=== PATIENT | male | born 1950 | race Caucasian/White ===

== ENCOUNTER 2018-07-25 09:29 | Observation (INO) | payer OTHER ==
--- OUTSIDE RECORDS SUMMARY | 2018-07-25 09:52 | XMS REPORT ---
:1950 Author Organization eClinicalWorks Care Team Providers Name Role Phone Shalonda Manrique Provider Role Unavailable Allergies, Adverse Reactions, Alerts Substance Reaction Event Type N.K.D.A. Info Not Available Non Drug Allergy Problems Problem Type Condition Code Onset Dates Condition Status Problem Medication monitoring encounter Z51.81 Active Problem History of kidney stones Z87.442 Active Problem Gastroesophageal reflux disease, K21.9 Active esophagitis presence not specified Problem Diverticulitis K57.92 Active Problem Depression F32.9 Active Problem Anxiety F41.9 Active Problem Cancer C80.1 Active Problem Sinus problem J34.9 Active Problem Kidney stones N20.0 Active Problem Erectile dysfunction N52.9 Active Assessment Gastritis, presence of bleeding K29.70 Active unspecified, unspecified chronicity, unspecified gastritis type Assessment Gastroesophageal reflux disease, K21.9 Active esophagitis presence not specified Assessment History of kidney stones Z87.442 Active Assessment 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 Problem 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 Assessment Medication monitoring encounter Z51.81 Active Problem Hypertension, unspecified type I10 Active Assessment Hypertension, unspecified type I10 Active Problem Gastritis, presence of bleeding K29.70 Active unspecified, unspecified chronicity, unspecified gastritis type Medications Medication Code Code Instructions Start End Status [id number] Orally Once Active 10 mg 1 dailly tablet (OTC) Flonase ND 01035783636 50 MCG/ACT Active 2 sprays Nasally Once a in each day nostril (otc) Amlodipine ND 70273787289 5 MG Orally Once Active 1 tablet Besylate a day Losartan ND 49914562846 100-12.5 MG Active 1 tablet Potassium-HCTZ Orally Once a day Omeprazole ND 07044021559 40 MG Orally Active 1 capsule Once a day Results No Known Results Summary Purpose eClinicalWorks Submission
--- NOTE | 2018-07-25 09:58 | RAD REPORT ---
EXAM DESCRIPTION: CT - Ct Stroke Brain Wo Cont - 07/25/2018 9:40 am CLINICAL HISTORY: Right facial numbness COMPARISON: None. TECHNIQUE: Computed axial tomography of the head was obtained. IV contrast was not requested. All CT scans are performed using dose optimization technique as appropriate and may include automated exposure control or mA/KV adjustment according to patient size. FINDINGS: An intracranial bleed is not seen . The ventricles are normal in caliber. No extra-axial fluid collection is noted. Fluid within the sinuses/ mastoids is not seen. IMPRESSION: No acute intracranial abnormality is seen. If patient's symptoms persist MRI of the bra in would be recommended. Examination was discussed with Dr. Victoria in the emergency room approximately 9:40 a.m. 07/25/2018
[2018-07-25 10:01] LABS: Absolute Lymphocytes (CBC) 1.2 K/uL (0.7-4.9); Absolute Monocytes 0.7 K/uL (0.1-1.3); Absolute Neutrophil 5.3 K/uL (1.8-8.0); Basophils % 0.7 % (0-1.3); Eosinophils % 0.2 % (0-4.4); Hematocrit 56.8 % (39.6-49.0); Lymphocytes % 16.3 % (15.3-44.8); MCH 29.5 pg (27.0-35.0); MPV 7.5 fL (7.6-11.3); Monocytes % 9.6 % (3.3-12.3); RBC Red Blood Cell Count 6.39 M/uL (4.33-5.43)
[2018-07-25 10:04] LABS: Potassium 3.9 mmol/L (3.5-5.1)
--- NOTE | 2018-07-25 10:10 | RAD REPORT ---
EXAM DESCRIPTION: RAD - Chest Single View - 07/25/2018 9:51 am CLINICAL HISTORY: MALAISE Chest pain. COMPARISON: Abdomen 1 View (KUB) dated 04/17/2018; Abdomen 1 View (KUB) dated 02/25/2016; ABDOMEN 1 VIE W KUB dated 09/02/2015; ABDOMEN 1 VIEW KUB dated 08/31/2015 FINDINGS: Portable technique limits examination quality. The lungs are grossly clear. The heart is normal in size. No displaced fractures. IMPRESSION: No acute intrathoracic process suspected.
--- NOTE | 2018-07-25 10:36 | ER ---
Nurse's Notes [facility] Name: Chema Hernandez Age: 68 yrs Sex: Male : 1950 Arrival Date: 07/25/2018 Time: 09:30 Bed 7 Private MD: Shalonda Manrique Diagnosis: Transient cerebral ischemic attacks and related syndromes Presentation: 07/25 09:34 Presenting complaint: Patient states: at about 0900 this morning had some Right sided sg facial numbness " like he had been to the dentist, spreading down into my right arm into my torso and into my right leg." symptoms have improved slightly per the the pt but still has numbness and tingling. Transition of care: patient was not received from another setting of care. Onset of symptoms was July 25, 2018. Risk Assessment: Do you want to hurt yourself or someone else? Patient reports no desire to harm self or others. Initial Sepsis Screen: Does the patient meet any 2 criteria? No. Patient's initial sepsis screen is negative. Does the patient have a suspected source of infection? No. Patient's initial sepsis screen is negative. Care prior to arrival: None. 09:34 Acuity: ERMA 2 sg 09:34 Method Of Arrival: Ambulatory sg 09:35 No acute neurological deficit is noted. Pre-hospital glucose is not applicable to this sg patient. Triage Assessment: 09:00 The onset of the patients symptoms was July 25, 2018 at 09:00. sg Stroke Activation: Symptom onset < 3 hours Physician: Stroke Attending; Name: ; Notified At: ; Arrived At: Physician: Chief Stroke Resident; Name: ; Notified At: ; Arrived At: Physician: Stroke Resident; Name: ; Notified At: ; Arrived At: Physician: ED Attending; Name: ; Notified At: ; Arrived At: Physician: ED Resident; Name: ; Notified At: ; Arrived At: Historical: - Allergies: 09:36 No Known Allergies; sg - Home Meds: 09:36 amlodipine oral [Active]; losartan oral oral [Active]; sg - PMHx: 09:36 Hypertension; Kidney stones; sg 09:47 Mitral Valve Prolapse; sg 09:50 polycythemia; sg - PSHx: 09:36 prostatectomy; bilateral inguinal hernia repair; sg - Immunization history:: Adult Immunizations unknown. - Social history:: Smoking status: Patient uses tobacco products, 4 cigarettes a day, Patient uses alcohol, on a daily basis. 1 to 2 beverages a night. - Ebola Screening: : Patient negative for fever greater than or equal to 101.5 degrees Fahrenheit, and additional compatible Ebola Virus Disease symptoms Patient denies exposure to infectious person Patient denies travel to an Ebola-affected area in the 21 days before illness onset No symptoms or risks identified at this time. Screenin:48 Abuse screen: Denies threats or abuse. Denies injuries from another. Nutritional sg screening: No deficits noted. Tuberculosis screening: No symptoms or risk factors identified. Never had TB. Fall Risk None identified. Assessment: 09:30 General: Appears in no apparent distress. comfortable, well groomed, well developed, sg well nourished, Behavior is calm, cooperative, appropriate for age. Pain: Denies pain. Quality of pain is described as numb. Neuro: Reports numbness in right cheek and right arm. Cardiovascular: Capillary refill is brisk in bilateral fingers Patient's skin is warm and dry. Chest pain is denied. Respiratory: Airway is patent Respiratory effort is even, unlabored, Respiratory pattern is regular, symmetrical. GI: No signs and/or symptoms were reported involving the gastrointestinal system. : No signs and/or symptoms were reported regarding the genitourinary system. EENT: No signs and/or symptoms were reported regarding the EENT system. Derm: Skin is pink, warm \\T\\ dry. Musculoskeletal: No signs and/or symptoms reported regarding the musculoskeletal system. 09:39 Patient has been NPO before screening. The patient is alert, and able to follow sg commands. The patient does not exhibit slurred or garbled speech. The patient is not exhibiting difficulty speaking. The patient does not exhibit difficulty understanding words. The patient is able to swallow own secretions with no drooling or need for suction. Patient tolerated one teaspoon of water. No drooling, immediate coughing, gurgling, or clearing of the throat was noted. The patient tolerated 90mL of water. No drooling, immediate coughing, gurgling, or clearing of the throat was noted. The patient passed the bedside swallow screening. Oral medications may be given as ordered. Contact Physician for further diet orders. T-PA (Activase) Screening: Contraindications: Rapidly improving condition or minor deficit: Yes. 09:39 Provider notified of bedside swallow screening results: Zen Victoria MD. sg 10:30 Reassessment: Patient appears in no apparent distress at this time. Patient and/or hb family updated on plan of care and expected duration. Pain level reassessed. Patient is alert, oriented x 3, equal unlabored respirations, skin warm/dry/pink. Vital Signs: 09:43 BP 135 / 103; Pulse 65; Resp 16 S; Temp 97.6(O); Pulse Ox 98% on R/A; Weight 64.41 kg sg (R); Height 5 ft. 8 in. (172.72 cm) (R); Pain 3/10; 10:53 BP 131 / 89; Pulse 60; Resp 17; Pulse Ox 100% on R/A; Pain 3/10; sg 11:30 BP 128 / 86; Pulse 54; Resp 15; Pulse Ox 100% on R/A; hb 12:40 BP 120 / 83; Pulse 57; Resp 16; Pulse Ox 100% on R/A; hb 09:43 Body Mass Index 21.59 (64.41 kg, 172.72 cm) sg NIH Stroke Scale Scores: 09:35 NIHSS Score: 0 gs 09:39 NIHSS Score: 0 ED Course: 09:30 Patient arrived in ED. as 09:30 Shalonda Manrique MD is Private Physician. as 09:33 Zen Victoria MD is Attending Physician. gs 09:35 Triage completed. sg 09:37 Arm band placed on. sg 09:39 CT Stroke Brain w/o Contrast In Process Unspecified. EDMS 09:40 Initial lab(s) drawn, by ED staff, sent to lab. Inserted saline lock: 20 gauge in right sg forearm, using aseptic technique. Blood collected. 09:43 Scout Cuevas, RN is Primary Nurse. sg 09:45 Patient has correct armband on for positive identification. Placed in gown. Bed in low hb position. Call light in reach. Side rails up X 1. 09:49 Stroke CXR 1 View In Process Unspecified. EDMS 10:13 EKG done, by central sterile technician. reviewed by Zen Victoria MD. at1 10:35 Abner Rodriguez DO is Hospitalizing Provider. gs 13:05 No provider procedures requiring assistance completed. Patient admitted, IV remains in sg place. intact, No redness/swelling at site. Administered Medications: No medications were administered Point of Care Testing: Blood Glucose: 09:42 Blood Glucose: 102 mg/dL; hb Ranges: Outcome: 10:35 Decision to Hospitalize by Provider. 13:05 Admitted to Tele accompanied by cody, via wheelchair, room 419, with chart, Report sg called to Darshana MCARTHUR 13:05 Condition: good 13:05 Instructed on the need for admit, safety practices, Demonstrated understanding of instructions. 13:20 Patient left the ED. cp NIH Stroke Scale - NIH Stroke Score Date: 07/25/2018 Time: 09:35 Total Score = 0 1a. Level of Consciousness (LOC) - 0(Alert) 1b. Level of Consciousness (LOC) (Year \\T\\ Age) - 0(Both) 1c. LOC Commands (Open \\T\\ Closes Eyes/Child Care Lead Teacher) - 0(Both) 2. Best Gaze (Lateral Gaze Paresis) - 0(Normal) 3. Visual Field Loss - 0(No visual loss) 4. Facial Palsy - 0(Normal) 5a. Left Arm: Motor (10-second hold) - 0(No drift) 5b. Right Arm: Motor (10-second hold) - 0(No drift) 6a. Left Leg: Motor (5-second hold - always test supine) - 0(No drift) 6b. Right Leg: Motor (5-second hold - always test supine) - 0(No drift) 7. Limb Ataxia (finger/nose \\T\\ heel/shelton - test with eyes open) - 0(Absent) 8. Sensory Loss (pinprick arms/legs/face) - 0(Normal) 9. Best Language: Aphasia (description/naming/reading) - 0(No aphasia) 10. Dysarthria (speech clarity - read or repeat words) - 0(Normal) 11. Extinction and Inattention (visual/tactile/auditory/spatial/personal) - 0(No abnormality) Initials: NIH Stroke Scale - NIH Stroke Score Date: 07/25/2018 Time: 09:39 Total Score = 0 1a. Level of Consciousness (LOC) - 0(Alert) 1b. Level of Consciousness (LOC) (Year \\T\\ Age) - 0(Both) 1c. LOC Commands (Open \\T\\ Closes Eyes/Child Care Lead Teacher) - 0(Both) 2. Best Gaze (Lateral Gaze Paresis) - 0(Normal) 3. Visual Field Loss - 0(No visual loss) 4. Facial Palsy - 0(Normal) 5a. Left Arm: Motor (10-second hold) - 0(No drift) 5b. Right Arm: Motor (10-second hold) - 0(No drift) 6a. Left Leg: Motor (5-second hold - always test supine) - 0(No drift) 6b. Right Leg: Motor (5-second hold - always test supine) - 0(No drift) 7. Limb Ataxia (finger/nose \\T\\ heel/shelton - test with eyes open) - 0(Absent) 8. Sensory Loss (pinprick arms/legs/face) - 0(Normal) 9. Best Language: Aphasia (description/naming/reading) - 0(No aphasia) 10. Dysarthria (speech clarity - read or repeat words) - 0(Normal) 11. Extinction and Inattention (visual/tactile/auditory/spatial/personal) - 0(No abnormality) Initials: sg Signatures: Dispatcher [employer] EDScout Gongora RN RN Robyn Nicholas Amanda, tooling specialist EKG Tat1 Doulgas Fernandez PA PA cp Baxter, Heather, RN RN Zen Victoria MD MD gs Corrections: (The following items were deleted from the chart) 09:53 09:43 BP 135 / 103; Pulse 65bpm; Resp 16bpm; Spontaneous; Pulse Ox 98% RA; Temp sg 97.6F Oral; 78.02 kg Reported; Height 5 ft. 8 in. Reported; BMI: 26.1; Pain 10; sg
--- NOTE | 2018-07-25 10:36 | EDPHYS ---
Physician Documentation [facility] Name: Chema Hernandez Age: 68 yrs Sex: Male : 1950 Arrival Date: 07/25/2018 Time: 09:30 Bed 7 Private MD: Shalonda Manirque ED Physician Zen Victoria HPI: 07/25 09:35 This 68 yrs old Male presents to ER via Ambulatory with complaints of gs Numbness - R Arm/Leg. 10:29 The patient's problem is reported as paresthesias, in right upper extremity, in right gs lower extremity, in right side of face. Onset: The symptoms/episode began/occurred acutely, today, at 09:00. Duration: This was a single incident, lasting 30 minute(s). The symptoms are alleviated by nothing. The symptoms are aggravated by nothing. Associated signs and symptoms: Pertinent negatives: chest pain, combativeness, confusion. Severity of symptoms: At their worst the symptoms were severe in the emergency department the symptoms have resolved and did so just prior to arrival. Patient's baseline: Neuro: alert and fully oriented, Motor: no deficits, Ambulation: walks without assistance, Speech: normal. The patient has not experienced similar symptoms in the past. The patient has not recently seen a physician. Historical: - Allergies: 09:36 No Known Allergies; sg - Home Meds: 09:36 amlodipine oral [Active]; losartan oral oral [Active]; sg - PMHx: 09:36 Hypertension; Kidney stones; sg 09:47 Mitral Valve Prolapse; sg 09:50 polycythemia; sg - PSHx: 09:36 prostatectomy; bilateral inguinal hernia repair; sg - Immunization history:: Adult Immunizations unknown. - Social history:: Smoking status: Patient uses tobacco products, 4 cigarettes a day, Patient uses alcohol, on a daily basis. 1 to 2 beverages a night. - Ebola Screening: : Patient negative for fever greater than or equal to 101.5 degrees Fahrenheit, and additional compatible Ebola Virus Disease symptoms Patient denies exposure to infectious person Patient denies travel to an Ebola-affected area in the 21 days before illness onset No symptoms or risks identified at this time. ROS: 10:29 All other systems are negative. gs Exam: 10:29 Constitutional: This is a well developed, well nourished patient who is awake, alert, gs and in no acute distress. Head/Face: Normocephalic, atraumatic. Eyes: Pupils equal round and reactive to light, extra-ocular motions intact. Lids and lashes normal. Conjunctiva and sclera are non-icteric and not injected. Cornea within normal limits. Periorbital areas with no swelling, redness, or edema. ENT: Nares patent. No nasal discharge, no septal abnormalities noted. Tympanic membranes are normal and external auditory canals are clear. Oropharynx with no redness, swelling, or masses, exudates, or evidence of obstruction, uvula midline. Mucous membranes moist. Neck: Trachea midline, no thyromegaly or masses palpated, and no cervical lymphadenopathy. Supple, full range of motion without nuchal rigidity, or vertebral point tenderness. No Meningismus. Chest/axilla: Normal chest wall appearance and motion. Nontender with no deformity. No lesions are appreciated. Cardiovascular: Regular rate and rhythm with a normal S1 and S2. No gallops, murmurs, or rubs. Normal PMI, no JVD. No pulse deficits. Respiratory: Lungs have equal breath sounds bilaterally, clear to auscultation and percussion. No rales, rhonchi or wheezes noted. No increased work of breathing, no retractions or nasal flaring. Abdomen/GI: Soft, non-tender, with normal bowel sounds. No distension or tympany. No guarding or rebound. No evidence of tenderness throughout. Back: No spinal tenderness. No costovertebral tenderness. Full range of motion. Skin: Warm, dry with normal turgor. Normal color with no rashes, no lesions, and no evidence of cellulitis. MS/ Extremity: Pulses equal, no cyanosis. Neurovascular intact. Full, normal range of motion. 10:29 ECG was reviewed by the Attending Physician. 10:29 Neuro: Orientation: is normal, Mentation: appropriate for stated age, Memory: is normal, Cranial nerves: CN II- XII are normal as tested, Cerebellar function: normal finger to nose testing, Motor: moves all fours, strength is normal, Sensation: no obvious gross deficits, pin prick testing is normal, Gait: is steady. Vital Signs: 09:43 BP 135 / 103; Pulse 65; Resp 16 S; Temp 97.6(O); Pulse Ox 98% on R/A; Weight 64.41 kg sg (R); Height 5 ft. 8 in. (172.72 cm) (R); Pain 3/10; 10:53 BP 131 / 89; Pulse 60; Resp 17; Pulse Ox 100% on R/A; Pain 3/10; sg 11:30 BP 128 / 86; Pulse 54; Resp 15; Pulse Ox 100% on R/A; hb 12:40 BP 120 / 83; Pulse 57; Resp 16; Pulse Ox 100% on R/A; hb 09:43 Body Mass Index 21.59 (64.41 kg, 172.72 cm) NIH Stroke Scale Scores: 09:35 NIHSS Score: 0 gs 09:39 NIHSS Score: 0 sg MDM: 09:47 Patient medically screened. gs 10:29 Differential diagnosis: CVA, TIA, paralysis, metabolic disorder. Data reviewed: vital gs signs, nurses notes. Response to treatment: the patient's symptoms have resolved after treatment, and as a result, I will admit patient. 07/25 09:34 Order name: Basic Metabolic Panel; Complete Time: 10:39 07/25 09:34 Order name: CBC with Diff; Complete Time: 10:39 07/25 09:34 Order name: Protime (+inr); Complete Time: 10:40 07/25 09:45 Order name: Glucose, Ancillary Testing; Complete Time: 10:39 EDMS 07/25 12:11 Order name: T4 Free; Complete Time: 12:13 EDMS 07/25 12:11 Order name: Thyroid Stimulating Hormone; Complete Time: 12:13 EDMS 07/25 09:34 Order name: CT Stroke Brain w/o Contrast; Complete Time: 10:39 07/25 09:34 Order name: Stroke CXR 1 View; Complete Time: 10:39 07/25 09:34 Order name: EKG; Complete Time: 09:35 07/25 09:34 Order name: Accucheck; Complete Time: 09:45 07/25 09:34 Order name: Cardiac monitoring; Complete Time: 09:45 07/25 09:34 Order name: EKG - Nurse/Tech; Complete Time: 10:03 07/25 09:34 Order name: IV Saline Lock; Complete Time: 09:45 07/25 10:44 Order name: CONS Physician Consult EDMS 07/25 09:34 Order name: Labs collected and sent; Complete Time: 09:45 gs 07/25 09:34 Order name: NPO; Complete Time: 09:45 gs 07/25 09:34 Order name: O2 Per Protocol; Complete Time: 09:45 gs 07/25 09:34 Order name: O2 Sat Monitoring; Complete Time: 09:45 gs 07/25 09:34 Order name: Stroke Swallow Screen; Complete Time: 10:03 gs EC:29 Rate is 66 beats/min. Rhythm is regular. TX interval is normal. QRS interval is gs prolonged. Q waves are Old in leads II, III, aVF. T waves are Inverted. Clinical impression: NSR w/ Non-specific ST/T Changes and Abnormal EKG without significant change. Interpreted by me. Administered Medications: No medications were administered Point of Care Testing: Blood Glucose: 09:42 Blood Glucose: 102 mg/dL; hb Ranges: Critical Glucose Levels:Adult <50 mg/dl or >400 mg/dl <40 mg/dl or >180 mg/dl Disposition: 07/25/18 10:35 Hospitalization ordered by Abner Rodriguez for Observation. Preliminary diagnosis is Transient cerebral ischemic attacks and related syndromes. - Bed requested for Telemetry/MedSurg (observation). - Status is Observation. cp - Condition is Stable. - Problem is new. - Symptoms are resolved. UTI on Admission? No NIH Stroke Scale - NIH Stroke Score Date: 07/25/2018 Time: 09:35 Total Score = 0 1a. Level of Consciousness (LOC) - 0(Alert) 1b. Level of Consciousness (LOC) (Year \T\ Age) - 0(Both) 1c. LOC Commands (Open \T\ Closes Eyes/Taker Off Drying Kiln) - 0(Both) 2. Best Gaze (Lateral Gaze Paresis) - 0(Normal) 3. Visual Field Loss - 0(No visual loss) 4. Facial Palsy - 0(Normal) 5a. Left Arm: Motor (10-second hold) - 0(No drift) 5b. Right Arm: Motor (10-second hold) - 0(No drift) 6a. Left Leg: Motor (5-second hold - always test supine) - 0(No drift) 6b. Right Leg: Motor (5-second hold - always test supine) - 0(No drift) 7. Limb Ataxia (finger/nose \T\ heel/shelton - test with eyes open) - 0(Absent) 8. Sensory Loss (pinprick arms/legs/face) - 0(Normal) 9. Best Language: Aphasia (description/naming/reading) - 0(No aphasia) 10. Dysarthria (speech clarity - read or repeat words) - 0(Normal) 11. Extinction and Inattention (visual/tactile/auditory/spatial/personal) - 0(No abnormality) Initials: NIH Stroke Scale - NIH Stroke Score Date: 07/25/2018 Time: 09:39 Total Score = 0 1a. Level of Consciousness (LOC) - 0(Alert) 1b. Level of Consciousness (LOC) (Year \T\ Age) - 0(Both) 1c. LOC Commands (Open \T\ Closes Eyes/Taker Off Drying Kiln) - 0(Both) 2. Best Gaze (Lateral Gaze Paresis) - 0(Normal) 3. Visual Field Loss - 0(No visual loss) 4. Facial Palsy - 0(Normal) 5a. Left Arm: Motor (10-second hold) - 0(No drift) 5b. Right Arm: Motor (10-second hold) - 0(No drift) 6a. Left Leg: Motor (5-second hold - always test supine) - 0(No drift) 6b. Right Leg: Motor (5-second hold - always test supine) - 0(No drift) 7. Limb Ataxia (finger/nose \T\ heel/shelton - test with eyes open) - 0(Absent) 8. Sensory Loss (pinprick arms/legs/face) - 0(Normal) 9. Best Language: Aphasia (description/naming/reading) - 0(No aphasia) 10. Dysarthria (speech clarity - read or repeat words) - 0(Normal) 11. Extinction and Inattention (visual/tactile/auditory/spatial/personal) - 0(No abnormality) Initials: Signatures: Dispatcher [employer] Sherin Parker RN RN dw Gay, Steven, RN RN sg Page, Corey, PA PA cp Starr, Gregory, MD MD gs Corrections: (The following items were deleted from the chart) 12:16 10:35 Hospitalization Ordered by Abner Rodriguez DO for Observation. Preliminary diagnosis is Transient cerebral ischemic attacks and related syndromes. Bed requested for Telemetry/MedSurg (observation). Status is Observation. Condition is Stable. Problem is new. Symptoms are resolved. UTI on Admission? No. gs 13:20 12:16 07/25/2018 10:35 Hospitalization Ordered by Abner Rodriguez DO for cp Observation. Preliminary diagnosis is Transient cerebral ischemic attacks and related syndromes. Bed requested for Telemetry/MedSurg (observation). Status is Observation. Condition is Stable. Problem is new. Symptoms are resolved. UTI on Admission? No. dw
[2018-07-25] MEDS ORDERED: ONDANSETRON 4 MG/2 ML VIAL IV PRN (11:27)
[2018-07-25] MEDS ORDERED: ACETAMINOPHEN 500 MG TAB PO PRN (11:27)
[2018-07-25 12:10] LABS: Thyroid Stimulating Hormone 0.819 uIU/mL (0.360-3.740)
--- NOTE | 2018-07-25 12:25 | EKG ---
Test Date: 2018-07-25 Test Time: 09:48:20 Tugger Operator: SHERICE MEASUREMENT RESULTS: Intervals: Rate: 66 IL: 162 QRSD: 112 QT: 380 QTc: 398 Vida: P: 39 IL: 162 QRS: 260 T: -25 INTERPRETIVE STATEMENTS: Normal sinus rhythm Right superior axis deviation Low voltage QRS Inferior infarct, age undetermined Anteroseptal infarct, age undetermined Abnormal ECG Compared to ECG 08/07/2015 12:05:25 Right superior axis now present Low QRS voltage now present Left-axis deviation no longer present Myocardial infarct finding still present Electronically Signed On 07-25-18 12:24:09 CDT by Jefe Walters
--- NOTE | 2018-07-25 13:39 | P.HP ---
Certification for Inpatient Patient admitted to: Observation With expected LOS: <2 Midnights Patient will require the following post-hospital care: None Practitioner: I am a practitioner with admitting privileges, knowledge of patient current condition, hospital course, and medical plan of care. Services: Services provided to patient in accordance with Admission requirements found in Title 42 Section 412.3 of the Code of Federal Regulations Patient History Date of Service: 07/25/18 Primary Care Provider: Dr. Ko; Urology-Dr. Krueger; Hemotology-Dr. Paige; GI-Dr. Knight Reason for admission: Right facial and upper/lower extremity numbness History of Present Illness: 68-year-old male presented to the emergency room with facial and upper /lower extremity numbness. Patient with history of hypertension, polycythemia, mitral valve prolapse, and tobacco abuse. 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 He started to have some right facial numbness. The numbness spread to the right upper and lower extremity. He denied any weakness, vision loss, speech loss, chest pain, shortness of breath or nausea. the numbness lasted about 10 min. This resolved. After discussing this with his . He came to the emergency room for further evaluation. In the ER patient was evaluated. Blood pressure stable 123/81. Hemoglobin 18.8 with a hematocrit of 56. White count 7.2. Sodium 143, potassium 3.9, BUN 18, creatinine 1.4 with a GFR 51. Glucose 138. CT of the head unremarkable. Chest x-ray unremarkable. The patient was admitted for further evaluation. When I saw the patient ER, he was without complaints. He reports a history of polycythemia. 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 He reports that he had been getting phlebotomies every month but this was becoming more inconvenient. He stop will bottom use in April. Patient also smokes. He reports a history of hypertension, mitral valve prolapse. Allergies No Known Allergies Allergy (Verified 08/07/15 11:44) Home medications list reviewed: Yes Home Medications: Amlodipine [Norvasc] 2.5 mg PO DAILY 08/07/15 Codeine/APAP [Tylenol #3*] 1 tab PO PRN PRN 08/07/15 Losartan/Hydrochlorothiazide [Hyzaar 100-12.5 Tablet] 1 tab PO DAILY 08/07/15 - Past Medical/Surgical History Diabetic: No -: Hypertension -: Polycythemia -: Nephrolithiasis -: History of prostate cancer -: Mitral valve prolapse -: Radical prostatectomy -: Hernia repair -: Rotator cuff repair Psychosocial/ Personal History: He is . He has 2 children. 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 - Family History Mother -: Cancer (Liver cancer) Father -: Heart disease - Social History Smoking Status: Light Tobacco smoker (1-9 cigarettes/day) Counseled patient to stop smoking for: less than 10 minutes Smoking therapy provided: Yes Patient receptive to therapy: Yes Alcohol use: Yes CD- Drugs: No Caffeine use: Yes Place of Residence: Home Review of Systems General: As per HPI Eyes: Unremarkable ENT: As per HPI Respiratory: Unremarkable Cardiovascular: Unremarkable Gastrointestinal: Unremarkable Genitourinary: Unremarkable Musculoskeletal: Unremarkable Integumentary: Unremarkable Neurological: Numbness, As per HPI Lymphatics: Unremarkable Physical Examination - Vital Signs Temperature: 97.6 F Blood Pressure: 120/83 Pulse: 57 Respirations: 16 - Physical Exam General: Alert, In no apparent distress, Oriented x3, Cooperative HEENT: Atraumatic, Normocephalic, PERRLA, Mucous membr. moist/pink Neck: Supple, No Thyromegaly Respiratory: Clear to auscultation bilaterally, Normal air movement Cardiovascular: Normal pulses, Regular rate/rhythm Gastrointestinal: Normal bowel sounds, Soft and benign, Non-distended, No tenderness, No masses, No rebound, No guarding Musculoskeletal: No erythema, No tenderness, No warmth Integumentary: No tenderness/swelling, No erythema, No warmth, No cyanosis Neurological: Normal speech, Normal strength at 5/5 x4 extr, Normal tone, Normal affect Lymphatics: No axilla or inguinal lymphadenopathy - Studies Laboratory Data (last 24 hrs) 07/25/18 10:20: PT 11.8, INR 1.00 07/25/18 09:40: WBC 7.2, Hgb 18.8 H, Hct 56.8 H, Plt Count 314 07/25/18 09:40: Sodium 143, Potassium 3.9, BUN 18, Creatinine 1.40 H, Glucose 138 H Assessment and Plan - Plan Impression: Right facial and upper/lower extremity numbness, resolved likely TIA Polycythemia vera Hypertension Nephrolithiasis Tobacco abuse Plan: Right facial and upper/lower extremity numbness, resolved likely TIA: Symptoms have resolved. Patient will be monitored closely. Will order stroke protocol MRI, echocardiogram and carotid Doppler to further evaluate. Patient now on aspirin 81 mg daily, folic acid 1 mg daily, and Lipitor daily. TIA likely related to polycythemia vera. Patient had been getting phlebotomies every month but this was becoming too inconvenient. His last phlebotomy was April 2018. Patient will get phlebotomized. Will continue with IV fluids. Will physical therapy assess ambulation. Await further recommendations from neurology. Case discussed at length with hematology. Polycythemia vera: As above. Patient will get a phlebotomy. Will continue with IV fluids. Recommend hematocrit less than 45. This will need to be maintained as an outpatient. Patient will likely require future follow phlebotomies. Hypertension: Will review and restart home medication. Nephrolithiasis: Overall stable. Tobacco abuse: Tobacco cessation addressed in detail. Will continue with cessation education. I will turn the service over to Dr. Capone tomorrow. I will go over the plan of care with her. Discharge Plan: Home Plan to discharge in: 24 Hours - Advance Directives Does patient have a Living Will: No Does patient have a Durable POA for Healthcare: No - Code Status/Comfort Care Code Status Assessed: Yes (Patient full code.) Time Spent Managing Pts Care (In Minutes): 55
[2018-07-25] MEDS: NA CHLORIDE 0.9% 1,000 ML IV SCH (14:08)
[2018-07-25 15:43] LABS: CKMB Creatine Kinase MB < 1.0 ng/mL (0.3-3.6); Creatine Phosphokinase 57 U/L (39-308); Troponin I < 0.02 ng/mL (0.0-0.045)
[2018-07-25 15:50] LABS: Urine Appearance CLEAR; Urine Bilirubin NEGATIVE (NEG); Urine Blood 3+ (NEG); Urine Color YELLOW; Urine Glucose NEGATIVE (NEG); Urine Protein 2+ (NEG); Urine Specific Gravity 1.015 (1.005-1.030); Urine pH 7.5 (5.0-7.0)
[2018-07-25] MEDS ORDERED: INFLUENZA VACCINE (for 3y+) 0.5 ML DOSE IMVAC ONE (16:00)
[2018-07-25 16:01] LABS: Urine Microscopic Reflex ORDER UMIC
[2018-07-25 16:46] LABS: Urine Bacteria <20 /HPF (NONE SEEN); Urine Culture Reflex Order REFLEXED; Urine RBC >50 /HPF (NONE SEEN)
[2018-07-25] MEDS: ENOXAPARIN 40 MG/0.4 ML SQ SCH (17:04)
[2018-07-25] MEDS ORDERED: ATORVASTATIN 40 MG TAB PO SCH (21:00)
[2018-07-25 23:06] LABS: CKMB Creatine Kinase MB < 1.0 ng/mL (0.3-3.6); Creatine Phosphokinase 36 U/L (39-308); Troponin I < 0.02 ng/mL (0.0-0.045)
[2018-07-26] MEDS: NA CHLORIDE 0.9% 1,000 ML IV SCH ×2 (00:55→14:40)
[2018-07-26 04:14] LABS: Absolute Lymphocytes (CBC) 1.2 K/uL (0.7-4.9); Absolute Monocytes 0.7 K/uL (0.1-1.3); Absolute Neutrophil 5.6 K/uL (1.8-8.0); Basophils % 0.4 % (0-1.3); Eosinophils % 1.2 % (0-4.4); Lymphocytes % 15.7 % (15.3-44.8); MCH 29.5 pg (27.0-35.0); MPV 7.6 fL (7.6-11.3); Monocytes % 9.6 % (3.3-12.3); RBC Red Blood Cell Count 5.95 M/uL (4.33-5.43)
[2018-07-26 04:25] LABS: Magnesium 1.9 mg/dL (1.8-2.4); Potassium 3.6 mmol/L (3.5-5.1)
[2018-07-26] MEDS ORDERED: PANTOPRAZOLE 40MG TABLET PO SCH (06:30)
[2018-07-26] MEDS ORDERED: ASPIRIN EC 81 MG TAB PO SCH (09:00)
[2018-07-26] MEDS: ENOXAPARIN 40 MG/0.4 ML SQ SCH (17:07)
--- NOTE | 2018-07-26 17:07 | ECHO ---
HEIGHT: 5 ft 8 in WEIGHT: 141 lb 15.996 oz DATE OF STUDY: 07/26/[address]: Neeta Capone MD 2-DIMENSIONAL: YES M.MODE: YES DOPPLER: YES COLOR FLOW: YES TDS: PORTABLE: DEFINITY: BUBBLE STUDY: DIAGNOSIS: TRANSIENT ISCHEMIC ATTACK CARDIAC HISTORY: CATHERIZATION: NO SURGERY: NO PROSTHETIC VALVE: NO PACEMAKER: NO MEASUREMENTS (cm) DIASTOLIC (NORMALS) SYSTOLIC (NORMALS) 2 DIMENSIONAL ASSESSMENT: RIGHT ATRIUM: NORMAL LEFT ATRIUM: NORMAL RIGHT VENTRICLE: NORMAL LEFT VENTRICLE: NORMAL TRICUSPID VALVE: NORMAL MITRAL VALVE:MITRAL VALVE PROLAPSE WITH THICKENED LEAFLET PULMONIC VALVE: NORMAL AORTIC VALVE: NORMAL PERICARDIAL EFFUSION: NONE AORTIC ROOT: NORMAL LEFT VENTRICULAR WALL MOTION: NORMAL DOPPLER/COLOR FLOW: NORMAL COMMENTS: NORMAL LEFT VENTRICULAR EJECTION FRACTION. MITRAL VALVE PROLAPSE WITH MITRAL LEAFLET THICKENING. NO MITRAL REGURGITATION. OTHERWISE NORMAL TWO DIMENSIONAL ECHOCARDIOGRAM WITH DOPPLER. TECHNOLOGIST: PETRA BELCHER
--- NOTE | 2018-07-26 17:09 | RAD REPORT ---
EXAM DESCRIPTION: MRI - Brain W/Wo Cont - 07/26/2018 4:51 pm CLINICAL HISTORY: Right facial numbness COMPARISON: 07/25/2018 cat scan TECHNIQUE: Axial, sagittal, and coronal magnetic images of the brain were obtained. 15 cc Magnevist administered intravenously FINDINGS: A few small areas increased signal are present within periventricular, deep and subcortica l white matter likely representing ischemic changes secondary to mild small vessel disease. Diffusion-weighted/ADC mapping does not reveal evidence of acute infarction. The ventricles are normal caliber. No abnormal enhancement within the brain is seen. An extra-axial fluid collection is not seen. The sinuses and mastoids are clear. IMPRESSION: No acute abnormality displayed
--- NOTE | 2018-07-26 17:11 | RAD REPORT ---
EXAM DESCRIPTION: MRI - MRA Neck W/Wo Cont - 07/26/2018 4:51 pm CLINICAL HISTORY: Facial numbness COMPARISON: None. TECHNIQUE: Magnetic resonance angiogram of the neck was performed. 16 cc Magnevist was administered intravenously. 3D MIPS reconstruction performed FINDINGS: The common carotid, internal carotid and external carotid arteries do not demonstrate a si gnificant stenosis. An aneurysm is not seen. The left vertebral artery is more dominant than the right. No abnormality is displayed. IMPRESSION: Unremarkable MRA neck
--- NOTE | 2018-07-26 17:13 | RAD REPORT ---
EXAM DESCRIPTION: MRI - MRA Head Wo Cont - 07/26/2018 4:50 pm CLINICAL HISTORY: Facial numbness COMPARISON: None. TECHNIQUE: Magnetic resonance angiogram of the head was performed. 3D MIPS reconstruction performed FINDINGS: The visualized anterior cerebral, middle cerebral, posterior cerebral, basilar and distal internal carotid arteries do not demonstrate a significant stenosis. An aneurysm is not seen IMPRESSION: Unremarkable MRA head
--- NOTE | 2018-07-26 17:29 | P.SSS ---
Patient History Date of Service: 07/26/18 Primary Care Provider: Dr. Ko; Urology-Dr. Krueger; Hemotology-Dr. Paige; GI-Dr. Knight Reason for admission: Right facial and upper/lower extremity numbness History of Present Illness: See HPI Allergies No Known Allergies Allergy (Verified 08/07/15 11:44) Home Medications: Amlodipine [Norvasc*] 2.5 mg PO DAILY 08/07/15 Losartan/Hydrochlorothiazide [Hyzaar 100-12.5 Tablet] 1 tab PO DAILY 08/07/15 Omeprazole [Prilosec] 40 mg PO DAILY 07/25/18 Aspirin 81 mg PO DAILY #30 tab.chew 07/26/18 Atorvastatin Calcium [Lipitor] 80 mg PO BEDTIME #30 tab 07/26/18 - Past Medical/Surgical History Has patient received pneumonia vaccine in the past: No Diabetic: No -: Hypertension -: Polycythemia -: Nephrolithiasis -: History of prostate cancer -: Mitral valve prolapse -: Radical prostatectomy -: Hernia repair -: Rotator cuff repair Psychosocial/ Personal History: He is . He has 2 children. 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 - Family History Mother -: Cancer Father -: Heart disease - Social History Smoking Status: Light Tobacco smoker (1-9 cigarettes/day) Alcohol use: Yes CD- Drugs: No Caffeine use: Yes Place of Residence: Home Review of Systems 10-point ROS is otherwise unremarkable Physical Examination - Vital Signs Temperature: 98 F Blood Pressure: 134/79 Pulse: 61 Respirations: 20 Pulse Ox (%): 98 - Physical Exam General: Alert, In no apparent distress HEENT: Atraumatic, PERRLA, Mucous membr. moist/pink, EOMI, Sclerae nonicteric Neck: Supple, 2+ carotid pulse no bruit, No LAD, Without JVD or thyroid abnormality Respiratory: Clear to auscultation bilaterally, Normal air movement Cardiovascular: Regular rate/rhythm, Normal S1 S2 Gastrointestinal: Normal bowel sounds, No tenderness Musculoskeletal: No tenderness Integumentary: No rashes Neurological: Normal gait, Normal speech, Normal strength at 5/5 x4 extr, Normal tone, Normal affect Lymphatics: No axilla or inguinal lymphadenopathy - Diagnosis (Problem(s)) (1) Numbness of right lower extremity Onset Date: 07/26/18 Current Visit: Yes Status: Resolved (2) Hypertension Onset Date: 07/26/18 Current Visit: Yes Status: Chronic Qualifiers: Hypertension type: essential hypertension Qualified Code(s): I10 - Essential (primary) hypertension (3) Tobacco abuse Onset Date: 07/26/18 Current Visit: Yes Status: Chronic Treatment Summary: Overall during the hospital stay patient remained stable Patient was in the hospital for numbness and tingling on the right side upper and lower extremity. Patient had a TIA workup done here in the hospital. Patient had marked resolution of his symptoms once he was started on aspirin and Lipitor here in the hospital. Numbness and tingling with had resolved here in the ER. Patient had a head CT done here in the hospital which was negative for any acute CVA. MRI was also negative for any acute abnormality. Echocardiogram done was also negative for any acute abnormality. At that time patient was discharged home under stable condition was asked to continue taking aspirin and Lipitor on discharge to prevent future CVAs. Patient demonstrated understanding and thus was discharged under stable condition - Disposition Disposition: ROUTINE DISCHARGE Condition: GOOD Diet: Regular Activity: Ad leon
--- NOTE | 2018-07-26 23:08 | CON ---
Reason For Consultation: Consultation called because of possible stroke involving the right side of the face, arm, and leg. History Of Present Illness: Mr. Hernandez is a 68-year-old patient with history of hypertension, polyc ythemia, mitral valve prolapse, prostate cancer, who comes in with complaints of a spreading numbness that began in his right face that spread to the right arm, trunk, and leg. The symptoms lasted abou t 10 minutes; however, and the patient did come in to [facility] for an evaluation. His hea d CT scan in the emergency room showed no acute ischemic or hemorrhagic change. Subsequent brain MRI stroke protocol was normal. No stroke identified. Magnetic resonance angiogram was unremarkable fo r head and for his neck. Echocardiogram showed ejection fraction being normal. His chest x-ray show ed no acute intrathoracic processes. His complete blood count with differential did show elevated he moglobin, hematocrit, and elevated RBCs although slight. The patient does have the polycythemia iden tified. Coagulation panel was normal. Chemistries did show dehydration with creatinine of 1.4, gluc ose slightly elevated 138. Otherwise, thyroid function is normal. HDL cholesterol low at 37, LDL ch olesterol normal at 85. His urinalysis did show greater than 50 red blood cells, 3+ blood, 10-20 whi te blood cells, 2+ protein. Past Medical History: Includes hypertension, polycythemia, nephrolithiasis, prostate cancer, mitral valve prolapse. Surgical History: Radical prostatectomy, hernia surgery, rotator cuff surgery. Family History: Positive for liver cancer in mother and heart disease in father. Allergies: NO KNOWN DRUG ALLERGIES. Home Medications: Norvasc 2.5 mg daily, Tylenol 3 one tablet as needed, losartan/hydrochlorothiazide 10/12.5 one tablet daily. Review of Systems: He denies any fevers, chills, nausea, vomiting, myalgias, arthralgias, headache, weight change, rash. No psychiatric complaints, gastrointestinal complaints, genitourinary complaints, or other positive s on a 10-point systems review. Physical Examination: Vital Signs: Blood pressure 134/79, pulse 61, respiratory rate 20, temperature 98, ox saturation 98% on room air. Weight 141 pounds. Height 5 feet 8 inches. General: Mr. Hernandez is resting comfortably in bed. He is in no acute distress. HEENT: He is normocephalic, atraumatic. Sclerae are anicteric. Oropharynx is moist and pink. Neck: Supple. Chest: Clear. Heart: Regular. Extremities: Show no edema, cyanosis, or clubbing. Neurologic: Alert and oriented to situation, place, and person. No expressive or receptive aphasias . Cranial nerves are intact 2 through 12. He has no motor, sensory, coordination, gait, or reflex a bnormalities. Reflexes 2+ upper and lower extremities. Assessment: Mr. Hernandez is a 68-year-old patient with a possible transient ischemic attack. 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 As indicated, likely transient ischemic attack. Plan: Aspirin 81 mg daily, Lipitor 40 mg at bedtime. He is advised to stop drinking and hydrate mor e with 8 to 10 glasses of water 8 ounces each daily as he did have some dehydration on admission. Af ter discharge may follow up with Dr. Bay in clinic in 1 month. EMILEE/KAYLAH Voice ID: [id number] Report ID: [id number]
== END 2018-07-26 18:43 | disposition home or self-care (01) ==
LOC: ER 09:29 → ERHOLD 10:42 → 4TH 13:12
PROVIDERS: ADMIT Family Medicine; ATTEND Family Medicine
DX: R20.0 Anesthesia of skin (principal); I10 Essential (primary) hypertension; I34.1 Nonrheumatic mitral (valve) prolapse; D45 Polycythemia vera; F17.210 Nicotine dependence, cigarettes, uncomplicated; Z85.46 Personal history of malignant neoplasm of prostate; Z23 Encounter for immunization
CPT/HCPCS: 36415; 70450; 70544; 70549; 70553; 71045; 80048 ×2; 80061; 82550 ×2; 82553 ×2; 82962; 83735; 84439; 84443; 84484 ×2; 85025 ×2; 85610; 87088; 93005; 93306; 97163; 99285; A9577; G0008; G0378 ×2; J1650 ×2; J7030 ×2; Q2035; 81003; 81015; 87086

== ENCOUNTER 2018-08-23 19:39 | Inpatient (IN) | payer OTHER ==
--- OUTSIDE RECORDS SUMMARY | 2018-08-23 19:41 | XMS REPORT ---
[...] Start End Status Dosage System Date Date [facility] 9118[facility]12671 Orally Once Active 10 mg 1 dailly tablet (OTC) Flonase ND 22368573214 50 MCG/ACT Active 2 sprays Nasally Once a in each day nostril (otc) Amlodipine ND 79778703821 5 MG Orally Once Active 1 tablet Besylate a day Losartan ND 58561274336 100-12.5 MG Active 1 tablet Potassium-HCTZ Orally Once a day Omeprazole ND 13375199618 40 MG Orally Active 1 capsule Once a day Results No Known Results Summary Purpose eClinicalWorks Submission
[2018-08-23 20:54] LABS: Urine Blood 2+ (NEG); Urine Glucose NEGATIVE (NEG); Urine Protein 2+ (NEG); Urine pH 5.5 (5.0-7.0)
[2018-08-23 20:54] LABS: Urine Bacteria <20 /HPF (NONE SEEN); Urine Culture Reflex Order NOT NEEDED; Urine Mucus 1+ /HPF (NONE SEEN); Urine RBC >50 /HPF (NONE SEEN)
[2018-08-23 21:00] LABS: Absolute Lymphocytes (CBC) 1.7 K/uL (0.7-4.9); Absolute Monocytes 0.6 K/uL (0.1-1.3); Absolute Neutrophil 6.1 K/uL (1.8-8.0); Basophils % 0.6 % (0-1.3); Eosinophils % 1.7 % (0-4.4); Hematocrit 51.5 % (39.6-49.0); Lymphocytes % 19.7 % (15.3-44.8); MCH 29.2 pg (27.0-35.0); MCV 89.9 fL (80-100); MPV 7.3 fL (7.6-11.3); Monocytes % 7.3 % (3.3-12.3); RBC Red Blood Cell Count 5.73 M/uL (4.33-5.43)
[2018-08-23 21:15] LABS: Albumin 3.7 g/dL (3.4-5.0); Bilirubin Direct 0.3 mg/dL (0-0.2); Bilirubin Total 0.7 mg/dL (0.2-1.0); Potassium 3.1 mmol/L (3.5-5.1); Protein, Total 6.8 g/dL (6.4-8.2)
[2018-08-23] MEDS ORDERED: POTASSIUM 25 MEQ EFFERV TAB ONE (21:35)
--- NOTE | 2018-08-23 21:39 | EDPHYS ---
Physician Documentation [facility] Name: Chema Hernandez Age: 68 yrs Sex: Male : 1950 Arrival Date: 08/23/2018 Time: 19:42 Bed 15 Private MD: ED Physician Juan Amaya HPI: 08/23 21:29 This 68 yrs old Male presents to ER via Ambulatory with complaints of BLADDER wa PROBLEMS, ADVISED TO GO TO ER BY DR KRUEGER. 21:29 The patient presents with urinary symptoms, blood in urine. Onset: The symptoms/episode wa began/occurred 3 week(s) ago. Modifying factors: The symptoms are alleviated by nothing, the symptoms are aggravated by nothing. Associated signs and symptoms: The patient has no apparent associated signs or symptoms. Severity of symptoms: At their worst the symptoms were moderate, in the emergency department the symptoms have resolved, states blood in urine wax and want. sometimes more, sometimes less. The patient has experienced similar episodes in the past, several times. The patient has been recently seen by a physician: Dr. Krueger. was told to present for eval and admit. denies pain, fever or painful urination. Historical: - Allergies: 20:23 No Known Allergies; aa1 - Home Meds: 20:21 amlodipine oral [Active]; losartan Oral [Active]; omeprazole 40 mg Oral cpDR 1 cap once aa1 daily [Active]; Lipitor Oral [Active]; - PMHx: 20:21 Hypertension; Kidney stones; mitral valve prolapse; Polycythemia; aa1 - PSHx: 20:21 Hernia repair; prostatectomy; rotator cuff left shoulder; ruptured blood vessel in aa1 colon repair; - Immunization history:: Adult Immunizations up to date, Flu vaccine is up to date. - Social history:: Smoking status: Patient uses tobacco products, smokes one-half pack cigarettes per day. - Ebola Screening: : Patient negative for fever greater than or equal to 101.5 degrees Fahrenheit, and additional compatible Ebola Virus Disease symptoms Patient denies exposure to infectious person Patient denies travel to an Ebola-affected area in the 21 days before illness onset. - Family history:: not pertinent. - Hospitalizations: : No recent hospitalization is reported. ROS: 21:36 Constitutional: Negative for fever, chills, and weight loss, Eyes: Negative for injury, wa pain, redness, and discharge, ENT: Negative for injury, pain, and discharge, Neck: Negative for injury, pain, and swelling, Cardiovascular: Negative for chest pain, palpitations, and edema, Respiratory: Negative for shortness of breath, cough, wheezing, and pleuritic chest pain, Abdomen/GI: Negative for abdominal pain, nausea, vomiting, diarrhea, and constipation, Back: Negative for injury and pain, MS/Extremity: Negative for injury and deformity, Skin: Negative for injury, rash, and discoloration, Neuro: Negative for headache, weakness, numbness, tingling, and seizure, Psych: Negative for depression, anxiety, suicide ideation, homicidal ideation, and hallucinations. 21:36 : Positive for hematuria, Negative for pelvic pain, flank pain, burning with urination, difficulty urinating, penile pain, testicular pain 21:36 All other systems are negative. Exam: 21:36 Constitutional: This is a well developed, well nourished patient who is awake, alert, wa and in no acute distress. Head/Face: Normocephalic, atraumatic. Eyes: Pupils equal round and reactive to light, extra-ocular motions intact. Lids and lashes normal. Conjunctiva and sclera are non-icteric and not injected. Cornea within normal limits. Periorbital areas with no swelling, redness, or edema. ENT: Nares patent. No nasal discharge, no septal abnormalities noted. Tympanic membranes are normal and external auditory canals are clear. Oropharynx with no redness, swelling, or masses, exudates, or evidence of obstruction, uvula midline. Mucous membranes moist. Neck: Trachea midline, no thyromegaly or masses palpated, and no cervical lymphadenopathy. Supple, full range of motion without nuchal rigidity, or vertebral point tenderness. No Meningismus. Chest/axilla: Normal chest wall appearance and motion. Nontender with no deformity. No lesions are appreciated. Cardiovascular: Regular rate and rhythm with a normal S1 and S2. No gallops, murmurs, or rubs. Normal PMI, no JVD. No pulse deficits. Respiratory: Lungs have equal breath sounds bilaterally, clear to auscultation and percussion. No rales, rhonchi or wheezes noted. No increased work of breathing, no retractions or nasal flaring. Abdomen/GI: Soft, non-tender, with normal bowel sounds. No distension or tympany. No guarding or rebound. No evidence of tenderness throughout. Back: No spinal tenderness. No costovertebral tenderness. Full range of motion. Skin: Warm, dry with normal turgor. Normal color with no rashes, no lesions, and no evidence of cellulitis. MS/ Extremity: Pulses equal, no cyanosis. Neurovascular intact. Full, normal range of motion. Neuro: Awake and alert, GCS 15, oriented to person, place, time, and situation. Cranial nerves II-XII grossly intact. Motor strength 5/5 in all extremities. Sensory grossly intact. Cerebellar exam normal. Normal gait. Psych: Awake, alert, with orientation to person, place and time. Behavior, mood, and affect are within normal limits. 21:36 : CVA tenderness, is absent, Male external genitalia: normal. Vital Signs: 20:21 BP 116 / 82; Pulse 82; Resp 16; Temp 97.9(O); Pulse Ox 96% on R/A; aa1 20:23 Weight 65.77 kg; Height 5 ft. 10 in. (177.80 cm); Pain 0/10; aa1 20:47 BP 107 / 71; Pulse 71; Resp 16; Pulse Ox 95% ; Pain 0/10; aa1 21:35 BP 123 / 75; Pulse 74; Resp 17; Pulse Ox 95% on R/A; rr5 23:35 BP 104 / 77; Pulse 60; Resp 17; Pulse Ox 96% on R/A; Pain 0/10; rr5 20:23 Body Mass Index 20.81 (65.77 kg, 177.80 cm) aa1 MDM: 19:50 Patient medically screened. wa 21:37 Differential diagnosis: will check labs and admit for further hematuria eval. Data nv reviewed: vital signs, nurses notes. Test interpretation: by ED physician or midlevel provider: labs noted with renal insufficiency and hypokalemia. Response to treatment: There is no appreciated change of the patient's symptoms at this time. Physician consultation: Donny Iyer MD. 21:38 Admission orders: after a detailed discussion of the patient's condition and case, the nv admit orders are written by me. 21:39 Test interpretation: by ED physician or midlevel provider: UA noted >50 RBCs. 2+ blood. nv 08/23 20:23 Order name: Basic Metabolic Panel; Complete Time: 21:17 nv 08/23 20:23 Order name: CBC with Diff; Complete Time: 21:17 nv 08/23 20:23 Order name: Hepatic Function; Complete Time: 21:17 nv 08/23 20:23 Order name: Urine Microscopic Only; Complete Time: 21:17 nv 08/23 20:35 Order name: Urine Dipstick--Ancillary (enter results); Complete Time: 21:17 [facility] 08/23 20:23 Order name: IV Saline Lock; Complete Time: 20:43 nv 08/23 20:23 Order name: Labs collected and sent; Complete Time: 20:44 nv 08/23 20:23 Order name: Urine Dipstick-Ancillary (obtain specimen); Complete Time: 20:34 nv Administered Medications: 21:33 Drug: Potassium Effervescent Tablet 50 mEq {Note: K 3.1 meq.} Route: PO; rr5 23:36 Follow up: Response: No adverse reaction rr5 Disposition: 08/23/18 21:39 Hospitalization ordered by Donny Iyer for Inpatient Admission. Preliminary diagnosis is Hematuria. - Bed requested for Telemetry/MedSurg (Inpatient). - Status is Inpatient Admission. rr5 - Condition is Stable. - Problem is new. - Symptoms are unchanged. UTI on Admission? No Signatures: Dispatcher [employer] EDMS Angella Haque RN RN Padmini Mueller RN RN aa1 Juan Amaya MD MD wa Roque, Raymond, RN RN rr5 Corrections: (The following items were deleted from the chart) 22:24 21:39 Hospitalization Ordered by Donny Iyer MD for Inpatient Admission. Preliminary diagnosis is Hematuria. Bed requested for Telemetry/MedSurg (Inpatient). Status is Inpatient Admission. Condition is Stable. Problem is new. Symptoms are unchanged. UTI on Admission? No. nv 23:53 22:24 08/23/2018 21:39 Hospitalization Ordered by Donny Iyer MD for Inpatient rr5 Admission. Preliminary diagnosis is Hematuria. Bed requested for Telemetry/MedSurg (Inpatient). Status is Inpatient Admission. Condition is Stable. Problem is new. Symptoms are unchanged. UTI on Admission? No.
--- NOTE | 2018-08-23 21:39 | ER ---
Nurse's Notes [facility] Name: Chema Hernandez Age: 68 yrs Sex: Male : 1950 Arrival Date: 08/23/2018 Time: 19:42 Bed 15 Private MD: Diagnosis: Hematuria Presentation: 08/23 20:00 Presenting complaint: Patient states: Blood in the urine for 5-[address] brit agosto in the clinic had CT scan of the bladder done today 08-23-18, called and told him that he had several growth in his bladder and he needed to go back to hospital for further test and possible admission. 20:00 Transition of care: patient was not received from another setting of care. Onset of aa1 symptoms was July 2018. Risk Assessment: Do you want to hurt yourself or someone else? Patient reports no desire to harm self or others. Initial Sepsis Screen: Does the patient meet any 2 criteria? No. Patient's initial sepsis screen is negative. Does the patient have a suspected source of infection? No. Patient's initial sepsis screen is negative. Care prior to arrival: None. 20:00 Method Of Arrival: Ambulatory aa1 20:00 Acuity: ERMA 3 aa1 Triage Assessment: 20:21 General: Appears in no apparent distress. Behavior is calm, cooperative. Pain: Denies aa1 pain. Historical: - Allergies: 20:23 No Known Allergies; aa1 - Home Meds: 20:21 amlodipine oral [Active]; losartan Oral [Active]; omeprazole 40 mg Oral cpDR 1 cap once aa1 daily [Active]; Lipitor Oral [Active]; - PMHx: 20:21 Hypertension; Kidney stones; mitral valve prolapse; Polycythemia; aa1 - PSHx: 20:21 Hernia repair; prostatectomy; rotator cuff left shoulder; ruptured blood vessel in aa1 colon repair; - Immunization history:: Adult Immunizations up to date, Flu vaccine is up to date. - Social history:: Smoking status: Patient uses tobacco products, smokes one-half pack cigarettes per day. - Ebola Screening: : Patient negative for fever greater than or equal to 101.5 degrees Fahrenheit, and additional compatible Ebola Virus Disease symptoms Patient denies exposure to infectious person Patient denies travel to an Ebola-affected area in the 21 days before illness onset. - Family history:: not pertinent. - Hospitalizations: : No recent hospitalization is reported. Screenin:20 Abuse screen: Denies threats or abuse. Denies injuries from another. Nutritional aa1 screening: No deficits noted. Tuberculosis screening: No symptoms or risk factors identified. Fall Risk None identified. Assessment: 20:20 General: Appears in no apparent distress. comfortable, slender, Behavior is calm, aa1 cooperative, appropriate for age. Pain: Denies pain. Neuro: Level of Consciousness is awake, alert, obeys commands, Oriented to person, place, time, situation, Moves all extremities. Full function Gait is steady. Respiratory: Airway is patent Respiratory effort is even, unlabored, Respiratory pattern is regular, symmetrical. GI: No signs and/or symptoms were reported involving the gastrointestinal system. : Urine is blood tinged, Reports blood in urine x 5-6 weeks Denies burning with urination, pain urinary frequency, urgency. EENT: No signs and/or symptoms were reported regarding the EENT system. Derm: Skin is intact, is healthy with good turgor, Skin is pink, warm \T\ dry. Musculoskeletal: Circulation, motion, and sensation intact. Capillary refill < 3 seconds, Range of motion: intact in all extremities. 20:20 Cardiovascular: Reports Capillary refill < 3 seconds Patient's skin is warm and dry. rr5 21:34 Reassessment: Patient appears in no apparent distress at this time. Patient and/or rr5 family updated on plan of care and expected duration. Pain level reassessed. Patient is alert, oriented x 3, equal unlabored respirations, skin warm/dry/pink. medication given as stat dose. Vital Signs: 20:21 BP 116 / 82; Pulse 82; Resp 16; Temp 97.9(O); Pulse Ox 96% on R/A; aa1 20:23 Weight 65.77 kg; Height 5 ft. 10 in. (177.80 cm); Pain 0/10; aa1 20:47 BP 107 / 71; Pulse 71; Resp 16; Pulse Ox 95% ; Pain 0/10; aa1 21:35 BP 123 / 75; Pulse 74; Resp 17; Pulse Ox 95% on R/A; rr5 23:35 BP 104 / 77; Pulse 60; Resp 17; Pulse Ox 96% on R/A; Pain 0/10; rr5 20:23 Body Mass Index 20.81 (65.77 kg, 177.80 cm) aa1 ED Course: 19:42 Patient arrived in ED. al2 19:50 Juan Amaya MD is Attending Physician. wa 20:14 Triage completed. aa1 20:20 Patient has correct armband on for positive identification. Bed in low position. Call aa1 light in reach. Pulse ox on. NIBP on. Warm blanket given. 20:20 Arm band placed on. rr5 20:30 Urine collected: clean catch specimen, blood tinged. aa1 20:35 Initial lab(s) drawn, by me, sent to lab. Inserted saline lock: 18 gauge in left aa1 antecubital area, using aseptic technique. Blood collected. 21:25 Jean Marie De La Vega, BLUE is Primary Nurse. rr5 21:38 Donny Iyer MD is Hospitalizing Provider. wa 23:32 No provider procedures requiring assistance completed. Patient admitted, IV remains in rr5 place. intact. Administered Medications: 21:33 Drug: Potassium Effervescent Tablet 50 mEq {Note: K 3.1 meq.} Route: PO; rr5 23:36 Follow up: Response: No adverse reaction rr5 Outcome: 21:39 Decision to Hospitalize by Provider. wa 23:32 Admitted to Med/surg via stretcher, Report called to luis f MCARTHUR rr5 23:32 Condition: stable 23:32 Instructed on the need for admit. 23:53 Patient left the ED. rr5 Signatures: Padmini Mueller RN RN aa1 Juan Amaya MD MD wa Love, Angelica alJean Marie Faustin RN RN rr5 Corrections: (The following items were deleted from the chart) 20:15 20:00 Acuity: ERMA 4 aa1 aa1
[2018-08-23] MEDS ORDERED: ACETAMINOPHEN 500 MG TAB PO PRN (22:42)
[2018-08-23] MEDS ORDERED: ONDANSETRON 4 MG/2 ML VIAL IV PRN (22:42)
[2018-08-24] MEDS: NA CHLORIDE 0.9% 1,000 ML IV SCH ×6 (00:19→21:49)
[2018-08-24 04:56] LABS: Absolute Lymphocytes (CBC) 1.7 K/uL (0.7-4.9); Absolute Monocytes 0.6 K/uL (0.1-1.3); Absolute Neutrophil 5.2 K/uL (1.8-8.0); Basophils % 0.6 % (0-1.3); Hematocrit 49.6 % (39.6-49.0); Lymphocytes % 21.8 % (15.3-44.8); MCH 29.4 pg (27.0-35.0); MCV 89.2 fL (80-100); MPV 7.6 fL (7.6-11.3); Monocytes % 8.1 % (3.3-12.3); RBC Red Blood Cell Count 5.56 M/uL (4.33-5.43)
[2018-08-24 04:58] LABS: Protime INR 0.95
[2018-08-24 05:08] LABS: Albumin 3.3 g/dL (3.4-5.0); Bilirubin Total 0.9 mg/dL (0.2-1.0); Potassium 4.1 mmol/L (3.5-5.1); Protein, Total 5.9 g/dL (6.4-8.2)
--- NOTE | 2018-08-24 07:26 | P.HP ---
Certification for Inpatient Patient admitted to: Inpatient With expected LOS: >2 Midnights Patient will require the following post-hospital care: None Practitioner: I am a practitioner with admitting privileges, knowledge of patient current condition, hospital course, and medical plan of care. Services: Services provided to patient in accordance with Admission requirements found in Title 42 Section 412.3 of the Code of Federal Regulations Patient History Date of Service: 08/23/18 Reason for admission: Bladder mass/hematuria History of Present Illness: Patient is a 68-year-old gentleman who came into the urology clinic and was diagnosed with a large bladder mass. Patient also had hematuria. Patient was seen in the emergency room and he was hemodynamically stable. Patient will need further treatment regarding this large bladder mass as there is concern for an obstructive uropathy. Patient's GFR a month ago was 67. It has decreased to 50. Patient may need cystoscopy with resection of the large bladder mass. Urology has been consulted and will see the patient in the morning. Patient is in the hospital of month ago for possible TIA. This workup was negative and MRI of the brain was negative. Echocardiogram was unremarkable except for a mitral valve prolapse. At this time patient is doing well with no new complaints. Patient denies any chest pain or shortness of breath and is low risk for any cardiopulmonary complications. Allergies No Known Allergies Allergy (Verified 08/07/15 11:44) Home Medications: Amlodipine [Norvasc*] 5 mg PO DAILY 08/07/15 Losartan/Hydrochlorothiazide [Hyzaar 100-12.5 Tablet] 1 tab PO DAILY 08/07/15 Omeprazole [Prilosec] 40 mg PO DAILY 07/25/18 Atorvastatin Calcium [Lipitor] 80 mg PO BEDTIME #30 tab 07/26/18 Hyalur AC/Chond Sul/Colg II/Aa [Hyaluronic Acid 40 mg Capsule] 1 cap PO DAILY - Past Medical/Surgical History Has patient received pneumonia vaccine in the past: No Diabetic: No -: Hypertension -: Polycythemia -: Nephrolithiasis -: History of prostate cancer -: Mitral valve prolapse -: MRSA 2002 Wound to Left Groin -: 2007 Ruptured Vessel in Colon -: Radical prostatectomy -: Hernia repair -: L Rotator cuff repair Psychosocial/ Personal History: He is . He has 2 children. 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 - Family History Mother Medical History: Cancer Father Medical History: Heart disease - Social History Smoking Status: Current every day smoker Alcohol use: Yes CD- Drugs: No Caffeine use: Yes Place of Residence: Home Review of Systems 10-point ROS is otherwise unremarkable Physical Examination - Vital Signs Temperature: 97.6 F Blood Pressure: 106/67 Pulse: 60 Respirations: 16 Pulse Ox (%): 95 - Physical Exam General: Alert, In no apparent distress, Oriented x3 HEENT: Atraumatic, PERRLA, Mucous membr. moist/pink, EOMI, Sclerae nonicteric Neck: Supple, 2+ carotid pulse no bruit, No LAD, Without JVD or thyroid abnormality Respiratory: Clear to auscultation bilaterally, Normal air movement Cardiovascular: Regular rate/rhythm, Normal S1 S2, No murmurs Gastrointestinal: Normal bowel sounds, Soft and benign, Non-distended, No tenderness, No rebound, No guarding Musculoskeletal: No clubbing, No swelling, No tenderness Integumentary: No rashes Neurological: Normal gait, Normal speech, Normal strength at 5/5 x4 extr, Normal tone, Sensation intact, Cranial nerves 3-12 intact, Normal affect Lymphatics: No axilla or inguinal lymphadenopathy - Studies Laboratory Data (last 24 hrs) 08/23/18 20:35: WBC 8.7, Hgb 16.7, Hct 51.5 H, Plt Count 261 08/23/18 20:35: Sodium 142, Potassium 3.1 L, BUN 29 H, Creatinine 1.40 H, Glucose 143 H, Total Bilirubin 0.7, AST 17, ALT 31, Alkaline Phosphatase 65 Assessment & Plan - Problems (Diagnosis) (1) Hematuria Current Visit: Yes Status: Acute (2) Bladder mass Current Visit: Yes Status: Acute (3) Obstructive uropathy Current Visit: Yes Status: Acute (4) Acute kidney injury Current Visit: Yes Status: Acute (5) Hypertension Onset Date: 07/26/18 Current Visit: No Status: Chronic Qualifiers: - Plan 1. Monitor H&H closely; history of polycythemia and hemoglobin normally is at 18. It has decreased somewhat to 16. 2. Urology consultation 3. Patient medically clear for surgery 4. NPO after midnight 5. Hold anti-platelet therapy 6. Monitor electrolytes including renal function closely 7. Strict blood pressure control 8. GI and DVT prophylaxis Discharge Plan: Home Plan to discharge in: Greater than 2 days - Advance Directives Does patient have a Living Will: No Does patient have a Durable POA for Healthcare: No - Code Status/Comfort Care Code Status Assessed: Yes Code Status: Full Code Critical Care: No Time Spent Managing PTS Care (In Minutes): 50
[2018-08-24] MEDS ORDERED: AMLODIPINE 2.5 MG TAB PO SCH (09:00)
[2018-08-24] MEDS: AMLODIPINE 2.5 MG TAB PO SCH (09:00)
[2018-08-24] MEDS ORDERED: GENTAMICIN 80 MG/100 ML BAG 80 MG/100 ML BAG IV SCH (09:00)
[2018-08-24] MEDS ORDERED: LIDOCAINE 1% MPF 5 ML VIAL ONE (12:39)
[2018-08-24] MEDS ORDERED: PROPOFOL 200 MG/20 ML VIAL IV ONE (12:39)
[2018-08-24] MEDS ORDERED: GLYCOPYRROLATE 0.2 MG/ML SYR ONE (12:41)
[2018-08-24] MEDS ORDERED: FENTANYL CITR 100 MCG/2 ML ONE (12:45)
[2018-08-24] MEDS ORDERED: NA CHLORIDE 0.9% 1,000 ML ONE (13:05)
[2018-08-24] MEDS: HYDROMORPHONE HCL 1 MG/ML INJ IV PRN (14:22)
--- NOTE | 2018-08-24 14:28 | P.PN ---
Subjective Date of Service: 08/24/18 Primary Care Provider: Dr Ko; Urology-Dr. Krueger Chief Complaint: Bladder mass/hematuria Subjective: Doing well Physical Examination - Vital Signs Temperature: 97.4 F Blood Pressure: 119/77 Pulse: 51 Respirations: 18 Pulse Ox (%): 97 - Physical Exam General: Alert, In no apparent distress, Oriented x3, Cooperative HEENT: Atraumatic Neck: Supple Respiratory: Clear to auscultation bilaterally, Normal air movement Cardiovascular: Normal pulses, Regular rate/rhythm Gastrointestinal: Normal bowel sounds, Soft and benign, Non-distended, No tenderness, No masses, No rebound, No guarding Musculoskeletal: No erythema, No tenderness, No warmth Integumentary: No tenderness/swelling, No erythema, No warmth, No cyanosis Neurological: Normal speech, Normal strength at 5/5 x4 extr, Normal tone, Normal affect - Studies Laboratory Data (last 24 hrs) 08/23/18 20:35: WBC 8.7, Hgb 16.7, Hct 51.5 H, Plt Count 261 08/23/18 20:35: Sodium 142, Potassium 3.1 L, BUN 29 H, Creatinine 1.40 H, Glucose 143 H, Total Bilirubin 0.7, AST 17, ALT 31, Alkaline Phosphatase 65 Medications List Reviewed: Yes Assessment & Plan Discharge Plan: Home Plan to discharge in: 24 Hours Physician Review Additional Text: Impression: Hematuria with large bladder mass along with acute renal injury complicated with history of radical prostatectomy Acute renal injury likely related to obstructive uropathy Hypertension Hyperlipidemia Tobacco abuse History of TIA Plan: Hematuria with large bladder mass along with acute renal injury complicated with history of radical prostatectomy: Patient currently NPO in preparation for urological evaluation and possible treatment. Spoke with urology yesterday. Bladder mass will likely be removed. Patient will need to be monitored closely. Hold aspirin at this time. Await findings and results. Acute renal injury likely related to obstructive uropathy: Will continue monitor patient closely. Improved with IV fluids. Will monitor electrolytes and replace. Hypertension: Will review and restart home medication. Hyperlipidemia: Will review and restart home medication. Tobacco abuse: Tobacco cessation addressed. Patient declines need for nicotine patch. History of TIA: Will hold anti coagulation therapy and aspirin at this time. Time Spent Managing Pts Care (In Minutes): 55
[2018-08-24] MEDS ORDERED: SODIUM CHL 0.9% IRR SOLN 2000 ML IRR SCH (15:00)
[2018-08-24] MEDS: NACL 0.9% IRR SOLN 2,000 ML IRR PRN ×3 (15:17→21:48)
--- NOTE | 2018-08-24 18:47 | EKG ---
Test Date: 2018-08-24 Test Time: 10:21:36 Mortgage Banker: PATRICIA MEASUREMENT RESULTS: Intervals: Rate: 48 DE: 194 QRSD: 110 QT: 450 QTc: 402 [place]: P: 49 DE: 194 QRS: -42 T: 9 INTERPRETIVE STATEMENTS: Marked sinus bradycardia Left axis deviation Septal infarct, age undetermined Inferior infarct, age undetermined Abnormal ECG Compared to ECG 07/25/2018 09:48:20 Left-axis deviation now present Sinus rhythm no longer present Right superior axis no longer present Myocardial infarct finding still present Electronically Signed On 08-24-18 18:44:55 THREADER by Troy Menendez
[2018-08-24] MEDS: ATORVASTATIN 80 MG TAB PO SCH (21:49)
[2018-08-25] MEDS ORDERED: NACL 0.9% IRR SOLN 2,000 ML IRR ONE (00:20)
[2018-08-25] MEDS: NACL 0.9% IRR SOLN 2,000 ML IRR PRN ×11 (00:51→22:05)
[2018-08-25] MEDS: NA CHLORIDE 0.9% 1,000 ML IV SCH ×2 (04:52→06:13)
[2018-08-25] MEDS: PANTOPRAZOLE 40MG TABLET PO SCH (05:04)
[2018-08-25 05:07] LABS: Absolute Lymphocytes (CBC) 1.2 K/uL (0.7-4.9); Absolute Monocytes 0.5 K/uL (0.1-1.3); Basophils % 0.4 % (0-1.3); Eosinophils % 0.7 % (0-4.4); Hematocrit 45.3 % (39.6-49.0); Lymphocytes % 15.8 % (15.3-44.8); MCV 89.4 fL (80-100); MPV 7.8 fL (7.6-11.3); RBC Red Blood Cell Count 5.07 M/uL (4.33-5.43)
[2018-08-25 05:16] LABS: Potassium 4.3 mmol/L (3.5-5.1)
[2018-08-25] MEDS: AMLODIPINE 2.5 MG TAB PO SCH (10:12)
--- NOTE | 2018-08-25 11:40 | P.PN ---
Subjective Date of Service: 08/25/18 Primary Care Provider: Dr Ko; Urology-Dr. Krueger Chief Complaint: Bladder mass/hematuria Subjective: Improving (Patient doing well this time. No complaints noted. Patient had cystoscopy and bladder tumor removal yesterday. Bladder irrigation system in place.) Physical Examination - Vital Signs Temperature: 97.5 F Blood Pressure: 126/72 Pulse: 52 Respirations: 17 Pulse Ox (%): 98 - Physical Exam General: Alert, In no apparent distress, Oriented x3, Cooperative HEENT: Atraumatic, Mucous membr. moist/pink Neck: Supple, No Thyromegaly Respiratory: Clear to auscultation bilaterally, Normal air movement Cardiovascular: Normal pulses, Regular rate/rhythm Gastrointestinal: Normal bowel sounds, Soft and benign, Non-distended, No tenderness, No masses, No rebound, No guarding Musculoskeletal: No erythema, No tenderness, No warmth Integumentary: No tenderness/swelling, No erythema, No warmth, No cyanosis Neurological: Normal speech, Normal strength at 5/5 x4 extr, Normal tone Urinary: Garduno catheter - Studies Medications List Reviewed: Yes Assessment & Plan Discharge Plan: Home Plan to discharge in: 48 Hours Physician Review Additional Text: Impression: Hematuria with large bladder mass along with acute renal injury complicated with history of radical prostatectomy status post cystoscopy and removal of bladder mass Acute renal injury likely related to obstructive uropathy Hypertension Hyperlipidemia Polycythemia vera Tobacco abuse History of TIA Plan: Hematuria with large bladder mass along with acute renal injury complicated with history of radical prostatectomy status post cystoscopy and removal of bladder mass: Garduno catheter in place. Patient continues with bladder irrigation system. Tumor removed. Will discuss with urology. Anticipate discharged once hematuria improves. Will continue to hold aspirin at this time. Acute renal injury likely related to obstructive uropathy: Will continue monitor patient closely. Renal function improved with IV fluids. Hypertension: Will continue with Norvasc. Hyperlipidemia: Will continue with Lipitor. GERD: Will continue with Protonix. Polycythemia vera: This remained stable. Patient gets outpatient follow bottom ease peer Tobacco abuse: Tobacco cessation addressed. Patient declines need for nicotine patch. History of TIA: Will hold anti coagulation therapy and aspirin at this time due to hematuria. Time Spent Managing Pts Care (In Minutes): 55
[2018-08-25] MEDS: NACHLORIDE 0.45% 1,000 ML IV SCH ×2 (12:32→20:45)
[2018-08-25] MEDS ORDERED: SUCRALFATE 1 GM TABLET PO PRN (14:00)
[2018-08-25] MEDS: LOSARTAN POTASSIUM 50 MG TABLET PO SCH (14:29)
[2018-08-25] MEDS: LOSARTAN/HCTZ 50-12.5 PO SCH (14:29)
[2018-08-25] MEDS: HYDROCODONE/APAP 7.5/325 MG TAB PO PRN (20:40)
[2018-08-25] MEDS: ATORVASTATIN 80 MG TAB PO SCH (20:40)
--- NOTE | 2018-08-26 02:18 | PN ---
Subjective: The patient is doing well today. Objective: : The patient has gross hematuria. His Garduno catheter is still on CBI. Vital Signs: Stable. Afebrile. Laboratory Data: H and H are stable. Assessment: Status post partial transurethral resection of bladder tumor, postop day 1. The patient has continuous gross hematuria. Plan: To continue CBI irrigation. Discuss with Dr. Beck, oncologist at [facility] about the ca se. The patient will need reresection later on in the week. We will try to get the patient home and get in there electively within the week for re-TURBT. If he continues to have gross hematuria, unab le to clear, he may have to be transferred. NAKITA/KAYLAH Voice ID: [id number] Report ID: [id number]
[2018-08-26] MEDS: NACHLORIDE 0.45% 1,000 ML IV SCH ×4 (04:17→20:51)
[2018-08-26] MEDS: HYDROCODONE/APAP 7.5/325 MG TAB PO PRN ×2 (04:53→20:48)
[2018-08-26] MEDS: PANTOPRAZOLE 40MG TABLET PO SCH (05:12)
[2018-08-26 05:17] LABS: Absolute Lymphocytes (CBC) 1.6 K/uL (0.7-4.9); Absolute Monocytes 0.6 K/uL (0.1-1.3); Basophils % 0.3 % (0-1.3); Eosinophils % 2.4 % (0-4.4); Hematocrit 42.9 % (39.6-49.0); Lymphocytes % 21.8 % (15.3-44.8); MCH 30.2 pg (27.0-35.0); MCV 88.9 fL (80-100); MPV 7.9 fL (7.6-11.3); Monocytes % 8.2 % (3.3-12.3); RBC Red Blood Cell Count 4.83 M/uL (4.33-5.43)
[2018-08-26 05:49] LABS: Potassium 3.6 mmol/L (3.5-5.1)
[2018-08-26] MEDS ORDERED: POTASSIUM CL SA 10 MEQ TAB PO ONE (06:01)
[2018-08-26] MEDS: NACL 0.9% IRR SOLN 2,000 ML IRR PRN ×8 (10:04→23:15)
[2018-08-26] MEDS: AMLODIPINE 2.5 MG TAB PO SCH (10:05)
[2018-08-26] MEDS: LOSARTAN/HCTZ 50-12.5 PO SCH (10:06)
[2018-08-26] MEDS: LOSARTAN POTASSIUM 50 MG TABLET PO SCH (10:06)
--- NOTE | 2018-08-26 11:36 | PN ---
Subjective: The patient is doing well. Objective: Vital Signs: Afebrile. Vital signs stable. Laboratory Data: H and H are 15 and 43. Urine is looking better today. Assessment: Gross hematuria. 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 Plan: Irrigate 1 more day and see how he does tomorrow. Hopefully can go home tomorrow. Dr. Beck will see him in the clinic this week in [place]. The patient will be discharged and follow up there . EDY Voice ID: [id number] Report ID: [id number]
[2018-08-26] MEDS: TRAMADOL HCL 50 MG TAB PO PRN ×2 (12:00→19:28)
[2018-08-26] MEDS: HYDROMORPHONE HCL 1 MG/ML INJ IV PRN (13:38)
--- NOTE | 2018-08-26 14:27 | P.PN ---
Subjective Date of Service: 08/26/18 (Hospitalist note) Primary Care Provider: Dr Ko; Urology-Dr. Krueger Chief Complaint: Bladder mass/hematuria Subjective: Improving (Was admitted with hematuria bladder papillary tumors were removed currently doing better no new complaints) Review of Systems Unremarkable Physical Examination - Vital Signs Temperature: 97.9 F Blood Pressure: 124/68 Pulse: 62 Respirations: 16 Pulse Ox (%): 97 - Physical Exam General: Alert, Oriented x3 Respiratory: Clear to auscultation bilaterally Gastrointestinal: Normal bowel sounds, Soft and benign - Studies Medications List Reviewed: Yes Assessment & Plan - Problems (Diagnosis) (1) Hematuria Onset Date: 08/24/18 Current Visit: Yes Status: Acute Plan: Patient is 68 years of age was admitted with hematuria is currently doing better no new complaints no pain Assessment: Gross hematuria. 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 Plan: Irrigate 1 more day and see how he does tomorrow. Hopefully can go home tomorrow. Dr. Beck will see him in the clinic this week in [place]. The patient will be discharged and follow up there. He will probably be discharged home tomorrow see note above by Dr. Krueger Qualifiers: Hematuria type: unspecified type Qualified Code(s): R31.9 - Hematuria, unspecified Physician Review Additional Text: Impression: Hematuria with large bladder mass along with acute renal injury complicated with history of radical prostatectomy status post cystoscopy and removal of bladder mass Acute renal injury likely related to obstructive uropathy Hypertension Hyperlipidemia Polycythemia vera Tobacco abuse History of TIA Plan: Hematuria with large bladder mass along with acute renal injury complicated with history of radical prostatectomy status post cystoscopy and removal of bladder mass: Garduno catheter in place. Patient continues with bladder irrigation system. Tumor removed. Will discuss with urology. Anticipate discharged once hematuria improves. Will continue to hold aspirin at this time. Acute renal injury likely related to obstructive uropathy: Will continue monitor patient closely. Renal function improved with IV fluids. Hypertension: Will continue with Norvasc. Hyperlipidemia: Will continue with Lipitor. GERD: Will continue with Protonix. Polycythemia vera: This remained stable. Patient gets outpatient follow bottom ease peer Tobacco abuse: Tobacco cessation addressed. Patient declines need for nicotine patch. History of TIA: Will hold anti coagulation therapy and aspirin at this time due to hematuria.
[2018-08-26] MEDS: ATORVASTATIN 80 MG TAB PO SCH (20:48)
[2018-08-27] MEDS: NACL 0.9% IRR SOLN 2,000 ML IRR PRN ×6 (02:48→18:30)
[2018-08-27] MEDS: HYDROCODONE/APAP 7.5/325 MG TAB PO PRN (02:52)
[2018-08-27 05:22] LABS: Absolute Lymphocytes (CBC) 1.2 K/uL (0.7-4.9); Absolute Monocytes 0.6 K/uL (0.1-1.3); Absolute Neutrophil 5.1 K/uL (1.8-8.0); Basophils % 0.4 % (0-1.3); Eosinophils % 4.7 % (0-4.4); Hematocrit 41.8 % (39.6-49.0); Lymphocytes % 17.2 % (15.3-44.8); MCV 89.1 fL (80-100); MPV 7.8 fL (7.6-11.3); Monocytes % 7.7 % (3.3-12.3); RBC Red Blood Cell Count 4.69 M/uL (4.33-5.43)
[2018-08-27 05:46] LABS: Magnesium 1.8 mg/dL (1.8-2.4); Potassium 3.5 mmol/L (3.5-5.1)
[2018-08-27] MEDS: PANTOPRAZOLE 40MG TABLET PO SCH (05:53)
[2018-08-27] MEDS ORDERED: POTASSIUM CL SA 10 MEQ TAB PO ONE (06:30)
[2018-08-27] MEDS: HYDROMORPHONE HCL 1 MG/ML INJ IV PRN ×3 (06:36→16:50)
[2018-08-27] MEDS ORDERED: MAGNESIUM SULFATE 1 gm IVPB 1 GM/100 ML BAG IV ONE (07:00)
[2018-08-27] MEDS: LOSARTAN/HCTZ 50-12.5 PO SCH (09:49)
[2018-08-27] MEDS: LOSARTAN POTASSIUM 50 MG TABLET PO SCH (09:49)
[2018-08-27] MEDS: AMLODIPINE 2.5 MG TAB PO SCH (09:51)
[2018-08-27] MEDS: NACHLORIDE 0.45% 1,000 ML IV SCH ×2 (10:52→21:51)
[2018-08-27] MEDS: Levofloxacin500mg IV 500 MG/100 ML BAG IV SCH (13:02)
--- NOTE | 2018-08-27 15:35 | P.PN ---
Subjective Date of Service: 08/27/18 Primary Care Provider: Dr Ko; Urology-Dr. Krueger Chief Complaint: Bladder mass/hematuria Patient seen and examined at bedside with RN. Chart reviewed. Case discussed with urology. Currently patient is complaining of having some chills and elevated temperature. Urology recommends patient be transferred to a higher level of care for bladder surgery Review of Systems 10-point ROS is otherwise unremarkable Physical Examination - Vital Signs Temperature: 97.2 F Blood Pressure: 137/78 Pulse: 64 Respirations: 18 Pulse Ox (%): 97 - Physical Exam General: Alert, Acute distress HEENT: Atraumatic, PERRLA, EOMI Neck: Supple, JVD not distended Respiratory: Clear to auscultation bilaterally, Normal air movement Cardiovascular: Regular rate/rhythm, Normal S1 S2 Gastrointestinal: Normal bowel sounds, No tenderness Musculoskeletal: No tenderness Integumentary: No rashes Neurological: Normal speech, Normal tone, Normal affect Lymphatics: No axilla or inguinal lymphadenopathy - Studies Medications List Reviewed: Yes Assessment And Plan - Plan Impression: Hematuria with large bladder mass along with acute renal injury complicated with history of radical prostatectomy status post cystoscopy and removal of bladder mass Acute renal injury likely related to obstructive uropathy Hypertension Hyperlipidemia Polycythemia vera Tobacco abuse History of TIA Plan: Hematuria with large bladder mass along with acute renal injury complicated with history of radical prostatectomy status post cystoscopy and removal of bladder mass: Garduno catheter in place. Patient continues with bladder irrigation system. s/p Tumor removed. Patient continues with hematuria at this time. Urology recommends patient be transferred to a higher level of care to be seen by Dr. Nuñez. Transfer process initiated at this time. Patient also started on IV antibiotic Will continue to hold aspirin at this time. Acute renal injury likely related to obstructive uropathy: Will continue monitor patient closely. Renal function improved with IV fluids. Hypertension: Will continue with Norvasc. Hyperlipidemia: Will continue with Lipitor. GERD: Will continue with Protonix. Polycythemia vera: This remained stable. Patient gets outpatient follow bottom ease peer Tobacco abuse: Tobacco cessation addressed. Patient declines need for nicotine patch. History of TIA: Will hold anti coagulation therapy and aspirin at this time due to hematuria. Discharge Plan: Transfer Plan to discharge in: 48 Hours - Code Status/Comfort Care Code Status Assessed: Yes Critical Care: No
--- NOTE | 2018-08-27 16:46 | PN ---
Subjective: The patient has some clots and still grossly hematuric. It clears a little bit when the CBI sped up, but when he turned down he gets grossly hematuric again. I sat up this morning, has some dizzy spells prior from sitting up too quickly. His BP is 127/70, pulse rate 63, temperature 97.9. He has been lying in bed all weekend. Objective: Vital Signs: As above. Laboratory Data: CBC 7.2, H and H is 14 and 41, stable. Platelet count 249, stable. Chemistry; sodium 140, potassium 3.5, chloride 106, carbon dioxide 26, BUN 11, creatinine 1.0, stable and GFR 75, stable. Assessment: Status post transurethral resection of bladder tumour, bladder about 80% papillary tumors, still continues to be grossly hematuric after 3 days of irrigation. Plan: I have discussed this case with Dr. Beck. He was going to see the patient as an outpatient, but the patient is still in the hospital, so I think it is time to go ahead and get a [id number] transfer. We will wait until Dr. Beck is out of surgery and then discuss this case with him. NAKITA/KAYLAH Voice ID: [id number] Report ID: [id number] FRANCA
[2018-08-27] MEDS: ATORVASTATIN 80 MG TAB PO SCH (21:51)
[2018-08-28] MEDS: NACHLORIDE 0.45% 1,000 ML IV SCH (04:28)
[2018-08-28 05:56] LABS: Magnesium 1.9 mg/dL (1.8-2.4); Potassium 3.8 mmol/L (3.5-5.1)
[2018-08-28] MEDS ORDERED: POTASSIUM CL SA 10 MEQ TAB PO ONE (06:30)
[2018-08-28] MEDS: PANTOPRAZOLE 40MG TABLET PO SCH (06:36)
[2018-08-28] MEDS: LOSARTAN/HCTZ 50-12.5 PO SCH ×2 (09:46→09:47)
[2018-08-28] MEDS: LOSARTAN POTASSIUM 50 MG TABLET PO SCH (09:47)
[2018-08-28] MEDS: AMLODIPINE 2.5 MG TAB PO SCH (09:49)
[2018-08-28] MEDS: Levofloxacin500mg IV 500 MG/100 ML BAG IV SCH (10:30)
[2018-08-28] MEDS: HYDROCODONE/APAP 7.5/325 MG TAB PO PRN (11:09)
[2018-08-28] MEDS ORDERED: NACL 0.9% IRR SOLN 2,000 ML IRR ONE (11:32)
--- NOTE | 2018-08-28 15:22 | P.DS ---
Admission Date: 08/23/18 Discharge Date: 08/28/18 Primary Care Provider: Dr Ko; Urology-Dr. Krueger Disposition: TRANSFER TO [facility] Reason for Admission: Bladder mass/hematuria Consultations: Urology - Dr Krueger Procedures: Cystoscopy - TURP of bladder Mass - Problems (1) Bladder mass Onset Date: 08/24/18 Status: Acute (2) Hematuria Onset Date: 08/24/18 Status: Acute Qualifiers: Hematuria type: unspecified type Qualified Code(s): R31.9 - Hematuria, unspecified (3) Obstructive uropathy Onset Date: 08/24/18 Status: Acute (4) Acute kidney injury Onset Date: 08/24/18 Status: Acute (5) Hypertension Onset Date: 07/26/18 Status: Chronic Qualifiers: (6) Tobacco abuse Onset Date: 07/26/18 Status: Chronic Brief History of Present Illness: Patient is a 68-year-old gentleman who came into the urology clinic and was diagnosed with a large bladder mass. Patient also had hematuria. Patient was seen in the emergency room and he was hemodynamically stable. Patient will need further treatment regarding this large bladder mass as there is concern for an obstructive uropathy. Patient's GFR a month ago was 67. It has decreased to 50. Patient may need cystoscopy with resection of the large bladder mass. Urology has been consulted and will see the patient in the morning. Patient is in the hospital of month ago for possible TIA. This workup was negative and MRI of the brain was negative. Echocardiogram was unremarkable except for a mitral valve prolapse. At this time patient is doing well with no new complaints. Patient denies any chest pain or shortness of breath and is low risk for any cardiopulmonary complications. Hospital Course: Overall during the hospital stay patient remained stable. Patient was initially admitted to the hospital for a large bladder mass and hematuria. Urology was consulted who did a cystoscopy and transurethral resection of the bladder mass. After which patient was kept on continuous irrigation. Patient however did not have resolution of his hematuria at which time Dr. allyn santos oncologist at [facility] was consulted for bladder surgery. Patient was accepted by the oncologist and thus was transferred over for further care. Patient initially was going to be seen outpatient by the oncologist however due to continuous hematuria the decision was made for patient to be transferred hospital to hospital. Patient was asked to follow up with Dr. Lewis once he is discharged from the main hospital. Vital Signs/Physical Exam: Temp Pulse Resp BP Pulse Ox 98 F 74 18 139/69 97 08/28/18 12:00 08/28/18 12:00 08/28/18 12:00 08/28/18 12:00 08/28/18 12:00 General: Alert, In no apparent distress HEENT: Atraumatic, PERRLA, EOMI Neck: Supple, JVD not distended Respiratory: Clear to auscultation bilaterally, Normal air movement Cardiovascular: Regular rate/rhythm, Normal S1 S2 Gastrointestinal: Normal bowel sounds, No tenderness Musculoskeletal: No tenderness Integumentary: No rashes Neurological: Normal speech, Normal tone, Normal affect Lymphatics: No axilla or inguinal lymphadenopathy Urinary: Garduno catheter, Other (Continuous irrigation and placed) Laboratory Data at Discharge: WBC 7.2 K/uL (4.3-10.9) 08/27/18 04:36 Hgb 14.1 g/dL (13.6-17.9) 08/27/18 04:36 Hct 41.8 % (39.6-49.0) 08/27/18 04:36 Plt Count 249 K/uL (152-406) 08/27/18 04:36 PT 11.2 SECONDS (9.5-12.5) 08/24/18 04:27 INR 0.95 08/24/18 04:27 APTT 38.2 SECONDS (24.3-36.9) H 08/24/18 04:27 Sodium 141 mmol/L (136-145) 08/28/18 05:20 Potassium 3.8 mmol/L (3.5-5.1) 08/28/18 05:20 BUN 11 mg/dL (7-18) 08/28/18 05:20 Creatinine 1.00 mg/dL (0.55-1.3) 08/28/18 05:20 Glucose 121 mg/dL (74-106) H 08/28/18 05:20 Phosphorus 3.0 mg/dL (2.5-4.9) 08/28/18 05:20 Magnesium 1.9 mg/dL (1.8-2.4) 08/28/18 05:20 Total Bilirubin 0.9 mg/dL (0.2-1.0) 08/24/18 04:27 AST 16 U/L (15-37) 08/24/18 04:27 ALT 26 U/L (12-78) 08/24/18 04:27 Alkaline Phosphatase 61 U/L (45-117) 08/24/18 04:27 Home Medications: Amlodipine [Norvasc*] 5 mg PO DAILY 08/07/15 Losartan/Hydrochlorothiazide [Hyzaar 100-12.5 Tablet] 1 tab PO DAILY 08/07/15 Omeprazole [Prilosec] 40 mg PO DAILY 07/25/18 Atorvastatin Calcium [Lipitor] 80 mg PO BEDTIME #30 tab 07/26/18 Hyalur AC/Chond Sul/Colg II/Aa [Hyaluronic Acid 40 mg Capsule] 1 cap PO DAILY Followup: Claudette Krueger MD [Primary Care Provider] - 08/27/18 8:00 am
== END 2018-08-28 11:58 | disposition short-term general hospital (02) | DRG 669 ==
LOC: ER 19:39 → ERHOLD 21:43 → 2ND 23:39
PROVIDERS: ADMIT Hospitalist; ATTEND Family Medicine
PROC: 0TBB8ZZ Excision of Bladder, Via Natural or Artificial Opening Endoscopic (ICD-10-PCS; principal; 2018-08-24 12:30)
DX: N13.9 Obstructive and reflux uropathy, unspecified (principal); N17.9 Acute kidney failure, unspecified; F17.210 Nicotine dependence, cigarettes, uncomplicated; I10 Essential (primary) hypertension; E78.00 Pure hypercholesterolemia, unspecified; I34.1 Nonrheumatic mitral (valve) prolapse; Z22.322 Carrier or suspected carrier of Methicillin resistant Staphylococcus aureus; Z86.73 Personal history of transient ischemic attack (TIA), and cerebral infarction without residual deficits; E78.5 Hyperlipidemia, unspecified; D45 Polycythemia vera; Z85.46 Personal history of malignant neoplasm of prostate; K21.9 Gastro-esophageal reflux disease without esophagitis; R31.0 Gross hematuria
CPT/HCPCS: 36415; 74176; 76377; 80048; 80053; 80076; 81003; 81015; 82962; 83735; 84100; 85025; 85610; 85730; 88305; 88307; 93005; 99285; J1170; J1580; J2405; J2704; J3010; J3475; J7030

== ENCOUNTER 2018-09-07 01:24 | Emergency (ER) | payer OTHER ==
--- OUTSIDE RECORDS SUMMARY | 2018-09-07 01:27 | XMS REPORT ---
[...] Start End Status Dosage System Date Date [facility] 4080740[facility]87 Orally Once Active 10 mg 1 dailly tablet (OTC) Flonase ND 26155377568 50 MCG/ACT Active 2 sprays Nasally Once a in each day nostril (otc) Amlodipine ND 68647080542 5 MG Orally Once Active 1 tablet Besylate a day Losartan ND 24632270482 100-12.5 MG Active 1 tablet Potassium-HCTZ Orally Once a day Omeprazole ND 13509588338 40 MG Orally Active 1 capsule Once a day Results No Known Results Summary Purpose eClinicalWorks Submission
--- OUTSIDE RECORDS SUMMARY | 2018-09-07 01:27 | XMS REPORT | Clinical Summary ---
:1950 Author Organization [facility] Address [address] [place] [address] Care Team Providers Name Role Phone Unavailable Primary Care Provider Unavailable Allergies No Known Allergies Medications Medication Sig Dispensed Refills Start Date End Date Status losartan-hydrochlorot Take 1 tablet by 0 Active hiazide (HYZAAR) mouth daily. 100-12.5 mg per tablet amLODIPine (NORVASC) Take 5 mg by 0 Active 5 MG tablet mouth daily. omeprazole (PRILOSEC) Take 40 mg by 0 Active 40 MG capsule mouth daily. atorvastatin Take 20 mg by 0 Active (LIPITOR) 20 MG mouth daily. tablet docusate sodium Take 1 capsule 10 capsule 0 09/06/2018 09/16/2018 Active (COLACE) 100 MG (100 mg total) capsule by mouth 2 (two) times daily for 10 days. traMADol (ULTRAM) 50 Take 2 tablets 30 tablet 0 09/06/2018 09/16/2018 Active mg tablet (100 mg total) by mouth 3 (three) times daily as needed for up to 10 days. Max Daily Amount: 300 mg vancomycin 125 mg/2.5 Take 2.5 mLs 100 mL 0 09/06/2018 09/16/2018 Active mL Syrg (125 mg total) by mouth 4 (four) times daily for 10 days. 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 Encounters Date Type Specialty Care Team Description 09/01/2018 Anesthesia Event Josafat Parada MD 09/01/2018 Surgery Grey Beck CYSTOSCOPY,TURBT MD Madi 08/30/2018 Orders Only General Internal Medicine 08/28/2018 - Hospital Encounter General Internal Grey Beck Malignant neoplasm of urinary tract (HCC) (Primary Dx); 09/06/2018 Medicine MD Madi Bladder carcinoma (HCC); Gross hematuria; Preoperative clearance; Polycythemia; Acute blood loss anemia; Acute renal failure, unspecified acute renal failure type (HCC); TIA (transient ischemic attack); Fever in other diseases 08/28/2018 Travel after 09/06/2017 Social History Tobacco Use Types Packs/Day Years Used Date Current Every Day Smoker 0.5 50 Smokeless Tobacco: Never Used Tobacco Cessation: Ready to Quit: Yes; Counseling Given: Yes Alcohol Use Drinks/Week oz/Week Comments Yes 1 Shots of liquor 0.6 Alcohol Habits Answer Date Recorded How often do you have a drink containing 4 or more times a week 08/28/2018 alcohol? How many drinks containing alcohol do you have 1 or 2 08/28/2018 on a typical day when you are drinking? How often do you have six or more drinks on one Never 08/28/2018 occasion? Education Answer Date Recorded What is the highest level of school Bachelor's degree (e.g., BA, AB, 2017 you have completed or the highest BS) degree you have received? Financial Resource Strain Answer Date Recorded How hard is it for you to pay for the very basics like Not hard at all 2017 food, housing, medical care, and heating? Food Insecurity Answer Date Recorded Within the past 12 months, you worried that your food would Never true 2017 run out before you got money to buy more. Within the past 12 months, the food you bought just didn't Never true 2017 last and you didn't have money to get more. Transportation Needs Answer Date Recorded In the past 12 months, has lack of transportation kept you from No 08/28/2018 medical appointments or from getting medications? In the past 12 months, has lack of transportation kept you from No 08/28/2018 meetings, work, or getting things needed for daily living? Sex Assigned at Date Recorded Not on file Job Start Date Occupation Industry Not on file Not on file Not on file Travel History Travel Start Travel End No recent travel history available. Last Filed Vital Signs Vital Sign Reading Time Taken Blood Pressure 127/71 09/06/2018 10:49 AM ASSISTANT [employer]ANCH OPERATIONS MANAGER Pulse 65 09/06/2018 10:49 AM ASSISTANT BRANCH OPERATIONS MANAGER Temperature 37 C (98.6 F) 09/06/2018 10:49 AM ASSISTANT BRANCH OPERATIONS MANAGER Respiratory Rate 18 09/06/2018 10:49 AM ASSISTANT BRANCH OPERATIONS MANAGER Oxygen Saturation 99% 09/06/2018 10:49 AM ASSISTANT BRANCH OPERATIONS MANAGER Inhaled Oxygen Concentration 21% 09/02/2018 4:58 PM ASSISTANT BRANCH OPERATIONS MANAGER Weight 63.2 kg (139 lb 4.8 oz) 08/28/2018 1:23 PM ASSISTANT BRANCH OPERATIONS MANAGER Height 177.8 cm (5' 10") 08/28/2018 1:23 PM ASSISTANT BRANCH OPERATIONS MANAGER Body Mass Index 19.99 08/28/2018 1:23 PM ASSISTANT BRANCH OPERATIONS MANAGER Plan of Treatment Not on file Implants Implanted Type Area Rating Clerk Device Shelf Model / Identifier Expiration Serial / Lot Date Contour Injection Stent Set Left: [employer]OSTON 04/29/2020 [id number] / Implanted: Qty: 1 on 09/01/2018 by Grey Beck MD [facility] / [id number] Procedures Procedure Name Priority Date/Time Associated Comments Diagnosis CBC W/PLT COUNT & Routine 09/06/2018 4:46 Results for this AUTO DIFFERENTIAL AM ASSISTANT [employer]PERATIONS MANAGER procedure are in the results section. BASIC METABOLIC PANEL Routine 09/06/2018 4:46 Results for this (7) AM ASSISTANT BR[employer] OPERATIONS MANAGER procedure are in the results section. CBC W/PLT COUNT & Routine 09/06/2018 4:46 Results for this AUTO DIFFERENTIAL AM ASSISTANT BRANCH OPERATIONS MANAGER procedure are in the results section. TRANSFUSION SERVICE 09/05/2018 5:51 REPORT - SCAN PM ASSISTANT [employer]ANCH OPERATIONS MANAGER CBC W/PLT COUNT & Routine 09/05/2018 12:03 Results for this AUTO DIFFERENTIAL PM ASSISTANT BRANCH OPERATIONS MANAGER procedure are in the results section. VANCOMYCIN LEVEL, Timed 09/05/2018 12:03 Results for this TROUGH PM ASSISTANT [employer] OPERATIONS MANAGER procedure are in the results section. CBC W/PLT COUNT & Routine 09/05/2018 12:03 Results for this AUTO DIFFERENTIAL PM ASSISTANT BRANCH OPERATIONS MANAGER procedure are in the results section. CBC W/PLT COUNT & Routine 09/05/2018 5:57 Results for this AUTO DIFFERENTIAL AM ASSISTANT BRANCH OPERATIONS MANAGER procedure are in the results section. BASIC METABOLIC PANEL Routine 09/05/2018 5:57 Results for this (7) AM ASSISTANT [employer]CH OPERATIONS MANAGER procedure are in the results section. CBC W/PLT COUNT & Routine 09/05/2018 5:57 Results for this AUTO DIFFERENTIAL AM ASSISTANT BRANCH OPERATIONS MANAGER procedure are in the results section. PREPARE RBC Routine 09/04/2018 11:54 Results for this PM ASSISTANT [employer]PERATIONS MANAGER procedure are in the results section. PREPARE RBC Routine 09/04/2018 11:54 Results for this PM ASSISTANT [employer]CH OPERATIONS MANAGER procedure are in the results section. TRANSFUSION SERVICE 09/04/2018 5:52 REPORT - SCAN PM ASSISTANT [employer]ANCH OPERATIONS MANAGER C. DIFFICILE GDH Routine 09/04/2018 4:18 Results for this TOXIN PM ASSISTANT BRANCH OPERATIONS MANAGER procedure are in the results section. CT ABDOMEN/PELVIS Routine 09/04/2018 9:11 Results for this WITH IV CONTRAST AM ASSISTANT [employer]PERATIONS MANAGER procedure are in the results section. (CELLAVISION MANUAL Routine 09/04/2018 5:32 Results for this DIFF) AM ASSISTANT BRANCH OPERATIONS MANAGER procedure are in the results section. CBC W/PLT COUNT & Routine 09/04/2018 5:32 Results for this AUTO DIFFERENTIAL AM ASSISTANT BRANCH OPERATIONS MANAGER procedure are in the results section. BASIC METABOLIC PANEL Routine 09/04/2018 5:32 Results for this (7) AM ASSISTANT BRANCH OPERATIONS MANAGER procedure are in the results section. CBC W/PLT COUNT & Routine 09/04/2018 5:32 Results for this AUTO DIFFERENTIAL AM ASSISTANT BRANCH OPERATIONS MANAGER procedure are in the results section. PREPARE LEUKO-REDUCED Routine 09/03/2018 11:54 Results for this RBC PM ASSISTANT BRANCH OPERATIONS MANAGER procedure are in the results section. HEMOGLOBIN AND Routine 09/03/2018 9:50 Results for this HEMATOCRIT PM ASSISTANT [employer]CH OPERATIONS MANAGER procedure are in the results section. TRANSFUSE Routine 09/03/2018 8:53 LEUKO-REDUCED RED PM ASSISTANT BRANCH OPERATIONS MANAGER BLOOD CELLS TRANSFUSION SERVICE 09/03/2018 5:50 REPORT - SCAN PM ASSISTANT [employer] OPERATIONS MANAGER POCT-HEMOGLOBIN Routine 09/03/2018 2:45 Results for this AM ASSISTANT [employer]CH OPERATIONS MANAGER procedure are in the results section. POCT-HEMATOCRIT Routine 09/03/2018 2:45 Results for this AM ASSISTANT BRANCH OPERATIONS MANAGER procedure are in the results section. POCT-CALCIUM IONIZED Routine 09/03/2018 2:45 Results for this AM ASSISTANT BRANCH OPERATIONS MANAGER procedure are in the results section. POCT-GLUCOSE Routine 09/03/2018 2:45 Results for this AM ASSISTANT BRANCH OPERATIONS MANAGER procedure are in the results section. POCT-POTASSIUM Routine 09/03/2018 2:45 Results for this AM ASSISTANT BRANCH OPERATIONS MANAGER procedure are in the results section. POCT-SODIUM Routine 09/03/2018 2:45 Results for this AM ASSISTANT BRANCH OPERATIONS MANAGER procedure are in the results section. POCT-BLOOD GASES, Routine 09/03/2018 2:45 Results for this VENOUS AM ASSISTANT [employer]CH OPERATIONS MANAGER procedure are in the results section. POCT-LACTIC ACID, Routine 09/03/2018 2:36 Results for this VENOUS AM ASSISTANT BRANCH OPERATIONS MANAGER procedure are in the results section. CBC W/PLT COUNT & Routine 09/03/2018 2:30 Results for this AUTO DIFFERENTIAL AM ASSISTANT BRANCH OPERATIONS MANAGER procedure are in the results section. HEMOGLOBIN AND Routine 09/03/2018 2:30 Results for this HEMATOCRIT AM ASSISTANT BRANCH OPERATIONS MANAGER procedure are in the results section. BASIC METABOLIC PANEL Routine 09/03/2018 2:30 Results for this (7) AM ASSISTANT BRANCH OPERATIONS MANAGER procedure are in the results section. CBC W/PLT COUNT & Routine 09/03/2018 2:30 Results for this AUTO DIFFERENTIAL AM ASSISTANT BRANCH OPERATIONS MANAGER procedure are in the results section. TRANSFUSION REACTION STAT 09/03/2018 2:14 Results for this INVESTIGATION AM ASSISTANT BRANCH OPERATIONS MANAGER procedure are in the results section. TRANSFUSE Routine 09/03/2018 1:53 LEUKO-REDUCED RED AM ASSISTANT BRANCH OPERATIONS MANAGER BLOOD CELLS LACTIC ACID, VENOUS, Routine 09/02/2018 9:09 Results for this WHOLE BLOOD PM ASSISTANT BRANCH OPERATIONS MANAGER procedure are in the results section. BLOOD CULTURE Routine 09/02/2018 9:09 PM ASSISTANT BRANCH OPERATIONS MANAGER URINE CULTURE Routine 09/02/2018 8:55 Results for this PM ASSISTANT BRANCH OPERATIONS MANAGER procedure are in the results section. BLOOD CULTURE Routine 09/02/2018 6:18 PM ASSISTANT BRANCH OPERATIONS MANAGER BASIC METABOLIC PANEL Routine 09/02/2018 6:07 Results for this (7) PM ASSISTANT BRANCH OPERATIONS MANAGER procedure are in the results section. CBC W/PLT COUNT & Add-On 09/02/2018 5:45 Results for this AUTO DIFFERENTIAL PM ASSISTANT BRANCH OPERATIONS MANAGER procedure are in the results section. TYPE AND SCREEN, PAOLO 09/02/2018 5:45 Results for this AUTOMATED PM ASSISTANT BRANCH OPERATIONS MANAGER procedure are in the results section. CBC W/PLT COUNT & Add-On 09/02/2018 5:45 Results for this AUTO DIFFERENTIAL PM ASSISTANT BRANCH OPERATIONS MANAGER procedure are in the results section. LACTIC ACID, VENOUS, STAT 09/02/2018 5:45 Results for this WHOLE BLOOD PM ASSISTANT BRANCH OPERATIONS MANAGER procedure are in the results section. HEMOGLOBIN AND STAT 09/02/2018 5:45 Results for this HEMATOCRIT PM ASSISTANT BRANCH OPERATIONS MANAGER procedure are in the results section. ECG 12-LEAD PAOLO 09/02/2018 5:05 Results for this PM ASSISTANT BRANCH OPERATIONS MANAGER procedure are in the results section. CBC W/PLT COUNT & Routine 09/02/2018 4:59 Results for this AUTO DIFFERENTIAL AM ASSISTANT BRANCH OPERATIONS MANAGER procedure are in the results section. BASIC METABOLIC PANEL STAT 09/02/2018 4:59 Results for this (7) AM ASSISTANT BRANCH OPERATIONS MANAGER procedure are in the results section. CBC W/PLT COUNT & Routine 09/02/2018 4:59 Results for this AUTO DIFFERENTIAL AM ASSISTANT BRANCH OPERATIONS MANAGER procedure are in the results section. BLOOD CULTURE STAT 09/01/2018 9:16 PM ASSISTANT BRANCH OPERATIONS MANAGER POCT-HEMOGLOBIN Routine 09/01/2018 8:55 Results for this PM ASSISTANT BRANCH OPERATIONS MANAGER procedure are in the results section. POCT-HEMATOCRIT Routine 09/01/2018 8:55 Results for this PM ASSISTANT BRANCH OPERATIONS MANAGER procedure are in the results section. POCT-CALCIUM IONIZED Routine 09/01/2018 8:55 Results for this PM ASSISTANT BRANCH OPERATIONS MANAGER procedure are in the results section. POCT-GLUCOSE Routine 09/01/2018 8:55 Results for this PM ASSISTANT BRANCH OPERATIONS MANAGER procedure are in the results section. POCT-POTASSIUM Routine 09/01/2018 8:55 Results for this PM ASSISTANT [employer]ANCH OPERATIONS MANAGER procedure are in the results section. POCT-SODIUM Routine 09/01/2018 8:55 Results for this PM ASSISTANT BRANCH OPERATIONS MANAGER procedure are in the results section. POCT-BLOOD GASES, Routine 09/01/2018 8:55 Results for this VENOUS PM ASSISTANT [employer]ANCH OPERATIONS MANAGER procedure are in the results section. CBC W/PLT COUNT & STAT 09/01/2018 8:52 Results for this AUTO DIFFERENTIAL PM ASSISTANT BRANCH OPERATIONS MANAGER procedure are in the results section. COMPREHENSIVE STAT 09/01/2018 8:52 Results for this METABOLIC PANEL PM ASSISTANT BRANCH OPERATIONS MANAGER procedure are in the results section. LACTIC ACID, VENOUS, STAT 09/01/2018 8:52 Results for this WHOLE BLOOD PM ASSISTANT BRANCH OPERATIONS MANAGER procedure are in the results section. CBC W/PLT COUNT & STAT 09/01/2018 8:52 Results for this AUTO DIFFERENTIAL PM ASSISTANT BRANCH OPERATIONS MANAGER procedure are in the results section. APTT Routine 09/01/2018 8:52 Results for this PM ASSISTANT BRANCH OPERATIONS MANAGER procedure are in the results section. PROTHROMBIN TIME/INR Routine 09/01/2018 8:52 Results for this PM ASSISTANT BRANCH OPERATIONS MANAGER procedure are in the results section. POCT-LACTIC ACID, Routine 09/01/2018 8:51 Results for this VENOUS PM ASSISTANT BRANCH OPERATIONS MANAGER procedure are in the results section. CBC W/PLT COUNT & STAT 09/01/2018 6:27 Results for this AUTO DIFFERENTIAL PM ASSISTANT BRANCH OPERATIONS MANAGER procedure are in the results section. CBC W/PLT COUNT & STAT 09/01/2018 6:27 Results for this AUTO DIFFERENTIAL PM ASSISTANT BRANCH OPERATIONS MANAGER procedure are in the results section. HEMOGLOBIN AND Routine 09/01/2018 1:45 Results for this HEMATOCRIT PM ASSISTANT BRANCH OPERATIONS MANAGER procedure are in the results section. BASIC METABOLIC PANEL STAT 09/01/2018 1:45 Results for this (7) PM ASSISTANT BRANCH OPERATIONS MANAGER procedure are in the results section. FL BUSINESS LEADER IN OR 30 Routine 09/01/2018 12:57 Results for this MINUTE INCREMENTS PM ASSISTANT BRANCH OPERATIONS MANAGER procedure are in the results section. TISSUE EXAM AP Routine 09/01/2018 11:24 Results for this AM ASSISTANT [employer]CH OPERATIONS MANAGER procedure are in the results section. CYSTOSCOPY,TURBT 09/01/2018 8:00 Malignant neoplasm AM ASSISTANT [employer]CH OPERATIONS MANAGER of urinary bladder, unspecified site (HCC) Special Needs REQ 1230 CBC W/PLT COUNT & AUTO Routine 09/01/2018 5:58 AM ASSISTANT BRANCH OPERATIONS MANAGER Results for this DIFFERENTIAL procedure are in the results section. BASIC METABOLIC PANEL (7) STAT 09/01/2018 5:58 AM ASSISTANT BRANCH OPERATIONS MANAGER CBC W/PLT COUNT & AUTO Routine 09/01/2018 5:58 AM ASSISTANT BRANCH OPERATIONS MANAGER Results for this DIFFERENTIAL procedure are in the results section. TRANSFUSION SERVICE REPORT 08/31/2018 5:51 PM ASSISTANT BRANCH OPERATIONS MANAGER - SCAN CBC W/PLT COUNT & AUTO Routine 08/31/2018 6:06 AM ASSISTANT BRANCH OPERATIONS MANAGER Results for this DIFFERENTIAL procedure are in the results section. BASIC METABOLIC PANEL (7) STAT 08/31/2018 6:06 AM ASSISTANT BRANCH OPERATIONS MANAGER CBC W/PLT COUNT & AUTO Routine 08/31/2018 6:06 AM ASSISTANT BRANCH OPERATIONS MANAGER Results for this DIFFERENTIAL procedure are in the results section. TYPE AND SCREEN, AUTOMATED Routine 08/30/2018 6:47 PM ASSISTANT BRANCH OPERATIONS MANAGER NM CARDIAC PET PERFUSION Routine 08/30/2018 11:16 AM ASSISTANT BRANCH OPERATIONS MANAGER Results for this REST AND/OR STRESS procedure are in the results section. ECG 12-LEAD Routine 08/30/2018 10:51 AM ASSISTANT BRANCH OPERATIONS MANAGER ECG 12-LEAD Routine 08/30/2018 10:51 AM ASSISTANT BRANCH OPERATIONS MANAGER Procedure Note - Interface, External Ris In - 08/30/2018 11:21 AM ASSISTANT BRANCH OPERATIONS MANAGER Ventricular Rate 70 BPM Atrial Rate 70 BPM P-R Interval 152 ms QRS Duration 116 ms Q-T Interval 402 ms QTC Calculation(Bazett) 434 ms P [place] 65 degrees R [place] -30 degrees T [place] -81 degrees Poor data quality, interpretation may be adversely affected Demand pacemaker; interpretation is based on intrinsic rhythm Sinus rhythm with Premature ventricular complexes or Fusion complexes Left axis deviation Septal infarct , age undetermined T wave abnormality, consider inferior ischemia Abnormal ECG CBC W/PLT COUNT & AUTO Routine 08/30/2018 6:39 AM ASSISTANT BRANCH OPERATIONS MANAGER Results for this DIFFERENTIAL procedure are in the results section. BASIC METABOLIC PANEL (7) STAT 08/30/2018 6:39 AM ASSISTANT BRANCH OPERATIONS MANAGER CBC W/PLT COUNT & AUTO Routine 08/30/2018 6:39 AM ASSISTANT BRANCH OPERATIONS MANAGER Results for this DIFFERENTIAL procedure are in the results section. CAROTID DOPPLER BILATERAL Routine 08/29/2018 11:04 PM ASSISTANT BRANCH OPERATIONS MANAGER ECG 12-LEAD Routine 08/29/2018 7:10 PM ASSISTANT BRANCH OPERATIONS MANAGER CBC W/PLT COUNT & AUTO Routine 08/29/2018 5:13 AM ASSISTANT BRANCH OPERATIONS MANAGER Results for this DIFFERENTIAL procedure are in the results section. BASIC METABOLIC PANEL (7) STAT 08/29/2018 5:13 AM ASSISTANT BRANCH OPERATIONS MANAGER CBC W/PLT COUNT & AUTO Routine 08/29/2018 5:13 AM ASSISTANT BRANCH OPERATIONS MANAGER Results for this DIFFERENTIAL procedure are in the results section. URINE CULTURE Routine 08/28/2018 4:55 PM ASSISTANT BRANCH OPERATIONS MANAGER CBC W/PLT COUNT & AUTO Routine 08/28/2018 4:54 PM ASSISTANT BRANCH OPERATIONS MANAGER Results for this DIFFERENTIAL procedure are in the results section. BASIC METABOLIC PANEL (7) Routine 08/28/2018 4:54 PM ASSISTANT BRANCH OPERATIONS MANAGER CBC W/PLT COUNT & AUTO Routine 08/28/2018 4:54 PM ASSISTANT BRANCH OPERATIONS MANAGER Results for this DIFFERENTIAL procedure are in the results section. PROTHROMBIN TIME/INR Routine 08/28/2018 4:54 PM ASSISTANT BRANCH OPERATIONS MANAGER after 09/06/2017 Results CBC with platelet count + automated diff (09/06/2018 4:46 AM ASSISTANT BRANCH OPERATIONS MANAGER)Only the most recent of14 resultswithin the time period is included. WBC 6.2 3.5 - 10.5 K/L [facility] RBC 2.79 (L) 4.63 - 6.08 M/L [facility] Hemoglobin 8.4 (L) 13.7 - 17.5 GM/DL [facility] Hematocrit 25.2 (L) 40.1 - 51.0 % [facility] MCV 90.3 79.0 - 92.[address] [facility] MCH 30.1 25.7 - 32.[address] [facility] MCHC 33.3 32.3 - 36.5 GM/DL [facility] RDW 14.3 11.6 - 14.4 % [facility] Platelets 266 150 - 450 K/CU MM [facility] MPV 9.5 9.4 - 12.[address] [facility] nRBC 0 0 - 0 /[address] [facility] % Neutros 61 % [facility] % Lymphs 21 % [facility] % Monos 7 % [facility] % Eos 10 % [facility] % Baso 0 % [facility] # Neutros 3.75 1.78 - 5.38 K/L [facility] # Lymphs 1.30 (L) 1.32 - 3.57 K/L [facility] # Monos 0.45 0.30 - 0.82 K/L [facility] # Eos 0.63 (H) 0.04 - 0.54 K/L [facility] # Baso 0.02 0.01 - 0.08 K/L [facility] Immature Granulocytes-Relative 1 0 - 1 % [facility] Specimen Blood - Arm, Left Performing Organization Address City/State/Zipcode Phone Number [facility] [address] [place] [address] [phone] CENTER Basic Metabolic Panel (09/06/2018 4:46 AM ASSISTANT BRANCH OPERATIONS MANAGER)Only the most recent of12 resultswithin the time period is included. Sodium 141 136 - 145 meq/L [facility] Potassium 3.8 3.5 - 5.1 meq/L [facility] Chloride 113 (H) 98 - 107 meq/L [facility] CO2 24 22 - 29 meq/L [facility] BUN 7 7 - 21 mg/dL [facility] Creatinine 0.95 0.57 - 1.25 mg/dL [facility] Glucose 90 70 - 105 mg/dL [facility] Calcium 8.0 (L) 8.4 - 10.2 mg/dL [facility] EGFR 79Comment: ESTIMATED GFR IS mL/min/1.73 sq m [facility] NOT ACCURATE CREATININE [facility] CENTER CLEARANCE IN PREDICTING GLOMERULAR FILTRATION RATE. ESTIMATED GFR IS NOT APPLICABLE FOR DIALYSIS PATIENTS. Specimen Blood - Arm, Left Performing Organization Address City/[facility] Phone Number [address] [address] [phone] CENTER TRANSFUSION SERVICE REPORT - SCAN (09/05/2018 5:51 PM ASSISTANT BRANCH OPERATIONS MANAGER)Only the most recent of4 resultswithin the time period is included. Narrative Performed At Vancomycin level, trough (09/05/2018 12:03 PM ASSISTANT BRANCH OPERATIONS MANAGER) Vancomycin Tr 14.6 10.0 - 20.0 ug/mL [facility] Specimen Blood - Arm, Left Performing Organization Address [facility] Phone Number [address] [address] CENTER Prepare RBC (09/04/2018 11:54 PM ASSISTANT BRANCH OPERATIONS MANAGER)Only the most recent of2 resultswithin the time period is included. CROSSMATCH COMPATIBLE SAFETRACE TX Unit ABO O Pos SAFETRACE TX UNIT NUMBER [id number] SAFETRACE TX Status TRANSFUSED SAFETRACE TX Blood Bank Product RED BLOOD CELLS SAFETRACE TX PRODUCT CODE [id number] SAFETRACE TX Performing Organization Address [facility] Number SAFETRACE TX Clostridium difficile [facility] Toxin (09/04/2018 4:18 PM ASSISTANT BRANCH OPERATIONS MANAGER) C. Difficle Toxin Negative Negative [facility] C. Difficile [facility] Antigen Positive (A)Comment: C. Negative [facility] difficile present but toxin [facility] not detected. Indicates colonization with non-toxigenic strain or level of toxin below detectable levels. No need for enteric isolation. Treatment is rarely needed (only when strong clinical suspicion for Clostridium difficile infection) Specimen Stool - Stool Narrative Performed At Testing performed by [employer] [facility] Assay.For [facility], published sensitivity of the assay is 98.7% compared to cytotoxicity testing.For Toxin AB, published sensitivity is 87.8% and specificity 99.4% compared to cytotoxicity testing. Verification of kit performance was done by the [facility] Microbiology Lab prior to clinical use. Performing Organization Address City/State/Zipcode Phone Number [facility] [address] [place] [address] abdomen/pelvis with IV contrast (09/04/2018 9:11 AM ASSISTANT BRANCH OPERATIONS MANAGER) Narrative Performed At FINAL REPORT [employer] TECHNIQUE: CT of the abdomen and pelvis WITH intravenous contrast and WITH oral contrast. Dose modulation, iterative reconstruction, and/or weight-based adjustment of the mA/kV was utilized to reduce the radiation dose to as low as reasonably achievable. INDICATION: 68-year-old man with pelvic fluid collection. COMPARISON: None. FINDINGS: LOWER THORAX: Unremarkable. HEPATOBILIARY: Multiple cysts scattered throughout the liver measure up to 5.3 x 4.2 cm, a few of which contain thin septations. Additional subcentimeter hypodensities scattered throughout the liver are too small to characterize, but are also likely cysts. Gallbladder is unremarkable. The common bile duct is at the upper limit of normal in caliber, measuring 0.7 cm. No intrahepatic biliary ductal dilatation. SPLEEN: No splenomegaly. 3.1 x 2.3 cm lobulated cystic structure in the anterior spleen, likely a benign lesion such as a lymphangioma or cyst. PANCREAS: No focal masses or ductal dilatation. ADRENALS: No adrenal nodules. KIDNEYS/URETERS: Mild hydroureteronephrosis on the left despite the presence of a ureteral stent which appears in expected position. Nonobstructing 0.3 cm left renal calculus. No solid renal lesions.. PELVIC ORGANS/BLADDER: Prior prostatectomy. Garduno catheter terminates within the urinary bladder. Hyperdensity within the bladder lumen measures approximately 8.1 x 7.7 x 7.7 cm. Small amount of air within the bladder lumen. 0.3 cm calcification along the dependent portion of the bladder may represent bladder stone. PERITONEUM/RETROPERITONEUM: Trace free fluid. Fat stranding in the perivesical region. No free air. LYMPH NODES: No lymphadenopathy. VESSELS: Unremarkable. GI TRACT: No distention or wall thickening. Colonic diverticula. Normal appendix. BONES AND SOFT TISSUES: Unremarkable. IMPRESSION: No fluid collections. Suspected acute hematoma within the bladder. Mild left hydroureteronephrosis despite the presence of a ureteral stent, which appears in expected position. Nonobstructing left renal calculus. Trace free fluid, nonspecific. Signed: Gala Alejandre MD Report Verified Date/Time:09/04/2018 09:51:34 Reading Location: [facility] C013Y CT Body Reading Room Procedure Note Interface, External Ris In - 09/04/2018 9:53 AM ASSISTANT BRANCH OPERATIONS MANAGER FINAL REPORT TECHNIQUE: CT of the abdomen and pelvis WITH intravenous contrast and WITH oral contrast. Dose modulation, iterative reconstruction, and/or weight-based adjustment of the mA/kV was utilized to reduce the radiation dose to as low as reasonably achievable. INDICATION: 68-year-old man with pelvic fluid collection. COMPARISON: None. FINDINGS: LOWER THORAX: Unremarkable. HEPATOBILIARY: Multiple cysts scattered throughout the liver measure up to 5.3 x 4.2 cm, a few of which contain thin septations. Additional subcentimeter hypodensities scattered throughout the liver are too small to characterize, but are also likely cysts. Gallbladder is unremarkable. The common bile duct is at the upper limit of normal in caliber, measuring 0.7 cm. No intrahepatic biliary ductal dilatation. SPLEEN: No splenomegaly. 3.1 x 2.3 cm lobulated cystic structure in the anterior spleen, likely a benign lesion such as a lymphangioma or cyst. PANCREAS: No focal masses or ductal dilatation. ADRENALS: No adrenal nodules. KIDNEYS/URETERS: Mild hydroureteronephrosis on the left despite the presence of a ureteral stent which appears in expected position. Nonobstructing 0.3 cm left renal calculus. No solid renal lesions.. PELVIC ORGANS/BLADDER: Prior prostatectomy. Garduno catheter terminates within the urinary bladder. Hyperdensity within the bladder lumen measures approximately 8.1 x 7.7 x 7.7 cm. Small amount of air within the bladder lumen. 0.3 cm calcification along the dependent portion of the bladder may represent bladder stone. PERITONEUM/RETROPERITONEUM: Trace free fluid. Fat stranding in the perivesical region. No free air. LYMPH NODES: No lymphadenopathy. VESSELS: Unremarkable. GI TRACT: No distention or wall thickening. Colonic diverticula. Normal appendix. BONES AND SOFT TISSUES: Unremarkable. IMPRESSION: No fluid collections. Suspected acute hematoma within the bladder. Mild left hydroureteronephrosis despite the presence of a ureteral stent, which appears in expected position. Nonobstructing left renal calculus. Trace free fluid, nonspecific. Signed: Gala Alejandre MD Report Verified Date/Time: 09/04/2018 09:51:34 Reading Location: [facility] C013Y CT Body Reading Room Performing Organization Address City/State/Zipcode Phone Number GE RIS Manual Differential (09/04/2018 5:32 AM ASSISTANT BRANCH OPERATIONS MANAGER) % Neutros 69 % [facility] % Lymphs 12 % [facility] % Monos 2 % [facility] % Eos 5 % [facility] % Bands 12 (H) 0 - 10 % [facility] # Neutros 8.69 (H) 1.78 - 5.38 K/ul [facility] # Lymphs 1.51 1.32 - 3.57 K/ul [facility] # Monos 0.25 (L) 0.30 - 0.82 K/uL [facility] # Eos 0.63 (H) 0.04 - 0.54 K/uL [facility] # Bands 1.51 (H) 0.00 - 0.80 K/uL [facility] Total Counted 100 [facility] WBC Morphology Normal [facility] Platelet Morphology Normal [facility] Polychromasia 1+ few [facility] Anisocytosis 1+ few [facility] Artifact Present [facility] Platelet Conc Adequate [facility] Specimen Blood - Arm, Left Narrative Performed At Received comment: [facility] User comments: Slide comments: Performing Organization Address City/[facility] Phone Number [facility] [address] [place] [address] CENTER Prepare Leuko-Red RBC (09/03/2018 11:54 PM ASSISTANT BRANCH OPERATIONS MANAGER) CROSSMATCH COMPATIBLE SAFETRACE TX Unit ABO O Pos SAFETRACE TX UNIT NUMBER [id number] SAFETRACE TX Status TRANSFUSED SAFETRACE TX Blood Bank Product RED BLOOD CELLS SAFETRACE TX PRODUCT CODE [id number] SAFETRACE TX Specimen Other Performing Organization Address [facility] Phone Number SAFETRACE TX Hemoglobin and hematocrit (09/03/2018 9:50 PM ASSISTANT BRANCH OPERATIONS MANAGER)Only the most recent of4 resultswithin the time period is included. Hemoglobin 9.1 (L) 13.7 - 17.5 GM/DL [facility] Hematocrit 27.2 (L) 40.1 - 51.0 % [facility] Specimen Blood - Arm, Left Narrative Performed At H/H after 2U PRBC [facility] Performing Organization Address [facility] Phone Number [facility] [address] [place] [address] CENTER Transfuse Leuko-Red RBC (09/03/2018 8:53 PM ASSISTANT BRANCH OPERATIONS MANAGER)Only the most recent of5 resultswithin the time period is included.POCT-HEMATOCRIT (09/03/2018 2:45 AM ASSISTANT BRANCH OPERATIONS MANAGER)Only the most recent of2 resultswithin the time period is included. POC-Hematocrit 19 (L)Comment: TESTED AT 40 - 50 % [facility] [address] [facility] [address] Specimen Blood Performing Organization Address [facility]/Zipcode Phone Number [address] [address] CENTER POCT-HEMOGLOBIN (09/03/2018 2:45 AM ASSISTANT BRANCH OPERATIONS MANAGER)Only the most recent of2 resultswithin the time period is included. POC-Hemoglobin 6.5 (L)Comment: TESTED AT 13.0 - 16.8 g/dL [address] [place] [address]DLCLU[place] AT [address] [address] Specimen Blood Performing Organization Address [facility] Phone Number [address] [address] [phone] [place] POCT-GLUCOSE (09/03/2018 2:45 AM ASSISTANT BRANCH OPERATIONS MANAGER)Only the most recent of2 resultswithin the time period is included. POC-Glucose 106Comment: TESTED AT [facility] 70 - 110 mg/dL [address] [address] Specimen Blood Performing Organization Address [facility] Phone Number [address] [address] [phone] [place] POC-Sodium (09/03/2018 2:45 AM ASSISTANT BRANCH OPERATIONS MANAGER)Only the most recent of2 resultswithin the time period is included. POC-Sodium 138Comment: TESTED AT [facility] 135 - 148 meq/L [address] [address] Specimen Blood Performing Organization Address [facility] Phone Number [address] [address] CENTER POC-Potassium (09/03/2018 2:45 AM ASSISTANT BRANCH OPERATIONS MANAGER)Only the most recent of2 resultswithin the time period is included. POC-Potassium 3.7Comment: TESTED AT [facility] 3.6 - 5.5 meq/L [address] [address] Specimen Blood Performing Organization Address [facility] Phone Number [facility] [address] [address] [phone] [place] POC-Calcium ionized (09/03/2018 2:45 AM ASSISTANT BRANCH OPERATIONS MANAGER)Only the most recent of2 resultswithin the time period is included. POC-Calcium Ionized 1.17Comment: TESTED AT 1.12 - 1.27 mmol/L [place] [id number] Specimen Blood Performing Organization Address City/[facility]/Zipcode Phone Number [address] [address] [place] POC-Blood gases, venous (09/03/2018 2:45 AM ASSISTANT BRANCH OPERATIONS MANAGER)Only the most recent of2 resultswithin the time period is included. Temp. Celsius-POC 37.0 [facility] FIO2-POC Comment: TESTED AT [address] [address] pH, Venous-POC 7.453 (H) 7.320 - 7.420 [facility] PCO2, Venous-POC 29.7 (L) 41.0 - 51.[address] [facility] PO2, Venous-POC 62.0 (H) 25.0 - 40.[address] [facility] SO2, Venous-POC 93.0 (H) 40.0 - 70.0 % [facility] HCO3, Venous-POC 20.8 (L) 21.0 - 29.0 meq/L [facility] BE, Venous-POC -3.0 (L) -2.0 - 3.0 meq/L [facility] Specimen Blood Performing Organization Address City/[facility]/Zipcode Phone Number [address] [address] [phone] [place] POC-Lactic Acid, Venous (09/03/2018 2:36 AM ASSISTANT BRANCH OPERATIONS MANAGER)Only the most recent of2 resultswithin the time period is included. POC-Lactic Acid, Venous 1.1Comment: TESTED AT 0.9 - 1.7 mmol/L [address] [address] Specimen Blood Performing Organization Address [facility] Phone Number [address] [address] CENTER Transfusion Reaction Investigation (09/03/2018 2:14 AM ASSISTANT BRANCH OPERATIONS MANAGER) TRANSFUSION RX SEE COMMENTComment: [facility] INVESTIGATION(FREDAAKER) Symptoms most likely due [facility] to underlying disease: The patient developed an increase in temperature from 99.8F to 101.2F during transfusion of RBC. No other symptoms or signficant changes in vital signs were noted. Of note, the patient had temperatures as high as 101 in the 24 hours preceeding transfusion. Blood bank work-up was negative for evidence of clerical error or immune mediated hemolysis. Symptoms are most likely due to underlying disease and less likely related to transfusion.Electronic Signature: Kristin Perkins M.D. Specimen Blood Performing Organization Address [facility] Phone Number [address] [address] [phone] Lactic acid, venous, whole blood (09/02/2018 9:09 PM ASSISTANT BRANCH OPERATIONS MANAGER)Only the most recent of3 resultswithin the time period is included. Lactate, Venous 5.5 (H) 0.5 - 2.2 mmol/L [facility] Specimen Blood - Arm, Right Performing Organization Address [facility] Phone Number [address] [address] CENTER Urine culture (09/02/2018 8:55 PM ASSISTANT BRANCH OPERATIONS MANAGER)Only the most recent of2 resultswithin the time period is included. Result No growth [facility] Specimen Urine - Urine, Garduno Performing Organization Address [facility]/Zipcode Phone Number [address] [address] [phone] CENTER Type and screen, automated (09/02/2018 5:45 PM ASSISTANT BRANCH OPERATIONS MANAGER)Only the most recent of2 resultswithin the time period is included. ABO/RH AUTOMATED (BEAKER) O POSITIVE [facility] Ab Scrn NEGATIVE [facility] Specimen Blood - Arm, Left Performing Organization Address [facility] Phone Number [facility] [address] [place] [address] ECG 12 lead (09/02/2018 5:05 PM ASSISTANT BRANCH OPERATIONS MANAGER)Only the most recent of3 resultswithin the time period is included. Narrative Performed At Ventricular Rate 111 BPM GE MUSE Atrial Rate 111 BPM P-R Interval 178 ms QRS Duration 96 ms Q-T Interval 312 ms QTC Calculation(Bazett) 424 ms P [place] 41 degrees R [place] 67 degrees T [place] -45 degrees Sinus tachycardia Septal infarct (cited on or before 29-AUG-2018) Abnormal ECG When compared with ECG of 30-AUG-2018 10:51, Electronic demand pacing is no longer Present Fusion complexes are no longer Present Premature ventricular complexes are no longer Present Vent. rate has increased BY41 BPM Questionable change in QRS duration Confirmed by MD Chairez Mahboob ([id number]) on 09/03/2018 12:53:54 PM Procedure Note Interface, External Ris In - 09/03/2018 12:53 PM ASSISTANT BRANCH OPERATIONS MANAGER Ventricular Rate 111 BPM Atrial Rate 111 BPM P-R Interval 178 ms QRS Duration 96 ms Q-T Interval 312 ms QTC Calculation(Bazett) 424 ms P [place] 41 degrees R [place] 67 degrees T [place] -45 degrees Sinus tachycardia Septal infarct (cited on or before 29-AUG-2018) Abnormal ECG When compared with ECG of 30-AUG-2018 10:51, Electronic demand pacing is no longer Present Fusion complexes are no longer Present Premature ventricular complexes are no longer Present Vent. rate has increased BY 41 BPM Questionable change in QRS duration Confirmed by MD Chairez Mahboob ([id number]) on 09/03/2018 12:53:54 PM Performing Organization Address City/[facility] Phone Number GE MUSE aPTT (09/01/2018 8:52 PM ASSISTANT BRANCH OPERATIONS MANAGER) PTT 29.1 22.5 - 36.[address] [facility] Specimen Blood Performing Organization Address City/[facility]/Zipcode Phone Number [facility] [address] [place] [address] [place] Prothromin time/INR (09/01/2018 8:52 PM ASSISTANT BRANCH OPERATIONS MANAGER)Only the most recent of2 resultswithin the time period is included. Protime 14.4 11.7 - 14.[address] [facility] INR 1.1 <=5.9 [facility] Specimen Blood Narrative Performed At RECOMMENDED COUMADIN/WARFARIN INR THERAPY [facility] RANGES STANDARD DOSE: 2.0 - 3.0 Includes: PROPHYLAXIS for venous thrombosis, systemic embolization; TREATMENT for venous thrombosis and/or pulmonary embolus. HIGH RISK: Target INR is 2.5-3.5 for patients with mechanical heart valves. Performing Organization Address [facility] Phone Number [address] [address] [place] Comprehensive metabolic panel (09/01/2018 8:52 PM ASSISTANT BRANCH OPERATIONS MANAGER) Protein, Total 4.5 (L) 6.0 - 8.3 gm/dL [facility] Albumin 2.8 (L) 3.5 - 5.0 g/dL [facility] Alkaline Phosphatase 45 40 - 150 U/L [facility] Total Bilirubin 1.1 0.2 - 1.2 mg/dL [facility] Sodium 139 136 - 145 meq/L [facility] Potassium 4.1 3.5 - 5.1 meq/L [facility] Chloride 114 (H) 98 - 107 meq/L [facility] CO2 17 (L) 22 - 29 meq/L [facility] BUN 16 7 - 21 mg/dL [facility] Creatinine 1.27 (H) 0.57 - 1.25 mg/dL [facility] Glucose 132 (H) 70 - 105 mg/dL [facility] Calcium 7.7 (L) 8.4 - 10.2 mg/dL [facility] AST 18 5 - 34 U/L [facility] ALT 16 6 - 55 U/L [facility] EGFR 57Comment: ESTIMATED GFR mL/min/1.73 sq m [facility] IS NOT ACCURATE [facility] CREATININE CLEARANCE IN PREDICTING GLOMERULAR FILTRATION RATE. ESTIMATED GFR IS NOT APPLICABLE FOR DIALYSIS PATIENTS. Specimen Blood Performing Organization Address City/State/Zipcode Phone Number [facility] [address] [place] [address] [phone] [facility] rn radiation oncology in or 30 minute increments (09/01/2018 12:57 PM ASSISTANT BRANCH OPERATIONS MANAGER) Narrative Performed At FINAL REPORT [facility] Fluoroscopic spot imaging was performed at the time of the procedure by the ordering service. This examination is nondiagnostic. Fluoroscopy was not performed by the undersigned, and the radiologist was not present at the time of examination. Interpretation of the images was not requested. Total fluoroscopy time: 0.7 minutes Total number of films: 5 Please refer to the referring physician's procedure report for complete detail. There is a left ureteral stent in position. Signed: Brad Jorge MD Report Verified Date/Time:09/01/2018 14:17:49 Reading Location: [address] Consult Reading Room Procedure Note Interface, External Ris In - 09/01/2018 2:19 PM ASSISTANT BRANCH OPERATIONS MANAGER FINAL REPORT Fluoroscopic spot imaging was performed at the time of the procedure by the ordering service. This examination is nondiagnostic. Fluoroscopy was not performed by the undersigned, and the radiologist was not present at the time of examination. Interpretation of the images was not requested. Total fluoroscopy time: 0.7 minutes Total number of films: 5 Please refer to the referring physician's procedure report for complete detail. There is a left ureteral stent in position. Signed: Brad Jorge MD Report Verified Date/Time: 09/01/2018 14:17:49 Reading Location: [facility] B1 C013X Ortho Consult Reading Room Performing Organization Address City/State/Zipcode Phone Number GE RIS Tissue Exam (09/01/2018 11:24 AM ASSISTANT BRANCH OPERATIONS MANAGER) Case Report Surgical Pathology Report Case: [id number] [facility] Authorizing Provider:Grey Beck MDCollected: 09/01/[address] [place] [address] Ordering Location: [address] Received: 09/02/2018 1324 Service Pathologist: Nadeem Dolan MD Specimens: A) - Bladder Biopsy, Trigone, Right Trigone and Bladder Neck Tumor B) - Bladder Biopsy, Wall, Low Posterior Wall Tumor C) - Bladder Biopsy, Right Lateral Tumor D) - Bladder Biopsy, Wall, High Posterior Wall Tumor E) - Bladder Biopsy, dome F) - Bladder Biopsy, left lateral tumor G) - Bladder Tumor, left trigone tumor H) - Bladder Biopsy, Anterior Wall Inside Bladder Neck DIAGNOSIS A. 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 No lymph/vascular invasion is seen. CPT Code(s) [address] [facility] CLINICAL HISTORY Bladder cancer [facility] SPECIMEN SOURCE A. Right trigone and [facility] bladder neck tumor; B. [facility] posterior wall bladder tumor; C. Right lateral bladder tumor; D. High posterior wall bladder tumor; E. Bladder dome biopsy; F. Left lateral bladder tumor; G. Left trigone tumor; H. Anterior wall inside bladder neck biopsy GROSS DESCRIPTION Specimen A: Received in formalin labeled "right trigone and bladder neck tumor" is a 2.5 x 2.0 x 0.3 cm aggregate of pink-ramos friable soft tissue. The specimen is entirely submitted in cassette A1. [facility] Specimen B: Received in formalin labeled "lower posterior wall bladder tumor " is a 4.0 x 3.3 x 0.5 cm aggregate of pink-ramos rubbery friable soft tissue. The specimen is entirely submitted in cassettes B1-B2. Specimen C: Received in formalin labeled "right lateral bladder tumor" is a 3.3 x 2.6 x 0.5 cm aggregate of pink-ramos to larson-white, rubbery, friable soft tissue. The specimen is entirely submitted in cassette C1. Specimen D: Received in formalin labeled "high posterior wall bladder tumor" is a 3.3 x 2.5 x 0.3 cm aggregate of pink-ramos to larson-white, rubbery, friable soft tissue. The specimen is entirely submitted in cassette D1. Specimen E: Received in formalin labeled "bladder dome biopsy" is a 4.5 x 3.3 x 0.5 cm aggregate of pink-ramos to larson-white, rubbery, friable soft tissue. The specimen is entirely submitted in cassette E1-E2. Specimen F: Received in formalin labeled "left lateral bladder tumor" is a 5.5 x 4.0 x 0.6 cm aggregate of pink-ramos to larson-white, rubbery, friable soft tissue. The specimen is entirely submitted in cassettes F1-F4. Specimen G: Received in formalin labeled "left trigone tumor" is a 4.0 x 3.5 x 0.5 cm aggregate of pink-ramos to larson-white, rubbery, friable soft tissue. The specimen is entirely submitted in cassettes G1-G2. Specimen H: Received in formalin labeled "anterior wall inside bladder neck biopsy" is a 5.0 x 3.5 x 0.5 cm aggregate of pink-ramos to larson-white, rubbery, friable soft tissue. The specimen is entirely submitted in cassettes H1-H3. DB/ pl MICROSCOPIC DESCRIPTION Performed [facility] Specimen Tissue - Bladder Biopsy, Trigone Performing Organization Address City/State/Zipcode Phone Number [facility] [address] [place] [address] CENTER DC myocardial perfusion PET (rest and stress) (08/30/2018 11:16 AM ASSISTANT BRANCH OPERATIONS MANAGER) Narrative Performed At FINAL REPORT [employer] PROCEDURE: Rest/Stress MYOCARDIAL PERFUSION PET with regadenoson\\[id number]\\ CPT CODE: 47277 INDICATION: Preoperative evaluation for bladder resection HISTORY: Cardiac risk factors: Hypertension, hyperlipidemia, tobacco use. Current cardiovascular-related medications: Lipitor, losartan, Norvasc. PROTOCOL: Limited low-dose CT imaging was performed for attenuation correction. 40.2 mCi of Rb-82 chloride was injected iv at rest, and gated PET (positron emission tomography) images were obtained. Subsequently, 40.2 mCi of Rb-82 chloride was injected iv at expected peak pharmacologic effect, and gated PET images were obtained. PRELIMINARY STRESS TEST DATA FROM NONINVASIVE CARDIOLOGY: Pharmacologic stress was by 10-second iv infusion of 0.4 mg of regadenoson. Radiotracer was injected 30 seconds after start of stress. Heart rate was 73 beats/min at rest and 99 beats/min (64% of MPHR) at tracer injection. BP was 90/53 mmHg at rest and 93/58 mmHg at tracer injection. Stress was stopped for predetermined endpoint. The patient experienced dyspnea; treatment was not required. Preliminary ECG evaluation revealed sinus rhythm at rest and no ischemic changes with stress. (Final ECG interpretation and other stress and monitoring data are reported separately by Cardiology.) IMAGING FINDINGS: Study quality is good. Images obtained after rest and stress injections show normal LV activity. LV and RV volumes appear normal. Gated images obtained at rest and with stress show normal LV wall motion and thickening. LVEF at rest is greater than 70%. LVEF at stress is greater than 70%. IMPRESSION: 1. Normal cardiac study.2. Appropriate pharmacologic stress.3. Normal myocardial perfusion.4. Normal resting LV function. No deterioration of function is noted with pharmacologic stress.5. Normal extracardiac tracer distribution. 6. No previous [facility] study for comparison.7. Multiple low-density lesions throughout the liver are identified on these limited CT images. These can be better characterized for etiology by formal anatomic imaging if not previously evaluated. Signed: Victor M House MD Report Verified Date/Time:08/30/2018 16:18:15 Reading Location: [address] Reading Room Procedure Note Interface, External Ris In - 08/30/2018 4:20 PM ASSISTANT BRANCH OPERATIONS MANAGER FINAL REPORT PROCEDURE: Rest/Stress MYOCARDIAL PERFUSION PET with regadenoson\\XA9\\ CPT CODE: 40927 INDICATION: Preoperative evaluation for bladder resection HISTORY: Cardiac risk factors: Hypertension, hyperlipidemia, tobacco use. Current cardiovascular-related medications: Lipitor, losartan, Norvasc. PROTOCOL: Limited low-dose CT imaging was performed for attenuation correction. 40.2 mCi of Rb-82 chloride was injected iv at rest, and gated PET (positron emission tomography) images were obtained. Subsequently, 40.2 mCi of Rb-82 chloride was injected iv at expected peak pharmacologic effect, and gated PET images were obtained. PRELIMINARY STRESS TEST DATA FROM NONINVASIVE CARDIOLOGY: Pharmacologic stress was by 10-second iv infusion of 0.4 mg of regadenoson. Radiotracer was injected 30 seconds after start of stress. Heart rate was 73 beats/min at rest and 99 beats/min (64% of MPHR) at tracer injection. BP was 90/53 mmHg at rest and 93/58 mmHg at tracer injection. Stress was stopped for predetermined endpoint. The patient experienced dyspnea; treatment was not required. Preliminary ECG evaluation revealed sinus rhythm at rest and no ischemic changes with stress. (Final ECG interpretation and other stress and monitoring data are reported separately by Cardiology.) IMAGING FINDINGS: Study quality is good. Images obtained after rest and stress injections show normal LV activity. LV and RV volumes appear normal. Gated images obtained at rest and with stress show normal LV wall motion and thickening. LVEF at rest is greater than 70%. LVEF at stress is greater than 70%. IMPRESSION: 1. Normal cardiac study. 2. Appropriate pharmacologic stress. 3. Normal myocardial perfusion. 4. Normal resting LV function. No deterioration of function is noted with pharmacologic stress. 5. Normal extracardiac tracer distribution. 6. No previous [facility] study for comparison. 7. Multiple low-density lesions throughout the liver are identified on these limited CT images. These can be better characterized for etiology by formal anatomic imaging if not previously evaluated. Signed: Victor M House MD Report Verified Date/Time: 08/30/2018 16:18:15 Reading Location: [address] Reading Room Performing Organization Address City/State/Zipcode Phone Number [employer] [facility] Carotid doppler bilateral (08/29/2018 11:04 PM ASSISTANT BRANCH OPERATIONS MANAGER) Ejection Fraction [facility] Impressions Performed At Right Impression [facility] 1. There is <50% diameter reduction (approximately 17% by 2-D measurement) in the internal carotid artery with a peak velocity of 58.1/20.4 cm/sec and heterogeneous plaque. 2. There is non-occluding plaque in the external carotid artery. 3. There is non-occluding plaque in the common carotid artery. 4. The vertebral artery flow is antegrade and normal. 5. The subclavian artery is within normal limits where visualized. Left Impression 1. There is <50% diameter reduction (approximately 10% by 2-D measurement) in the internal carotid artery with a peak velocity of 70.4/18.2 cm/sec and heterogeneous plaque. 2. There is non-occluding plaque in the external carotid artery. 3. There is non-occluding plaque in the common carotid artery. 4. The vertebral artery flow is antegrade and normal. 5. The subclavian artery is within normal limits where visualized. Conclusions Summary Carotid duplex scanning and color flow imaging were performed bilaterally. The arteries were adequately visualized. The bilateral internal carotid arteries had <50% hemodynamically insignificant stenosis (approximately 17% by 2-D measurement on the right, approximately 10% by 2-D measurement on the left) with heterogeneous plaque. The vertebral artery flow was antegrade and normal bilaterally. The subclavian arteries were patent with normal flow bilaterally where visualized. Signature Velocities are measured in cm/s ; Diameters are measured in cm Carotid Right Measurements + +----+----+-----+ +---- + + !Location !PSV !EDV !Angle!%Stenosis 2D!%Stenosis Doppler!Tortuosity ! + +----+----+-----+ +---- + + !Prox CCA !93.2!22.9!60 !! ! ! + +----+----+-----+ +---- + + !Dist CCA !75!19.9!60 !! ! ! + +----+----+-----+ +---- + + !Prox ICA !58.1!20.4!60 !10% !<50% ! ! + +----+----+-----+ +---- + + !Dist ICA !102 !36.4!60 !! ! ! + +----+----+-----+ +---- + + !Prox ECA !89.7!12.9!60 !! ! ! + +----+----+-----+ +---- + + !Vertebral!49.5!12.2!60 !! ! ! + +----+----+-----+ +---- + + !Prox Subclavian!93.8!!60 !! ! ! + +----+----+-----+ +---- + + - There is antegrade vertebral flow noted on the right side. - Additional Measurements:ICAPSV/CCAPSV 1.36.ICAEDV/CCAEDV 1.59. Carotid Left Measurements + +----+----+-----+ +---- + + !Location !PSV !EDV !Angle!%Stenosis 2D!%Stenosis Doppler!Tortuosity ! + +----+----+-----+ +---- + + !Prox CCA !96.2!21.1!60 !! ! ! + +----+----+-----+ +---- + + !Dist CCA !92!25.8!60 !! ! ! + +----+----+-----+ +---- + + !Prox ICA !70.4!18.2!60 !10% !<50% ! ! + +----+----+-----+ +---- + + !Dist ICA !58.5!18.1!60 !! ! ! + +----+----+-----+ +---- + + !Prox ECA !79.7!14.1!60 !! ! ! + +----+----+-----+ +---- + + !Vertebral!67.6!19.6!60 !! ! ! + +----+----+-----+ +---- + + !Prox Subclavian!113 !!60 !! ! ! + +----+----+-----+ +---- + + - There is antegrade vertebral flow noted on the left side. - Additional Measurements:ICAPSV/CCAPSV 0.77.ICAEDV/CCAEDV 0.86. Narrative Performed At [facility] - Carotid Duplex Study [facility] Demographics Patient NameFLOR JSEUSDate of Study08/29/2018 68 Visit [id number] Male of Birth1950 [place] [id number] Physician Orthopaedic Nurse Noman Tafoya Interpreting MD Sukhdeep LambPhysician Procedure Type of Study: Cerebral: Carotid, CAROTID DOPPLER, BILATERAL. Indications for Study:TIA . Patient Status:Routine. Study Location:Portable. Technical Quality:Adequate visualization. Risk Factors History of Disease + +----+ + !Diagnosis !Date!Comments ! + +----+ + !History/Risk!!Current Smoker, Bladder Cancer, TIA, HTN, Mitral! !Factors:!!Valve Prolapse ! 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 Indications for Study:TIA . Patient Status:Routine. Study Location:Portable. Technical Quality:Adequate visualization. Risk Factors History of Disease + +----+ + !Diagnosis !Date!Comments ! + +----+ + !History/Risk ! !Current Smoker, Bladder Cancer, TIA, HTN, Mitral ! !Factors: ! !Valve Prolapse ! + +----+ + Impressions Right Impression 1. There is <50% diameter reduction (approximately 17% by 2-D measurement) in the internal carotid artery with a peak velocity of 58.1/20.4 cm/sec and heterogeneous plaque. 2. There is non-occluding plaque in the external carotid artery. 3. There is non-occluding plaque in the common carotid artery. 4. The vertebral artery flow is antegrade and normal. 5. The subclavian artery is within normal limits where visualized. Left Impression 1. There is <50% diameter reduction (approximately 10% by 2-D measurement) in the internal carotid artery with a peak velocity of 70.4/18.2 cm/sec and heterogeneous plaque. 2. There is non-occluding plaque in the external carotid artery. 3. There is non-occluding plaque in the common carotid artery. 4. The vertebral artery flow is antegrade and normal. 5. The subclavian artery is within normal limits where visualized. Conclusions Summary Carotid duplex scanning and color flow imaging were performed bilaterally. The arteries were adequately visualized. The bilateral internal carotid arteries had <50% hemodynamically insignificant stenosis (approximately 17% by 2-D measurement on the right, approximately 10% by 2-D measurement on the left) with heterogeneous plaque. The vertebral artery flow was antegrade and normal bilaterally. The subclavian arteries were patent with normal flow bilaterally where visualized. Signature Velocities are measured in cm/s ; Diameters are measured in cm Carotid Right Measurements + +----+----+-----+ + + + !Location !PSV !EDV !Angle!%Stenosis 2D!%Stenosis Doppler!Tortuosity ! + +----+----+-----+ + + + !Prox CCA !93.2!22.9!60 ! ! ! ! + +----+----+-----+ + + + !Dist CCA !75 !19.9!60 ! ! ! ! + +----+----+-----+ + + + !Prox ICA !58.1!20.4!60 !10% !<50% ! ! + +----+----+-----+ + + + !Dist ICA !102 !36.4!60 ! ! ! ! + +----+----+-----+ + + + !Prox ECA !89.7!12.9!60 ! ! ! ! + +----+----+-----+ + + + !Vertebral !49.5!12.2!60 ! ! ! ! + +----+----+-----+ + + + !Prox Subclavian!93.8! !60 ! ! ! ! + +----+----+-----+ + + + - There is antegrade vertebral flow noted on the right side. - Additional Measurements:ICAPSV/CCAPSV 1.36.ICAEDV/CCAEDV 1.59. Carotid Left Measurements + +----+----+-----+ + + + !Location !PSV !EDV !Angle!%Stenosis 2D!%Stenosis Doppler!Tortuosity ! + +----+----+-----+ + + + !Prox CCA !96.2!21.1!60 ! ! ! ! + +----+----+-----+ + + + !Dist CCA !92 !25.8!60 ! ! ! ! + +----+----+-----+ + + + !Prox ICA !70.4!18.2!60 !10% !<50% ! ! + +----+----+-----+ + + + !Dist ICA !58.5!18.1!60 ! ! ! ! + +----+----+-----+ + + + !Prox ECA !79.7!14.1!60 ! ! ! ! + +----+----+-----+ + + + !Vertebral !67.6!19.6!60 ! ! ! ! + +----+----+-----+ + + + !Prox Subclavian!113 ! !60 ! ! ! ! + +----+----+-----+ + + + - There is antegrade vertebral flow noted on the left side. - Additional Measurements:ICAPSV/CCAPSV 0.77.ICAEDV/CCAEDV 0.86. Performing Organization Address City/State/Zipcode Phone Number [facility] after 09/06/2017 Insurance Payer Benefit Plan / Group Subscriber ID Type Phone Address MEDICARE MEDICARE PART A xxxxxxxxxx Medicare AETNA - [place] CARE AETNA HMO POS QPOS xxxxxxxxxx HMO/POS
--- OUTSIDE RECORDS SUMMARY | 2018-09-07 01:28 | XMS REPORT ---
:1950 [facility] Address [address] [place] [address] Dr. Lu [address] [place] [id number] Care Team Providers Name Role Phone MICHAELA BECK Unavailable Unavailable Problems This patient has no known problems. Allergies, Adverse Reactions, Alerts This patient has no known allergies or adverse reactions. Medications This patient has no known medications. Results Test Description Test Time Test Comments Text Results Atomic Results Result Comments BASIC METABOLIC PANEL 2018-09-06 05:27:00 Test Item Value Reference Range Comments SODIUM (BEAKER) (test 141 meq/L 136-145 rkte=926) POTASSIUM (BEAKER) (test 3.8 meq/L 3.5-5.1 xvxc=529) CHLORIDE (BEAKER) (test 113 meq/L 98-107 zkgu=317) CO2 (BEAKER) (test qkik=720) 24 meq/L 22-29 BLOOD UREA NITROGEN (BEAKER) 7 mg/dL 7-21 (test uidd=207) CREATININE (BEAKER) (test 0.95 mg/dL 0.57-1.25 lumf=710) GLUCOSE RANDOM (BEAKER) 90 mg/dL 70-105 (test ddzp=934) CALCIUM (BEAKER) (test 8.0 mg/dL 8.4-10.2 hzga=510) EGFR (BEAKER) (test 79 mL/min/1.73 sq m ESTIMATED GFR IS NOT fcdj=0996) ACCURATE CREATININE CLEARANCE IN PREDICTING GLOMERULAR FILTRATION RATE. ESTIMATED GFR IS NOT APPLICABLE FOR DIALYSIS PATIENTS. CBC W/PLT COUNT & AUTO [id number] 05:19:00 Test Item Value Reference Range Comments WHITE BLOOD CELL COUNT (BEAKER) (test gfxj=354) 6.2 K/ L 3.5-10.5 RED BLOOD CELL COUNT (BEAKER) (test ffto=746) 2.79 M/ L 4.63-6.08 HEMOGLOBIN (BEAKER) (test itgd=618) 8.4 GM/DL 13.7-17.5 HEMATOCRIT (BEAKER) (test gvyv=422) 25.2 % 40.1-51.0 MEAN CORPUSCULAR VOLUME (BEAKER) (test fpwe=764) 90.3 fL 79.0-92.2 MEAN CORPUSCULAR HEMOGLOBIN (BEAKER) (test 30.1 pg 25.7-32.2 pxpc=401) MEAN CORPUSCULAR HEMOGLOBIN CONC (BEAKER) (test 33.3 GM/DL 32.3-36.5 elir=838) RED CELL DISTRIBUTION WIDTH (BEAKER) (test 14.3 % 11.6-14.4 jvdw=787) PLATELET COUNT (BEAKER) (test bakp=174) 266 K/CU MM 150-450 MEAN PLATELET VOLUME (BEAKER) (test cdfp=657) 9.5 fL 9.4-12.4 NUCLEATED RED BLOOD CELLS (BEAKER) (test 0 /100 WBC 0-0 hcjb=867) NEUTROPHILS RELATIVE PERCENT (BEAKER) (test 61 % vmwn=732) LYMPHOCYTES RELATIVE PERCENT (BEAKER) (test 21 % uxcg=744) MONOCYTES RELATIVE PERCENT (BEAKER) (test 7 % taci=075) EOSINOPHILS RELATIVE PERCENT (BEAKER) (test 10 % npvp=581) BASOPHILS RELATIVE PERCENT (BEAKER) (test 0 % cgsn=243) NEUTROPHILS ABSOLUTE COUNT (BEAKER) (test 3.75 K/ L 1.78-5.38 njzt=326) LYMPHOCYTES ABSOLUTE COUNT (BEAKER) (test 1.30 K/ L 1.32-3.57 qrvv=612) MONOCYTES ABSOLUTE COUNT (BEAKER) (test 0.45 K/ L 0.30-0.82 awsg=535) EOSINOPHILS ABSOLUTE COUNT (BEAKER) (test 0.63 K/ L 0.04-0.54 hslm=508) BASOPHILS ABSOLUTE COUNT (BEAKER) (test 0.02 K/ L 0.01-0.08 axjv=722) IMMATURE GRANULOCYTES-RELATIVE PERCENT (BEAKER) 1 % 0-1 (test sixc=2381) TISSUE [id number] 15:48:00Surgical Pathology Report Case: [id number] Authorizing Provider: Michaela Beck MD Collected: 09/01/2018 1124 Ordering Location: [address]: 09/02/2018 1324 Service Pathologist: Nadeem Dolan MD [...] Bladder Biopsy, Anterior Wall Inside Bladder Neck A. 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 URINARY BLADDER, DOME,TURBT: - PAPILLARY UROTHELIAL CARCINOMA, LOW GRADE ( WHO GRADE 2), INVASIVE INTO LAMINA PROPRIA - MUSCULARIS PROPRIA PRESENT AND NOTINVOLVED BY TUMORF. URINARY BLADDER, LEFT LATERAL TUMOR, TURBT: - PAPILLARY UROTHELIAL CARCINOMA,LOW GRADE (WHO GRADE 2), INVASIVE INTO LAMINA PROPRIA - MUSCULARIS PROPRIA PRESENT AND NOT INVOLVED BY TUMORG. URINARY BLADDER, LEFT TRIGONE, TURBT: - PAPILLARY UROTHELIAL CARCINOMA, LOWGRADE (WHO GRADE 2), INVASIVE INTO LAMINA PROPRIA - MUSCULARIS PROPRIA PRESENT AND NOT INVOLVED BY TUMORH. 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 No lymph/vascular invasion is seen. 11009 X 8 Bladder cancerA. Right trigone and bladder neck tumor; B. Low posterior wall bladder tumor; C. Right lateral bladder tumor; D. High posterior wall bladder tumor; E. Bladder dome biopsy; F. Left lateral bladder tumor; G. Left trigone tumor; H. Anterior wall inside bladder neck biopsySpecimen A: Received in formalin labeled "right trigone and bladder neck tumor" haylee 2.5 x 2.0 x 0.3 cm aggregate of pink-ramos friable soft tissue. The specimen is entirely submitted in cassette A1. Specimen B: Received in formalin labeled "lower posterior wall bladder tumor" is a 4.0x 3.3 x 0.5 cm aggregate of pink-ramos rubbery friable soft tissue. The specimen is entirely submittedin cassettes B1-B2. Specimen C: Received in formalin labeled "right lateral bladder tumor" is a 3.3 x 2.6 x 0.5 cm aggregate of pink-ramos to larson-white, rubbery, friable soft tissue. The specimen is entirely submitted in cassette C1. Specimen D: Received in formalin labeled "high posterior wall bladdertumor" is a 3.3 x 2.5 x 0.3 cm aggregate of pink-ramos to larson-white, rubbery, friable soft tissue. The specimen is entirely submitted in cassette D1. Specimen E: Received in formalin labeled "bladder dome biopsy" is a 4.5 x 3.3 x 0.5 cm aggregate of pink-ramos to larson-white, rubbery, friable soft tissue.The specimen is entirely submitted in cassette E1-E2. Specimen F: Received in formalin labeled "left lateral bladder tumor" is a 5.5 x 4.0 x 0.6 cm aggregate of pink- ramos to larson-white, rubbery, friable soft tissue. The specimen is entirely submitted in cassettes F1-F4. Specimen G: Received in formalin labeled "left trigone tumor" is a 4.0 x 3.5 x 0.5 cm aggregate of pink-ramos to larson-white, rubbery, friable soft tissue. The specimen is entirely submitted in cassettes G1 -G2. Specimen H: Received in formalin labeled "anterior wall inside bladder neck biopsy" is a 5.0 x 3.5 x 0.5 cm aggregate of pink-ramos to larson-white, rubbery, friable soft tissue. The specimen is entirely submitted in cassettes H1 -H3. DB/pl PerformedVANCOMYCIN LEVEL, [id number] 12:30:00 Test Item Value Reference Range Comments VANCOMYCIN TROUGH (BEAKER) (test xqsb=611) 14.6 ug/mL 10.0-20.0 CBC W/PLT COUNT & AUTO [id number] 12:29:00 Test Item Value Reference Range Comments WHITE BLOOD CELL COUNT (BEAKER) (test ikwj=524) 6.9 K/ L 3.5-10.5 RED BLOOD CELL COUNT (BEAKER) (test lakc=346) 2.84 M/ L 4.63-6.08 HEMOGLOBIN (BEAKER) (test hcgn=637) 8.5 GM/DL 13.7-17.5 HEMATOCRIT (BEAKER) (test mjus=488) 25.5 % 40.1-51.0 MEAN CORPUSCULAR VOLUME (BEAKER) (test jpnl=939) 89.8 fL 79.0-92.2 MEAN CORPUSCULAR HEMOGLOBIN (BEAKER) (test 29.9 pg 25.7-32.2 ywqj=865) MEAN CORPUSCULAR HEMOGLOBIN CONC (BEAKER) (test 33.3 GM/DL 32.3-36.5 jevv=816) RED CELL DISTRIBUTION WIDTH (BEAKER) (test 14.3 % 11.6-14.4 booc=162) PLATELET COUNT (BEAKER) (test gapl=719) 243 K/CU MM 150-450 MEAN PLATELET VOLUME (BEAKER) (test ghti=391) 9.6 fL 9.4-12.4 NUCLEATED RED BLOOD CELLS (BEAKER) (test 0 /100 WBC 0-0 bxfc=973) NEUTROPHILS RELATIVE PERCENT (BEAKER) (test 72 % kxeu=143) LYMPHOCYTES RELATIVE PERCENT (BEAKER) (test 14 % vqkg=364) MONOCYTES RELATIVE PERCENT (BEAKER) (test 7 % rtpj=582) EOSINOPHILS RELATIVE PERCENT (BEAKER) (test 7 % isok=036) BASOPHILS RELATIVE PERCENT (BEAKER) (test 0 % mofz=223) NEUTROPHILS ABSOLUTE COUNT (BEAKER) (test 5.01 K/ L 1.78-5.38 qwuy=191) LYMPHOCYTES ABSOLUTE COUNT (BEAKER) (test 0.94 K/ L 1.32-3.57 ppjm=065) MONOCYTES ABSOLUTE COUNT (BEAKER) (test 0.46 K/ L 0.30-0.82 xpyq=240) EOSINOPHILS ABSOLUTE COUNT (BEAKER) (test 0.48 K/ L 0.04-0.54 lrqk=047) BASOPHILS ABSOLUTE COUNT (BEAKER) (test 0.02 K/ L 0.01-0.08 ucwi=899) IMMATURE GRANULOCYTES-RELATIVE PERCENT (BEAKER) 0 % 0-1 (test ysqp=7500) BASIC METABOLIC [id number] 06:33:00 Test Item Value Reference Range Comments SODIUM (BEAKER) (test 143 meq/L 136-145 eoma=753) POTASSIUM (BEAKER) (test 3.3 meq/L 3.5-5.1 xrmx=743) CHLORIDE (BEAKER) (test 115 meq/L 98-107 qsmb=035) CO2 (BEAKER) (test 24 meq/L 22-29 cctn=382) BLOOD UREA NITROGEN 7 mg/dL 7-21 (BEAKER) (test jaoh=350) CREATININE (BEAKER) (test 0.94 mg/dL 0.57-1.25 ahgu=332) GLUCOSE RANDOM (BEAKER) 96 mg/dL 70-105 (test buas=205) CALCIUM (BEAKER) (test 8.1 mg/dL 8.4-10.2 vapo=671) EGFR (BEAKER) (test 80 mL/min/1.73 sq m ESTIMATED GFR IS NOT agli=2035) ACCURATE CREATININE CLEARANCE IN PREDICTING GLOMERULAR FILTRATION RATE. ESTIMATED GFR IS NOT APPLICABLE FOR DIALYSIS PATIENTS. CBC W/PLT COUNT & AUTO [id number] 06:21:00 Test Item Value Reference Range Comments WHITE BLOOD CELL COUNT (BEAKER) (test hlei=735) 6.8 K/ L 3.5-10.5 RED BLOOD CELL COUNT (BEAKER) (test hulb=573) 2.72 M/ L 4.63-6.08 HEMOGLOBIN (BEAKER) (test hpqz=991) 8.3 GM/DL 13.7-17.5 HEMATOCRIT (BEAKER) (test vrtu=552) 24.4 % 40.1-51.0 MEAN CORPUSCULAR VOLUME (BEAKER) (test ysdl=694) 89.7 fL 79.0-92.2 MEAN CORPUSCULAR HEMOGLOBIN (BEAKER) (test 30.5 pg 25.7-32.2 bnfi=652) MEAN CORPUSCULAR HEMOGLOBIN CONC (BEAKER) (test 34.0 GM/DL 32.3-36.5 adzm=870) RED CELL DISTRIBUTION WIDTH (BEAKER) (test 14.2 % 11.6-14.4 qcuo=029) PLATELET COUNT (BEAKER) (test nqzy=418) 213 K/CU MM 150-450 MEAN PLATELET VOLUME (BEAKER) (test zxpc=349) 9.9 fL 9.4-12.4 NUCLEATED RED BLOOD CELLS (BEAKER) (test 0 /100 WBC 0-0 vmkg=023) NEUTROPHILS RELATIVE PERCENT (BEAKER) (test 67 % zaid=555) LYMPHOCYTES RELATIVE PERCENT (BEAKER) (test 17 % unej=740) MONOCYTES RELATIVE PERCENT (BEAKER) (test 7 % yayi=621) EOSINOPHILS RELATIVE PERCENT (BEAKER) (test 9 % pwny=698) BASOPHILS RELATIVE PERCENT (BEAKER) (test 0 % dcbw=844) NEUTROPHILS ABSOLUTE COUNT (BEAKER) (test 4.50 K/ L 1.78-5.38 nodn=613) LYMPHOCYTES ABSOLUTE COUNT (BEAKER) (test 1.15 K/ L 1.32-3.57 ltvm=878) MONOCYTES ABSOLUTE COUNT (BEAKER) (test 0.46 K/ L 0.30-0.82 zmqs=407) EOSINOPHILS ABSOLUTE COUNT (BEAKER) (test 0.60 K/ L 0.04-0.54 ksmu=367) BASOPHILS ABSOLUTE COUNT (BEAKER) (test 0.03 K/ L 0.01-0.08 zvlk=054) IMMATURE GRANULOCYTES-RELATIVE PERCENT (BEAKER) 0 % 0-1 (test iiap=8577) C. DIFFICILE GDH [id number] 20:14:00 Test Item Value Reference Range Comments CDT TOXIN (test Negative Negative lkuk=[id number]) CDT GDH ANTIGEN (test Positive Negative C. difficile present but toxin lkou=[id number]) not detected. Indicates colonization with non-toxigenic strain or level of toxin below detectable levels. No need for enteric isolation. Treatment is rarely needed (only when strong clinical suspicion for Clostridium difficile infection) Testing performed by [employer] Rapid Cassette Assay. For GDH, published sensitivity of the assay is 98.7% compared to cytotoxicity testing. For Toxin AB, published sensitivity is 87.8% and specificity 99.4% compared to cytotoxicity testing.Verification of kit performance was done by the [facility] Microbiology Lab prior to clinical use.CT, [id number] 09:51:00Please perform with IV and PO contrast. Please page urology if any questions regarding protocol.FINAL REPORT TECHNIQUE: CT of the abdomen and pelvis WITH intravenous contrast and WITH oral contrast. Dose modulation, iterative reconstruction, and/or weight-based adjustment of the mA/kV was utilized to reduce the radiation dose to as low as reasonably achievable. INDICATION:68-year-old man with pelvic fluid collection. COMPARISON: None. [...] measuring 0.7 cm. No intrahepatic biliary ductal dilatation.SPLEEN: No splenomegaly. 3.1 x 2.3 cm lobulated cystic structure in the anterior spleen, likely a benign lesion such as a lymphangioma or cyst.PANCREAS: No focal masses or ductal dilatation. ADRENALS: No adrenal nodules.KIDNEYS/URETERS: Mild hydroureteronephrosis on the left despite the presence of a ureteral stent which appears in expected position. Nonobstructing 0.3 cm left renal calculus. No solid renal lesions..PELVIC ORGANS/BLADDER: Prior prostatectomy. Garduno catheter terminates within the urinary bladder. Hyperdensity within the bladder lumen measures approximately 8.1 x 7.7 x 7.7 cm. Small amount of air within the bladder lumen. 0.3 cm calcification along the dependent portion of the bladder may represent bladder stone. PERITONEUM/RETROPERITONEUM: Trace free fluid. Fat stranding in the perivesical region. No free air.LYMPH NODES: No lymphadenopathy.VESSELS: Unremarkable. GI TRACT: No distention or wall thickening. Colonic diverticula. Normal appendix. BONES AND SOFT TISSUES: Unremarkable. IMPRESSION:No fluid collections. Suspected acute hematoma within the bladder. Mild left hydroureteronephrosis despite the presence of a ureteral stent, which appears in expected position. Nonobstructing left renal calculus. Trace free fluid, nonspecific. Signed: Gala Gorman MDReport Verified Date/ Time: 09/04/2018 09:51:34 Reading Location: [facility] B1 C013Y CT Body Reading Room ( CELLAVISION MANUAL DIFF)2018-09-04 08:56:00 Test Item Value Reference Range Comments NEUTROPHILS - REL (CELLAVISION)(BEAKER) (test 69 % obwd=1762) LYMPHOCYTES - REL (CELLAVISION)(BEAKER) (test 12 % yxfb=5988) MONOCYTES - REL (CELLAVISION)(BEAKER) (test 2 % eskp=1379) EOSINOPHILS - REL (CELLAVISION)(BEAKER) (test 5 % vlqg=2414) BANDS - REL (CELLAVISION)(BEAKER) (test blpc=9884) 12 % 0-10 NEUTROPHILS - ABS (CELLAVISION)(BEAKER) (test 8.69 K/ul 1.78-5.38 hpio=7299) LYMPHOCYTES - ABS (CELLAVISION)(BEAKER) (test 1.51 K/ul 1.32-3.57 ujmk=1385) MONOCYTES - ABS (CELLAVISION)(BEAKER) (test 0.25 K/uL 0.30-0.82 xcgz=2876) EOSINOPHILS - ABS (CELLAVISION)(BEAKER) (test 0.63 K/uL 0.04-0.54 nckf=3965) BANDS - ABS (CELLAVISION)(BEAKER) (test ftqf=8471) 1.51 K/uL 0.00-0.80 TOTAL COUNTED (BEAKER) (test twtx=1553) 100 WBC MORPHOLOGY (BEAKER) (test idjf=686) Normal PLT MORPHOLOGY (BEAKER) (test qaqy=599) Normal POLYCHROMATOPHILLIC RBCS(BEAKER) (test gslw=165) 1+ few ANISOCYTOSIS (BEAKER) (test lozp=589) 1+ few ARTIFACT (CELLAVISION)(BEAKER) (test mkau=1846) Present PLATELET CONCENTRATION (CELLAVISION)(BEAKER) (test Adequate reqx=6668) Received comment: User comments: Slide comments:CBC W/PLT COUNT & AUTO [id number] 08:56:00 Test Item Value Reference Range Comments WHITE BLOOD CELL COUNT (BEAKER) (test nngp=304) 12.6 K/ L 3.5-10.5 RED BLOOD CELL COUNT (BEAKER) (test iiya=092) 3.18 M/ L 4.63-6.08 HEMOGLOBIN (BEAKER) (test guyv=886) 9.6 GM/DL 13.7-17.5 HEMATOCRIT (BEAKER) (test jbbd=667) 28.5 % 40.1-51.0 MEAN CORPUSCULAR VOLUME (BEAKER) (test sgzk=347) 89.6 fL 79.0-92.2 MEAN CORPUSCULAR HEMOGLOBIN (BEAKER) (test 30.2 pg 25.7-32.2 kmue=070) MEAN CORPUSCULAR HEMOGLOBIN CONC (BEAKER) (test 33.7 GM/DL 32.3-36.5 wzlw=665) RED CELL DISTRIBUTION WIDTH (BEAKER) (test 14.1 % 11.6-14.4 jbms=849) PLATELET COUNT (BEAKER) (test gezo=301) 198 K/CU MM 150-450 MEAN PLATELET VOLUME (BEAKER) (test ojlw=787) 10.0 fL 9.4-12.4 NUCLEATED RED BLOOD CELLS (BEAKER) (test 0 /100 WBC 0-0 kjij=027) URINE [id number] 08:51:00 Test Item Value Reference Range Comments CULTURE (BEAKER) (test tlux=8538) No growth BASIC METABOLIC [id number] 07:09:00 Test Item Value Reference Range Comments SODIUM (BEAKER) (test 137 meq/L 136-145 qcnz=080) POTASSIUM (BEAKER) (test 3.8 meq/L 3.5-5.1 mpkr=717) CHLORIDE (BEAKER) (test 109 meq/L 98-107 scwg=867) CO2 (BEAKER) (test 22 meq/L 22-29 vbzi=889) BLOOD UREA NITROGEN 9 mg/dL 7-21 (BEAKER) (test fbbn=135) CREATININE (BEAKER) (test 1.15 mg/dL 0.57-1.25 sdfa=984) GLUCOSE RANDOM (BEAKER) 109 mg/dL 70-105 (test xvnc=798) CALCIUM (BEAKER) (test 8.1 mg/dL 8.4-10.2 avks=140) EGFR (BEAKER) (test 63 mL/min/1.73 sq m ESTIMATED GFR IS NOT zxmw=9509) ACCURATE CREATININE CLEARANCE IN PREDICTING GLOMERULAR FILTRATION RATE. ESTIMATED GFR IS NOT APPLICABLE FOR DIALYSIS PATIENTS. HEMOGLOBIN AND [id number] 22:01:00 Test Item Value Reference Range Comments HEMOGLOBIN (BEAKER) (test nmbq=752) 9.1 GM/DL 13.7-17.5 HEMATOCRIT (BEAKER) (test ricc=421) 27.2 % 40.1-51.0 H/H after 2U PRBCBASIC METABOLIC [id number] 03:32:00 Test Item Value Reference Range Comments SODIUM (BEAKER) (test 135 meq/L 136-145 gszc=473) POTASSIUM (BEAKER) (test 3.8 meq/L 3.5-5.1 pdxd=502) CHLORIDE (BEAKER) (test 111 meq/L 98-107 rwjn=290) CO2 (BEAKER) (test 21 meq/L 22-29 kulv=916) BLOOD UREA NITROGEN 12 mg/dL 7-21 (BEAKER) (test tlqi=611) CREATININE (BEAKER) (test 1.21 mg/dL 0.57-1.25 vamo=902) GLUCOSE RANDOM (BEAKER) 108 mg/dL 70-105 (test yajy=197) CALCIUM (BEAKER) (test 7.6 mg/dL 8.4-10.2 kdgn=976) EGFR (BEAKER) (test 60 mL/min/1.73 sq m ESTIMATED GFR IS NOT zgko=4157) ACCURATE CREATININE CLEARANCE IN PREDICTING GLOMERULAR FILTRATION RATE. ESTIMATED GFR IS NOT APPLICABLE FOR DIALYSIS PATIENTS. CBC W/PLT COUNT & AUTO [id number] 02:59:00 Test Item Value Reference Range Comments WHITE BLOOD CELL COUNT (BEAKER) (test ncoa=509) 9.2 K/ L 3.5-10.5 RED BLOOD CELL COUNT (BEAKER) (test mfsd=925) 2.30 M/ L 4.63-6.08 HEMOGLOBIN (BEAKER) (test hqqe=430) 6.9 GM/DL 13.7-17.5 HEMATOCRIT (BEAKER) (test hggn=288) 20.5 % 40.1-51.0 MEAN CORPUSCULAR VOLUME (BEAKER) (test kavn=334) 89.1 fL 79.0-92.2 MEAN CORPUSCULAR HEMOGLOBIN (BEAKER) (test 30.0 pg 25.7-32.2 wrib=685) MEAN CORPUSCULAR HEMOGLOBIN CONC (BEAKER) (test 33.7 GM/DL 32.3-36.5 bekt=166) RED CELL DISTRIBUTION WIDTH (BEAKER) (test 14.3 % 11.6-14.4 tclj=344) PLATELET COUNT (BEAKER) (test ydde=512) 193 K/CU MM 150-450 MEAN PLATELET VOLUME (BEAKER) (test phpp=815) 9.7 fL 9.4-12.4 NUCLEATED RED BLOOD CELLS (BEAKER) (test 0 /100 WBC 0-0 tslc=305) NEUTROPHILS RELATIVE PERCENT (BEAKER) (test 79 % styd=822) LYMPHOCYTES RELATIVE PERCENT (BEAKER) (test 11 % nrlg=058) MONOCYTES RELATIVE PERCENT (BEAKER) (test 7 % ndir=585) EOSINOPHILS RELATIVE PERCENT (BEAKER) (test 3 % puhd=793) BASOPHILS RELATIVE PERCENT (BEAKER) (test 0 % htmq=738) NEUTROPHILS ABSOLUTE COUNT (BEAKER) (test 7.25 K/ L 1.78-5.38 xoew=511) LYMPHOCYTES ABSOLUTE COUNT (BEAKER) (test 0.98 K/ L 1.32-3.57 lmdc=172) MONOCYTES ABSOLUTE COUNT (BEAKER) (test 0.68 K/ L 0.30-0.82 jlyu=384) EOSINOPHILS ABSOLUTE COUNT (BEAKER) (test 0.28 K/ L 0.04-0.54 pbdh=474) BASOPHILS ABSOLUTE COUNT (BEAKER) (test 0.01 K/ L 0.01-0.08 omqz=533) IMMATURE GRANULOCYTES-RELATIVE PERCENT (BEAKER) 0 % 0-1 (test rtbu=9680) HEMOGLOBIN AND [id number] 02:56:00 Test Item Value Reference Range Comments HEMOGLOBIN (BEAKER) (test xedf=249) 6.9 GM/DL 13.7-17.5 HEMATOCRIT (BEAKER) (test mbpg=482) 20.5 % 40.1-51.0 Please draw 20 min after blood transfusion is completedPOCT-BLOOD GASES, [id number] 02:55:00 Test Item Value Reference Range Comments TEMP, CELSIUS-POC (BEAKER) 37.0 (test txbx=3502) FIO2-POC (BEAKER) (test TESTED AT [address] qfpf=2441) [place] [address] PH, VENOUS-POC (BEAKER) 7.453 7.320-7.420 (test pyje=6233) PCO2, VENOUS-POC (BEAKER) 29.7 mm Hg 41.0-51.0 (test xaiw=5787) PO2, VENOUS-POC (BEAKER) 62.0 mm Hg 25.0-40.0 (test biyt=3471) SO2, VENOUS-POC (BEAKER) 93.0 % 40.0-70.0 (test rocp=4401) HCO3, VENOUS-POC (BEAKER) 20.8 meq/L 21.0-29.0 (test rjru=0073) BASE EXCESS, VENOUS-POC -3.0 meq/L -2.0-3.0 (BEAKER) (test fvil=1709) [id number] 02:55:00 Test Item Value Reference Range Comments POC-SODIUM (BEAKER) (test 138 meq/L 135-148 TESTED AT [address] ydrf=4326) [place] [address] [id number] 02:55:00 Test Item Value Reference Range Comments POC-POTASSIUM (BEAKER) (test 3.7 meq/L 3.6-5.5 [address] r[address]22[address] [place] [address] [id number] 02:55:00 Test Item Value Reference Range Comments POC-GLUCOSE (BEAKER) (test 106 mg/dL 70-110 TESTED AT [address] iysm=0680) [place] [address] POCT-CALCIUM [id number] 02:55:00 Test Item Value Reference Range Comments POC-CALCIUM IONIZED (BEAKER) 1.17 mmol/L 1.12-1.27 TESTED AT [address] (test fqyw=5329) [place] [address] [id number] 02:55:00 Test Item Value Reference Range Comments POC-HEMATOCRIT (BEAKER) (test 19 % 40-50 TESTED AT [address] mikx=6013) [place] [address] [id number] 02:55:00 Test Item Value Reference Range Comments POC-HEMOGLOBIN (BEAKER) 6.5 g/dL 13.0-16.8 TESTED AT [address] (test viup=0395) [place] [id number] AT [place] [address] POCT-LACTIC ACID, [id number] 02:55:00 Test Item Value Reference Range Comments POC-LACTIC ACID, VENOUS 1.1 mmol/L 0.9-1.7 TESTED AT [address] (BEAKER) (test nqdp=0636) [place] [address] LACTIC ACID, VENOUS, WHOLE [id number] 21:58:00 Test Item Value Reference Range Comments LACTATE BLOOD VENOUS (2) (BEAKER) (test 5.5 mmol/L 0.5-2.2 nfrp=4849) CBC W/PLT COUNT & AUTO [id number] 19:01:00 Test Item Value Reference Range Comments WHITE BLOOD CELL COUNT (BEAKER) (test igtm=935) 9.6 K/ L 3.5-10.5 RED BLOOD CELL COUNT (BEAKER) (test upvp=736) 2.65 M/ L 4.63-6.08 HEMOGLOBIN (BEAKER) (test yzzs=691) 7.6 GM/DL 13.7-17.5 HEMATOCRIT (BEAKER) (test fgbs=136) 24.4 % 40.1-51.0 MEAN CORPUSCULAR VOLUME (BEAKER) (test mxzz=918) 92.1 fL 79.0-92.2 MEAN CORPUSCULAR HEMOGLOBIN (BEAKER) (test 28.7 pg 25.7-32.2 mtak=422) MEAN CORPUSCULAR HEMOGLOBIN CONC (BEAKER) (test 31.1 GM/DL 32.3-36.5 pppc=099) RED CELL DISTRIBUTION WIDTH (BEAKER) (test 14.6 % 11.6-14.4 uagf=103) PLATELET COUNT (BEAKER) (test mxie=010) 257 K/CU MM 150-450 MEAN PLATELET VOLUME (BEAKER) (test cgfo=779) 9.9 fL 9.4-12.4 NUCLEATED RED BLOOD CELLS (BEAKER) (test 0 /100 WBC 0-0 leoc=983) NEUTROPHILS RELATIVE PERCENT (BEAKER) (test 81 % uoso=466) LYMPHOCYTES RELATIVE PERCENT (BEAKER) (test 8 % aeom=277) MONOCYTES RELATIVE PERCENT (BEAKER) (test 8 % xqjk=163) EOSINOPHILS RELATIVE PERCENT (BEAKER) (test 3 % qvud=748) BASOPHILS RELATIVE PERCENT (BEAKER) (test 0 % jupw=418) NEUTROPHILS ABSOLUTE COUNT (BEAKER) (test 7.76 K/ L 1.78-5.38 dldp=377) LYMPHOCYTES ABSOLUTE COUNT (BEAKER) (test 0.81 K/ L 1.32-3.57 xgxy=001) MONOCYTES ABSOLUTE COUNT (BEAKER) (test 0.75 K/ L 0.30-0.82 bqll=049) EOSINOPHILS ABSOLUTE COUNT (BEAKER) (test 0.25 K/ L 0.04-0.54 quvo=420) BASOPHILS ABSOLUTE COUNT (BEAKER) (test 0.02 K/ L 0.01-0.08 spnk=146) IMMATURE GRANULOCYTES-RELATIVE PERCENT (BEAKER) 0 % 0-1 (test yedt=1397) BASIC METABOLIC [id number] 18:46:00 Test Item Value Reference Range Comments SODIUM (BEAKER) (test 138 meq/L 136-145 jhog=218) POTASSIUM (BEAKER) (test 4.5 meq/L 3.5-5.1 nrdc=717) CHLORIDE (BEAKER) (test 111 meq/L 98-107 luqu=639) CO2 (BEAKER) (test 20 meq/L 22-29 mzab=774) BLOOD UREA NITROGEN 16 mg/dL 7-21 (BEAKER) (test lerd=928) CREATININE (BEAKER) (test 1.42 mg/dL 0.57-1.25 gchz=684) GLUCOSE RANDOM (BEAKER) 122 mg/dL 70-105 (test hmcs=757) CALCIUM (BEAKER) (test 8.2 mg/dL 8.4-10.2 nbfq=810) EGFR (BEAKER) (test 50 mL/min/1.73 sq m ESTIMATED GFR IS NOT rgbg=1366) ACCURATE CREATININE CLEARANCE IN PREDICTING GLOMERULAR FILTRATION RATE. ESTIMATED GFR IS NOT APPLICABLE FOR DIALYSIS PATIENTS. LACTIC ACID, VENOUS, WHOLE [id number] 18:42:00 Test Item Value Reference Range Comments LACTATE BLOOD VENOUS (2) (BEAKER) (test 4.4 mmol/L 0.5-2.2 hjmo=5772) HEMOGLOBIN AND [id number] 18:24:00 Test Item Value Reference Range Comments HEMOGLOBIN (BEAKER) (test wjsq=062) 7.5 GM/DL 13.7-17.5 HEMATOCRIT (BEAKER) (test czij=867) 23.2 % 40.1-51.0 BASIC METABOLIC [id number] 06:47:00 Test Item Value Reference Range Comments SODIUM (BEAKER) (test 140 meq/L 136-145 adca=625) POTASSIUM (BEAKER) (test 4.6 meq/L 3.5-5.1 otlm=101) CHLORIDE (BEAKER) (test 115 meq/L 98-107 kcjq=944) CO2 (BEAKER) (test 20 meq/L 22-29 qtsy=088) BLOOD UREA NITROGEN 16 mg/dL 7-21 (BEAKER) (test mopu=709) CREATININE (BEAKER) (test 1.47 mg/dL 0.57-1.25 hobw=602) GLUCOSE RANDOM (BEAKER) 117 mg/dL 70-105 (test fkxe=156) CALCIUM (BEAKER) (test 7.5 mg/dL 8.4-10.2 gfzw=845) EGFR (BEAKER) (test 48 mL/min/1.73 sq m ESTIMATED GFR IS NOT jmnp=8187) ACCURATE CREATININE CLEARANCE IN PREDICTING GLOMERULAR FILTRATION RATE. ESTIMATED GFR IS NOT APPLICABLE FOR DIALYSIS PATIENTS. CBC W/PLT COUNT & AUTO [id number] 06:06:00 Test Item Value Reference Range Comments WHITE BLOOD CELL COUNT (BEAKER) (test sbxd=784) 8.0 K/ L 3.5-10.5 RED BLOOD CELL COUNT (BEAKER) (test iahm=915) 2.89 M/ L 4.63-6.08 HEMOGLOBIN (BEAKER) (test rxmw=447) 8.7 GM/DL 13.7-17.5 HEMATOCRIT (BEAKER) (test gwor=205) 26.7 % 40.1-51.0 MEAN CORPUSCULAR VOLUME (BEAKER) (test datn=251) 92.4 fL 79.0-92.2 MEAN CORPUSCULAR HEMOGLOBIN (BEAKER) (test 30.1 pg 25.7-32.2 jpfk=628) MEAN CORPUSCULAR HEMOGLOBIN CONC (BEAKER) (test 32.6 GM/DL 32.3-36.5 pyqz=014) RED CELL DISTRIBUTION WIDTH (BEAKER) (test 14.6 % 11.6-14.4 mggw=072) PLATELET COUNT (BEAKER) (test slfw=081) 250 K/CU MM 150-450 MEAN PLATELET VOLUME (BEAKER) (test cjbo=137) 10.0 fL 9.4-12.4 NUCLEATED RED BLOOD CELLS (BEAKER) (test 0 /100 WBC 0-0 vlri=085) NEUTROPHILS RELATIVE PERCENT (BEAKER) (test 74 % syad=407) LYMPHOCYTES RELATIVE PERCENT (BEAKER) (test 13 % twhd=401) MONOCYTES RELATIVE PERCENT (BEAKER) (test 9 % xjkw=392) EOSINOPHILS RELATIVE PERCENT (BEAKER) (test 3 % kupc=435) BASOPHILS RELATIVE PERCENT (BEAKER) (test 0 % qexe=003) NEUTROPHILS ABSOLUTE COUNT (BEAKER) (test 5.91 K/ L 1.78-5.38 yidl=938) LYMPHOCYTES ABSOLUTE COUNT (BEAKER) (test 1.04 K/ L 1.32-3.57 yqai=693) MONOCYTES ABSOLUTE COUNT (BEAKER) (test 0.74 K/ L 0.30-0.82 xzgn=932) EOSINOPHILS ABSOLUTE COUNT (BEAKER) (test 0.23 K/ L 0.04-0.54 szsj=037) BASOPHILS ABSOLUTE COUNT (BEAKER) (test 0.02 K/ L 0.01-0.08 gxzh=623) IMMATURE GRANULOCYTES-RELATIVE PERCENT (BEAKER) 0 % 0-1 (test jwgx=1633) [id number] 22:13:00 Test Item Value Reference Range Comments PARTIAL THROMBOPLASTIN TIME (BEAKER) (test 29.1 seconds 22.5-36.0 nsef=209) PROTHROMBIN [id number] 22:12:00 Test Item Value Reference Range Comments PROTIME (BEAKER) (test oiqt=709) 14.4 seconds 11.7-14.7 INR (BEAKER) (test rveo=564) 1.1 <=5.9 RECOMMENDED COUMADIN/WARFARIN INR THERAPY RANGESSTANDARD DOSE: 2.0 - 3.0 Includes: PROPHYLAXIS forvenous thrombosis, systemic embolization; TREATMENT for venous thrombosis and/or pulmonary embolus.HIGH RISK: Target INR is 2.5-3.5 for patients with mechanical heart valves.COMPREHENSIVE METABOLIC [id number] 21:38:00 Test Item Value Reference Range Comments TOTAL PROTEIN (BEAKER) 4.5 gm/dL 6.0-8.3 (test rgyq=583) ALBUMIN (BEAKER) (test 2.8 g/dL 3.5-5.0 lnvd=1447) ALKALINE PHOSPHATASE 45 U/L 40-150 (BEAKER) (test inwv=085) BILIRUBIN TOTAL (BEAKER) 1.1 mg/dL 0.2-1.2 (test pkaz=703) SODIUM (BEAKER) (test 139 meq/L 136-145 thnm=326) POTASSIUM (BEAKER) (test 4.1 meq/L 3.5-5.1 vffy=968) CHLORIDE (BEAKER) (test 114 meq/L 98-107 ypbq=451) CO2 (BEAKER) (test 17 meq/L 22-29 ajzq=006) BLOOD UREA NITROGEN 16 mg/dL 7-21 (BEAKER) (test ifez=616) CREATININE (BEAKER) (test 1.27 mg/dL 0.57-1.25 kbut=924) GLUCOSE RANDOM (BEAKER) 132 mg/dL 70-105 (test kwir=707) CALCIUM (BEAKER) (test 7.7 mg/dL 8.4-10.2 rtsx=767) AST (SGOT) (BEAKER) (test 18 U/L 5-34 efak=324) ALT (SGPT) (BEAKER) (test 16 U/L 6-55 yvrv=617) EGFR (BEAKER) (test 57 mL/min/1.73 sq m ESTIMATED GFR IS NOT kanc=2730) ACCURATE CREATININE CLEARANCE IN PREDICTING GLOMERULAR FILTRATION RATE. ESTIMATED GFR IS NOT APPLICABLE FOR DIALYSIS PATIENTS. CBC W/PLT COUNT & AUTO [id number] 21:32:00 Test Item Value Reference Range Comments WHITE BLOOD CELL COUNT (BEAKER) (test okpd=982) 11.8 K/ L 3.5-10.5 RED BLOOD CELL COUNT (BEAKER) (test tazr=328) 3.48 M/ L 4.63-6.08 HEMOGLOBIN (BEAKER) (test doze=283) 10.1 GM/DL 13.7-17.5 HEMATOCRIT (BEAKER) (test qkdp=056) 31.3 % 40.1-51.0 MEAN CORPUSCULAR VOLUME (BEAKER) (test pvpg=180) 89.9 fL 79.0-92.2 MEAN CORPUSCULAR HEMOGLOBIN (BEAKER) (test 29.0 pg 25.7-32.2 wrep=798) MEAN CORPUSCULAR HEMOGLOBIN CONC (BEAKER) (test 32.3 GM/DL 32.3-36.5 goib=212) RED CELL DISTRIBUTION WIDTH (BEAKER) (test 14.5 % 11.6-14.4 vhol=947) PLATELET COUNT (BEAKER) (test gsba=910) 293 K/CU MM 150-450 MEAN PLATELET VOLUME (BEAKER) (test wrwv=066) 9.7 fL 9.4-12.4 NUCLEATED RED BLOOD CELLS (BEAKER) (test 0 /100 WBC 0-0 wqpa=399) NEUTROPHILS RELATIVE PERCENT (BEAKER) (test 82 % axzq=034) LYMPHOCYTES RELATIVE PERCENT (BEAKER) (test 9 % tbrx=063) MONOCYTES RELATIVE PERCENT (BEAKER) (test 8 % pden=255) EOSINOPHILS RELATIVE PERCENT (BEAKER) (test 1 % rbvi=091) BASOPHILS RELATIVE PERCENT (BEAKER) (test 0 % nuqj=631) NEUTROPHILS ABSOLUTE COUNT (BEAKER) (test 9.71 K/ L 1.78-5.38 izha=935) LYMPHOCYTES ABSOLUTE COUNT (BEAKER) (test 1.01 K/ L 1.32-3.57 qkqh=292) MONOCYTES ABSOLUTE COUNT (BEAKER) (test 0.90 K/ L 0.30-0.82 sgzi=507) EOSINOPHILS ABSOLUTE COUNT (BEAKER) (test 0.13 K/ L 0.04-0.54 kzjw=550) BASOPHILS ABSOLUTE COUNT (BEAKER) (test 0.04 K/ L 0.01-0.08 rmhi=201) IMMATURE GRANULOCYTES-RELATIVE PERCENT (BEAKER) 0 % 0-1 (test onnn=9981) LACTIC ACID, VENOUS, WHOLE [id number] 21:32:00 Test Item Value Reference Range Comments LACTATE BLOOD VENOUS (2) (BEAKER) (test 1.6 mmol/L 0.5-2.2 pfkh=7395) POCT-BLOOD GASES, [id number] 21:00:00 Test Item Value Reference Range Comments TEMP, CELSIUS-POC (BEAKER) 36.1 (test cykb=8593) FIO2-POC (BEAKER) (test 21 TESTED AT [place] [address] [address] qrhu=9438) [place] [id number] PH, VENOUS-POC (BEAKER) 7.411 7.320-7.420 (test vain=3536) PCO2, VENOUS-POC (BEAKER) 25.5 mm Hg 41.0-51.0 (test faqq=8667) PO2, VENOUS-POC (BEAKER) 45.0 mm Hg 25.0-40.0 (test kqor=8738) SO2, VENOUS-POC (BEAKER) 84.0 % 40.0-70.0 (test lszm=4931) HCO3, VENOUS-POC (BEAKER) 16.4 meq/L 21.0-29.0 (test zfqy=7423) BASE EXCESS, VENOUS-POC -8.0 meq/L -2.0-3.0 (BEAKER) (test sodb=9252) [id number] 21:00:00 Test Item Value Reference Range Comments POC-SODIUM (BEAKER) (test 140 meq/L 135-148 [address] j[address]) [place] [address] [id number] 21:00:00 Test Item Value Reference Range Comments POC-POTASSIUM (BEAKER) (test 3.9 meq/L 3.6-5.5 TESTED AT [place] [address] [address] fegl=5209) [place] [address] [id number] 21:00:00 Test Item Value Reference Range Comments POC-GLUCOSE (BEAKER) (test 129 mg/dL 70-110 TESTED AT [place] [address] [address] xjok=3733) [place] [address] POCT-CALCIUM [id number] 21:00:00 Test Item Value Reference Range Comments POC-CALCIUM IONIZED (BEAKER) 1.12 mmol/L 1.12-1.27 TESTED AT [address] (test zawr=1940) [place] [address] [id number] 21:00:00 Test Item Value Reference Range Comments POC-HEMATOCRIT (BEAKER) (test 30 % 40-50 TESTED AT [address] ivjn=3556) [place] [id number] 21:00:00 Test Item Value Reference Range Comments POC-HEMOGLOBIN (BEAKER) 10.2 g/dL 13.0-16.8 TESTED AT [address] (test wodb=6468) [place] [id number] AT [place] [address] POCT-LACTIC ACID, [id number] 21:00:00 Test Item Value Reference Range Comments POC-LACTIC ACID, VENOUS 1.3 mmol/L 0.9-1.7 TESTED AT [address] (BEAKER) (test bwkr=2900) [place] [id number] CBC W/PLT COUNT & AUTO [id number] 18:50:00 Test Item Value Reference Range Comments WHITE BLOOD CELL COUNT (BEAKER) (test iqcy=688) 15.4 K/ L 3.5-10.5 RED BLOOD CELL COUNT (BEAKER) (test iesu=014) 3.96 M/ L 4.63-6.08 HEMOGLOBIN (BEAKER) (test elah=304) 11.5 GM/DL 13.7-17.5 HEMATOCRIT (BEAKER) (test vmom=136) 36.2 % 40.1-51.0 MEAN CORPUSCULAR VOLUME (BEAKER) (test gnyz=368) 91.4 fL 79.0-92.2 MEAN CORPUSCULAR HEMOGLOBIN (BEAKER) (test 29.0 pg 25.7-32.2 xrcp=177) MEAN CORPUSCULAR HEMOGLOBIN CONC (BEAKER) (test 31.8 GM/DL 32.3-36.5 phpj=350) RED CELL DISTRIBUTION WIDTH (BEAKER) (test 14.4 % 11.6-14.4 qfje=754) PLATELET COUNT (BEAKER) (test pbvi=124) 308 K/CU MM 150-450 MEAN PLATELET VOLUME (BEAKER) (test xehm=167) 9.3 fL 9.4-12.4 NUCLEATED RED BLOOD CELLS (BEAKER) (test 0 /100 WBC 0-0 gdgy=769) NEUTROPHILS RELATIVE PERCENT (BEAKER) (test 83 % rlta=512) LYMPHOCYTES RELATIVE PERCENT (BEAKER) (test 10 % yxol=714) MONOCYTES RELATIVE PERCENT (BEAKER) (test 6 % pfji=717) EOSINOPHILS RELATIVE PERCENT (BEAKER) (test 1 % tduz=803) BASOPHILS RELATIVE PERCENT (BEAKER) (test 0 % dxlg=570) NEUTROPHILS ABSOLUTE COUNT (BEAKER) (test 12.76 K/ L 1.78-5.38 zlfe=851) LYMPHOCYTES ABSOLUTE COUNT (BEAKER) (test 1.50 K/ L 1.32-3.57 ahqb=063) MONOCYTES ABSOLUTE COUNT (BEAKER) (test 0.95 K/ L 0.30-0.82 ewga=037) EOSINOPHILS ABSOLUTE COUNT (BEAKER) (test 0.07 K/ L 0.04-0.54 ulri=902) BASOPHILS ABSOLUTE COUNT (BEAKER) (test 0.04 K/ L 0.01-0.08 uphi=975) IMMATURE GRANULOCYTES-RELATIVE PERCENT (BEAKER) 0 % 0-1 (test ikzl=7385) [place], MEDICAL PHYSICIST IN OR/30 MINUTE [id number] 14:17:00Reason for exam:-> Retrograde PyelogramFINAL REPORT Fluoroscopic spot imaging was performed at the time of the procedure by the ordering service. This examination is nondiagnostic. Fluoroscopy was not performed by theundersigned, and the radiologist was not present at the time of examination. Interpretation of the images was not requested. Total fluoroscopy time: 0.7 minutes Total number of films: 5 Please refer tothe referring physician's procedure report for complete detail. There is a left ureteral stent in position. Signed: Agnieszka Jorge MDReport Verified Date/Time: 09/01/2018 14:17:49 Reading Location: [place] [id number] Ortho Consult Reading Room BASI METABOLIC [id number] 14:07:00 Test Item Value Reference Range Comments SODIUM (BEAKER) (test 134 meq/L 136-145 dgxv=464) POTASSIUM (BEAKER) (test 4.1 meq/L 3.5-5.1 Specimen slightly hjvj=735) hemolyzed CHLORIDE (BEAKER) (test 113 meq/L 98-107 ryml=848) CO2 (BEAKER) (test 14 meq/L 22-29 inmb=335) BLOOD UREA NITROGEN 10 mg/dL 7-21 (BEAKER) (test cwkw=684) CREATININE (BEAKER) (test 0.85 mg/dL 0.57-1.25 Specimen slightly petx=699) hemolyzed GLUCOSE RANDOM (BEAKER) 105 mg/dL 70-105 (test jmgn=920) CALCIUM (BEAKER) (test 8.0 mg/dL 8.4-10.2 kqtn=177) EGFR (BEAKER) (test 90 mL/min/1.73 sq m ESTIMATED GFR IS NOT bxre=3331) ACCURATE CREATININE CLEARANCE IN PREDICTING GLOMERULAR FILTRATION RATE. ESTIMATED GFR IS NOT APPLICABLE FOR DIALYSIS PATIENTS. HEMOGLOBIN AND [id number] 13:53:00 Test Item Value Reference Range Comments HEMOGLOBIN (BEAKER) (test eibc=837) 12.1 GM/DL 13.7-17.5 HEMATOCRIT (BEAKER) (test qfzo=264) 39.5 % 40.1-51.0 BASIC METABOLIC [id number] 07:22:00 Test Item Value Reference Range Comments SODIUM (BEAKER) (test 141 meq/L 136-145 aqht=545) POTASSIUM (BEAKER) (test 4.1 meq/L 3.5-5.1 ebnf=732) CHLORIDE (BEAKER) (test 115 meq/L 98-107 nmkg=793) CO2 (BEAKER) (test 21 meq/L 22-29 lbas=960) BLOOD UREA NITROGEN 12 mg/dL 7-21 (BEAKER) (test xsji=137) CREATININE (BEAKER) (test 0.91 mg/dL 0.57-1.25 matg=381) GLUCOSE RANDOM (BEAKER) 89 mg/dL 70-105 (test tqay=716) CALCIUM (BEAKER) (test 8.4 mg/dL 8.4-10.2 antw=935) EGFR (BEAKER) (test 83 mL/min/1.73 sq m ESTIMATED GFR IS NOT grua=3155) ACCURATE CREATININE CLEARANCE IN PREDICTING GLOMERULAR FILTRATION RATE. ESTIMATED GFR IS NOT APPLICABLE FOR DIALYSIS PATIENTS. CBC W/PLT COUNT & AUTO [id number] 06:49:00 Test Item Value Reference Range Comments WHITE BLOOD CELL COUNT (BEAKER) (test vztu=400) 6.3 K/ L 3.5-10.5 RED BLOOD CELL COUNT (BEAKER) (test yual=778) 4.09 M/ L 4.63-6.08 HEMOGLOBIN (BEAKER) (test mzdw=938) 11.9 GM/DL 13.7-17.5 HEMATOCRIT (BEAKER) (test cdtq=198) 36.9 % 40.1-51.0 MEAN CORPUSCULAR VOLUME (BEAKER) (test awih=993) 90.2 fL 79.0-92.2 MEAN CORPUSCULAR HEMOGLOBIN (BEAKER) (test 29.1 pg 25.7-32.2 unyw=807) MEAN CORPUSCULAR HEMOGLOBIN CONC (BEAKER) (test 32.2 GM/DL 32.3-36.5 mhap=781) RED CELL DISTRIBUTION WIDTH (BEAKER) (test 14.5 % 11.6-14.4 cets=392) PLATELET COUNT (BEAKER) (test ykhc=766) 261 K/CU MM 150-450 MEAN PLATELET VOLUME (BEAKER) (test hwib=111) 9.5 fL 9.4-12.4 NUCLEATED RED BLOOD CELLS (BEAKER) (test 0 /100 WBC 0-0 udjk=047) NEUTROPHILS RELATIVE PERCENT (BEAKER) (test 64 % ltdu=400) LYMPHOCYTES RELATIVE PERCENT (BEAKER) (test 22 % neen=686) MONOCYTES RELATIVE PERCENT (BEAKER) (test 8 % iaxm=445) EOSINOPHILS RELATIVE PERCENT (BEAKER) (test 5 % nqjk=667) BASOPHILS RELATIVE PERCENT (BEAKER) (test 1 % uxkm=104) NEUTROPHILS ABSOLUTE COUNT (BEAKER) (test 4.02 K/ L 1.78-5.38 uyak=489) LYMPHOCYTES ABSOLUTE COUNT (BEAKER) (test 1.36 K/ L 1.32-3.57 pdte=409) MONOCYTES ABSOLUTE COUNT (BEAKER) (test 0.52 K/ L 0.30-0.82 vrms=563) EOSINOPHILS ABSOLUTE COUNT (BEAKER) (test 0.34 K/ L 0.04-0.54 fari=152) BASOPHILS ABSOLUTE COUNT (BEAKER) (test 0.04 K/ L 0.01-0.08 kqxr=775) IMMATURE GRANULOCYTES-RELATIVE PERCENT (BEAKER) 0 % 0-1 (test uurc=7536) BASIC METABOLIC [id number] 07:06:00 Test Item Value Reference Range Comments SODIUM (BEAKER) (test 140 meq/L 136-145 azyv=563) POTASSIUM (BEAKER) (test 3.7 meq/L 3.5-5.1 cjln=700) CHLORIDE (BEAKER) (test 110 meq/L 98-107 kebx=604) CO2 (BEAKER) (test 25 meq/L 22-29 xzyf=172) BLOOD UREA NITROGEN 19 mg/dL 7-21 (BEAKER) (test aday=460) CREATININE (BEAKER) (test 1.00 mg/dL 0.57-1.25 werx=746) GLUCOSE RANDOM (BEAKER) 98 mg/dL 70-105 (test jlnh=116) CALCIUM (BEAKER) (test 8.6 mg/dL 8.4-10.2 zkir=385) EGFR (BEAKER) (test 75 mL/min/1.73 sq m ESTIMATED GFR IS NOT jeel=7244) ACCURATE CREATININE CLEARANCE IN PREDICTING GLOMERULAR FILTRATION RATE. ESTIMATED GFR IS NOT APPLICABLE FOR DIALYSIS PATIENTS. CBC W/PLT COUNT & AUTO [id number] 06:45:00 Test Item Value Reference Range Comments WHITE BLOOD CELL COUNT (BEAKER) (test jhkc=670) 7.5 K/ L 3.5-10.5 RED BLOOD CELL COUNT (BEAKER) (test fwcr=752) 4.50 M/ L 4.63-6.08 HEMOGLOBIN (BEAKER) (test gppj=561) 13.0 GM/DL 13.7-17.5 HEMATOCRIT (BEAKER) (test ksod=336) 39.8 % 40.1-51.0 MEAN CORPUSCULAR VOLUME (BEAKER) (test rbec=292) 88.4 fL 79.0-92.2 MEAN CORPUSCULAR HEMOGLOBIN (BEAKER) (test 28.9 pg 25.7-32.2 rvnn=237) MEAN CORPUSCULAR HEMOGLOBIN CONC (BEAKER) (test 32.7 GM/DL 32.3-36.5 dacd=084) RED CELL DISTRIBUTION WIDTH (BEAKER) (test 14.6 % 11.6-14.4 acmp=819) PLATELET COUNT (BEAKER) (test wwhz=299) 277 K/CU MM 150-450 MEAN PLATELET VOLUME (BEAKER) (test swsj=352) 9.3 fL 9.4-12.4 NUCLEATED RED BLOOD CELLS (BEAKER) (test 0 /100 WBC 0-0 eppo=593) NEUTROPHILS RELATIVE PERCENT (BEAKER) (test 62 % clyf=661) LYMPHOCYTES RELATIVE PERCENT (BEAKER) (test 23 % shva=072) MONOCYTES RELATIVE PERCENT (BEAKER) (test 9 % sxeb=361) EOSINOPHILS RELATIVE PERCENT (BEAKER) (test 5 % aszx=193) BASOPHILS RELATIVE PERCENT (BEAKER) (test 1 % rgrs=344) NEUTROPHILS ABSOLUTE COUNT (BEAKER) (test 4.67 K/ L 1.78-5.38 kavs=552) LYMPHOCYTES ABSOLUTE COUNT (BEAKER) (test 1.76 K/ L 1.32-3.57 tkmf=477) MONOCYTES ABSOLUTE COUNT (BEAKER) (test 0.67 K/ L 0.30-0.82 sepc=852) EOSINOPHILS ABSOLUTE COUNT (BEAKER) (test 0.37 K/ L 0.04-0.54 iozf=833) BASOPHILS ABSOLUTE COUNT (BEAKER) (test 0.04 K/ L 0.01-0.08 vpsd=616) IMMATURE GRANULOCYTES-RELATIVE PERCENT (BEAKER) 0 % 0-1 (test tbdx=4081) PET, CARDIAC PERFUSION MULTIPLE STUDIES, REST AND [id number] 16:18: 00Reason for exam:->pre-op, 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 Current cardiovascular-related medications: Lipitor , losartan, Norvasc. PROTOCOL: Limited low-dose CT imaging was performed for attenuation correction. 40.2 mCi of Rb-82 chloride was injected iv at rest, and gated PET (positron emission tomography) images were obtained. Subsequently , 40.2 mCi of Rb-82 chloride was injected iv at expected peak pharmacologic effect, and gated PET images were obtained. PRELIMINARY STRESS TEST DATAFROM NONINVASIVE CARDIOLOGY: Pharmacologic stress was by 10-second [...] is good. Images obtained after rest and stressinjections show normal LV activity. LV and RV volumes appear normal. Gated images obtained at rest and with stress show normal LV wall motion and thickening. LVEF at rest is greater than 70%. LVEF at stress is greater than 70% . IMPRESSION: 1. Normal cardiac study. 2. Appropriate pharmacologic stress. 3. Normal myocardial perfusion. 4. Normal resting LV function. No deterioration of function isnoted with pharmacologic stress. 5. Normal extracardiac tracer distribution. 6. No previous [facility] study for comparison. 7. Multiple low-density lesions throughout the liver are identified on these limited CT images. These can be better characterized for etiology by formal anatomic imaging if not previously evaluated. Signed: Victor M House MDReport Verified Date/Time: 08/30/2018 16:18:15 Reading Location: [address] Reading Room Electronically signed by: VICTOR M HOUSE MD on 04:18 PMURINE [id number] 13:27:00 Test Item Value Reference Range Comments CULTURE (BEAKER) (test ptmg=7364) No growth BASIC METABOLIC [id number] 07:10:00 Test Item Value Reference Range Comments SODIUM (BEAKER) (test 139 meq/L 136-145 hryk=615) POTASSIUM (BEAKER) (test 3.9 meq/L 3.5-5.1 jmim=110) CHLORIDE (BEAKER) (test 108 meq/L 98-107 rpsd=929) CO2 (BEAKER) (test 22 meq/L 22-29 ijkg=770) BLOOD UREA NITROGEN 20 mg/dL 7-21 (BEAKER) (test ikfz=311) CREATININE (BEAKER) (test 1.14 mg/dL 0.57-1.25 rqcf=552) GLUCOSE RANDOM (BEAKER) 106 mg/dL 70-105 (test pbhr=947) CALCIUM (BEAKER) (test 9.2 mg/dL 8.4-10.2 pfqn=787) EGFR (BEAKER) (test 64 mL/min/1.73 sq m ESTIMATED GFR IS NOT vwbz=3084) ACCURATE CREATININE CLEARANCE IN PREDICTING GLOMERULAR FILTRATION RATE. ESTIMATED GFR IS NOT APPLICABLE FOR DIALYSIS PATIENTS. CBC W/PLT COUNT & AUTO [id number] 06:56:00 Test Item Value Reference Range Comments WHITE BLOOD CELL COUNT (BEAKER) (test trlv=503) 8.6 K/ L 3.5-10.5 RED BLOOD CELL COUNT (BEAKER) (test vyeh=146) 4.98 M/ L 4.63-6.08 HEMOGLOBIN (BEAKER) (test zysj=489) 14.2 GM/DL 13.7-17.5 HEMATOCRIT (BEAKER) (test ywye=584) 43.4 % 40.1-51.0 MEAN CORPUSCULAR VOLUME (BEAKER) (test ldfm=409) 87.1 fL 79.0-92.2 MEAN CORPUSCULAR HEMOGLOBIN (BEAKER) (test 28.5 pg 25.7-32.2 cnsz=894) MEAN CORPUSCULAR HEMOGLOBIN CONC (BEAKER) (test 32.7 GM/DL 32.3-36.5 nuez=009) RED CELL DISTRIBUTION WIDTH (BEAKER) (test 14.8 % 11.6-14.4 ukym=578) PLATELET COUNT (BEAKER) (test nsrm=892) 310 K/CU MM 150-450 MEAN PLATELET VOLUME (BEAKER) (test pppx=919) 9.1 fL 9.4-12.4 NUCLEATED RED BLOOD CELLS (BEAKER) (test 0 /100 WBC 0-0 ebjs=808) NEUTROPHILS RELATIVE PERCENT (BEAKER) (test 63 % egsi=336) LYMPHOCYTES RELATIVE PERCENT (BEAKER) (test 22 % tkln=720) MONOCYTES RELATIVE PERCENT (BEAKER) (test 10 % xpgy=651) EOSINOPHILS RELATIVE PERCENT (BEAKER) (test 4 % ctic=399) BASOPHILS RELATIVE PERCENT (BEAKER) (test 1 % nbht=838) NEUTROPHILS ABSOLUTE COUNT (BEAKER) (test 5.47 K/ L 1.78-5.38 bioj=667) LYMPHOCYTES ABSOLUTE COUNT (BEAKER) (test 1.88 K/ L 1.32-3.57 ncci=761) MONOCYTES ABSOLUTE COUNT (BEAKER) (test 0.83 K/ L 0.30-0.82 vuze=188) EOSINOPHILS ABSOLUTE COUNT (BEAKER) (test 0.36 K/ L 0.04-0.54 dsnk=959) BASOPHILS ABSOLUTE COUNT (BEAKER) (test 0.04 K/ L 0.01-0.08 vgyu=906) IMMATURE GRANULOCYTES-RELATIVE PERCENT (BEAKER) 1 % 0-1 (test ddvh=9544) BASIC METABOLIC [id number] 06:44:00 Test Item Value Reference Range Comments SODIUM (BEAKER) (test 138 meq/L 136-145 bsmh=200) POTASSIUM (BEAKER) (test 4.2 meq/L 3.5-5.1 Specimen slightly jlcr=429) hemolyzed CHLORIDE (BEAKER) (test 108 meq/L 98-107 hdwf=041) CO2 (BEAKER) (test 22 meq/L 22-29 lega=141) BLOOD UREA NITROGEN 17 mg/dL 7-21 (BEAKER) (test lntu=863) CREATININE (BEAKER) (test 1.02 mg/dL 0.57-1.25 Specimen slightly slng=120) hemolyzed GLUCOSE RANDOM (BEAKER) 99 mg/dL 70-105 (test yazh=133) CALCIUM (BEAKER) (test 9.7 mg/dL 8.4-10.2 exti=385) EGFR (BEAKER) (test 73 mL/min/1.73 sq m ESTIMATED GFR IS NOT xrmf=2190) ACCURATE CREATININE CLEARANCE IN PREDICTING GLOMERULAR FILTRATION RATE. ESTIMATED GFR IS NOT APPLICABLE FOR DIALYSIS PATIENTS. CBC W/PLT COUNT & AUTO [id number] 06:34:00 Test Item Value Reference Range Comments WHITE BLOOD CELL COUNT (BEAKER) (test dnlx=028) 10.7 K/ L 3.5-10.5 RED BLOOD CELL COUNT (BEAKER) (test agtl=692) 5.29 M/ L 4.63-6.08 HEMOGLOBIN (BEAKER) (test zwhl=308) 15.6 GM/DL 13.7-17.5 HEMATOCRIT (BEAKER) (test uduu=398) 46.4 % 40.1-51.0 MEAN CORPUSCULAR VOLUME (BEAKER) (test jeaq=677) 87.7 fL 79.0-92.2 MEAN CORPUSCULAR HEMOGLOBIN (BEAKER) (test 29.5 pg 25.7-32.2 vrne=917) MEAN CORPUSCULAR HEMOGLOBIN CONC (BEAKER) (test 33.6 GM/DL 32.3-36.5 eyxm=418) RED CELL DISTRIBUTION WIDTH (BEAKER) (test 14.7 % 11.6-14.4 lrgu=207) PLATELET COUNT (BEAKER) (test iuwg=318) 304 K/CU MM 150-450 MEAN PLATELET VOLUME (BEAKER) (test eupr=660) 9.5 fL 9.4-12.4 NUCLEATED RED BLOOD CELLS (BEAKER) (test 0 /100 WBC 0-0 nkvz=764) NEUTROPHILS RELATIVE PERCENT (BEAKER) (test 72 % dqqw=915) LYMPHOCYTES RELATIVE PERCENT (BEAKER) (test 16 % pnbm=266) MONOCYTES RELATIVE PERCENT (BEAKER) (test 8 % vygw=354) EOSINOPHILS RELATIVE PERCENT (BEAKER) (test 4 % zhvj=739) BASOPHILS RELATIVE PERCENT (BEAKER) (test 1 % rjep=362) NEUTROPHILS ABSOLUTE COUNT (BEAKER) (test 7.64 K/ L 1.78-5.38 ixez=728) LYMPHOCYTES ABSOLUTE COUNT (BEAKER) (test 1.71 K/ L 1.32-3.57 calt=436) MONOCYTES ABSOLUTE COUNT (BEAKER) (test 0.81 K/ L 0.30-0.82 onkc=499) EOSINOPHILS ABSOLUTE COUNT (BEAKER) (test 0.41 K/ L 0.04-0.54 euaq=936) BASOPHILS ABSOLUTE COUNT (BEAKER) (test 0.05 K/ L 0.01-0.08 bivt=719) IMMATURE GRANULOCYTES-RELATIVE PERCENT (BEAKER) 1 % 0-1 (test itkg=6833) BASIC METABOLIC [id number] 17:36:00 Test Item Value Reference Range Comments SODIUM (BEAKER) (test 138 meq/L 136-145 rfst=420) POTASSIUM (BEAKER) (test 3.8 meq/L 3.5-5.1 ecyr=185) CHLORIDE (BEAKER) (test 106 meq/L 98-107 zzvq=120) CO2 (BEAKER) (test 23 meq/L 22-29 kzpm=688) BLOOD UREA NITROGEN 11 mg/dL 7-21 (BEAKER) (test nnia=507) CREATININE (BEAKER) (test 0.94 mg/dL 0.57-1.25 dbeg=160) GLUCOSE RANDOM (BEAKER) 105 mg/dL 70-105 (test iduv=611) CALCIUM (BEAKER) (test 9.5 mg/dL 8.4-10.2 lrum=696) EGFR (BEAKER) (test 80 mL/min/1.73 sq m ESTIMATED GFR IS NOT bklc=6576) ACCURATE CREATININE CLEARANCE IN PREDICTING GLOMERULAR FILTRATION RATE. ESTIMATED GFR IS NOT APPLICABLE FOR DIALYSIS PATIENTS. PROTHROMBIN [id number] 17:33:00 Test Item Value Reference Range Comments PROTIME (BEAKER) (test epch=361) 13.0 seconds 11.7-14.7 INR (BEAKER) (test zunq=415) 1.0 <=5.9 RECOMMENDED COUMADIN/WARFARIN INR THERAPY RANGESSTANDARD DOSE: 2.0 - 3.0 Includes: PROPHYLAXIS forvenous thrombosis, systemic embolization; TREATMENT for venous thrombosis and/or pulmonary embolus.HIGH RISK: Target INR is 2.5-3.5 for patients with mechanical heart valves.CBC W/PLT COUNT & AUTO [id number] 17:13:00 Test Item Value Reference Range Comments WHITE BLOOD CELL COUNT (BEAKER) (test xtxz=996) 8.8 K/ L 3.5-10.5 RED BLOOD CELL COUNT (BEAKER) (test ndbw=826) 5.05 M/ L 4.63-6.08 HEMOGLOBIN (BEAKER) (test namv=972) 14.7 GM/DL 13.7-17.5 HEMATOCRIT (BEAKER) (test wuqd=097) 44.0 % 40.1-51.0 MEAN CORPUSCULAR VOLUME (BEAKER) (test lgzm=938) 87.1 fL 79.0-92.2 MEAN CORPUSCULAR HEMOGLOBIN (BEAKER) (test 29.1 pg 25.7-32.2 vuzt=136) MEAN CORPUSCULAR HEMOGLOBIN CONC (BEAKER) (test 33.4 GM/DL 32.3-36.5 ojdl=545) RED CELL DISTRIBUTION WIDTH (BEAKER) (test 14.8 % 11.6-14.4 lcdx=168) PLATELET COUNT (BEAKER) (test ulub=578) 285 K/CU MM 150-450 MEAN PLATELET VOLUME (BEAKER) (test juye=258) 9.1 fL 9.4-12.4 NUCLEATED RED BLOOD CELLS (BEAKER) (test 0 /100 WBC 0-0 wfxq=890) NEUTROPHILS RELATIVE PERCENT (BEAKER) (test 70 % cdvy=232) LYMPHOCYTES RELATIVE PERCENT (BEAKER) (test 19 % fkwf=635) MONOCYTES RELATIVE PERCENT (BEAKER) (test 8 % pftg=446) EOSINOPHILS RELATIVE PERCENT (BEAKER) (test 2 % mpqq=616) BASOPHILS RELATIVE PERCENT (BEAKER) (test 0 % bbqt=292) NEUTROPHILS ABSOLUTE COUNT (BEAKER) (test 6.17 K/ L 1.78-5.38 lpug=812) LYMPHOCYTES ABSOLUTE COUNT (BEAKER) (test 1.71 K/ L 1.32-3.57 rzgl=225) MONOCYTES ABSOLUTE COUNT (BEAKER) (test 0.71 K/ L 0.30-0.82 twbg=538) EOSINOPHILS ABSOLUTE COUNT (BEAKER) (test 0.20 K/ L 0.04-0.54 waly=824) BASOPHILS ABSOLUTE COUNT (BEAKER) (test 0.02 K/ L 0.01-0.08 upeu=374) IMMATURE GRANULOCYTES-RELATIVE PERCENT (BEAKER) 0 % 0-1 (test [id number])
[2018-09-07] MEDS ORDERED: NACL 0.9% IRR SOLN 2,000 ML IRR ONE (01:46)
[2018-09-07] MEDS ORDERED: LIDOCAINE VISCOUS 2% SOLN 15 ML UDC ONE (01:47)
--- NOTE | 2018-09-07 02:40 | ER ---
Nurse's Notes [facility] Name: Chema Hernandez Age: 68 yrs Sex: Male : 1950 Arrival Date: 09/07/2018 Time: 01:25 Bed 5 Private MD: Diagnosis: Hematuria, unspecified;Acute urinary retention Presentation: 09/07 01:40 Presenting complaint: Patient states: he had a bladder resection for a tumor at [facility] and was released from the hospital today but now is unable to urinate x 3 hours and is in a lot of pain. Transition of care: patient was not received from another setting of care. Onset of symptoms was September 07, 2018. Risk Assessment: Do you want to hurt yourself or someone else? Patient reports no desire to harm self or others. Initial Sepsis Screen: Does the patient meet any 2 criteria? No. Patient's initial sepsis screen is negative. Does the patient have a suspected source of infection? No. Patient's initial sepsis screen is negative. Care prior to arrival: None. 01:40 Method Of Arrival: Ambulatory bb 01:40 Acuity: ERMA 3 bb Historical: - Home Meds: 03:07 amlodipine oral [Active]; Lipitor Oral [Active]; losartan Oral [Active]; omeprazole 40 jd3 mg Oral cpDR 1 cap once daily [Active]; - PMHx: 03:07 Hypertension; mitral valve prolapse; Polycythemia; Kidney stones; jd3 - Immunization history:: Adult Immunizations unknown. - Social history:: Smoking status: unknown. - Family history:: not pertinent. - Ebola Screening: : Patient negative for fever greater than or equal to 101.5 degrees Fahrenheit, and additional compatible Ebola Virus Disease symptoms. - Hospitalizations: : Patient was recently seen at [facility]. Screenin:53 Abuse screen: Denies threats or abuse. Nutritional screening: No deficits noted. jd3 Tuberculosis screening: No symptoms or risk factors identified. Fall Risk Ambulatory Aid- None/Bed Rest/Nurse Assist (0 pts). Gait- Normal/Bed Rest/Wheelchair (0 pts) Mental Status- Oriented to own ability (0 pts). Total Mckeon Fall Scale indicates No Risk (0-24 pts). Assessment: 01:51 General: Appears uncomfortable, Behavior is calm, cooperative, appropriate for age. jd3 Pain: Complains of pain in groin Quality of pain is described as pressure, sharp. Neuro: Level of Consciousness is awake, alert, obeys commands, Oriented to person, place, time, situation, Appropriate for age. Cardiovascular: Capillary refill < 3 seconds Patient's skin is warm and dry. Respiratory: Airway is patent Respiratory effort is even, unlabored, Respiratory pattern is regular, symmetrical. GI: No signs and/or symptoms were reported involving the gastrointestinal system. : Urine is blood tinged, doris blood, Bladder is distended Reports inability to void. EENT: No signs and/or symptoms were reported regarding the EENT system. Derm: Skin is intact, Skin is dry, Skin is normal, Skin temperature is warm. Musculoskeletal: Circulation, motion, and sensation intact. Range of motion: intact in all extremities. 02:27 Reassessment: Patient appears in no apparent distress at this time. Patient and/or jd3 family updated on plan of care and expected duration. Pain level reassessed. Patient is alert, oriented x 3, equal unlabored respirations, skin warm/dry/pink. Patient states feeling better. 03:04 Reassessment: Patient appears in no apparent distress at this time. Patient and/or jd3 family updated on plan of care and expected duration. Pain level reassessed. Patient is alert, oriented x 3, equal unlabored respirations, skin warm/dry/pink. Patient states feeling better. Vital Signs: 01:40 BP 155 / 99; Pulse 98; Resp 20 S; Temp 98.3; Pulse Ox 100% on R/A; Weight 58.97 kg (R); bb Height 5 ft. 10 in. (177.80 cm) (R); Pain 10/10; 02:26 BP 145 / 84; Pulse 60; Resp 16 S; Pulse Ox 95% on R/A; jd3 02:44 BP 134 / 76; Pulse 61; Resp 16; Pulse Ox 94% on R/A; ak1 01:40 Body Mass Index 18.65 (58.97 kg, 177.80 cm) bb ED Course: 01:25 Patient arrived in ED. al2 01:29 Jos Alvarez MD is Attending Physician. rn 01:49 Triage completed. bb 01:50 Anthony Goldstein RN is Primary Nurse. jd3 01:50 3-way catheter inserted, using sterile technique, 24 Fr. jd3 01:53 Patient has correct armband on for positive identification. Placed in gown. Bed in low jd3 position. Call light in reach. Side rails up X 1. Adult w/ patient. 01:53 Arm band placed on. jd3 02:14 Bladder irrigated via [place] normal saline Patient tolerated well. jd3 03:05 No provider procedures requiring assistance completed. Patient did not have IV access jd3 during this emergency room visit. Administered Medications: No medications were administered Outcome: 02:39 Discharge ordered by . rn 03:05 Discharged to home via wheelchair, with family. jd3 03:05 Condition: stable 03:05 Discharge instructions given to patient, family, Instructed on discharge instructions, follow up and referral plans. Demonstrated understanding of instructions, follow-up care. 03:06 Patient left the ED. jd3 Signatures: Gertrudis Acevedo RN RN bb Nieto, Roman, MD MD rn Krenek, Amber RN RN Anthony Lobo RN RN jd3 Love, Angelica al2 Corrections: (The following items were deleted from the chart) 02:25 01:51 : No signs and/or symptoms were reported regarding the genitourinary system. [id number]
--- NOTE | 2018-09-07 02:40 | EDPHYS ---
Physician Documentation [facility] Name: Chema Hernandez Age: 68 yrs Sex: Male : 1950 Arrival Date: 09/07/2018 Time: 01:25 Bed 5 Private MD: ED Physician Jos Alvarez HPI: 09/07 01:33 This 68 yrs old Male presents to ER via Unassigned with complaints of Urinary rn Problem, Pain. 01:33 The patient presents with urinary symptoms, retention, unable to void. Onset: The rn symptoms/episode began/occurred 3 hour(s) ago. Modifying factors: The symptoms are alleviated by nothing, the symptoms are aggravated by movement. Severity of symptoms: At their worst the symptoms were moderate, in the emergency department the symptoms are unchanged. The patient has experienced similar episodes in the past. The patient has been recently seen by a physician:. Just discharged from [facility] today after bladder tumor resection, not on blood thinners, had voiding trial today, was able to urinate, sent home without hardwick, returns now because was passing blood and now unable to void for 3 hours. Has happened to him before when had prostate problems and surgery.. Historical: - Home Meds: 03:07 amlodipine oral [Active]; Lipitor Oral [Active]; losartan Oral [Active]; omeprazole 40 jd3 mg Oral cpDR 1 cap once daily [Active]; - PMHx: 03:07 Hypertension; mitral valve prolapse; Polycythemia; Kidney stones; jd3 - Immunization history:: Adult Immunizations unknown. - Social history:: Smoking status: unknown. - Family history:: not pertinent. - Ebola Screening: : Patient negative for fever greater than or equal to 101.5 degrees Fahrenheit, and additional compatible Ebola Virus Disease symptoms. - Hospitalizations: : Patient was recently seen at [facility]. ROS: 01:33 Constitutional: Negative for fever, chills, and weight loss, Eyes: Negative for injury, rn pain, redness, and discharge, Cardiovascular: Negative for chest pain, palpitations, and edema, Respiratory: Negative for shortness of breath, cough, wheezing, and pleuritic chest pain, Abdomen/GI: + lower abd pain Back: Negative for injury and pain, : + hematuria and now unable to void MS/Extremity: Negative for injury and deformity, Skin: Negative for injury, rash, and discoloration, Neuro: Negative for headache, weakness, numbness, tingling, and seizure. Exam: 01:33 Constitutional: Thin male, appears uncomfortable Abdomen/GI: soft, + suprapubic rn tenderness and fullness Male : Swollen and edematous penis Neuro: Awake and alert, GCS 15, oriented to person, place, time, and situation. Cranial nerves II-XII grossly intact. Motor strength 5/5 in all extremities. Sensory grossly intact. Cerebellar exam normal. Normal gait. Vital Signs: 01:40 BP 155 / 99; Pulse 98; Resp 20 S; Temp 98.3; Pulse Ox 100% on R/A; Weight 58.97 kg (R); bb Height 5 ft. 10 in. (177.80 cm) (R); Pain 10/10; 02:26 BP 145 / 84; Pulse 60; Resp 16 S; Pulse Ox 95% on R/A; jd3 02:44 BP 134 / 76; Pulse 61; Resp 16; Pulse Ox 94% on R/A; ak1 01:40 Body Mass Index 18.65 (58.97 kg, 177.80 cm) bb MDM: 01:29 Patient medically screened. rn 02:37 Differential diagnosis: urinary retention. Data reviewed: vital signs, nurses notes, rn and as a result, I will discharge patient. Counseling: I had a detailed discussion with the patient and/or guardian regarding: the historical points, exam findings, and any diagnostic results supporting the discharge/admit diagnosis, the need for outpatient follow up, to return to the emergency department if symptoms worsen or persist or if there are any questions or concerns that arise at home. Response to treatment: the patient's symptoms have markedly improved after treatment, the patient's condition has returned to base line, and as a result, I will discharge patient. Special discussion: I discussed with the patient/guardian in detail that at this point there is no indication for admission to the hospital. It is understood, however, that if the symptoms persist or worsen the patient needs to return immediately for re-evaluation. Based on the history and exam findings, there is no indication for further emergent testing or inpatient evaluation. I discussed with the patient/guardian the need to see the urologist for further evaluation of the symptoms. ED course: Pt irrigated to 2L, now clear, pain resolved, no more blood, will dc home with hardwick and f/u with his urologist, patient has managed hardwick before, is comfortable with care and irrigation at home. Return precautions given and understood. . 09/07 01:33 Order name: Hardwick-Hematuria; Complete Time: 01:54 rn 09/07 01:33 Order name: Bladder Irrigation; Complete Time: 02:14 rn Administered Medications: No medications were administered Disposition: 09/07/18 02:39 Discharged to Home. Impression: Hematuria, unspecified, Acute urinary retention. - Condition is Stable. - Discharge Instructions: Hardwick Catheter Care, Adult, Hematuria, Adult, Acute Urinary Retention, Male. - Medication Reconciliation Form, Thank You Letter, Antibiotic Education, Prescription Opioid Use form. - Follow up: Private Physician; When: As needed; Reason: Recheck today's complaints, Re-evaluation by your physician. - Problem is new. - Symptoms have improved. Signatures: Jos Alvarez MD MD rn Davies, Jonathon, RN RN jd3 Corrections: (The following items were deleted from the chart) 03:06 02:39 09/07/2018 02:39 Discharged to Home. Impression: Hematuria, unspecified; Acute jd3 urinary retention. Condition is Stable. Forms are Medication Reconciliation Form, Thank You Letter, Antibiotic Education, Prescription Opioid Use. Follow up: Private Physician; When: As needed; Reason: Recheck today's complaints, Re-evaluation by your physician. Problem is new. Symptoms have improved. rn
== END 2018-09-07 03:06 | disposition home or self-care (01) ==
LOC: ER 01:24
DX: R33.9 Retention of urine, unspecified (principal); I10 Essential (primary) hypertension; Z98.890 Other specified postprocedural states
CPT/HCPCS: 51700; 99284

== ENCOUNTER 2019-11-13 17:23 | Emergency (ER) | payer OTHER ==
--- OUTSIDE RECORDS SUMMARY | 2019-11-13 17:28 | XMS REPORT ---
:1950 Author Organization [employer] Care Team Providers Name Role Phone Shalonda Manrique Provider Role Unavailable Allergies, Adverse Reactions, Alerts Substance Reaction Event Type N.K.D.A. 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, unspecified site Problem Cerumen impaction H61.20 Active Problem 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 Problem Anxiety F41.9 Active Problem 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, unspecified site Problem Hypertension, unspecified type I10 Active Problem Gastroesophageal reflux disease, K21.9 Active esophagitis presence not specified Assessment Influenza vaccine administered Z23 Active Assessment Hypertension, unspecified type I10 Active Problem Cancer C80.1 Active Problem Erectile dysfunction N52.9 Active Problem History of kidney stones Z87.442 Active Problem Kidney stones N20.0 Active Assessment Anxiety F41.9 Active Problem Sinus problem J34.9 Active Problem Gastritis, presence of bleeding K29.70 Active unspecified, unspecified chronicity, unspecified gastritis type Medications Medication Code Code Instructions Start End Status Dosage System Date Date Alprazolam ND 21325447149 0.25 MG Orally March 20, Active 1 tablet Twice a day 2018 as needed for anxiety Flonase ND 97786548514 50 MCG/ACT Active 2 sprays Nasally Once a in each day nostril (otc) Omeprazole ND 49237793192 20 MG Orally Active 1 tablet Once a day BusPIRone HCl ND 83315736399 15 MG Orally Aug 26, Active 1 tablet Twice a day 2018 as needed for anxiety Losartan [facility] 87805094645 100-12.5 MG Active 1 tablet Potassium-HCTZ Orally Once a day ZyrTEC [facility] 15630890900 Orally Once Active 10 mg 1 dailly tablet (OTC) Amlodipine [facility] 50788419782 5 MG Orally Once Active 1 tablet Besylate a day Results No Known Results Immunizations Vaccine Administration Date FLUZONE HIGH DOSE OVER 65 Oct 02, 2019 Summary Purpose eClinicalWorks Submission
--- OUTSIDE RECORDS SUMMARY | 2019-11-13 17:28 | XMS REPORT ---
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
--- OUTSIDE RECORDS SUMMARY | 2019-11-13 17:28 | XMS REPORT ---
:1950 [facility] Team Providers Name Role Phone Shalonda Manrique Provider Role Unavailable Allergies, Adverse Reactions, Alerts Substance Reaction Event Type N.K.D.A. 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, unspecified site Assessment Right wrist pain M25.531 Active Assessment Medication monitoring encounter Z51.81 Active Problem Right wrist pain M25.531 Active Assessment Gastroesophageal reflux disease, K21.9 Active esophagitis presence not specified Problem Medication monitoring encounter Z51.81 Active Problem Gastritis, presence of bleeding K29.70 Active unspecified, unspecified chronicity, unspecified gastritis type Problem Hypertension, unspecified type I10 Active Problem 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 Assessment Hypertension, unspecified type I10 Active Assessment Left shoulder pain, unspecified M25.512 Active chronicity Assessment 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, unspecified site Problem Sinus problem J34.9 Active Problem Cancer C80.1 Active Problem Gastroesophageal reflux disease, K21.9 Active esophagitis presence not specified Problem History of kidney stones Z87.442 Active Medications Medication Code Code Instructions Start End Status Dosage System Date Date ZyrTEC ND 93856016909 Orally Once Active 10 mg 1 dailly tablet (OTC) Amlodipine NDC 12876601151 5 MG Orally Once Active 1 tablet Besylate a day Omeprazole NDC 80825412411 20 MG Orally Active 1 tablet Once a day Losartan ND 71878446198 100-12.5 MG Active 1 tablet Potassium-HCTZ Orally Once a day Flonase [facility] 01370945838 50 MCG/ACT Active 2 sprays Nasally Once a in each day nostril (otc) Results No Known Results Summary Purpose eClinicalWorks Submission
--- OUTSIDE RECORDS SUMMARY | 2019-11-13 17:28 | XMS REPORT ---
:1950 [facility] Address [address] [place] [address] Dr. Lu [address] [place] [id number] Care Team Providers Name Role Phone MICHAELA BECK Unavailable Unavailable Problems This patient has no known problems. Allergies, Adverse Reactions, Alerts This patient has no known allergies or adverse reactions. Medications This patient has no known medications. Results Test Description Test Time Test Comments Text Results Atomic Results Result Comments TISSUE EXAM 2019-04-29 17:08:00 Surgical Pathology Report Case: [id number] Authorizing Provider: Michaela Beck MD Collected: 04/26/201917 Ordering Location: [facility] Received: 04/26/2019 1215 SERVICES Pathologist: Nadeem Dolan MD Specimens: A) - Bladder Biopsy, Posterior bladder wall tumor B) - Bladder Biopsy, Left lateral wall bladder wall tumor C) - Bladder Biopsy, right lateral wall bladder wall tumor A. 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 URINARY BLADDER, RIGHT LATERAL WALL,BIOPSY: - BENIGN LAMINA PROPRIA IS PRESENT - MUCOSA AND MUSCULARIS PROPRIA IS ABSENT Signing Pathologist Direct Phone Line: [phone] signed by Nadeem Dolan MD on 04/29/2019 at 5:08 [id number] x 3Pre and postop diagnosis: malignant neoplasm of urinary bladder, unspecified site A. Posterior bladder wall tumor; B.left lateral wall bladder wall tumor; C. Right lateral wall bladder wall tumorA. Received in formalin labeled with the patient's name, accession number and "bladder biopsy" are four irregular ramos-pink soft tissue fragments ranging 0.2-0.7 cm which are submitted in toto in A1. B. Received in formalin labeled with the patient's name, accession number and "bladder biopsy" are three irregular ramos soft tissue fragments ranging 0.1-0.5 cm which are submitted in toto in B1. C. Received in formalin labeled with the patient's name, accession number and "bladder biopsy" is a 0.1 cm white soft tissue fragments which is submitted in toto in C1. CG/pl Performed. ELECTROLYTES 2019-04-26 07:32:00 Test Item Value Reference Range Comments SODIUM (BEAKER) (test usop=974) 136 meq/L 136-145 POTASSIUM (BEAKER) (test dkzb=111) 3.7 meq/L 3.5-5.1 Specimen slightly hemolyzed CHLORIDE (BEAKER) (test usnl=210) 102 meq/L 98-107 CO2 (BEAKER) (test fnzi=643) 26 meq/L 22-29 BUN AND [id number] 07:32:00 Test Item Value Reference Range Comments BLOOD UREA NITROGEN 16 mg/dL 7-21 (BEAKER) (test fxwm=404) CREATININE (BEAKER) (test 1.13 mg/dL 0.57-1.25 Specimen slightly kjqw=746) hemolyzed EGFR (BEAKER) (test 65 mL/min/1.73 sq m ESTIMATED GFR IS NOT aqga=4376) ACCURATE CREATININE CLEARANCE IN PREDICTING GLOMERULAR FILTRATION RATE. ESTIMATED GFR IS NOT APPLICABLE FOR DIALYSIS PATIENTS. POCT-HEMOGLOBIN [id number] 06:42:00 Test Item Value Reference Range Comments POC-HEMOGLOBIN METER 13.6 g/dL 13.0-16.8 TESTED AT [facility] [address] (BEAKER) (test qddu=0615) [facility] [address] TISSUE [id number] 13:57:00Surgical Pathology Report Case: [id number] Authorizing Provider: Michaela Beck MD Collected: 10/22/2018 1500 Ordering Location: [facility] Received: 10/23/2018 0746 SERVICES Pathologist: Nadeem Dolan MD Specimens: A) - Bladder Tumor, re-resection of anterior bladder neck tumor B) - Bladder Tumor, right lateral wall re-resection C) - Bladder Tumor, right bladder neck tumor 9 o'clock D) - Bladder Tumor, left lateral wall re-resection A. URINARY BLADDER, ANTERIOR NECK, RESECTION: - PREVIOUS BIOPSY/RESECTION SITE CHANGES, NEGATIVE FOR DYSPLASIA OR MALIGNANCY - MUSCULARIS PROPRIA PRESENT AND NEGATIVE FOR TUMORB. URINARY BLADDER, RIGHT LATERAL, BIOPSY: - UROTHELIAL DYSPLASIA - PREVIOUS BIOPSY/RESECTION SITE CHANGES - MUCULARIS PROPRIA PRESENT AND NEGATIVE FOR TUMORC. 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 URINARY BLADDER, LEFT LATERAL, TURBT: - PAPILLARY UROTHELIALCARCINOMA, LOW GRADE (WHO GRADE 2), NONINVASIVE - PREVIOUS BIOPSY/ RESECTION SITE CHANGES - MUCULARIS PROPRIA PRESENT AND NEGATIVE FOR TUMOR Signing Pathologist Direct Phone Line: [phone] signed by Nadeem Dolan MD on 10/25/2018 at 1:57 PM [id number] X 2 [id number] x 2Malignant neoplasm of urinary bladder A. Bladder tumor re-resection of anterior bladder neckB. Right lateral re-resection bladder tumorC. Right bladder neck tumor 9:00 bladder tumor D. Left lateral wall re-resection bladder tumorSpecimens are received in four containers of formalin all labeled with the patient's information.Part A labeled "re-resection of anterior bladder neck tumor" and consists of multiple fragments of ramos-red cauterized tissue measuring 2 x 1.5 x 0.4 cm in aggregate submitted entirely in A1. Part B labeled "right lateral wall re-resection bladder tumor" consists of four fragments of ramos-red cauterized tissue ranging from 0.4 to 0.5 cm submitted entirely B1.Part C labeled "right bladder neck tumor 9:00" consists of two fragments of cauterized ramos-pink tissue measuring 0.5 and 1 cm submitted entirely C1.Part D labeled "left lateral wall re-resection" consists of three fragments of ramos-red cauterized tissue ranging from less than 0.1 to 1 cm submitted entirely D1. CG/bc A-D: Performed.BLOOD [id number] 23:01:00 Test Item Value Reference Range Comments CULTURE ([place]) (test xucg=2575) No growth in 5 days BLOOD [id number] 23:01:00 Test Item Value Reference Range Comments CULTURE (BEAKER) (test qacr=5482) No growth in 5 days BLOOD [id number] 05:00:00 Test Item Value Reference Range Comments CULTURE (BEAKER) (test heba=8707) No growth in 5 days BASIC METABOLIC [id number] 05:27:00 Test Item Value Reference Range Comments SODIUM (BEAKER) (test 141 meq/L 136-145 hfjv=506) POTASSIUM (BEAKER) (test 3.8 meq/L 3.5-5.1 wczy=043) CHLORIDE (BEAKER) (test 113 meq/L 98-107 eipd=948) CO2 (BEAKER) (test 24 meq/L 22-29 nhfa=011) BLOOD UREA NITROGEN 7 mg/dL 7-21 (BEAKER) (test krxi=815) CREATININE (BEAKER) (test 0.95 mg/dL 0.57-1.25 ouay=959) GLUCOSE RANDOM (BEAKER) 90 mg/dL 70-105 (test uqda=682) CALCIUM (BEAKER) (test 8.0 mg/dL 8.4-10.2 pemy=473) EGFR (BEAKER) (test 79 mL/min/1.73 sq m ESTIMATED GFR IS NOT nprk=9287) ACCURATE CREATININE CLEARANCE IN PREDICTING GLOMERULAR FILTRATION RATE. ESTIMATED GFR IS NOT APPLICABLE FOR DIALYSIS PATIENTS. CBC W/PLT COUNT & AUTO [id number] 05:19:00 Test Item Value Reference Range Comments WHITE BLOOD CELL COUNT (BEAKER) (test syct=095) 6.2 K/ L 3.5-10.5 RED BLOOD CELL COUNT (BEAKER) (test azst=010) 2.79 M/ L 4.63-6.08 HEMOGLOBIN (BEAKER) (test dnwp=320) 8.4 GM/DL 13.7-17.5 HEMATOCRIT (BEAKER) (test ptwf=871) 25.2 % 40.1-51.0 MEAN CORPUSCULAR VOLUME (BEAKER) (test rsuo=564) 90.3 fL 79.0-92.2 MEAN CORPUSCULAR HEMOGLOBIN (BEAKER) (test 30.1 pg 25.7-32.2 tyln=935) MEAN CORPUSCULAR HEMOGLOBIN CONC (BEAKER) (test 33.3 GM/DL 32.3-36.5 rebz=232) RED CELL DISTRIBUTION WIDTH (BEAKER) (test 14.3 % 11.6-14.4 jmmw=020) PLATELET COUNT (BEAKER) (test zesq=105) 266 K/CU MM 150-450 MEAN PLATELET VOLUME (BEAKER) (test rxxk=271) 9.5 fL 9.4-12.4 NUCLEATED RED BLOOD CELLS (BEAKER) (test 0 /100 WBC 0-0 invr=177) NEUTROPHILS RELATIVE PERCENT (BEAKER) (test 61 % ocyl=547) LYMPHOCYTES RELATIVE PERCENT (BEAKER) (test 21 % pqsw=253) MONOCYTES RELATIVE PERCENT (BEAKER) (test 7 % fpxb=433) EOSINOPHILS RELATIVE PERCENT (BEAKER) (test 10 % mabh=934) BASOPHILS RELATIVE PERCENT (BEAKER) (test 0 % jksp=828) NEUTROPHILS ABSOLUTE COUNT (BEAKER) (test 3.75 K/ L 1.78-5.38 oaye=832) LYMPHOCYTES ABSOLUTE COUNT (BEAKER) (test 1.30 K/ L 1.32-3.57 jseh=935) MONOCYTES ABSOLUTE COUNT (BEAKER) (test 0.45 K/ L 0.30-0.82 kstg=805) EOSINOPHILS ABSOLUTE COUNT (BEAKER) (test 0.63 K/ L 0.04-0.54 uhnj=270) BASOPHILS ABSOLUTE COUNT (BEAKER) (test 0.02 K/ L 0.01-0.08 vfmn=163) IMMATURE GRANULOCYTES-RELATIVE PERCENT (BEAKER) 1 % 0-1 (test kebr=4155) TISSUE [id number] 15:48:00Surgical Pathology Report Case: [id number] Authorizing Provider: Michaela Beck MD Collected: 09/01/2018 1124 Ordering Location: [address] Received: 09/02/2018 1324 Service Pathologist: Nadeem [...] very superficial. No lymph/vascular invasion is seen. [id number] X 8 Bladder cancerA. Right trigone and [...] in cassettes H1 -H3. DB/pl PerformedVANCOMYCIN LEVEL, [id number] 12:30:00 Test Item Value Reference Range Comments VANCOMYCIN TROUGH (BEAKER) (test viqf=454) 14.6 ug/mL 10.0-20.0 CBC W/PLT COUNT & AUTO [id number] 12:29:00 Test Item Value Reference Range Comments WHITE BLOOD CELL COUNT (BEAKER) (test kvhf=619) 6.9 K/ L 3.5-10.5 RED BLOOD CELL COUNT (BEAKER) (test wmyf=095) 2.84 M/ L 4.63-6.08 HEMOGLOBIN (BEAKER) (test cnkb=265) 8.5 GM/DL 13.7-17.5 HEMATOCRIT (BEAKER) (test zlxi=682) 25.5 % 40.1-51.0 MEAN CORPUSCULAR VOLUME (BEAKER) (test mjpp=782) 89.8 fL 79.0-92.2 MEAN CORPUSCULAR HEMOGLOBIN (BEAKER) (test 29.9 pg 25.7-32.2 eaky=561) MEAN CORPUSCULAR HEMOGLOBIN CONC (BEAKER) (test 33.3 GM/DL 32.3-36.5 eqfz=400) RED CELL DISTRIBUTION WIDTH (BEAKER) (test 14.3 % 11.6-14.4 mdwq=278) PLATELET COUNT (BEAKER) (test arrp=522) 243 K/CU MM 150-450 MEAN PLATELET VOLUME (BEAKER) (test kqzm=541) 9.6 fL 9.4-12.4 NUCLEATED RED BLOOD CELLS (BEAKER) (test 0 /100 WBC 0-0 mqht=070) NEUTROPHILS RELATIVE PERCENT (BEAKER) (test 72 % vzmy=334) LYMPHOCYTES RELATIVE PERCENT (BEAKER) (test 14 % zaly=155) MONOCYTES RELATIVE PERCENT (BEAKER) (test 7 % zalh=204) EOSINOPHILS RELATIVE PERCENT (BEAKER) (test 7 % hhqh=323) BASOPHILS RELATIVE PERCENT (BEAKER) (test 0 % tqqd=429) NEUTROPHILS ABSOLUTE COUNT (BEAKER) (test 5.01 K/ L 1.78-5.38 pjsg=692) LYMPHOCYTES ABSOLUTE COUNT (BEAKER) (test 0.94 K/ L 1.32-3.57 plnx=580) MONOCYTES ABSOLUTE COUNT (BEAKER) (test 0.46 K/ L 0.30-0.82 hcdg=644) EOSINOPHILS ABSOLUTE COUNT (BEAKER) (test 0.48 K/ L 0.04-0.54 iosx=955) BASOPHILS ABSOLUTE COUNT (BEAKER) (test 0.02 K/ L 0.01-0.08 tqop=311) IMMATURE GRANULOCYTES-RELATIVE PERCENT (BEAKER) 0 % 0-1 (test utpd=8411) BASIC METABOLIC [id number] 06:33:00 Test Item Value Reference Range Comments SODIUM (BEAKER) (test 143 meq/L 136-145 rtak=523) POTASSIUM (BEAKER) (test 3.3 meq/L 3.5-5.1 ldro=889) CHLORIDE (BEAKER) (test 115 meq/L 98-107 qtdk=232) CO2 (BEAKER) (test 24 meq/L 22-29 wrxe=329) BLOOD UREA NITROGEN 7 mg/dL 7-21 (BEAKER) (test nucp=682) CREATININE (BEAKER) (test 0.94 mg/dL 0.57-1.25 dfrw=496) GLUCOSE RANDOM (BEAKER) 96 mg/dL 70-105 (test nprp=369) CALCIUM (BEAKER) (test 8.1 mg/dL 8.4-10.2 iwgj=508) EGFR (BEAKER) (test 80 mL/min/1.73 sq m ESTIMATED GFR IS NOT hfyc=8365) ACCURATE CREATININE CLEARANCE IN PREDICTING GLOMERULAR FILTRATION RATE. ESTIMATED GFR IS NOT APPLICABLE FOR DIALYSIS PATIENTS. CBC W/PLT COUNT & AUTO [id number] 06:21:00 Test Item Value Reference Range Comments WHITE BLOOD CELL COUNT (BEAKER) (test jjnu=221) 6.8 K/ L 3.5-10.5 RED BLOOD CELL COUNT (BEAKER) (test tcsz=031) 2.72 M/ L 4.63-6.08 HEMOGLOBIN (BEAKER) (test hrpg=997) 8.3 GM/DL 13.7-17.5 HEMATOCRIT (BEAKER) (test znvy=213) 24.4 % 40.1-51.0 MEAN CORPUSCULAR VOLUME (BEAKER) (test owky=009) 89.7 fL 79.0-92.2 MEAN CORPUSCULAR HEMOGLOBIN (BEAKER) (test 30.5 pg 25.7-32.2 rysh=273) MEAN CORPUSCULAR HEMOGLOBIN CONC (BEAKER) (test 34.0 GM/DL 32.3-36.5 ipkc=851) RED CELL DISTRIBUTION WIDTH (BEAKER) (test 14.2 % 11.6-14.4 jqvr=786) PLATELET COUNT (BEAKER) (test rpfw=081) 213 K/CU MM 150-450 MEAN PLATELET VOLUME (BEAKER) (test ubmd=991) 9.9 fL 9.4-12.4 NUCLEATED RED BLOOD CELLS (BEAKER) (test 0 /100 WBC 0-0 luxv=159) NEUTROPHILS RELATIVE PERCENT (BEAKER) (test 67 % ykgz=636) LYMPHOCYTES RELATIVE PERCENT (BEAKER) (test 17 % rzid=312) MONOCYTES RELATIVE PERCENT (BEAKER) (test 7 % cfox=463) EOSINOPHILS RELATIVE PERCENT (BEAKER) (test 9 % bwup=258) BASOPHILS RELATIVE PERCENT (BEAKER) (test 0 % bpza=833) NEUTROPHILS ABSOLUTE COUNT (BEAKER) (test 4.50 K/ L 1.78-5.38 dzxf=025) LYMPHOCYTES ABSOLUTE COUNT (BEAKER) (test 1.15 K/ L 1.32-3.57 gpnc=346) MONOCYTES ABSOLUTE COUNT (BEAKER) (test 0.46 K/ L 0.30-0.82 savt=174) EOSINOPHILS ABSOLUTE COUNT (BEAKER) (test 0.60 K/ L 0.04-0.54 clmd=906) BASOPHILS ABSOLUTE COUNT (BEAKER) (test 0.03 K/ L 0.01-0.08 xsnm=403) IMMATURE GRANULOCYTES-RELATIVE PERCENT (BEAKER) 0 % 0-1 (test qjnq=1111) C. DIFFICILE GDH [id number] 20:14:00 Test Item Value Reference Range Comments CDT TOXIN (test Negative Negative kwqj=[id number]) CDT GDH ANTIGEN (test Positive Negative C. difficile present but toxin ybbq=[id number]) not detected. Indicates colonization with non-toxigenic strain [...] of kit performance was done by the [facility] Microbiology Lab prior to clinical use.CT, [id number] 09:51:00Please perform with IV and PO contrast. [...] Verified Date/ Time: 09/04/2018 09:51:34 Reading Location: [facility] C013Y CT Body Reading Room ( CELLAVISION MANUAL DIFF)2018-09-04 08:56:00 Test Item Value Reference Range Comments NEUTROPHILS - REL (CELLAVISION)(BEAKER) (test 69 % bszy=8213) LYMPHOCYTES - REL (CELLAVISION)(BEAKER) (test 12 % egbn=8776) MONOCYTES - REL (CELLAVISION)(BEAKER) (test 2 % iccu=1488) EOSINOPHILS - REL (CELLAVISION)(BEAKER) (test 5 % mayi=5596) BANDS - REL (CELLAVISION)(BEAKER) (test epko=2784) 12 % 0-10 NEUTROPHILS - ABS (CELLAVISION)(BEAKER) (test 8.69 K/ul 1.78-5.38 fzpr=1516) LYMPHOCYTES - ABS (CELLAVISION)(BEAKER) (test 1.51 K/ul 1.32-3.57 kxsy=1397) MONOCYTES - ABS (CELLAVISION)(BEAKER) (test 0.25 K/uL 0.30-0.82 mrsg=6933) EOSINOPHILS - ABS (CELLAVISION)(BEAKER) (test 0.63 K/uL 0.04-0.54 yywg=4453) BANDS - ABS (CELLAVISION)(BEAKER) (test muih=5199) 1.51 K/uL 0.00-0.80 TOTAL COUNTED (BEAKER) (test vkfh=9749) 100 WBC MORPHOLOGY (BEAKER) (test bblb=125) Normal PLT MORPHOLOGY (BEAKER) (test mnqp=456) Normal POLYCHROMATOPHILLIC RBCS(BEAKER) (test ngdl=401) 1+ few ANISOCYTOSIS (BEAKER) (test jmen=668) 1+ few ARTIFACT (CELLAVISION)(BEAKER) (test qylm=8495) Present PLATELET CONCENTRATION (CELLAVISION)(BEAKER) (test Adequate sfxq=4264) Received comment: User comments: Slide comments:CBC W/PLT COUNT & AUTO [id number] 08:56:00 Test Item Value Reference Range Comments WHITE BLOOD CELL COUNT (BEAKER) (test ixue=809) 12.6 K/ L 3.5-10.5 RED BLOOD CELL COUNT (BEAKER) (test jvnn=231) 3.18 M/ L 4.63-6.08 HEMOGLOBIN (BEAKER) (test akht=212) 9.6 GM/DL 13.7-17.5 HEMATOCRIT (BEAKER) (test nmoe=657) 28.5 % 40.1-51.0 MEAN CORPUSCULAR VOLUME (BEAKER) (test tgas=675) 89.6 fL 79.0-92.2 MEAN CORPUSCULAR HEMOGLOBIN (BEAKER) (test 30.2 pg 25.7-32.2 hgwf=641) MEAN CORPUSCULAR HEMOGLOBIN CONC (BEAKER) (test 33.7 GM/DL 32.3-36.5 mctm=294) RED CELL DISTRIBUTION WIDTH (BEAKER) (test 14.1 % 11.6-14.4 nlvn=775) PLATELET COUNT (BEAKER) (test ganl=768) 198 K/CU MM 150-450 MEAN PLATELET VOLUME (BEAKER) (test sgtr=193) 10.0 fL 9.4-12.4 NUCLEATED RED BLOOD CELLS (BEAKER) (test 0 /100 WBC 0-0 vbsa=594) URINE [id number] 08:51:00 Test Item Value Reference Range Comments CULTURE (BEAKER) (test vsdu=7705) No growth BASIC METABOLIC [id number] 07:09:00 Test Item Value Reference Range Comments SODIUM (BEAKER) (test 137 meq/L 136-145 ldsr=531) POTASSIUM (BEAKER) (test 3.8 meq/L 3.5-5.1 mxje=166) CHLORIDE (BEAKER) (test 109 meq/L 98-107 muoq=383) CO2 (BEAKER) (test 22 meq/L 22-29 rsmx=659) BLOOD UREA NITROGEN 9 mg/dL 7-21 (BEAKER) (test xvwo=991) CREATININE (BEAKER) (test 1.15 mg/dL 0.57-1.25 qxbg=481) GLUCOSE RANDOM (BEAKER) 109 mg/dL 70-105 (test vymv=204) CALCIUM (BEAKER) (test 8.1 mg/dL 8.4-10.2 fsmc=472) EGFR (BEAKER) (test 63 mL/min/1.73 sq m ESTIMATED GFR IS NOT hepm=0407) ACCURATE CREATININE CLEARANCE IN PREDICTING GLOMERULAR FILTRATION RATE. ESTIMATED GFR IS NOT APPLICABLE FOR DIALYSIS PATIENTS. HEMOGLOBIN AND [id number] 22:01:00 Test Item Value Reference Range Comments HEMOGLOBIN (BEAKER) (test hetk=542) 9.1 GM/DL 13.7-17.5 HEMATOCRIT (BEAKER) (test jgby=365) 27.2 % 40.1-51.0 H/H after 2U PRBCBASIC METABOLIC [id number] 03:32:00 Test Item Value Reference Range Comments SODIUM (BEAKER) (test 135 meq/L 136-145 xnno=777) POTASSIUM (BEAKER) (test 3.8 meq/L 3.5-5.1 fwit=621) CHLORIDE (BEAKER) (test 111 meq/L 98-107 kohc=602) CO2 (BEAKER) (test 21 meq/L 22-29 jlph=118) BLOOD UREA NITROGEN 12 mg/dL 7-21 (BEAKER) (test ejia=238) CREATININE (BEAKER) (test 1.21 mg/dL 0.57-1.25 vpnd=510) GLUCOSE RANDOM (BEAKER) 108 mg/dL 70-105 (test hjta=675) CALCIUM (BEAKER) (test 7.6 mg/dL 8.4-10.2 mbdo=536) EGFR (BEAKER) (test 60 mL/min/1.73 sq m ESTIMATED GFR IS NOT jjmy=2632) ACCURATE CREATININE CLEARANCE IN PREDICTING GLOMERULAR FILTRATION RATE. ESTIMATED GFR IS NOT APPLICABLE FOR DIALYSIS PATIENTS. CBC W/PLT COUNT & AUTO [id number] 02:59:00 Test Item Value Reference Range Comments WHITE BLOOD CELL COUNT (BEAKER) (test gjpe=265) 9.2 K/ L 3.5-10.5 RED BLOOD CELL COUNT (BEAKER) (test iwmo=817) 2.30 M/ L 4.63-6.08 HEMOGLOBIN (BEAKER) (test nbfp=600) 6.9 GM/DL 13.7-17.5 HEMATOCRIT (BEAKER) (test qexi=170) 20.5 % 40.1-51.0 MEAN CORPUSCULAR VOLUME (BEAKER) (test srav=732) 89.1 fL 79.0-92.2 MEAN CORPUSCULAR HEMOGLOBIN (BEAKER) (test 30.0 pg 25.7-32.2 mzrp=886) MEAN CORPUSCULAR HEMOGLOBIN CONC (BEAKER) (test 33.7 GM/DL 32.3-36.5 trxo=026) RED CELL DISTRIBUTION WIDTH (BEAKER) (test 14.3 % 11.6-14.4 msok=226) PLATELET COUNT (BEAKER) (test fetj=109) 193 K/CU MM 150-450 MEAN PLATELET VOLUME (BEAKER) (test urmf=392) 9.7 fL 9.4-12.4 NUCLEATED RED BLOOD CELLS (BEAKER) (test 0 /100 WBC 0-0 fgca=169) NEUTROPHILS RELATIVE PERCENT (BEAKER) (test 79 % wmtr=476) LYMPHOCYTES RELATIVE PERCENT (BEAKER) (test 11 % cmsx=589) MONOCYTES RELATIVE PERCENT (BEAKER) (test 7 % isji=437) EOSINOPHILS RELATIVE PERCENT (BEAKER) (test 3 % sban=852) BASOPHILS RELATIVE PERCENT (BEAKER) (test 0 % kote=130) NEUTROPHILS ABSOLUTE COUNT (BEAKER) (test 7.25 K/ L 1.78-5.38 cquw=232) LYMPHOCYTES ABSOLUTE COUNT (BEAKER) (test 0.98 K/ L 1.32-3.57 zswf=415) MONOCYTES ABSOLUTE COUNT (BEAKER) (test 0.68 K/ L 0.30-0.82 cbar=432) EOSINOPHILS ABSOLUTE COUNT (BEAKER) (test 0.28 K/ L 0.04-0.54 hhai=786) BASOPHILS ABSOLUTE COUNT (BEAKER) (test 0.01 K/ L 0.01-0.08 zdtt=378) IMMATURE GRANULOCYTES-RELATIVE PERCENT (BEAKER) 0 % 0-1 (test bnvo=6631) HEMOGLOBIN AND [id number] 02:56:00 Test Item Value Reference Range Comments HEMOGLOBIN (BEAKER) (test iihs=280) 6.9 GM/DL 13.7-17.5 HEMATOCRIT (BEAKER) (test tdfx=259) 20.5 % 40.1-51.0 Please draw 20 min after blood transfusion is completedPOCT-BLOOD GASES, [id number] 02:55:00 Test Item Value Reference Range Comments TEMP, CELSIUS-POC (BEAKER) 37.0 (test zsoq=5136) FIO2-POC (BEAKER) (test TESTED AT [facility] [address] [facility] zrfb=2658) [place] [address] PH, VENOUS-POC (BEAKER) 7.453 7.320-7.420 (test ynav=2377) PCO2, VENOUS-POC (BEAKER) 29.7 mm Hg 41.0-51.0 (test mqqp=1199) PO2, VENOUS-POC (BEAKER) 62.0 mm Hg 25.0-40.0 (test fpbd=5905) SO2, VENOUS-POC (BEAKER) 93.0 % 40.0-70.0 (test mbml=1725) HCO3, VENOUS-POC (BEAKER) 20.8 meq/L 21.0-29.0 (test rtuc=1899) BASE EXCESS, VENOUS-POC -3.0 meq/L -2.0-3.0 (BEAKER) (test nabl=6830) [id number] 02:55:00 Test Item Value Reference Range Comments POC-SODIUM (BEAKER) (test 138 meq/L 135-148 TESTED AT [address] hkys=8115) [place] [address] [id number] 02:55:00 Test Item Value Reference Range Comments POC-POTASSIUM (BEAKER) (test 3.7 meq/L 3.6-5.5 TESTED AT [address] bpqo=5900) [place] [address] [id number] 02:55:00 Test Item Value Reference Range Comments POC-GLUCOSE (BEAKER) (test 106 mg/dL 70-110 TESTED AT [address] gfxh=6825) [place] [address] POCT-CALCIUM [id number] 02:55:00 Test Item Value Reference Range Comments POC-CALCIUM IONIZED (BEAKER) 1.17 mmol/L 1.12-1.27 TESTED AT [address] (test pwqf=3768) [place] [address] [id number] 02:55:00 Test Item Value Reference Range Comments POC-HEMATOCRIT (BEAKER) (test 19 % 40-50 TESTED AT [address] ccie=8699) [place] [address] [id number] 02:55:00 Test Item Value Reference Range Comments POC-HEMOGLOBIN (BEAKER) 6.5 g/dL 13.0-16.8 TESTED AT [address] (test hmfc=8108) [place] [address]TESTED AT [place] [address] POCT-LACTIC ACID, [id number] 02:55:00 Test Item Value Reference Range Comments POC-LACTIC ACID, VENOUS 1.1 mmol/L 0.9-1.7 TESTED AT [facility] [address] (BEAKER) (test hhuo=6253) [facility] [address] LACTIC ACID, VENOUS, WHOLE [id number] 21:58:00 Test Item Value Reference Range Comments LACTATE BLOOD VENOUS (2) (BEAKER) (test 5.5 mmol/L 0.5-2.2 lpti=5657) CBC W/PLT COUNT & AUTO [id number] 19:01:00 Test Item Value Reference Range Comments WHITE BLOOD CELL COUNT (BEAKER) (test citt=484) 9.6 K/ L 3.5-10.5 RED BLOOD CELL COUNT (BEAKER) (test rblm=371) 2.65 M/ L 4.63-6.08 HEMOGLOBIN (BEAKER) (test txjn=294) 7.6 GM/DL 13.7-17.5 HEMATOCRIT (BEAKER) (test hnoe=916) 24.4 % 40.1-51.0 MEAN CORPUSCULAR VOLUME (BEAKER) (test accb=618) 92.1 fL 79.0-92.2 MEAN CORPUSCULAR HEMOGLOBIN (BEAKER) (test 28.7 pg 25.7-32.2 qsla=196) MEAN CORPUSCULAR HEMOGLOBIN CONC (BEAKER) (test 31.1 GM/DL 32.3-36.5 ejaf=935) RED CELL DISTRIBUTION WIDTH (BEAKER) (test 14.6 % 11.6-14.4 fwrj=536) PLATELET COUNT (BEAKER) (test dvad=792) 257 K/CU MM 150-450 MEAN PLATELET VOLUME (BEAKER) (test vrkd=218) 9.9 fL 9.4-12.4 NUCLEATED RED BLOOD CELLS (BEAKER) (test 0 /100 WBC 0-0 zpht=465) NEUTROPHILS RELATIVE PERCENT (BEAKER) (test 81 % uekx=352) LYMPHOCYTES RELATIVE PERCENT (BEAKER) (test 8 % mali=312) MONOCYTES RELATIVE PERCENT (BEAKER) (test 8 % wuim=082) EOSINOPHILS RELATIVE PERCENT (BEAKER) (test 3 % brii=686) BASOPHILS RELATIVE PERCENT (BEAKER) (test 0 % wzzu=288) NEUTROPHILS ABSOLUTE COUNT (BEAKER) (test 7.76 K/ L 1.78-5.38 lleq=497) LYMPHOCYTES ABSOLUTE COUNT (BEAKER) (test 0.81 K/ L 1.32-3.57 axas=213) MONOCYTES ABSOLUTE COUNT (BEAKER) (test 0.75 K/ L 0.30-0.82 gpcc=282) EOSINOPHILS ABSOLUTE COUNT (BEAKER) (test 0.25 K/ L 0.04-0.54 vkje=435) BASOPHILS ABSOLUTE COUNT (BEAKER) (test 0.02 K/ L 0.01-0.08 ucmz=949) IMMATURE GRANULOCYTES-RELATIVE PERCENT (BEAKER) 0 % 0-1 (test tsdx=8717) BASIC METABOLIC [id number] 18:46:00 Test Item Value Reference Range Comments SODIUM (BEAKER) (test 138 meq/L 136-145 fdwl=439) POTASSIUM (BEAKER) (test 4.5 meq/L 3.5-5.1 jfzx=488) CHLORIDE (BEAKER) (test 111 meq/L 98-107 mcho=996) CO2 (BEAKER) (test 20 meq/L 22-29 cmvb=107) BLOOD UREA NITROGEN 16 mg/dL 7-21 (BEAKER) (test zdhe=877) CREATININE (BEAKER) (test 1.42 mg/dL 0.57-1.25 vckg=705) GLUCOSE RANDOM (BEAKER) 122 mg/dL 70-105 (test adpl=010) CALCIUM (BEAKER) (test 8.2 mg/dL 8.4-10.2 qffg=740) EGFR (BEAKER) (test 50 mL/min/1.73 sq m ESTIMATED GFR IS NOT hvnh=5982) ACCURATE CREATININE CLEARANCE IN PREDICTING GLOMERULAR FILTRATION RATE. ESTIMATED GFR IS NOT APPLICABLE FOR DIALYSIS PATIENTS. LACTIC ACID, VENOUS, WHOLE [id number] 18:42:00 Test Item Value Reference Range Comments LACTATE BLOOD VENOUS (2) (BEAKER) (test 4.4 mmol/L 0.5-2.2 sggt=7192) HEMOGLOBIN AND [id number] 18:24:00 Test Item Value Reference Range Comments HEMOGLOBIN (BEAKER) (test ohkr=496) 7.5 GM/DL 13.7-17.5 HEMATOCRIT (BEAKER) (test sevv=062) 23.2 % 40.1-51.0 BASIC METABOLIC [id number] 06:47:00 Test Item Value Reference Range Comments SODIUM (BEAKER) (test 140 meq/L 136-145 fbni=539) POTASSIUM (BEAKER) (test 4.6 meq/L 3.5-5.1 iysj=002) CHLORIDE (BEAKER) (test 115 meq/L 98-107 cicl=486) CO2 (BEAKER) (test 20 meq/L 22-29 msfj=461) BLOOD UREA NITROGEN 16 mg/dL 7-21 (BEAKER) (test dnjh=000) CREATININE (BEAKER) (test 1.47 mg/dL 0.57-1.25 haxi=398) GLUCOSE RANDOM (BEAKER) 117 mg/dL 70-105 (test mlkn=432) CALCIUM (BEAKER) (test 7.5 mg/dL 8.4-10.2 jpom=534) EGFR (BEAKER) (test 48 mL/min/1.73 sq m ESTIMATED GFR IS NOT iont=2102) ACCURATE CREATININE CLEARANCE IN PREDICTING GLOMERULAR FILTRATION RATE. ESTIMATED GFR IS NOT APPLICABLE FOR DIALYSIS PATIENTS. CBC W/PLT COUNT & AUTO [id number] 06:06:00 Test Item Value Reference Range Comments WHITE BLOOD CELL COUNT (BEAKER) (test frgp=878) 8.0 K/ L 3.5-10.5 RED BLOOD CELL COUNT (BEAKER) (test muoe=057) 2.89 M/ L 4.63-6.08 HEMOGLOBIN (BEAKER) (test bhco=552) 8.7 GM/DL 13.7-17.5 HEMATOCRIT (BEAKER) (test dbcw=042) 26.7 % 40.1-51.0 MEAN CORPUSCULAR VOLUME (BEAKER) (test zdee=993) 92.4 fL 79.0-92.2 MEAN CORPUSCULAR HEMOGLOBIN (BEAKER) (test 30.1 pg 25.7-32.2 hzlw=017) MEAN CORPUSCULAR HEMOGLOBIN CONC (BEAKER) (test 32.6 GM/DL 32.3-36.5 ljrj=154) RED CELL DISTRIBUTION WIDTH (BEAKER) (test 14.6 % 11.6-14.4 llye=135) PLATELET COUNT (BEAKER) (test fbkk=194) 250 K/CU MM 150-450 MEAN PLATELET VOLUME (BEAKER) (test odpu=612) 10.0 fL 9.4-12.4 NUCLEATED RED BLOOD CELLS (BEAKER) (test 0 /100 WBC 0-0 iztt=640) NEUTROPHILS RELATIVE PERCENT (BEAKER) (test 74 % yelu=700) LYMPHOCYTES RELATIVE PERCENT (BEAKER) (test 13 % aweo=194) MONOCYTES RELATIVE PERCENT (BEAKER) (test 9 % iaat=304) EOSINOPHILS RELATIVE PERCENT (BEAKER) (test 3 % jejw=036) BASOPHILS RELATIVE PERCENT (BEAKER) (test 0 % tppo=876) NEUTROPHILS ABSOLUTE COUNT (BEAKER) (test 5.91 K/ L 1.78-5.38 hrbt=139) LYMPHOCYTES ABSOLUTE COUNT (BEAKER) (test 1.04 K/ L 1.32-3.57 fzqt=894) MONOCYTES ABSOLUTE COUNT (BEAKER) (test 0.74 K/ L 0.30-0.82 rsew=245) EOSINOPHILS ABSOLUTE COUNT (BEAKER) (test 0.23 K/ L 0.04-0.54 dpaj=469) BASOPHILS ABSOLUTE COUNT (BEAKER) (test 0.02 K/ L 0.01-0.08 xrjw=794) IMMATURE GRANULOCYTES-RELATIVE PERCENT (BEAKER) 0 % 0-1 (test ndzk=6778) [id number] 22:13:00 Test Item Value Reference Range Comments PARTIAL THROMBOPLASTIN TIME (BEAKER) (test 29.1 seconds 22.5-36.0 zlya=170) PROTHROMBIN [id number] 22:12:00 Test Item Value Reference Range Comments PROTIME (BEAKER) (test oycg=935) 14.4 seconds 11.7-14.7 INR (BEAKER) (test kvqr=594) 1.1 <=5.9 RECOMMENDED COUMADIN/WARFARIN INR THERAPY RANGESSTANDARD DOSE: 2.0 - 3.0 Includes: PROPHYLAXIS forvenous thrombosis, systemic embolization; TREATMENT for venous thrombosis and/or pulmonary embolus.HIGH RISK: Target INR is 2.5-3.5 for patients with mechanical heart valves.COMPREHENSIVE METABOLIC [id number] 21:38:00 Test Item Value Reference Range Comments TOTAL PROTEIN (BEAKER) 4.5 gm/dL 6.0-8.3 (test mrnp=053) ALBUMIN (BEAKER) (test 2.8 g/dL 3.5-5.0 ahdr=8410) ALKALINE PHOSPHATASE 45 U/L 40-150 (BEAKER) (test fdca=187) BILIRUBIN TOTAL (BEAKER) 1.1 mg/dL 0.2-1.2 (test sprh=405) SODIUM (BEAKER) (test 139 meq/L 136-145 psmh=142) POTASSIUM (BEAKER) (test 4.1 meq/L 3.5-5.1 jazl=762) CHLORIDE (BEAKER) (test 114 meq/L 98-107 gxqq=078) CO2 (BEAKER) (test 17 meq/L 22-29 zqer=960) BLOOD UREA NITROGEN 16 mg/dL 7-21 (BEAKER) (test qkjn=613) CREATININE (BEAKER) (test 1.27 mg/dL 0.57-1.25 khqo=276) GLUCOSE RANDOM (BEAKER) 132 mg/dL 70-105 (test pkzy=500) CALCIUM (BEAKER) (test 7.7 mg/dL 8.4-10.2 ttzx=059) AST (SGOT) (BEAKER) (test 18 U/L 5-34 dqcd=641) ALT (SGPT) (BEAKER) (test 16 U/L 6-55 asrz=793) EGFR (BEAKER) (test 57 mL/min/1.73 sq m ESTIMATED GFR IS NOT zash=0816) ACCURATE CREATININE CLEARANCE IN PREDICTING GLOMERULAR FILTRATION RATE. ESTIMATED GFR IS NOT APPLICABLE FOR DIALYSIS PATIENTS. CBC W/PLT COUNT & AUTO [id number] 21:32:00 Test Item Value Reference Range Comments WHITE BLOOD CELL COUNT (BEAKER) (test jgxb=630) 11.8 K/ L 3.5-10.5 RED BLOOD CELL COUNT (BEAKER) (test pixk=078) 3.48 M/ L 4.63-6.08 HEMOGLOBIN (BEAKER) (test iton=064) 10.1 GM/DL 13.7-17.5 HEMATOCRIT (BEAKER) (test tdnr=197) 31.3 % 40.1-51.0 MEAN CORPUSCULAR VOLUME (BEAKER) (test cmvu=705) 89.9 fL 79.0-92.2 MEAN CORPUSCULAR HEMOGLOBIN (BEAKER) (test 29.0 pg 25.7-32.2 kdvh=805) MEAN CORPUSCULAR HEMOGLOBIN CONC (BEAKER) (test 32.3 GM/DL 32.3-36.5 vmsv=986) RED CELL DISTRIBUTION WIDTH (BEAKER) (test 14.5 % 11.6-14.4 yliz=207) PLATELET COUNT (BEAKER) (test xkyc=368) 293 K/CU MM 150-450 MEAN PLATELET VOLUME (BEAKER) (test qogv=910) 9.7 fL 9.4-12.4 NUCLEATED RED BLOOD CELLS (BEAKER) (test 0 /100 WBC 0-0 eobv=831) NEUTROPHILS RELATIVE PERCENT (BEAKER) (test 82 % qmwz=989) LYMPHOCYTES RELATIVE PERCENT (BEAKER) (test 9 % iabn=885) MONOCYTES RELATIVE PERCENT (BEAKER) (test 8 % ejgr=512) EOSINOPHILS RELATIVE PERCENT (BEAKER) (test 1 % ijhk=403) BASOPHILS RELATIVE PERCENT (BEAKER) (test 0 % wufz=181) NEUTROPHILS ABSOLUTE COUNT (BEAKER) (test 9.71 K/ L 1.78-5.38 zfwk=414) LYMPHOCYTES ABSOLUTE COUNT (BEAKER) (test 1.01 K/ L 1.32-3.57 ruce=316) MONOCYTES ABSOLUTE COUNT (BEAKER) (test 0.90 K/ L 0.30-0.82 ulai=212) EOSINOPHILS ABSOLUTE COUNT (BEAKER) (test 0.13 K/ L 0.04-0.54 sawa=719) BASOPHILS ABSOLUTE COUNT (BEAKER) (test 0.04 K/ L 0.01-0.08 bwcb=037) IMMATURE GRANULOCYTES-RELATIVE PERCENT (BEAKER) 0 % 0-1 (test uyyd=1396) LACTIC ACID, VENOUS, WHOLE [id number] 21:32:00 Test Item Value Reference Range Comments LACTATE BLOOD VENOUS (2) (BEAKER) (test 1.6 mmol/L 0.5-2.2 jhgm=7504) POCT-BLOOD GASES, [id number] 21:00:00 Test Item Value Reference Range Comments TEMP, CELSIUS-POC (BEAKER) 36.1 (test emky=6670) FIO2-POC (BEAKER) (test 21 TESTED AT [facility] [address] mglv=9529) [facility] [address] PH, VENOUS-POC (BEAKER) 7.411 7.320-7.420 (test xiyl=0521) PCO2, VENOUS-POC (BEAKER) 25.5 mm Hg 41.0-51.0 (test wmzm=1767) PO2, VENOUS-POC (BEAKER) 45.0 mm Hg 25.0-40.0 (test yclf=5275) SO2, VENOUS-POC (BEAKER) 84.0 % 40.0-70.0 (test ccan=5849) HCO3, VENOUS-POC (BEAKER) 16.4 meq/L 21.0-29.0 (test xthz=1097) BASE EXCESS, VENOUS-POC -8.0 meq/L -2.0-3.0 (BEAKER) (test yjss=6969) [id number] 21:00:00 Test Item Value Reference Range Comments POC-SODIUM (BEAKER) (test 140 meq/L 135-148 TESTED AT [address] jvtc=8838) [place] [address] [id number] 21:00:00 Test Item Value Reference Range Comments POC-POTASSIUM (BEAKER) (test 3.9 meq/L 3.6-5.5 TESTED AT [address] dzzy=5608) [place] [address] [id number] 21:00:00 Test Item Value Reference Range Comments POC-GLUCOSE (BEAKER) (test 129 mg/dL 70-110 TESTED AT [address] kshl=3660) [place] [address] POCT-CALCIUM [id number] 21:00:00 Test Item Value Reference Range Comments POC-CALCIUM IONIZED (BEAKER) 1.12 mmol/L 1.12-1.27 TESTED AT [address] (test vyyi=8728) [place] [address] [id number] 21:00:00 Test Item Value Reference Range Comments POC-HEMATOCRIT (BEAKER) (test 30 % 40-50 TESTED AT [address] lylm=9775) [place] [address] [id number] 21:00:00 Test Item Value Reference Range Comments POC-HEMOGLOBIN (BEAKER) 10.2 g/dL 13.0-16.8 TESTED AT [address] (test ihzu=7331) [place] [address]TESTED AT [place] [address] POCT-LACTIC ACID, [id number] 21:00:00 Test Item Value Reference Range Comments POC-LACTIC ACID, VENOUS 1.3 mmol/L 0.9-1.7 TESTED AT [facility] [address] (BEAKER) (test klaq=8100) [place] [address] CBC W/PLT COUNT & AUTO [id number] 18:50:00 Test Item Value Reference Range Comments WHITE BLOOD CELL COUNT (BEAKER) (test fhji=244) 15.4 K/ L 3.5-10.5 RED BLOOD CELL COUNT (BEAKER) (test rjjb=739) 3.96 M/ L 4.63-6.08 HEMOGLOBIN (BEAKER) (test lwpm=666) 11.5 GM/DL 13.7-17.5 HEMATOCRIT (BEAKER) (test jlzk=722) 36.2 % 40.1-51.0 MEAN CORPUSCULAR VOLUME (BEAKER) (test kzvs=523) 91.4 fL 79.0-92.2 MEAN CORPUSCULAR HEMOGLOBIN (BEAKER) (test 29.0 pg 25.7-32.2 xbio=483) MEAN CORPUSCULAR HEMOGLOBIN CONC (BEAKER) (test 31.8 GM/DL 32.3-36.5 iwak=138) RED CELL DISTRIBUTION WIDTH (BEAKER) (test 14.4 % 11.6-14.4 cqlc=694) PLATELET COUNT (BEAKER) (test cask=583) 308 K/CU MM 150-450 MEAN PLATELET VOLUME (BEAKER) (test dnvc=296) 9.3 fL 9.4-12.4 NUCLEATED RED BLOOD CELLS (BEAKER) (test 0 /100 WBC 0-0 unjc=507) NEUTROPHILS RELATIVE PERCENT (BEAKER) (test 83 % ovae=383) LYMPHOCYTES RELATIVE PERCENT (BEAKER) (test 10 % rbnc=424) MONOCYTES RELATIVE PERCENT (BEAKER) (test 6 % eofz=997) EOSINOPHILS RELATIVE PERCENT (BEAKER) (test 1 % ifvv=349) BASOPHILS RELATIVE PERCENT (BEAKER) (test 0 % pcxh=443) NEUTROPHILS ABSOLUTE COUNT (BEAKER) (test 12.76 K/ L 1.78-5.38 uilk=010) LYMPHOCYTES ABSOLUTE COUNT (BEAKER) (test 1.50 K/ L 1.32-3.57 alxp=407) MONOCYTES ABSOLUTE COUNT (BEAKER) (test 0.95 K/ L 0.30-0.82 bxso=589) EOSINOPHILS ABSOLUTE COUNT (BEAKER) (test 0.07 K/ L 0.04-0.54 mxpb=636) BASOPHILS ABSOLUTE COUNT (BEAKER) (test 0.04 K/ L 0.01-0.08 txcw=123) IMMATURE GRANULOCYTES-RELATIVE PERCENT (BEAKER) 0 % 0-1 (test lrtj=9506) FL, CONCRETE VIBRATOR OPERATOR IN OR/30 MINUTE [id number] 14:17:00Reason for exam:-> Retrograde PyelogramFINAL REPORT Fluoroscopic [...] MDReport Verified Date/Time: 09/01/2018 14:17:49 Reading Location: [address] Ortho Consult Reading Room BASIC METABOLIC [id number] 14:07:00 Test Item Value Reference Range Comments SODIUM (BEAKER) (test 134 meq/L 136-145 vtgn=376) POTASSIUM (BEAKER) (test 4.1 meq/L 3.5-5.1 Specimen slightly hmpc=200) hemolyzed CHLORIDE (BEAKER) (test 113 meq/L 98-107 ohpo=104) CO2 (BEAKER) (test 14 meq/L 22-29 wjrh=817) BLOOD UREA NITROGEN 10 mg/dL 7-21 (BEAKER) (test pxfb=736) CREATININE (BEAKER) (test 0.85 mg/dL 0.57-1.25 Specimen slightly iror=877) hemolyzed GLUCOSE RANDOM (BEAKER) 105 mg/dL 70-105 (test pryg=201) CALCIUM (BEAKER) (test 8.0 mg/dL 8.4-10.2 btnv=740) EGFR (BEAKER) (test 90 mL/min/1.73 sq m ESTIMATED GFR IS NOT mzzc=1964) ACCURATE CREATININE CLEARANCE IN PREDICTING GLOMERULAR FILTRATION RATE. ESTIMATED GFR IS NOT APPLICABLE FOR DIALYSIS PATIENTS. HEMOGLOBIN AND [id number] 13:53:00 Test Item Value Reference Range Comments HEMOGLOBIN (BEAKER) (test gzbj=532) 12.1 GM/DL 13.7-17.5 HEMATOCRIT (BEAKER) (test pbtu=592) 39.5 % 40.1-51.0 BASIC METABOLIC [id number] 07:22:00 Test Item Value Reference Range Comments SODIUM (BEAKER) (test 141 meq/L 136-145 rklg=673) POTASSIUM (BEAKER) (test 4.1 meq/L 3.5-5.1 ueso=612) CHLORIDE (BEAKER) (test 115 meq/L 98-107 qxns=858) CO2 (BEAKER) (test 21 meq/L 22-29 jqdc=491) BLOOD UREA NITROGEN 12 mg/dL 7-21 (BEAKER) (test ydeo=830) CREATININE (BEAKER) (test 0.91 mg/dL 0.57-1.25 ejok=177) GLUCOSE RANDOM (BEAKER) 89 mg/dL 70-105 (test qevj=144) CALCIUM (BEAKER) (test 8.4 mg/dL 8.4-10.2 bzqw=101) EGFR (BEAKER) (test 83 mL/min/1.73 sq m ESTIMATED GFR IS NOT hxsn=4085) ACCURATE CREATININE CLEARANCE IN PREDICTING GLOMERULAR FILTRATION RATE. ESTIMATED GFR IS NOT APPLICABLE FOR DIALYSIS PATIENTS. CBC W/PLT COUNT & AUTO [id number] 06:49:00 Test Item Value Reference Range Comments WHITE BLOOD CELL COUNT (BEAKER) (test nbxf=278) 6.3 K/ L 3.5-10.5 RED BLOOD CELL COUNT (BEAKER) (test xvnf=294) 4.09 M/ L 4.63-6.08 HEMOGLOBIN (BEAKER) (test nhnv=048) 11.9 GM/DL 13.7-17.5 HEMATOCRIT (BEAKER) (test garr=834) 36.9 % 40.1-51.0 MEAN CORPUSCULAR VOLUME (BEAKER) (test okwo=206) 90.2 fL 79.0-92.2 MEAN CORPUSCULAR HEMOGLOBIN (BEAKER) (test 29.1 pg 25.7-32.2 rtkt=533) MEAN CORPUSCULAR HEMOGLOBIN CONC (BEAKER) (test 32.2 GM/DL 32.3-36.5 qzze=352) RED CELL DISTRIBUTION WIDTH (BEAKER) (test 14.5 % 11.6-14.4 itna=177) PLATELET COUNT (BEAKER) (test eega=874) 261 K/CU MM 150-450 MEAN PLATELET VOLUME (BEAKER) (test qvpk=886) 9.5 fL 9.4-12.4 NUCLEATED RED BLOOD CELLS (BEAKER) (test 0 /100 WBC 0-0 rssy=107) NEUTROPHILS RELATIVE PERCENT (BEAKER) (test 64 % mntw=779) LYMPHOCYTES RELATIVE PERCENT (BEAKER) (test 22 % vwkf=542) MONOCYTES RELATIVE PERCENT (BEAKER) (test 8 % nzqw=354) EOSINOPHILS RELATIVE PERCENT (BEAKER) (test 5 % jvro=128) BASOPHILS RELATIVE PERCENT (BEAKER) (test 1 % dxvr=905) NEUTROPHILS ABSOLUTE COUNT (BEAKER) (test 4.02 K/ L 1.78-5.38 irwe=687) LYMPHOCYTES ABSOLUTE COUNT (BEAKER) (test 1.36 K/ L 1.32-3.57 gzdo=784) MONOCYTES ABSOLUTE COUNT (BEAKER) (test 0.52 K/ L 0.30-0.82 xnox=280) EOSINOPHILS ABSOLUTE COUNT (BEAKER) (test 0.34 K/ L 0.04-0.54 rsvu=713) BASOPHILS ABSOLUTE COUNT (BEAKER) (test 0.04 K/ L 0.01-0.08 bike=215) IMMATURE GRANULOCYTES-RELATIVE PERCENT (BEAKER) 0 % 0-1 (test zvtl=7871) BASIC METABOLIC [id number] 07:06:00 Test Item Value Reference Range Comments SODIUM (BEAKER) (test 140 meq/L 136-145 ovfs=444) POTASSIUM (BEAKER) (test 3.7 meq/L 3.5-5.1 euwx=198) CHLORIDE (BEAKER) (test 110 meq/L 98-107 fvkw=005) CO2 (BEAKER) (test 25 meq/L 22-29 uzah=691) BLOOD UREA NITROGEN 19 mg/dL 7-21 (BEAKER) (test fesd=437) CREATININE (BEAKER) (test 1.00 mg/dL 0.57-1.25 shhb=251) GLUCOSE RANDOM (BEAKER) 98 mg/dL 70-105 (test eyti=255) CALCIUM (BEAKER) (test 8.6 mg/dL 8.4-10.2 xiki=115) EGFR (BEAKER) (test 75 mL/min/1.73 sq m ESTIMATED GFR IS NOT jvtp=3577) ACCURATE CREATININE CLEARANCE IN PREDICTING GLOMERULAR FILTRATION RATE. ESTIMATED GFR IS NOT APPLICABLE FOR DIALYSIS PATIENTS. CBC W/PLT COUNT & AUTO [id number] 06:45:00 Test Item Value Reference Range Comments WHITE BLOOD CELL COUNT (BEAKER) (test xniq=327) 7.5 K/ L 3.5-10.5 RED BLOOD CELL COUNT (BEAKER) (test sepp=588) 4.50 M/ L 4.63-6.08 HEMOGLOBIN (BEAKER) (test hwab=242) 13.0 GM/DL 13.7-17.5 HEMATOCRIT (BEAKER) (test ihdr=466) 39.8 % 40.1-51.0 MEAN CORPUSCULAR VOLUME (BEAKER) (test crcp=221) 88.4 fL 79.0-92.2 MEAN CORPUSCULAR HEMOGLOBIN (BEAKER) (test 28.9 pg 25.7-32.2 rcxm=708) MEAN CORPUSCULAR HEMOGLOBIN CONC (BEAKER) (test 32.7 GM/DL 32.3-36.5 qhxp=418) RED CELL DISTRIBUTION WIDTH (BEAKER) (test 14.6 % 11.6-14.4 mmeg=651) PLATELET COUNT (BEAKER) (test sjjw=689) 277 K/CU MM 150-450 MEAN PLATELET VOLUME (BEAKER) (test buhe=599) 9.3 fL 9.4-12.4 NUCLEATED RED BLOOD CELLS (BEAKER) (test 0 /100 WBC 0-0 ujih=136) NEUTROPHILS RELATIVE PERCENT (BEAKER) (test 62 % vzyg=300) LYMPHOCYTES RELATIVE PERCENT (BEAKER) (test 23 % gbwh=306) MONOCYTES RELATIVE PERCENT (BEAKER) (test 9 % awuc=602) EOSINOPHILS RELATIVE PERCENT (BEAKER) (test 5 % jpcu=640) BASOPHILS RELATIVE PERCENT (BEAKER) (test 1 % kffy=205) NEUTROPHILS ABSOLUTE COUNT (BEAKER) (test 4.67 K/ L 1.78-5.38 omny=653) LYMPHOCYTES ABSOLUTE COUNT (BEAKER) (test 1.76 K/ L 1.32-3.57 xkpc=149) MONOCYTES ABSOLUTE COUNT (BEAKER) (test 0.67 K/ L 0.30-0.82 wjja=778) EOSINOPHILS ABSOLUTE COUNT (BEAKER) (test 0.37 K/ L 0.04-0.54 ujsq=278) BASOPHILS ABSOLUTE COUNT (BEAKER) (test 0.04 K/ L 0.01-0.08 vdbp=771) IMMATURE GRANULOCYTES-RELATIVE PERCENT (BEAKER) 0 % 0-1 (test spcj=3848) PET, CARDIAC PERFUSION MULTIPLE STUDIES, REST AND [id number] 16:18: 00Reason for exam:->pre-op, hx of HTN 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 6. No previous [facility] study for comparison. 7. Multiple low-density lesions throughout the liver are identified on these limited CT images. These can be better characterized for etiology by formal anatomic imaging if not previously evaluated. Signed: Victor M House MDReport Verified Date/Time: 08/30/2018 16:18:15 Reading Location: [address] Reading Room Electronically signed by: VICTOR M HOUSE MD on 04:18 PMURINE [id number] 13:27:00 Test Item Value Reference Range Comments CULTURE (BEAKER) (test jhti=4081) No growth BASIC METABOLIC [id number] 07:10:00 Test Item Value Reference Range Comments SODIUM (BEAKER) (test 139 meq/L 136-145 lajk=451) POTASSIUM (BEAKER) (test 3.9 meq/L 3.5-5.1 pzne=680) CHLORIDE (BEAKER) (test 108 meq/L 98-107 nqwx=857) CO2 (BEAKER) (test 22 meq/L 22-29 cpcr=982) BLOOD UREA NITROGEN 20 mg/dL 7-21 (BEAKER) (test teqi=414) CREATININE (BEAKER) (test 1.14 mg/dL 0.57-1.25 yzzv=036) GLUCOSE RANDOM (BEAKER) 106 mg/dL 70-105 (test ntwj=097) CALCIUM (BEAKER) (test 9.2 mg/dL 8.4-10.2 pzby=525) EGFR (BEAKER) (test 64 mL/min/1.73 sq m ESTIMATED GFR IS NOT lsbp=1064) ACCURATE CREATININE CLEARANCE IN PREDICTING GLOMERULAR FILTRATION RATE. ESTIMATED GFR IS NOT APPLICABLE FOR DIALYSIS PATIENTS. CBC W/PLT COUNT & AUTO [id number] 06:56:00 Test Item Value Reference Range Comments WHITE BLOOD CELL COUNT (BEAKER) (test avnm=653) 8.6 K/ L 3.5-10.5 RED BLOOD CELL COUNT (BEAKER) (test qykl=137) 4.98 M/ L 4.63-6.08 HEMOGLOBIN (BEAKER) (test uhsx=742) 14.2 GM/DL 13.7-17.5 HEMATOCRIT (BEAKER) (test gnxm=983) 43.4 % 40.1-51.0 MEAN CORPUSCULAR VOLUME (BEAKER) (test jxso=119) 87.1 fL 79.0-92.2 MEAN CORPUSCULAR HEMOGLOBIN (BEAKER) (test 28.5 pg 25.7-32.2 evpg=566) MEAN CORPUSCULAR HEMOGLOBIN CONC (BEAKER) (test 32.7 GM/DL 32.3-36.5 odbo=818) RED CELL DISTRIBUTION WIDTH (BEAKER) (test 14.8 % 11.6-14.4 jmqg=652) PLATELET COUNT (BEAKER) (test ronr=421) 310 K/CU MM 150-450 MEAN PLATELET VOLUME (BEAKER) (test wtiz=756) 9.1 fL 9.4-12.4 NUCLEATED RED BLOOD CELLS (BEAKER) (test 0 /100 WBC 0-0 wpdi=333) NEUTROPHILS RELATIVE PERCENT (BEAKER) (test 63 % onux=406) LYMPHOCYTES RELATIVE PERCENT (BEAKER) (test 22 % qqch=596) MONOCYTES RELATIVE PERCENT (BEAKER) (test 10 % raub=726) EOSINOPHILS RELATIVE PERCENT (BEAKER) (test 4 % hxoo=993) BASOPHILS RELATIVE PERCENT (BEAKER) (test 1 % fglt=834) NEUTROPHILS ABSOLUTE COUNT (BEAKER) (test 5.47 K/ L 1.78-5.38 nntb=666) LYMPHOCYTES ABSOLUTE COUNT (BEAKER) (test 1.88 K/ L 1.32-3.57 bsml=314) MONOCYTES ABSOLUTE COUNT (BEAKER) (test 0.83 K/ L 0.30-0.82 dpbt=183) EOSINOPHILS ABSOLUTE COUNT (BEAKER) (test 0.36 K/ L 0.04-0.54 uxzv=419) BASOPHILS ABSOLUTE COUNT (BEAKER) (test 0.04 K/ L 0.01-0.08 bszr=635) IMMATURE GRANULOCYTES-RELATIVE PERCENT (BEAKER) 1 % 0-1 (test afyo=9639) BASIC METABOLIC [id number] 06:44:00 Test Item Value Reference Range Comments SODIUM (BEAKER) (test 138 meq/L 136-145 woid=072) POTASSIUM (BEAKER) (test 4.2 meq/L 3.5-5.1 Specimen slightly naph=072) hemolyzed CHLORIDE (BEAKER) (test 108 meq/L 98-107 tvhk=073) CO2 (BEAKER) (test 22 meq/L 22-29 lsyp=753) BLOOD UREA NITROGEN 17 mg/dL 7-21 (BEAKER) (test gdxf=165) CREATININE (BEAKER) (test 1.02 mg/dL 0.57-1.25 Specimen slightly upxz=512) hemolyzed GLUCOSE RANDOM (BEAKER) 99 mg/dL 70-105 (test etoq=286) CALCIUM (BEAKER) (test 9.7 mg/dL 8.4-10.2 xqeq=267) EGFR (BEAKER) (test 73 mL/min/1.73 sq m ESTIMATED GFR IS NOT yoop=8224) ACCURATE CREATININE CLEARANCE IN PREDICTING GLOMERULAR FILTRATION RATE. ESTIMATED GFR IS NOT APPLICABLE FOR DIALYSIS PATIENTS. CBC W/PLT COUNT & AUTO [id number] 06:34:00 Test Item Value Reference Range Comments WHITE BLOOD CELL COUNT (BEAKER) (test cvct=619) 10.7 K/ L 3.5-10.5 RED BLOOD CELL COUNT (BEAKER) (test ocbf=866) 5.29 M/ L 4.63-6.08 HEMOGLOBIN (BEAKER) (test wdrt=397) 15.6 GM/DL 13.7-17.5 HEMATOCRIT (BEAKER) (test ipgh=193) 46.4 % 40.1-51.0 MEAN CORPUSCULAR VOLUME (BEAKER) (test tuzf=867) 87.7 fL 79.0-92.2 MEAN CORPUSCULAR HEMOGLOBIN (BEAKER) (test 29.5 pg 25.7-32.2 zsve=245) MEAN CORPUSCULAR HEMOGLOBIN CONC (BEAKER) (test 33.6 GM/DL 32.3-36.5 gzln=144) RED CELL DISTRIBUTION WIDTH (BEAKER) (test 14.7 % 11.6-14.4 zspb=221) PLATELET COUNT (BEAKER) (test ctba=713) 304 K/CU MM 150-450 MEAN PLATELET VOLUME (BEAKER) (test lkpc=463) 9.5 fL 9.4-12.4 NUCLEATED RED BLOOD CELLS (BEAKER) (test 0 /100 WBC 0-0 bgsx=808) NEUTROPHILS RELATIVE PERCENT (BEAKER) (test 72 % horo=093) LYMPHOCYTES RELATIVE PERCENT (BEAKER) (test 16 % xcjo=721) MONOCYTES RELATIVE PERCENT (BEAKER) (test 8 % qgpk=045) EOSINOPHILS RELATIVE PERCENT (BEAKER) (test 4 % qvdc=901) BASOPHILS RELATIVE PERCENT (BEAKER) (test 1 % prfw=942) NEUTROPHILS ABSOLUTE COUNT (BEAKER) (test 7.64 K/ L 1.78-5.38 xjux=202) LYMPHOCYTES ABSOLUTE COUNT (BEAKER) (test 1.71 K/ L 1.32-3.57 jvlz=429) MONOCYTES ABSOLUTE COUNT (BEAKER) (test 0.81 K/ L 0.30-0.82 gpvv=346) EOSINOPHILS ABSOLUTE COUNT (BEAKER) (test 0.41 K/ L 0.04-0.54 pmts=340) BASOPHILS ABSOLUTE COUNT (BEAKER) (test 0.05 K/ L 0.01-0.08 twhu=945) IMMATURE GRANULOCYTES-RELATIVE PERCENT (BEAKER) 1 % 0-1 (test sbfp=0115) BASIC METABOLIC [id number] 17:36:00 Test Item Value Reference Range Comments SODIUM (BEAKER) (test 138 meq/L 136-145 zlfe=888) POTASSIUM (BEAKER) (test 3.8 meq/L 3.5-5.1 gima=986) CHLORIDE (BEAKER) (test 106 meq/L 98-107 zliz=831) CO2 (BEAKER) (test 23 meq/L 22-29 yznw=790) BLOOD UREA NITROGEN 11 mg/dL 7-21 (BEAKER) (test wvqy=086) CREATININE (BEAKER) (test 0.94 mg/dL 0.57-1.25 jskd=776) GLUCOSE RANDOM (BEAKER) 105 mg/dL 70-105 (test opnw=914) CALCIUM (BEAKER) (test 9.5 mg/dL 8.4-10.2 wudb=190) EGFR (BEAKER) (test 80 mL/min/1.73 sq m ESTIMATED GFR IS NOT dnow=9074) ACCURATE CREATININE CLEARANCE IN PREDICTING GLOMERULAR FILTRATION RATE. ESTIMATED GFR IS NOT APPLICABLE FOR DIALYSIS PATIENTS. PROTHROMBIN [id number] 17:33:00 Test Item Value Reference Range Comments PROTIME (BEAKER) (test mufq=170) 13.0 seconds 11.7-14.7 INR (BEAKER) (test vuiz=496) 1.0 <=5.9 RECOMMENDED COUMADIN/WARFARIN INR THERAPY RANGESSTANDARD DOSE: 2.0 - 3.0 Includes: PROPHYLAXIS forvenous thrombosis, systemic embolization; TREATMENT for venous thrombosis and/or pulmonary embolus.HIGH RISK: Target INR is 2.5-3.5 for patients with mechanical heart valves.CBC W/PLT COUNT & AUTO [id number] 17:13:00 Test Item Value Reference Range Comments WHITE BLOOD CELL COUNT (BEAKER) (test ssyp=489) 8.8 K/ L 3.5-10.5 RED BLOOD CELL COUNT (BEAKER) (test gnvy=979) 5.05 M/ L 4.63-6.08 HEMOGLOBIN (BEAKER) (test ygjy=360) 14.7 GM/DL 13.7-17.5 HEMATOCRIT (BEAKER) (test nmtz=487) 44.0 % 40.1-51.0 MEAN CORPUSCULAR VOLUME (BEAKER) (test bksr=278) 87.1 fL 79.0-92.2 MEAN CORPUSCULAR HEMOGLOBIN (BEAKER) (test 29.1 pg 25.7-32.2 mdlx=263) MEAN CORPUSCULAR HEMOGLOBIN CONC (BEAKER) (test 33.4 GM/DL 32.3-36.5 zaxc=130) RED CELL DISTRIBUTION WIDTH (BEAKER) (test 14.8 % 11.6-14.4 shjp=389) PLATELET COUNT (BEAKER) (test tmhe=678) 285 K/CU MM 150-450 MEAN PLATELET VOLUME (BEAKER) (test fhgk=407) 9.1 fL 9.4-12.4 NUCLEATED RED BLOOD CELLS (BEAKER) (test 0 /100 WBC 0-0 lzzp=552) NEUTROPHILS RELATIVE PERCENT (BEAKER) (test 70 % jiaw=021) LYMPHOCYTES RELATIVE PERCENT (BEAKER) (test 19 % zwud=857) MONOCYTES RELATIVE PERCENT (BEAKER) (test 8 % dukf=075) EOSINOPHILS RELATIVE PERCENT (BEAKER) (test 2 % lqmx=669) BASOPHILS RELATIVE PERCENT (BEAKER) (test 0 % zage=173) NEUTROPHILS ABSOLUTE COUNT (BEAKER) (test 6.17 K/ L 1.78-5.38 tdpw=519) LYMPHOCYTES ABSOLUTE COUNT (BEAKER) (test 1.71 K/ L 1.32-3.57 pblo=149) MONOCYTES ABSOLUTE COUNT (BEAKER) (test 0.71 K/ L 0.30-0.82 rpln=171) EOSINOPHILS ABSOLUTE COUNT (BEAKER) (test 0.20 K/ L 0.04-0.54 difj=240) BASOPHILS ABSOLUTE COUNT (BEAKER) (test 0.02 K/ L 0.01-0.08 mobj=538) IMMATURE GRANULOCYTES-RELATIVE PERCENT (BEAKER) 0 % 0-1 (test pafi=5036)
--- OUTSIDE RECORDS SUMMARY | 2019-11-13 17:28 | XMS REPORT ---
[...] Medications Medication Code Code Instructions Start End Date Status Dosage System Date [facility] [id number] 7.5 MG Orally Aug 26, Active 1 tablet Twice a day 2019 Results No Known Results Summary Purpose eClinicalWorks Submission
--- OUTSIDE RECORDS SUMMARY | 2019-11-13 17:29 | XMS REPORT ---
:1950 [facility] Team Providers Name Role Phone Cari Posadas Provider Role Unavailable Allergies, Adverse Reactions, Alerts Substance Reaction Event Type N.K.D.A. 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 Problem Left shoulder pain, unspecified M25.512 Active chronicity Problem 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, unspecified site Problem Gastroesophageal reflux disease, K21.9 Active esophagitis presence not specified Problem History of kidney stones Z87.442 Active Assessment Right sciatic nerve pain M54.31 Active Problem Erectile dysfunction N52.9 Active Problem Kidney stones N20.0 Active Problem Sinus problem J34.9 Active Problem Depression F32.9 Active Problem Cancer C80.1 Active Problem Diverticulitis K57.92 Active Medications Medication Code Code Instructions Start End Status Dosage System Date Date Amlodipine ND 25904400624 5 MG Orally Once Active 1 tablet Besylate a day Alprazolam ND 70973769177 0.25 MG Orally March 20, Active 1 tablet Twice a day 2018 as needed for anxiety Omeprazole ND 66557882274 20 MG Orally Active 1 tablet Once a day ZyrTEC ND 90932248757 Orally Once Active 10 mg 1 dailly tablet (OTC) Losartan ND 57842878498 100-12.5 MG Active 1 tablet Potassium-HCTZ Orally Once a day BusPIRone HCl ND 30604089587 15 MG Orally Aug 26, Active 1 tablet Twice a day 2018 as needed for anxiety Gabapentin ND 85296651285 300 MG Orally Oct 28, Active 1 capsule Twice a day 2019 Flonase [facility] 80911781298 50 MCG/ACT Active 2 sprays Nasally Once a in each day nostril (otc) Results No Known Results Summary Purpose eClinicalWorks Submission
[2019-11-13] MEDS ORDERED: FENTANYL CITR 100 MCG/2 ML ONE ×2 (18:02→23:59)
[2019-11-13] MEDS ORDERED: DIAZEPAM 10 MG/2 ML INJ SYRINGE ONE ×2 (18:03→21:43)
[2019-11-13] MEDS ORDERED: NA CHLORIDE 0.9% 1,000 ML ONE (18:03)
[2019-11-13 18:23] LABS: Absolute Lymphocytes (CBC) 1.8 K/uL (0.7-4.9); Basophils % 0.3 % (0-1.3); Hematocrit 45.5 % (39.6-49.0); RBC Red Blood Cell Count 5.41 M/uL (4.33-5.43)
[2019-11-13] MEDS ORDERED: LIDOCAINE JELLY 2%- 5 ML TUBE ONE (18:41)
[2019-11-13 18:42] LABS: Potassium 3.9 mmol/L (3.5-5.1)
--- NOTE | 2019-11-13 21:07 | ER ---
Nurse's Notes [facility] Name: Chema Hernandez Age: 69 yrs Sex: Male : 1950 Arrival Date: 11/13/2019 Time: 17:28 Bed 23 Private MD: Diagnosis: Retention of urine;Hematuria Presentation: 11/13 17:32 Presenting complaint: Patient states: Bladder tumor biopsy's yesterday at [address], Dr. Beck. Reports passing blood every 20 minutes and now unable to urinate x 1 hour. Transition of care: patient was not received from another setting of care. Onset of symptoms was November 13, 2019 at 14:30. Risk Assessment: Do you want to hurt yourself or someone else? Patient reports no desire to harm self or others. Initial Sepsis Screen: Does the patient meet any 2 criteria? No. Patient's initial sepsis screen is negative. Does the patient have a suspected source of infection? No. Patient's initial sepsis screen is negative. Care prior to arrival: None. 17:32 Method Of Arrival: Ambulatory [facility] 17:32 Acuity: ERMA 3 jl7 Triage Assessment: 19:58 General: Appears distressed, uncomfortable, Behavior is cooperative. ls4 19:58 Pain: Complains of pain in suprapubic area Pain currently is 7 out of 10 on a pain ls4 scale. Neuro: No deficits noted. Cardiovascular: No deficits noted. Respiratory: No deficits noted. : Reports inability to void. Historical: - Allergies: 17:38 No Known Allergies; jl7 - Home Meds: 17:38 amlodipine oral [Active]; losartan Oral [Active]; omeprazole 40 mg Oral cpDR 1 cap once [facility] daily [Active]; Buspirone Oral [Active]; gabapentin 300 mg oral cap [Active]; - PMHx: 17:38 Hypertension; Kidney stones; mitral valve prolapse; Polycythemia; bladder cancer; jl7 - PSHx: 17:38 prostatectomy; jl7 - Immunization history:: Adult Immunizations up to date. - Coronavirus screen:: The patient has NOT traveled to [place], [place], or [place] in the past 14 days. Proceed with normal triage process as indicated. - Social history:: Smoking status: Patient/guardian denies using tobacco, the patient reports quitting approximately 2 years ago. - Ebola Screening: : No symptoms or risks identified at this time. Screenin:30 Abuse screen: Denies threats or abuse. Nutritional screening: No deficits noted. vc Tuberculosis screening: No symptoms or risk factors identified. Fall Risk None identified. Assessment: 11/14 00:02 Reassessment: pt groaning with pain Brendan HERCULES notified new orders received pt bb medicated see DEC. Vital Signs: 11/13 17:38 BP 137 / 82; Pulse 83; Resp 16 S; Temp 97.7(O); Pulse Ox 100% on R/A; Weight 65.77 kg jl7 (R); Height 5 ft. 9 in. (175.26 cm) (R); Pain 6/10; 18:45 BP 130 / 95; Pulse 68; Resp 18; Pulse Ox 99% on 2 lpm NC; vc 19:15 BP 122 / 91; Pulse 67; Resp 20; Pulse Ox 98% on 2 lpm NC; vc 20:00 BP 129 / 86; Pulse 63; Resp 20; Pulse Ox 99% on 2 lpm NC; vc 20:45 BP 144 / 96; Pulse 64; Resp 21; Pulse Ox 98% on R/A; Pain 10/10; vc 21:30 BP 140 / 96; Pulse 52; Resp 18; Pulse Ox 98% on 2 lpm NC; vc 22:30 BP 129 / 93; Pulse 52; Resp 16; Pulse Ox 97% on 2 lpm NC; vc 23:45 BP 145 / 91; Pulse 71; Resp 20; Pulse Ox 98% on R/A; Pain 10/10; vc 17:38 Body Mass Index 21.41 (65.77 kg, 175.26 cm) 7 ED Course: 17:28 Patient arrived in ED. as 17:35 Triage completed. jl7 17:38 Arm band placed on right wrist. jl7 17:40 [facility] jr8 17:40 Douglas Goetz MD is Attending Physician. jr8 17:56 Lora Murphy, BLUE is Primary Nurse. vc 18:30 Patient has correct armband on for positive identification. Side rails up X 1. vc 19:50 No provider procedures requiring assistance completed. Inserted saline lock: 22 gauge ls4 in right antecubital area, using aseptic technique. 19:50 Initial lab(s) drawn, by ED staff, sent to lab. ls4 19:55 22g hematuria hardwick placed. vc 20:00 Bladder irrigated with 1 liter normal saline returned doris blood. Bladder irrigated. vc 22:00 Bladder irrigated via Hardwick with 4 L. vc 11/14 00:03 Patient transferred, IV remains in place. intact. ls4 Administered Medications: 11/13 19:00 Drug: fentaNYL (PF) 50 mcg Route: IVP; Site: right antecubital; vc 20:00 Follow up: Response: No adverse reaction vc 19:00 Drug: Valium 5 mg Route: IVP; Site: right antecubital; vc 20:00 Follow up: Response: No adverse reaction vc 19:00 Drug: NS 0.9% 1000 ml Route: IV; Rate: 1000 ml; Site: right antecubital; vc 20:00 Follow up: IV Status: Completed infusion vc 21:50 Drug: Valium 2 mg Route: IVP; Site: right antecubital; vc 22:20 Follow up: Response: No adverse reaction; Marked relief of symptoms ls4 11/14 00:01 Drug: fentaNYL (PF) 50 mcg Route: IVP; Site: right antecubital; bb 00:30 Follow up: Response: No adverse reaction; Pain is decreased vc Outcome: 11/13 21:07 Discharge ordered by . kev 22:36 ER care complete, transfer ordered by . kev 23:[address] [facility], Transfer form completed. X-rays sent w/ ls4 patient. 23:57 Transferred Note: report called to Fani Pedraza RN 11/14 00:03 Condition: stable ls4 00:47 Patient left the ED. bb Signatures: Robyn Goodwin Brenda RN RN bb Brendan Willis PA PA jr8 Jocelyn Saleh RN RN jl7 Goldie Hood RN RN ls4 Lora Murphy RN RN vc Corrections: (The following items were deleted from the chart) 11/13 21:56 19:00 Valium 5 mg IVP in right antecubital vc vc 21:57 19:50 Valium 2 mg IVP in right antecubital vc vc
--- NOTE | 2019-11-13 21:08 | EDPHYS ---
Physician Documentation [facility] Name: Chema Hernandez Age: 69 yrs Sex: Male : 1950 Arrival Date: 11/13/2019 Time: 17:28 Bed 23 Private MD: ED Physician Douglas Goetz HPI: 11/13 18:07 This 69 yrs old Male presents to ER via Ambulatory with complaints of Bladder jr8 Problem. 18:07 The patient presents with urinary symptoms, retention. Onset: The symptoms/episode jr8 began/occurred acutely, today. Modifying factors: The symptoms are alleviated by nothing, the symptoms are aggravated by urinating. Associated signs and symptoms: Pertinent positives: abdominal pain, hematuria. Severity of symptoms: At their worst the symptoms were moderate, in the emergency department the symptoms are unchanged. The patient has experienced a previous episode. The patient has been recently seen by a physician:. Patient stated that he had recent bladder biopsy for tumors. Stated that he had been passing clots and blood since then. About 2 hours [employer] now having acute Retention with bladder spasms. Historical: - Allergies: 17:38 No Known Allergies; jl7 - Home Meds: 17:38 amlodipine oral [Active]; losartan Oral [Active]; omeprazole 40 mg Oral cpDR 1 cap once jl7 daily [Active]; Buspirone Oral [Active]; gabapentin 300 mg oral cap [Active]; - PMHx: 17:38 Hypertension; Kidney stones; mitral valve prolapse; Polycythemia; bladder cancer; jl7 - PSHx: 17:38 prostatectomy; jl7 - Immunization history:: Adult Immunizations up to date. - Coronavirus screen:: The patient has NOT traveled to [place], [place], or [place] in the past 14 days. Proceed with normal triage process as indicated. - Social history:: Smoking status: Patient/guardian denies using tobacco, the patient reports quitting approximately 2 years ago. - Ebola Screening: : No symptoms or risks identified at this time. ROS: 18:07 Eyes: Negative for injury, pain, redness, and discharge, ENT: Negative for injury, jr8 pain, and discharge, Neck: Negative for injury, pain, and swelling, Cardiovascular: Negative for chest pain, palpitations, and edema, Respiratory: Negative for shortness of breath, cough, wheezing, and pleuritic chest pain, Back: Negative for injury and pain, MS/Extremity: Negative for injury and deformity, Skin: Negative for injury, rash, and discoloration, Neuro: Negative for headache, weakness, numbness, tingling, and seizure. 18:07 Abdomen/GI: Positive for abdominal pain, Negative for nausea, vomiting, and diarrhea, constipation, abdominal cramps, abdominal distension. 18:07 : Positive for hematuria, retention . Exam: 18:07 Eyes: Pupils equal round and reactive to light, extra-ocular motions intact. Lids and jr8 lashes normal. Conjunctiva and sclera are non-icteric and not injected. Cornea within normal limits. Periorbital areas with no swelling, redness, or edema. ENT: Nares patent. No nasal discharge, no septal abnormalities noted. Tympanic membranes are normal and external auditory canals are clear. Oropharynx with no redness, swelling, or masses, exudates, or evidence of obstruction, uvula midline. Mucous membranes moist. Neck: Trachea midline, no thyromegaly or masses palpated, and no cervical lymphadenopathy. Supple, full range of motion without nuchal rigidity, or vertebral point tenderness. No Meningismus. Cardiovascular: Regular rate and rhythm with a normal S1 and S2. No gallops, murmurs, or rubs. Normal PMI, no JVD. No pulse deficits. Respiratory: Lungs have equal breath sounds bilaterally, clear to auscultation and percussion. No rales, rhonchi or wheezes noted. No increased work of breathing, no retractions or nasal flaring. Back: No spinal tenderness. No costovertebral tenderness. Full range of motion. Skin: Warm, dry with normal turgor. Normal color with no rashes, no lesions, and no evidence of cellulitis. MS/ Extremity: Pulses equal, no cyanosis. Neurovascular intact. Full, normal range of motion. Neuro: Awake and alert, GCS 15, oriented to person, place, time, and situation. Cranial nerves II-XII grossly intact. Motor strength 5/5 in all extremities. Sensory grossly intact. Cerebellar exam normal. Normal gait. 18:07 Abdomen/GI: Inspection: abdomen appears normal, Bowel sounds: active, all quadrants, Palpation: soft, in all quadrants, mild abdominal tenderness, in the suprapubic area, mass, is not appreciated, rebound tenderness, is not appreciated, voluntary guarding, is not appreciated, involuntary guarding, is not appreciated, no appreciated organomegaly, Indicators: McBurney's point is not tender, Ramsey's sign is negative, Rovsing's sign is negative, Liver: tenderness, is not appreciated. Vital Signs: 17:38 BP 137 / 82; Pulse 83; Resp 16 S; Temp 97.7(O); Pulse Ox 100% on R/A; Weight 65.77 kg jl7 (R); Height 5 ft. 9 in. (175.26 cm) (R); Pain 6/10; 18:45 BP 130 / 95; Pulse 68; Resp 18; Pulse Ox 99% on 2 lpm NC; vc 19:15 BP 122 / 91; Pulse 67; Resp 20; Pulse Ox 98% on 2 lpm NC; vc 20:00 BP 129 / 86; Pulse 63; Resp 20; Pulse Ox 99% on 2 lpm NC; vc 20:45 BP 144 / 96; Pulse 64; Resp 21; Pulse Ox 98% on R/A; Pain 10/10; vc 21:30 BP 140 / 96; Pulse 52; Resp 18; Pulse Ox 98% on 2 lpm NC; vc 22:30 BP 129 / 93; Pulse 52; Resp 16; Pulse Ox 97% on 2 lpm NC; vc 23:45 BP 145 / 91; Pulse 71; Resp 20; Pulse Ox 98% on R/A; Pain 10/10; vc 17:38 Body Mass Index 21.41 (65.77 kg, 175.26 cm) 7 MDM: 17:40 Patient medically screened. 8 21:02 Data reviewed: vital signs, nurses notes, lab test result(s), and as a result, I will jr8 discharge patient. Data interpreted: Pulse oximetry: on room air is 100 %. Interpretation: normal. Counseling: I had a detailed discussion with the patient and/or guardian regarding: the historical points, exam findings, and any diagnostic results supporting the discharge/admit diagnosis, lab results, the need for outpatient follow up, a urologist, to return to the emergency department if symptoms worsen or persist or if there are any questions or concerns that arise at home. Response to treatment: the patient's symptoms have markedly improved after treatment. ED course: Patient with light blood tinged urine at this time after irrigation. Feeling much better. Will d/c home with hardwick on leg bag. Knows to come back if worse . 21:17 ED course: Patient was being prepared for discharge when he occluded again with hardwick jr8 in place. Will try irrigate again. If it continues to happen will have to transfer . 11/14 00:23 ED course: Patient now has had multiple episodes of clotting with obstruction even with jr8 hematuria catheter in place. Having to continually keep on irrigation at this point to inhibit it to obstruct. Called Dr. Carranza at [facility] who is patients urologist for continuity of care. Accepted patient . 11/13 17:48 Order name: CBC with Diff; Complete Time: 18:53 11/13 17:48 Order name: Basic Metabolic Panel; Complete Time: 18:53 11/13 17:40 Order name: Bladder Scanner; Complete Time: 21:00 8 11/13 17:40 Order name: Hematuria hardwick cath; Complete Time: 19:44 8 11/13 17:48 Order name: IV; Complete Time: 19:44 [facility] Administered Medications: 11/13 19:00 Drug: fentaNYL (PF) 50 mcg Route: IVP; Site: right antecubital; vc 20:00 Follow up: Response: No adverse reaction vc 19:00 Drug: Valium 5 mg Route: IVP; Site: right antecubital; vc 20:00 Follow up: Response: No adverse reaction vc 19:00 Drug: NS 0.9% 1000 ml Route: IV; Rate: 1000 ml; Site: right antecubital; vc 20:00 Follow up: IV Status: Completed infusion vc 21:50 Drug: Valium 2 mg Route: IVP; Site: right antecubital; vc 22:20 Follow up: Response: No adverse reaction; Marked relief of symptoms ls4 11/14 00:01 Drug: fentaNYL (PF) 50 mcg Route: IVP; Site: right antecubital; bb 00:30 Follow up: Response: No adverse reaction; Pain is decreased vc Disposition: 07:27 Co-signature as Attending Physician, Douglas Goetz MD I agree with the assessment and janie plan of care. Disposition: 11/13/19 22:36 Transfer ordered to [facility]. Diagnosis are Retention of urine, Hematuria. - Reason for transfer: Higher level of care. - Accepting physician is Dr. Carranza. - Condition is Stable. - Problem is new. - Symptoms are unchanged. Signatures: Dispatcher [employer] EDDouglas Carranza MD MD cha Ballard, Brenda, RN RN bb Brendan Willis PA PA jr8 Jocelyn Saleh RN RN jl7 Lora Murphy RN RN Goldie Dhillon RN ls4 Corrections: (The following items were deleted from the chart) 11/13 22:35 21:07 11/13/2019 21:07 Discharged to Home. Impression: Retention of urine; Hematuria. jr8 Condition is Stable. Forms are Medication Reconciliation Form, Thank You Letter, Antibiotic Education, Prescription Opioid Use. Follow up: Private Physician; When: 2 - 3 days; Reason: Recheck today's complaints, Continuance of care, Re-evaluation by your physician. Problem is new. Symptoms have improved. jr8 11/14 00:47 11/13 22:36 11/13/2019 22:36 Transfer ordered to [facility]. bb Diagnosis is Retention of urine; Hematuria. Reason for transfer: Higher level of care. Accepting physician is Dr. Carranza. Condition is Stable. Problem is new. Symptoms are unchanged. jr8
[2019-11-13] MEDS ORDERED: NACL 0.9% IRR SOLN 2,000 ML IRR ONE (21:23)
[2019-11-14] MEDS ORDERED: NACL 0.9% IRR SOLN 4,000 ML IRR ONE (00:04)
[2019-11-14 12:54] VITALS: TEMP 97.7
[2019-11-14 13:16] VITALS: BP 145/91; O2SAT 98
== END 2019-11-14 00:47 | disposition short-term general hospital (02) ==
LOC: ER 17:23
DX: R33.9 Retention of urine, unspecified (principal); R31.9 Hematuria, unspecified; I10 Essential (primary) hypertension
CPT/HCPCS: 96361; 85025; 80048; 36415; 51700; 96375; 96374; 99285; J3360 ×2; J3010 ×2; J7030

== ENCOUNTER 2019-12-03 23:01 | Emergency (ER) | payer OTHER ==
--- OUTSIDE RECORDS SUMMARY | 2019-12-03 23:06 | XMS REPORT ---
:1950 [facility] Team Providers Name Role Phone [...] Status Dosage System Date Date Amlodipine ND 10874473413 5 MG Orally Once Active 1 tablet Besylate a day Alprazolam ND 82929874030 0.25 MG Orally March 20, Active 1 tablet Twice a day 2018 as needed for anxiety Omeprazole ND 44728082222 20 MG Orally Active 1 tablet Once a day ZyrTEC ND 72277015946 Orally Once Active 10 mg 1 dailly tablet (OTC) Losartan ND 59050292823 100-12.5 MG Active 1 tablet Potassium-HCTZ Orally Once a day BusPIRone HCl ND 50712151992 15 MG Orally Aug 26, Active 1 tablet Twice a day 2018 as needed for anxiety Gabapentin ND 14918178036 300 MG Orally Oct 28, Active 1 capsule Twice a day [address] [facility] 32686957625 50 MCG/ACT Active 2 sprays Nasally Once a in each day nostril (otc) Results No Known Results Summary Purpose eClinicalWorks Submission
--- OUTSIDE RECORDS SUMMARY | 2019-12-03 23:06 | XMS REPORT ---
:1950 [address] [facility] Providers Name Role [...] Status Dosage System Date Date ZyrTEC ND 20072054249 Orally Once Active 10 mg 1 dailly tablet (OTC) Amlodipine NDC 79669630359 5 MG Orally Once Active 1 tablet Besylate a day Omeprazole NDC 63999028398 20 MG Orally Active 1 tablet Once a day Losartan ND 98890288605 100-12.5 MG Active 1 tablet Potassium-HCTZ Orally Once a day Flonase [facility] 69741447554 50 MCG/ACT Active 2 sprays Nasally Once a in each day nostril (otc) Results No Known Results Summary Purpose eClinicalWorks Submission
--- OUTSIDE RECORDS SUMMARY | 2019-12-03 23:06 | XMS REPORT ---
[...] Status Dosage System Date Date Alprazolam ND 45487646871 0.25 MG Orally March 20, Active 1 tablet Twice a day 2018 as needed for anxiety Flonase ND 56174700395 50 MCG/ACT Active 2 sprays Nasally Once a in each day nostril (otc) Omeprazole ND 75553294203 20 MG Orally Active 1 tablet Once a day BusPIRone HCl ND 02764086315 15 MG Orally Aug 26, Active 1 tablet Twice a day 2018 as needed for anxiety Losartan [facility] 43898966149 100-12.5 MG Active 1 tablet Potassium-HCTZ Orally Once a day ZyrTEC [facility] 13799122411 Orally Once Active 10 mg 1 dailly tablet (OTC) Amlodipine [facility] 67629266366 5 MG Orally Once Active 1 tablet Besylate a day Results No Known Results Immunizations Vaccine Administration Date FLUZONE HIGH DOSE OVER 65 Oct 02, 2019 Summary Purpose eClinicalWorks Submission
--- OUTSIDE RECORDS SUMMARY | 2019-12-03 23:06 | XMS REPORT ---
:1950 Author Organization [facility] Address [address] [place] [address] [address]. [address] [place] [address] Care Team Providers Name Role Phone CHRISTIE LINDSAY Unavailable Unavailable MICHAELA BECK Unavailable Unavailable Problems This patient has no known problems. Allergies, Adverse Reactions, Alerts This patient has no known allergies or adverse reactions. Medications This patient has no known medications. Results Test Description Test Time Test Comments Text Results Atomic Results Result Comments TISSUE EXAM 2019-11-20 15:54:00 Surgical Pathology Report Case: [id number] Authorizing Provider: Michaela Beck MD Collected: 11/15/2019 1352 Ordering Location: [facility] Received: 11/15/2019 1546 SERVICES Pathologist: Nadeem Dolan MD Specimens: A) - Bladder Tumor, bladder tumor low posterior wall B) - Bladder Biopsy, biopsy of right lateral wall marker lesion A. 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 Bladder tumor; B. Bladder biopsy A. Received in formalin labeled with the patient's name, accession number and "bladder tumor low posterior wall" is a 0.5 x 0.4 x 0.3 cm ramos-pink soft tissue which is submitted in toto in A1. B. Received in formalin labeled with the patient's name, accession number and "biopsy of right lateral wall" is a 0.3 x 0.2 x 0.2 cm ramos-pink tissue fragment which is submitted in toto in B1. PA/pl Performed. CBC W/PLT COUNT & AUTO DIFFERENTIAL 2019-11-14 05:14:00 Test Item Value Reference Range Comments WHITE BLOOD CELL COUNT (BEAKER) (test zkor=560) 13.7 K/ L 3.5-10.5 RED BLOOD CELL COUNT (BEAKER) (test ijou=695) 4.78 M/ L 4.63-6.08 HEMOGLOBIN (BEAKER) (test grup=311) 13.3 GM/DL 13.7-17.5 HEMATOCRIT (BEAKER) (test sdwv=108) 39.9 % 40.1-51.0 MEAN CORPUSCULAR VOLUME (BEAKER) (test nxff=265) 83.5 fL 79.0-92.2 MEAN CORPUSCULAR HEMOGLOBIN (BEAKER) (test zgku=299) 27.8 pg 25.7-32.2 MEAN CORPUSCULAR HEMOGLOBIN CONC (BEAKER) (test jrro=215) 33.3 GM/DL 32.3- 36.5 RED CELL DISTRIBUTION WIDTH (BEAKER) (test bbkm=360) 17.1 % 11.6-14.4 PLATELET COUNT (BEAKER) (test bxly=517) 384 K/CU MM 150-450 MEAN PLATELET VOLUME (BEAKER) (test bhgt=738) 8.8 fL 9.4-12.4 NUCLEATED RED BLOOD CELLS (BEAKER) (test peye=378) 0 /100 WBC 0-0 NEUTROPHILS RELATIVE PERCENT (BEAKER) (test iuyq=120) 79 % LYMPHOCYTES RELATIVE PERCENT (BEAKER) (test aaix=878) 14 % MONOCYTES RELATIVE PERCENT (BEAKER) (test hwfu=546) 6 % EOSINOPHILS RELATIVE PERCENT (BEAKER) (test vuoy=996) 0 % BASOPHILS RELATIVE PERCENT (BEAKER) (test swfg=361) 0 % NEUTROPHILS ABSOLUTE COUNT (BEAKER) (test glxq=762) 10.74 K/ L 1.78-5.38 LYMPHOCYTES ABSOLUTE COUNT (BEAKER) (test yeyj=894) 1.96 K/ L 1.32-3.57 MONOCYTES ABSOLUTE COUNT (BEAKER) (test tidq=865) 0.82 K/ L 0.30-0.82 EOSINOPHILS ABSOLUTE COUNT (BEAKER) (test ovfl=539) 0.06 K/ L 0.04-0.54 BASOPHILS ABSOLUTE COUNT (BEAKER) (test hjew=364) 0.03 K/ L 0.01-0.08 IMMATURE GRANULOCYTES-RELATIVE PERCENT (BEAKER) (test 1 % 0-1 wach=6165) BASIC METABOLIC [id number] 05:03:00 Test Item Value Reference Range Comments SODIUM (BEAKER) (test 137 meq/L 136-145 ovmo=864) POTASSIUM (BEAKER) (test 3.7 meq/L 3.5-5.1 jwpa=151) CHLORIDE (BEAKER) (test 106 meq/L 98-107 xxur=528) CO2 (BEAKER) (test 17 meq/L 22-29 sryq=484) BLOOD UREA NITROGEN 17 mg/dL 7-21 (BEAKER) (test yonk=490) CREATININE (BEAKER) (test 1.18 mg/dL 0.57-1.25 yjwu=929) GLUCOSE RANDOM (BEAKER) 237 mg/dL 70-105 (test zeyk=370) CALCIUM (BEAKER) (test 8.8 mg/dL 8.4-10.2 gbdh=039) EGFR (BEAKER) (test 61 mL/min/1.73 sq m ESTIMATED GFR IS NOT qwfg=6168) ACCURATE CREATININE CLEARANCE IN PREDICTING GLOMERULAR FILTRATION RATE. ESTIMATED GFR IS NOT APPLICABLE FOR DIALYSIS PATIENTS. Professor Of Counseling ID - MAX MTISSUE [id number] 17:08:00Surgical Pathology Report Case: [id number] Authorizing Provider: Michaela Beck MD Collected: 2018 0817 Ordering Location: [facility] Received : 04/26/2019 1215 SERVICES Pathologist: Nadeem Dolan MD Specimens: A) -Bladder Biopsy, Posterior bladder wall tumor B) - [...] IS ABSENT Signing Pathologist Direct Phone Line: [phone] and postop diagnosis: malignant neoplasm [...] is submitted in toto in C1. CG/pl Performed.[id number] 07:32:00 Test Item Value Reference Range Comments SODIUM (BEAKER) (test jeok=020) 136 meq/L 136-145 POTASSIUM (BEAKER) (test 3.7 meq/L 3.5-5.1 Specimen slightly hemolyzed woap=594) CHLORIDE (BEAKER) (test 102 meq/L 98-107 gljv=303) CO2 (BEAKER) (test qwkx=068) 26 meq/L 22-29 BUN AND [id number] 07:32:00 Test Item Value Reference Range Comments BLOOD UREA NITROGEN 16 mg/dL 7-21 (BEAKER) (test ttcf=118) CREATININE (BEAKER) (test 1.13 mg/dL 0.57-1.25 Specimen slightly dekg=507) hemolyzed EGFR (BEAKER) (test 65 mL/min/1.73 sq m ESTIMATED GFR IS NOT vicg=2933) ACCURATE CREATININE CLEARANCE IN PREDICTING GLOMERULAR FILTRATION RATE. ESTIMATED GFR IS NOT APPLICABLE FOR DIALYSIS PATIENTS. POCT-HEMOGLOBIN [id number] 06:42:00 Test Item Value Reference Range Comments POC-HEMOGLOBIN METER 13.6 g/dL 13.0-16.8 TESTED AT [facility] [address] ([place]) (test sfjf=2945) [facility] [address] TISSUE [id number] 13:57:00Surgical Pathology Report Case: [id number] Authorizing Provider: Michaela Beck MD Collected: 10/22/2018 1500 Ordering Location: [facility] Received: 10/23/2018 0746 SERVICES Pathologist: Nadeem [...] FOR TUMOR Signing Pathologist Direct Phone Line: [phone] signed by Nadeem Dolan MD on 10/25/2018 at 1:57 PM [id number] X 2 20369 x 2Malignant neoplasm of urinary bladder A. [...] cm submitted entirely D1. CG/bc A-D: Performed.BLOOD [id number] 23:01:00 Test Item Value Reference Range Comments CULTURE (BEAKER) (test bccn=3875) No growth in 5 days BLOOD [id number] 23:01:00 Test Item Value Reference Range Comments CULTURE (BEAKER) (test larw=9892) No growth in 5 days BLOOD [id number] 05:00:00 Test Item Value Reference Range Comments CULTURE (BEAKER) (test tqxf=5995) No growth in 5 days BASIC METABOLIC [id number] 05:27:00 Test Item Value Reference Range Comments SODIUM (BEAKER) (test 141 meq/L 136-145 qyza=355) POTASSIUM (BEAKER) (test 3.8 meq/L 3.5-5.1 mtie=499) CHLORIDE (BEAKER) (test 113 meq/L 98-107 gknm=626) CO2 (BEAKER) (test 24 meq/L 22-29 egct=128) BLOOD UREA NITROGEN 7 mg/dL 7-21 (BEAKER) (test gwfs=400) CREATININE (BEAKER) (test 0.95 mg/dL 0.57-1.25 vxrv=967) GLUCOSE RANDOM (BEAKER) 90 mg/dL 70-105 (test wiaw=806) CALCIUM (BEAKER) (test 8.0 mg/dL 8.4-10.2 mdhi=305) EGFR (BEAKER) (test 79 mL/min/1.73 sq m ESTIMATED GFR IS NOT tqpb=5581) ACCURATE CREATININE CLEARANCE IN PREDICTING GLOMERULAR FILTRATION RATE. ESTIMATED GFR IS NOT APPLICABLE FOR DIALYSIS PATIENTS. CBC W/PLT COUNT & AUTO [id number] 05:19:00 Test Item Value Reference Range Comments WHITE BLOOD CELL COUNT (BEAKER) (test jtbt=977) 6.2 K/ L 3.5-10.5 RED BLOOD CELL COUNT (BEAKER) (test vptm=751) 2.79 M/ L 4.63-6.08 HEMOGLOBIN (BEAKER) (test zioq=576) 8.4 GM/DL 13.7-17.5 HEMATOCRIT (BEAKER) (test mjtw=699) 25.2 % 40.1-51.0 MEAN CORPUSCULAR VOLUME (BEAKER) (test yxdp=373) 90.3 fL 79.0-92.2 MEAN CORPUSCULAR HEMOGLOBIN (BEAKER) (test 30.1 pg 25.7-32.2 duni=900) MEAN CORPUSCULAR HEMOGLOBIN CONC (BEAKER) (test 33.3 GM/DL 32.3-36.5 sokr=168) RED CELL DISTRIBUTION WIDTH (BEAKER) (test 14.3 % 11.6-14.4 saje=135) PLATELET COUNT (BEAKER) (test aazs=274) 266 K/CU MM 150-450 MEAN PLATELET VOLUME (BEAKER) (test fyte=126) 9.5 fL 9.4-12.4 NUCLEATED RED BLOOD CELLS (BEAKER) (test 0 /100 WBC 0-0 bwzn=739) NEUTROPHILS RELATIVE PERCENT (BEAKER) (test 61 % high=580) LYMPHOCYTES RELATIVE PERCENT (BEAKER) (test 21 % izar=753) MONOCYTES RELATIVE PERCENT (BEAKER) (test 7 % hlpc=066) EOSINOPHILS RELATIVE PERCENT (BEAKER) (test 10 % rxoo=967) BASOPHILS RELATIVE PERCENT (BEAKER) (test 0 % fgxk=860) NEUTROPHILS ABSOLUTE COUNT (BEAKER) (test 3.75 K/ L 1.78-5.38 qwuo=613) LYMPHOCYTES ABSOLUTE COUNT (BEAKER) (test 1.30 K/ L 1.32-3.57 qflh=836) MONOCYTES ABSOLUTE COUNT (BEAKER) (test 0.45 K/ L 0.30-0.82 bffm=124) EOSINOPHILS ABSOLUTE COUNT (BEAKER) (test 0.63 K/ L 0.04-0.54 yvrx=987) BASOPHILS ABSOLUTE COUNT (BEAKER) (test 0.02 K/ L 0.01-0.08 zkel=596) IMMATURE GRANULOCYTES-RELATIVE PERCENT (BEAKER) 1 % 0-1 (test yvis=3156) TISSUE [id number] 15:48:00Surgical Pathology Report Case: [id number] Authorizing Provider: Michaela Beck MD Collected: 09/01/2018 1124 Ordering Location: [address] Received: 09/02/2018 1324 Service Pathologist: Nadeem [...] BY TUMOR Signing Pathologist Direct Phone Line: [phone] The invasive components represent the minority of the tumor masses, ranging from 1% to no more than 5% and is very superficial. No lymph/vascular invasion is seen. 92274 X 8 Bladder cancerA. Right trigone and [...] in cassettes H1 -H3. DB/pl PerformedVANCOMYCIN LEVEL, [id number] 12:30:00 Test Item Value Reference Range Comments VANCOMYCIN TROUGH (BEAKER) (test hgqn=200) 14.6 ug/mL 10.0-20.0 CBC W/PLT COUNT & AUTO [id number] 12:29:00 Test Item Value Reference Range Comments WHITE BLOOD CELL COUNT (BEAKER) (test quaj=429) 6.9 K/ L 3.5-10.5 RED BLOOD CELL COUNT (BEAKER) (test hwwl=934) 2.84 M/ L 4.63-6.08 HEMOGLOBIN (BEAKER) (test lfjo=297) 8.5 GM/DL 13.7-17.5 HEMATOCRIT (BEAKER) (test ghuc=783) 25.5 % 40.1-51.0 MEAN CORPUSCULAR VOLUME (BEAKER) (test fqex=809) 89.8 fL 79.0-92.2 MEAN CORPUSCULAR HEMOGLOBIN (BEAKER) (test 29.9 pg 25.7-32.2 jwsz=942) MEAN CORPUSCULAR HEMOGLOBIN CONC (BEAKER) (test 33.3 GM/DL 32.3-36.5 rbuq=271) RED CELL DISTRIBUTION WIDTH (BEAKER) (test 14.3 % 11.6-14.4 msyc=644) PLATELET COUNT (BEAKER) (test rzyj=508) 243 K/CU MM 150-450 MEAN PLATELET VOLUME (BEAKER) (test jvfz=599) 9.6 fL 9.4-12.4 NUCLEATED RED BLOOD CELLS (BEAKER) (test 0 /100 WBC 0-0 lvpl=996) NEUTROPHILS RELATIVE PERCENT (BEAKER) (test 72 % rjah=585) LYMPHOCYTES RELATIVE PERCENT (BEAKER) (test 14 % nsmd=661) MONOCYTES RELATIVE PERCENT (BEAKER) (test 7 % kwcm=496) EOSINOPHILS RELATIVE PERCENT (BEAKER) (test 7 % fdvz=659) BASOPHILS RELATIVE PERCENT (BEAKER) (test 0 % vaqc=058) NEUTROPHILS ABSOLUTE COUNT (BEAKER) (test 5.01 K/ L 1.78-5.38 smql=463) LYMPHOCYTES ABSOLUTE COUNT (BEAKER) (test 0.94 K/ L 1.32-3.57 pawe=820) MONOCYTES ABSOLUTE COUNT (BEAKER) (test 0.46 K/ L 0.30-0.82 hiph=368) EOSINOPHILS ABSOLUTE COUNT (BEAKER) (test 0.48 K/ L 0.04-0.54 gawh=413) BASOPHILS ABSOLUTE COUNT (BEAKER) (test 0.02 K/ L 0.01-0.08 qnfu=763) IMMATURE GRANULOCYTES-RELATIVE PERCENT (BEAKER) 0 % 0-1 (test fndn=2201) BASIC METABOLIC [id number] 06:33:00 Test Item Value Reference Range Comments SODIUM (BEAKER) (test 143 meq/L 136-145 xips=918) POTASSIUM (BEAKER) (test 3.3 meq/L 3.5-5.1 ajoc=713) CHLORIDE (BEAKER) (test 115 meq/L 98-107 vxuh=846) CO2 (BEAKER) (test 24 meq/L 22-29 nwgg=557) BLOOD UREA NITROGEN 7 mg/dL 7-21 (BEAKER) (test usgw=216) CREATININE (BEAKER) (test 0.94 mg/dL 0.57-1.25 khee=999) GLUCOSE RANDOM (BEAKER) 96 mg/dL 70-105 (test bjbn=258) CALCIUM (BEAKER) (test 8.1 mg/dL 8.4-10.2 gwzi=090) EGFR (BEAKER) (test 80 mL/min/1.73 sq m ESTIMATED GFR IS NOT lulv=2972) ACCURATE CREATININE CLEARANCE IN PREDICTING GLOMERULAR FILTRATION RATE. ESTIMATED GFR IS NOT APPLICABLE FOR DIALYSIS PATIENTS. CBC W/PLT COUNT & AUTO [id number] 06:21:00 Test Item Value Reference Range Comments WHITE BLOOD CELL COUNT (BEAKER) (test iawd=610) 6.8 K/ L 3.5-10.5 RED BLOOD CELL COUNT (BEAKER) (test usum=355) 2.72 M/ L 4.63-6.08 HEMOGLOBIN (BEAKER) (test aqxo=220) 8.3 GM/DL 13.7-17.5 HEMATOCRIT (BEAKER) (test wlyk=517) 24.4 % 40.1-51.0 MEAN CORPUSCULAR VOLUME (BEAKER) (test sqlr=498) 89.7 fL 79.0-92.2 MEAN CORPUSCULAR HEMOGLOBIN (BEAKER) (test 30.5 pg 25.7-32.2 ewqw=601) MEAN CORPUSCULAR HEMOGLOBIN CONC (BEAKER) (test 34.0 GM/DL 32.3-36.5 qnay=389) RED CELL DISTRIBUTION WIDTH (BEAKER) (test 14.2 % 11.6-14.4 uekz=109) PLATELET COUNT (BEAKER) (test vitf=970) 213 K/CU MM 150-450 MEAN PLATELET VOLUME (BEAKER) (test vcna=891) 9.9 fL 9.4-12.4 NUCLEATED RED BLOOD CELLS (BEAKER) (test 0 /100 WBC 0-0 gxpy=991) NEUTROPHILS RELATIVE PERCENT (BEAKER) (test 67 % yvun=537) LYMPHOCYTES RELATIVE PERCENT (BEAKER) (test 17 % wocq=396) MONOCYTES RELATIVE PERCENT (BEAKER) (test 7 % kncf=669) EOSINOPHILS RELATIVE PERCENT (BEAKER) (test 9 % qucy=338) BASOPHILS RELATIVE PERCENT (BEAKER) (test 0 % oyxr=025) NEUTROPHILS ABSOLUTE COUNT (BEAKER) (test 4.50 K/ L 1.78-5.38 iqai=743) LYMPHOCYTES ABSOLUTE COUNT (BEAKER) (test 1.15 K/ L 1.32-3.57 idwc=978) MONOCYTES ABSOLUTE COUNT (BEAKER) (test 0.46 K/ L 0.30-0.82 eeri=576) EOSINOPHILS ABSOLUTE COUNT (BEAKER) (test 0.60 K/ L 0.04-0.54 tsyg=528) BASOPHILS ABSOLUTE COUNT (BEAKER) (test 0.03 K/ L 0.01-0.08 unfh=854) IMMATURE GRANULOCYTES-RELATIVE PERCENT (BEAKER) 0 % 0-1 (test jvqv=8896) C. DIFFICILE GDH [id number] 20:14:00 Test Item Value Reference Range Comments CDT TOXIN (test Negative Negative jblj=[id number]) CDT GDH ANTIGEN (test Positive Negative C. difficile present but toxin kvkw=[id number]) not detected. Indicates colonization with non-toxigenic strain or level of toxin below detectable levels. No need for enteric isolation. Treatment is rarely needed (only when strong clinical suspicion for Clostridium difficile infection) Testing performed by [employer] Rapid Cassette Assay. For GDH, published sensitivity of the assay is 98.7% compared to cytotoxicity testing. For Toxin AB, published sensitivity is 87.8% and specificity 99.4% compared to cytotoxicity testing.Verification of kit performance was done by the [facility] Microbiology Lab prior to clinical use.CT, [id number] 09:51:00Please perform with IV and PO contrast. [...] renal calculus. Trace free fluid, nonspecific. Signed: Likhari, Gauruv MDReport Verified Date/ Time: 09/04/2018 09:51:34 Reading Location: [facility] C013Y [place] Body Reading Room ( CELLAVISION MANUAL DIFF)2018-09-04 08:56:00 Test Item Value Reference Range Comments NEUTROPHILS - REL (CELLAVISION)(BEAKER) (test 69 % zudg=9068) LYMPHOCYTES - REL (CELLAVISION)(BEAKER) (test 12 % fvrr=8619) MONOCYTES - REL (CELLAVISION)(BEAKER) (test 2 % mzpo=3003) EOSINOPHILS - REL (CELLAVISION)(BEAKER) (test 5 % csza=9755) BANDS - REL (CELLAVISION)(BEAKER) (test nbzj=3515) 12 % 0-10 NEUTROPHILS - ABS (CELLAVISION)(BEAKER) (test 8.69 K/ul 1.78-5.38 qsxr=8308) LYMPHOCYTES - ABS (CELLAVISION)(BEAKER) (test 1.51 K/ul 1.32-3.57 yxmx=7962) MONOCYTES - ABS (CELLAVISION)(BEAKER) (test 0.25 K/uL 0.30-0.82 evbl=0998) EOSINOPHILS - ABS (CELLAVISION)(BEAKER) (test 0.63 K/uL 0.04-0.54 hsko=5557) BANDS - ABS (CELLAVISION)(BEAKER) (test ttwo=7643) 1.51 K/uL 0.00-0.80 TOTAL COUNTED (BEAKER) (test ocma=3472) 100 WBC MORPHOLOGY (BEAKER) (test ddcq=743) Normal PLT MORPHOLOGY (BEAKER) (test aaoc=896) Normal POLYCHROMATOPHILLIC RBCS(BEAKER) (test coer=019) 1+ few ANISOCYTOSIS (BEAKER) (test rybu=464) 1+ few ARTIFACT (CELLAVISION)(BEAKER) (test sgxc=2945) Present PLATELET CONCENTRATION (CELLAVISION)(BEAKER) (test Adequate ygfw=7800) Received comment: User comments: Slide comments:CBC W/PLT COUNT & AUTO [id number] 08:56:00 Test Item Value Reference Range Comments WHITE BLOOD CELL COUNT (BEAKER) (test ldjo=360) 12.6 K/ L 3.5-10.5 RED BLOOD CELL COUNT (BEAKER) (test zrpv=846) 3.18 M/ L 4.63-6.08 HEMOGLOBIN (BEAKER) (test vhdn=904) 9.6 GM/DL 13.7-17.5 HEMATOCRIT (BEAKER) (test aryq=991) 28.5 % 40.1-51.0 MEAN CORPUSCULAR VOLUME (BEAKER) (test cbcy=585) 89.6 fL 79.0-92.2 MEAN CORPUSCULAR HEMOGLOBIN (BEAKER) (test 30.2 pg 25.7-32.2 aysv=346) MEAN CORPUSCULAR HEMOGLOBIN CONC (BEAKER) (test 33.7 GM/DL 32.3-36.5 kwqr=565) RED CELL DISTRIBUTION WIDTH (BEAKER) (test 14.1 % 11.6-14.4 lsnt=571) PLATELET COUNT (BEAKER) (test dvgr=685) 198 K/CU MM 150-450 MEAN PLATELET VOLUME (BEAKER) (test pqwk=509) 10.0 fL 9.4-12.4 NUCLEATED RED BLOOD CELLS (BEAKER) (test 0 /100 WBC 0-0 mytc=906) URINE [id number] 08:51:00 Test Item Value Reference Range Comments CULTURE (BEAKER) (test ojvh=4651) No growth BASIC METABOLIC [id number] 07:09:00 Test Item Value Reference Range Comments SODIUM (BEAKER) (test 137 meq/L 136-145 sqer=005) POTASSIUM (BEAKER) (test 3.8 meq/L 3.5-5.1 ojtb=017) CHLORIDE (BEAKER) (test 109 meq/L 98-107 nyzk=703) CO2 (BEAKER) (test 22 meq/L 22-29 zode=507) BLOOD UREA NITROGEN 9 mg/dL 7-21 (BEAKER) (test jboc=142) CREATININE (BEAKER) (test 1.15 mg/dL 0.57-1.25 zgbx=437) GLUCOSE RANDOM (BEAKER) 109 mg/dL 70-105 (test dywd=825) CALCIUM (BEAKER) (test 8.1 mg/dL 8.4-10.2 vekb=414) EGFR (BEAKER) (test 63 mL/min/1.73 sq m ESTIMATED GFR IS NOT kkmu=6916) ACCURATE CREATININE CLEARANCE IN PREDICTING GLOMERULAR FILTRATION RATE. ESTIMATED GFR IS NOT APPLICABLE FOR DIALYSIS PATIENTS. HEMOGLOBIN AND [id number] 22:01:00 Test Item Value Reference Range Comments HEMOGLOBIN (BEAKER) (test akyl=597) 9.1 GM/DL 13.7-17.5 HEMATOCRIT (BEAKER) (test efcg=813) 27.2 % 40.1-51.0 H/H after 2U PRBCBASIC METABOLIC [id number] 03:32:00 Test Item Value Reference Range Comments SODIUM (BEAKER) (test 135 meq/L 136-145 nedv=720) POTASSIUM (BEAKER) (test 3.8 meq/L 3.5-5.1 awng=245) CHLORIDE (BEAKER) (test 111 meq/L 98-107 nbnz=406) CO2 (BEAKER) (test 21 meq/L 22-29 nhls=092) BLOOD UREA NITROGEN 12 mg/dL 7-21 (BEAKER) (test yiaa=924) CREATININE (BEAKER) (test 1.21 mg/dL 0.57-1.25 nbod=107) GLUCOSE RANDOM (BEAKER) 108 mg/dL 70-105 (test rnbs=311) CALCIUM (BEAKER) (test 7.6 mg/dL 8.4-10.2 ifjv=395) EGFR (BEAKER) (test 60 mL/min/1.73 sq m ESTIMATED GFR IS NOT nytb=8870) ACCURATE CREATININE CLEARANCE IN PREDICTING GLOMERULAR FILTRATION RATE. ESTIMATED GFR IS NOT APPLICABLE FOR DIALYSIS PATIENTS. CBC W/PLT COUNT & AUTO [id number] 02:59:00 Test Item Value Reference Range Comments WHITE BLOOD CELL COUNT (BEAKER) (test tirj=238) 9.2 K/ L 3.5-10.5 RED BLOOD CELL COUNT (BEAKER) (test ioca=284) 2.30 M/ L 4.63-6.08 HEMOGLOBIN (BEAKER) (test xnac=144) 6.9 GM/DL 13.7-17.5 HEMATOCRIT (BEAKER) (test hhub=040) 20.5 % 40.1-51.0 MEAN CORPUSCULAR VOLUME (BEAKER) (test rjbv=621) 89.1 fL 79.0-92.2 MEAN CORPUSCULAR HEMOGLOBIN (BEAKER) (test 30.0 pg 25.7-32.2 judj=968) MEAN CORPUSCULAR HEMOGLOBIN CONC (BEAKER) (test 33.7 GM/DL 32.3-36.5 oese=395) RED CELL DISTRIBUTION WIDTH (BEAKER) (test 14.3 % 11.6-14.4 nrcs=992) PLATELET COUNT (BEAKER) (test hsby=372) 193 K/CU MM 150-450 MEAN PLATELET VOLUME (BEAKER) (test jhfy=653) 9.7 fL 9.4-12.4 NUCLEATED RED BLOOD CELLS (BEAKER) (test 0 /100 WBC 0-0 gckj=703) NEUTROPHILS RELATIVE PERCENT (BEAKER) (test 79 % ndlz=479) LYMPHOCYTES RELATIVE PERCENT (BEAKER) (test 11 % pwck=576) MONOCYTES RELATIVE PERCENT (BEAKER) (test 7 % ggrb=226) EOSINOPHILS RELATIVE PERCENT (BEAKER) (test 3 % oaky=254) BASOPHILS RELATIVE PERCENT (BEAKER) (test 0 % oamq=394) NEUTROPHILS ABSOLUTE COUNT (BEAKER) (test 7.25 K/ L 1.78-5.38 knsb=823) LYMPHOCYTES ABSOLUTE COUNT (BEAKER) (test 0.98 K/ L 1.32-3.57 nmue=338) MONOCYTES ABSOLUTE COUNT (BEAKER) (test 0.68 K/ L 0.30-0.82 fdge=260) EOSINOPHILS ABSOLUTE COUNT (BEAKER) (test 0.28 K/ L 0.04-0.54 ypme=429) BASOPHILS ABSOLUTE COUNT (BEAKER) (test 0.01 K/ L 0.01-0.08 basj=627) IMMATURE GRANULOCYTES-RELATIVE PERCENT (BEAKER) 0 % 0-1 (test vtnw=5505) HEMOGLOBIN AND [id number] 02:56:00 Test Item Value Reference Range Comments HEMOGLOBIN (BEAKER) (test kswx=000) 6.9 GM/DL 13.7-17.5 HEMATOCRIT (BEAKER) (test qrdi=399) 20.5 % 40.1-51.0 Please draw 20 min after blood transfusion is completedPOCT-BLOOD GASES, [id number] 02:55:00 Test Item Value Reference Range Comments TEMP, CELSIUS-POC (BEAKER) 37.0 (test vabz=7399) FIO2-POC (BEAKER) (test TESTED AT [address] eyzf=9556) [place] [id number] PH, VENOUS-POC (BEAKER) 7.453 7.320-7.420 (test syjd=1433) PCO2, VENOUS-POC (BEAKER) 29.7 mm Hg 41.0-51.0 (test ogqf=3668) PO2, VENOUS-POC (BEAKER) 62.0 mm Hg 25.0-40.0 (test wmih=0703) SO2, VENOUS-POC (BEAKER) 93.0 % 40.0-70.0 (test fzby=0012) HCO3, VENOUS-POC (BEAKER) 20.8 meq/L 21.0-29.0 (test jzib=5506) BASE EXCESS, VENOUS-POC -3.0 meq/L -2.0-3.0 (BEAKER) (test tjvp=3195) [id number] 02:55:00 Test Item Value Reference Range Comments POC-SODIUM (BEAKER) (test 138 meq/L 135-148 TESTED AT [address] qvqm=0032) [place] [address] [id number] 02:55:00 Test Item Value Reference Range Comments POC-POTASSIUM (BEAKER) (test 3.7 meq/L 3.6-5.5 TESTED AT [address] uusx=8539) [place] [address] [id number] 02:55:00 Test Item Value Reference Range Comments POC-GLUCOSE (BEAKER) (test 106 mg/dL 70-110 TESTED AT [address] mgpk=3517) [place] [address] POCT-CALCIUM [id number] 02:55:00 Test Item Value Reference Range Comments POC-CALCIUM IONIZED (BEAKER) 1.17 mmol/L 1.12-1.27 TESTED AT [address] (test fnhv=0974) [place] [address] [id number] 02:55:00 Test Item Value Reference Range Comments POC-HEMATOCRIT (BEAKER) (test 19 % 40-50 TESTED AT [address] luek=1502) [facility] [address] [id number] 02:55:00 Test Item Value Reference Range Comments POC-HEMOGLOBIN (BEAKER) 6.5 g/dL 13.0-16.8 TESTED AT [address] (test sbxe=2823) [facility] [id number] AT [address] [address] POCT-LACTIC ACID, [id number] 02:55:00 Test Item Value Reference Range Comments POC-LACTIC ACID, VENOUS 1.1 mmol/L 0.9-1.7 TESTED AT [address] (BEAKER) (test gajz=4341) [place] [id number] LACTIC ACID, VENOUS, WHOLE [id number] 21:58:00 Test Item Value Reference Range Comments LACTATE BLOOD VENOUS (2) (BEAKER) (test 5.5 mmol/L 0.5-2.2 mygs=5080) CBC W/PLT COUNT & AUTO [id number] 19:01:00 Test Item Value Reference Range Comments WHITE BLOOD CELL COUNT (BEAKER) (test xxvs=356) 9.6 K/ L 3.5-10.5 RED BLOOD CELL COUNT (BEAKER) (test dnkm=407) 2.65 M/ L 4.63-6.08 HEMOGLOBIN (BEAKER) (test foda=012) 7.6 GM/DL 13.7-17.5 HEMATOCRIT (BEAKER) (test fuam=539) 24.4 % 40.1-51.0 MEAN CORPUSCULAR VOLUME (BEAKER) (test wtrp=860) 92.1 fL 79.0-92.2 MEAN CORPUSCULAR HEMOGLOBIN (BEAKER) (test 28.7 pg 25.7-32.2 caff=610) MEAN CORPUSCULAR HEMOGLOBIN CONC (BEAKER) (test 31.1 GM/DL 32.3-36.5 yivl=180) RED CELL DISTRIBUTION WIDTH (BEAKER) (test 14.6 % 11.6-14.4 krsb=287) PLATELET COUNT (BEAKER) (test uztp=811) 257 K/CU MM 150-450 MEAN PLATELET VOLUME (BEAKER) (test zadp=653) 9.9 fL 9.4-12.4 NUCLEATED RED BLOOD CELLS (BEAKER) (test 0 /100 WBC 0-0 dovg=323) NEUTROPHILS RELATIVE PERCENT (BEAKER) (test 81 % ckmh=051) LYMPHOCYTES RELATIVE PERCENT (BEAKER) (test 8 % kqse=469) MONOCYTES RELATIVE PERCENT (BEAKER) (test 8 % ztbw=582) EOSINOPHILS RELATIVE PERCENT (BEAKER) (test 3 % peob=376) BASOPHILS RELATIVE PERCENT (BEAKER) (test 0 % ceys=630) NEUTROPHILS ABSOLUTE COUNT (BEAKER) (test 7.76 K/ L 1.78-5.38 ukzv=204) LYMPHOCYTES ABSOLUTE COUNT (BEAKER) (test 0.81 K/ L 1.32-3.57 xhng=628) MONOCYTES ABSOLUTE COUNT (BEAKER) (test 0.75 K/ L 0.30-0.82 nytt=320) EOSINOPHILS ABSOLUTE COUNT (BEAKER) (test 0.25 K/ L 0.04-0.54 gidt=211) BASOPHILS ABSOLUTE COUNT (BEAKER) (test 0.02 K/ L 0.01-0.08 gpoe=191) IMMATURE GRANULOCYTES-RELATIVE PERCENT (BEAKER) 0 % 0-1 (test mojc=3306) BASIC METABOLIC [id number] 18:46:00 Test Item Value Reference Range Comments SODIUM (BEAKER) (test 138 meq/L 136-145 sxtv=055) POTASSIUM (BEAKER) (test 4.5 meq/L 3.5-5.1 lhuu=450) CHLORIDE (BEAKER) (test 111 meq/L 98-107 hysy=006) CO2 (BEAKER) (test 20 meq/L 22-29 zdzn=981) BLOOD UREA NITROGEN 16 mg/dL 7-21 (BEAKER) (test vuya=053) CREATININE (BEAKER) (test 1.42 mg/dL 0.57-1.25 mbtm=609) GLUCOSE RANDOM (BEAKER) 122 mg/dL 70-105 (test lylq=331) CALCIUM (BEAKER) (test 8.2 mg/dL 8.4-10.2 potu=845) EGFR (BEAKER) (test 50 mL/min/1.73 sq m ESTIMATED GFR IS NOT lvly=2860) ACCURATE CREATININE CLEARANCE IN PREDICTING GLOMERULAR FILTRATION RATE. ESTIMATED GFR IS NOT APPLICABLE FOR DIALYSIS PATIENTS. LACTIC ACID, VENOUS, WHOLE [id number] 18:42:00 Test Item Value Reference Range Comments LACTATE BLOOD VENOUS (2) (BEAKER) (test 4.4 mmol/L 0.5-2.2 cjrb=5145) HEMOGLOBIN AND [id number] 18:24:00 Test Item Value Reference Range Comments HEMOGLOBIN (BEAKER) (test vklt=061) 7.5 GM/DL 13.7-17.5 HEMATOCRIT (BEAKER) (test dgrf=911) 23.2 % 40.1-51.0 BASIC METABOLIC [id number] 06:47:00 Test Item Value Reference Range Comments SODIUM (BEAKER) (test 140 meq/L 136-145 qtyt=692) POTASSIUM (BEAKER) (test 4.6 meq/L 3.5-5.1 nczq=132) CHLORIDE (BEAKER) (test 115 meq/L 98-107 uskw=288) CO2 (BEAKER) (test 20 meq/L 22-29 sffm=362) BLOOD UREA NITROGEN 16 mg/dL 7-21 (BEAKER) (test hjif=559) CREATININE (BEAKER) (test 1.47 mg/dL 0.57-1.25 brwl=364) GLUCOSE RANDOM (BEAKER) 117 mg/dL 70-105 (test mbiv=012) CALCIUM (BEAKER) (test 7.5 mg/dL 8.4-10.2 gglb=959) EGFR (BEAKER) (test 48 mL/min/1.73 sq m ESTIMATED GFR IS NOT xggb=6588) ACCURATE CREATININE CLEARANCE IN PREDICTING GLOMERULAR FILTRATION RATE. ESTIMATED GFR IS NOT APPLICABLE FOR DIALYSIS PATIENTS. CBC W/PLT COUNT & AUTO [id number] 06:06:00 Test Item Value Reference Range Comments WHITE BLOOD CELL COUNT (BEAKER) (test scof=269) 8.0 K/ L 3.5-10.5 RED BLOOD CELL COUNT (BEAKER) (test vnen=015) 2.89 M/ L 4.63-6.08 HEMOGLOBIN (BEAKER) (test vphz=161) 8.7 GM/DL 13.7-17.5 HEMATOCRIT (BEAKER) (test jmfo=322) 26.7 % 40.1-51.0 MEAN CORPUSCULAR VOLUME (BEAKER) (test bgvt=662) 92.4 fL 79.0-92.2 MEAN CORPUSCULAR HEMOGLOBIN (BEAKER) (test 30.1 pg 25.7-32.2 rego=322) MEAN CORPUSCULAR HEMOGLOBIN CONC (BEAKER) (test 32.6 GM/DL 32.3-36.5 dgyr=952) RED CELL DISTRIBUTION WIDTH (BEAKER) (test 14.6 % 11.6-14.4 ivey=676) PLATELET COUNT (BEAKER) (test xopk=682) 250 K/CU MM 150-450 MEAN PLATELET VOLUME (BEAKER) (test dhws=234) 10.0 fL 9.4-12.4 NUCLEATED RED BLOOD CELLS (BEAKER) (test 0 /100 WBC 0-0 dqjs=417) NEUTROPHILS RELATIVE PERCENT (BEAKER) (test 74 % zyxg=244) LYMPHOCYTES RELATIVE PERCENT (BEAKER) (test 13 % kqmc=331) MONOCYTES RELATIVE PERCENT (BEAKER) (test 9 % vqry=463) EOSINOPHILS RELATIVE PERCENT (BEAKER) (test 3 % fpyd=619) BASOPHILS RELATIVE PERCENT (BEAKER) (test 0 % ehuc=495) NEUTROPHILS ABSOLUTE COUNT (BEAKER) (test 5.91 K/ L 1.78-5.38 lxzu=222) LYMPHOCYTES ABSOLUTE COUNT (BEAKER) (test 1.04 K/ L 1.32-3.57 lzyu=118) MONOCYTES ABSOLUTE COUNT (BEAKER) (test 0.74 K/ L 0.30-0.82 wano=608) EOSINOPHILS ABSOLUTE COUNT (BEAKER) (test 0.23 K/ L 0.04-0.54 hjdj=638) BASOPHILS ABSOLUTE COUNT (BEAKER) (test 0.02 K/ L 0.01-0.08 mieo=104) IMMATURE GRANULOCYTES-RELATIVE PERCENT (BEAKER) 0 % 0-1 (test xcvd=6380) [id number] 22:13:00 Test Item Value Reference Range Comments PARTIAL THROMBOPLASTIN TIME (BEAKER) (test 29.1 seconds 22.5-36.0 cfym=816) PROTHROMBIN [id number] 22:12:00 Test Item Value Reference Range Comments PROTIME (BEAKER) (test pgdm=071) 14.4 seconds 11.7-14.7 INR (BEAKER) (test hfwg=547) 1.1 <=5.9 RECOMMENDED COUMADIN/WARFARIN INR THERAPY RANGESSTANDARD DOSE: 2.0 - 3.0 Includes: PROPHYLAXIS forvenous thrombosis, systemic embolization; TREATMENT for venous thrombosis and/or pulmonary embolus.HIGH RISK: Target INR is 2.5-3.5 for patients with mechanical heart valves.COMPREHENSIVE METABOLIC [id number] 21:38:00 Test Item Value Reference Range Comments TOTAL PROTEIN (BEAKER) 4.5 gm/dL 6.0-8.3 (test uigw=080) ALBUMIN (BEAKER) (test 2.8 g/dL 3.5-5.0 ffmd=1066) ALKALINE PHOSPHATASE 45 U/L 40-150 (BEAKER) (test zcot=282) BILIRUBIN TOTAL (BEAKER) 1.1 mg/dL 0.2-1.2 (test mjgu=584) SODIUM (BEAKER) (test 139 meq/L 136-145 rbju=826) POTASSIUM (BEAKER) (test 4.1 meq/L 3.5-5.1 vhpd=218) CHLORIDE (BEAKER) (test 114 meq/L 98-107 euoq=794) CO2 (BEAKER) (test 17 meq/L 22-29 neiw=159) BLOOD UREA NITROGEN 16 mg/dL 7-21 (BEAKER) (test arjp=793) CREATININE (BEAKER) (test 1.27 mg/dL 0.57-1.25 arah=997) GLUCOSE RANDOM (BEAKER) 132 mg/dL 70-105 (test zvft=584) CALCIUM (BEAKER) (test 7.7 mg/dL 8.4-10.2 gdkg=294) AST (SGOT) (BEAKER) (test 18 U/L 5-34 mpoz=349) ALT (SGPT) (BEAKER) (test 16 U/L 6-55 hpbx=779) EGFR (BEAKER) (test 57 mL/min/1.73 sq m ESTIMATED GFR IS NOT ugho=9388) ACCURATE CREATININE CLEARANCE IN PREDICTING GLOMERULAR FILTRATION RATE. ESTIMATED GFR IS NOT APPLICABLE FOR DIALYSIS PATIENTS. CBC W/PLT COUNT & AUTO [id number] 21:32:00 Test Item Value Reference Range Comments WHITE BLOOD CELL COUNT (BEAKER) (test vczo=801) 11.8 K/ L 3.5-10.5 RED BLOOD CELL COUNT (BEAKER) (test jkzf=929) 3.48 M/ L 4.63-6.08 HEMOGLOBIN (BEAKER) (test ebug=759) 10.1 GM/DL 13.7-17.5 HEMATOCRIT (BEAKER) (test oaoo=433) 31.3 % 40.1-51.0 MEAN CORPUSCULAR VOLUME (BEAKER) (test qubq=661) 89.9 fL 79.0-92.2 MEAN CORPUSCULAR HEMOGLOBIN (BEAKER) (test 29.0 pg 25.7-32.2 ujun=620) MEAN CORPUSCULAR HEMOGLOBIN CONC (BEAKER) (test 32.3 GM/DL 32.3-36.5 lify=570) RED CELL DISTRIBUTION WIDTH (BEAKER) (test 14.5 % 11.6-14.4 fmad=999) PLATELET COUNT (BEAKER) (test nxpu=989) 293 K/CU MM 150-450 MEAN PLATELET VOLUME (BEAKER) (test hhqf=549) 9.7 fL 9.4-12.4 NUCLEATED RED BLOOD CELLS (BEAKER) (test 0 /100 WBC 0-0 lsil=126) NEUTROPHILS RELATIVE PERCENT (BEAKER) (test 82 % wjnj=900) LYMPHOCYTES RELATIVE PERCENT (BEAKER) (test 9 % ayxx=187) MONOCYTES RELATIVE PERCENT (BEAKER) (test 8 % mrni=809) EOSINOPHILS RELATIVE PERCENT (BEAKER) (test 1 % hkno=610) BASOPHILS RELATIVE PERCENT (BEAKER) (test 0 % zsgn=777) NEUTROPHILS ABSOLUTE COUNT (BEAKER) (test 9.71 K/ L 1.78-5.38 miad=921) LYMPHOCYTES ABSOLUTE COUNT (BEAKER) (test 1.01 K/ L 1.32-3.57 eqfa=370) MONOCYTES ABSOLUTE COUNT (BEAKER) (test 0.90 K/ L 0.30-0.82 ajau=467) EOSINOPHILS ABSOLUTE COUNT (BEAKER) (test 0.13 K/ L 0.04-0.54 gtik=369) BASOPHILS ABSOLUTE COUNT (BEAKER) (test 0.04 K/ L 0.01-0.08 gguz=026) IMMATURE GRANULOCYTES-RELATIVE PERCENT (BEAKER) 0 % 0-1 (test kwzj=9616) LACTIC ACID, VENOUS, WHOLE [id number] 21:32:00 Test Item Value Reference Range Comments LACTATE BLOOD VENOUS (2) (BEAKER) (test 1.6 mmol/L 0.5-2.2 rmqy=0115) POCT-BLOOD GASES, [id number] 21:00:00 Test Item Value Reference Range Comments TEMP, CELSIUS-POC (BEAKER) 36.1 (test fjgm=5040) FIO2-POC (BEAKER) (test 21 TESTED AT [address] qood=6954) [place] [address] PH, VENOUS-POC (BEAKER) 7.411 7.320-7.420 (test pujb=4337) PCO2, VENOUS-POC (BEAKER) 25.5 mm Hg 41.0-51.0 (test yttd=2597) PO2, VENOUS-POC (BEAKER) 45.0 mm Hg 25.0-40.0 (test jtbc=9560) SO2, VENOUS-POC (BEAKER) 84.0 % 40.0-70.0 (test iepv=3337) HCO3, VENOUS-POC (BEAKER) 16.4 meq/L 21.0-29.0 (test wfvg=3998) BASE EXCESS, VENOUS-POC -8.0 meq/L -2.0-3.0 (BEAKER) (test dhva=6331) [id number] 21:00:00 Test Item Value Reference Range Comments POC-SODIUM (BEAKER) (test 140 meq/L 135-148 TESTED AT [address] smmc=3643) [place] [address] [id number] 21:00:00 Test Item Value Reference Range Comments POC-POTASSIUM (BEAKER) (test 3.9 meq/L 3.6-5.5 [address] bus[address]) [place] [address] [id number] 21:00:00 Test Item Value Reference Range Comments POC-GLUCOSE (BEAKER) (test 129 mg/dL 70-110 [address] sc[address]7603) [place] [address] POCT-CALCIUM [id number] 21:00:00 Test Item Value Reference Range Comments POC-CALCIUM IONIZED (BEAKER) 1.12 mmol/L 1.12-1.27 TESTED AT [address] (test waah=2160) [place] [address] [id number] 21:00:00 Test Item Value Reference Range Comments POC-HEMATOCRIT (BEAKER) (test 30 % 40-50 TESTED AT [address] ljth=8139) [place] [address] [id number] 21:00:00 Test Item Value Reference Range Comments POC-HEMOGLOBIN (BEAKER) 10.2 g/dL 13.0-16.8 TESTED AT [address] (test gxny=8241) [place] [id number] AT [place] [address] POCT-LACTIC ACID, [id number] 21:00:00 Test Item Value Reference Range Comments POC-LACTIC ACID, VENOUS 1.3 mmol/L 0.9-1.7 TESTED AT [address] (BEAKER) (test lmlq=5261) [place] [id number] CBC W/PLT COUNT & AUTO [id number] 18:50:00 Test Item Value Reference Range Comments WHITE BLOOD CELL COUNT (BEAKER) (test dlcf=777) 15.4 K/ L 3.5-10.5 RED BLOOD CELL COUNT (BEAKER) (test gkdf=146) 3.96 M/ L 4.63-6.08 HEMOGLOBIN (BEAKER) (test aclk=860) 11.5 GM/DL 13.7-17.5 HEMATOCRIT (BEAKER) (test ocrw=488) 36.2 % 40.1-51.0 MEAN CORPUSCULAR VOLUME (BEAKER) (test iqze=202) 91.4 fL 79.0-92.2 MEAN CORPUSCULAR HEMOGLOBIN (BEAKER) (test 29.0 pg 25.7-32.2 oujv=421) MEAN CORPUSCULAR HEMOGLOBIN CONC (BEAKER) (test 31.8 GM/DL 32.3-36.5 juhi=220) RED CELL DISTRIBUTION WIDTH (BEAKER) (test 14.4 % 11.6-14.4 jlkl=280) PLATELET COUNT (BEAKER) (test ijlg=147) 308 K/CU MM 150-450 MEAN PLATELET VOLUME (BEAKER) (test iclh=774) 9.3 fL 9.4-12.4 NUCLEATED RED BLOOD CELLS (BEAKER) (test 0 /100 WBC 0-0 oacc=035) NEUTROPHILS RELATIVE PERCENT (BEAKER) (test 83 % kesf=033) LYMPHOCYTES RELATIVE PERCENT (BEAKER) (test 10 % lpem=151) MONOCYTES RELATIVE PERCENT (BEAKER) (test 6 % apxe=299) EOSINOPHILS RELATIVE PERCENT (BEAKER) (test 1 % lhci=126) BASOPHILS RELATIVE PERCENT (BEAKER) (test 0 % gxuj=327) NEUTROPHILS ABSOLUTE COUNT (BEAKER) (test 12.76 K/ L 1.78-5.38 hxxq=317) LYMPHOCYTES ABSOLUTE COUNT (BEAKER) (test 1.50 K/ L 1.32-3.57 avce=862) MONOCYTES ABSOLUTE COUNT (BEAKER) (test 0.95 K/ L 0.30-0.82 uuqh=123) EOSINOPHILS ABSOLUTE COUNT (BEAKER) (test 0.07 K/ L 0.04-0.54 lpni=424) BASOPHILS ABSOLUTE COUNT (BEAKER) (test 0.04 K/ L 0.01-0.08 iytz=088) IMMATURE GRANULOCYTES-RELATIVE PERCENT (BEAKER) 0 % 0-1 (test axbh=3906) FL, TECHNICAL MGR IN OR/30 MINUTE [id number] 14:17:00Reason for exam:-> Retrograde PyelogramFINAL REPORT Fluoroscopic [...] MDReport Verified Date/Time: 09/01/2018 14:17:49 Reading Location: [facility] [id number] Ortho Consult Reading Room BASI METABOLIC [id number] 14:07:00 Test Item Value Reference Range Comments SODIUM (BEAKER) (test 134 meq/L 136-145 pbbq=391) POTASSIUM (BEAKER) (test 4.1 meq/L 3.5-5.1 Specimen slightly bino=935) hemolyzed CHLORIDE (BEAKER) (test 113 meq/L 98-107 syjf=524) CO2 (BEAKER) (test 14 meq/L 22-29 djzx=571) BLOOD UREA NITROGEN 10 mg/dL 7-21 (BEAKER) (test xulk=658) CREATININE (BEAKER) (test 0.85 mg/dL 0.57-1.25 Specimen slightly zihq=451) hemolyzed GLUCOSE RANDOM (BEAKER) 105 mg/dL 70-105 (test xtsm=197) CALCIUM (BEAKER) (test 8.0 mg/dL 8.4-10.2 jbel=581) EGFR (BEAKER) (test 90 mL/min/1.73 sq m ESTIMATED GFR IS NOT tnse=8728) ACCURATE CREATININE CLEARANCE IN PREDICTING GLOMERULAR FILTRATION RATE. ESTIMATED GFR IS NOT APPLICABLE FOR DIALYSIS PATIENTS. HEMOGLOBIN AND [id number] 13:53:00 Test Item Value Reference Range Comments HEMOGLOBIN (BEAKER) (test ccpt=033) 12.1 GM/DL 13.7-17.5 HEMATOCRIT (BEAKER) (test wnpx=174) 39.5 % 40.1-51.0 BASIC METABOLIC [id number] 07:22:00 Test Item Value Reference Range Comments SODIUM (BEAKER) (test 141 meq/L 136-145 kcnc=854) POTASSIUM (BEAKER) (test 4.1 meq/L 3.5-5.1 nins=403) CHLORIDE (BEAKER) (test 115 meq/L 98-107 nxfe=028) CO2 (BEAKER) (test 21 meq/L 22-29 supy=295) BLOOD UREA NITROGEN 12 mg/dL 7-21 (BEAKER) (test uzeo=638) CREATININE (BEAKER) (test 0.91 mg/dL 0.57-1.25 qvkj=933) GLUCOSE RANDOM (BEAKER) 89 mg/dL 70-105 (test nhdf=051) CALCIUM (BEAKER) (test 8.4 mg/dL 8.4-10.2 hgwy=085) EGFR (BEAKER) (test 83 mL/min/1.73 sq m ESTIMATED GFR IS NOT edtb=3986) ACCURATE CREATININE CLEARANCE IN PREDICTING GLOMERULAR FILTRATION RATE. ESTIMATED GFR IS NOT APPLICABLE FOR DIALYSIS PATIENTS. CBC W/PLT COUNT & AUTO [id number] 06:49:00 Test Item Value Reference Range Comments WHITE BLOOD CELL COUNT (BEAKER) (test orrs=771) 6.3 K/ L 3.5-10.5 RED BLOOD CELL COUNT (BEAKER) (test moqh=825) 4.09 M/ L 4.63-6.08 HEMOGLOBIN (BEAKER) (test wnmw=675) 11.9 GM/DL 13.7-17.5 HEMATOCRIT (BEAKER) (test stpy=481) 36.9 % 40.1-51.0 MEAN CORPUSCULAR VOLUME (BEAKER) (test wvvn=736) 90.2 fL 79.0-92.2 MEAN CORPUSCULAR HEMOGLOBIN (BEAKER) (test 29.1 pg 25.7-32.2 ddvu=943) MEAN CORPUSCULAR HEMOGLOBIN CONC (BEAKER) (test 32.2 GM/DL 32.3-36.5 ctrb=969) RED CELL DISTRIBUTION WIDTH (BEAKER) (test 14.5 % 11.6-14.4 mybh=343) PLATELET COUNT (BEAKER) (test sece=377) 261 K/CU MM 150-450 MEAN PLATELET VOLUME (BEAKER) (test bbhe=282) 9.5 fL 9.4-12.4 NUCLEATED RED BLOOD CELLS (BEAKER) (test 0 /100 WBC 0-0 izqo=511) NEUTROPHILS RELATIVE PERCENT (BEAKER) (test 64 % lkkx=968) LYMPHOCYTES RELATIVE PERCENT (BEAKER) (test 22 % sdhr=158) MONOCYTES RELATIVE PERCENT (BEAKER) (test 8 % ouxk=540) EOSINOPHILS RELATIVE PERCENT (BEAKER) (test 5 % cyer=283) BASOPHILS RELATIVE PERCENT (BEAKER) (test 1 % dtqp=354) NEUTROPHILS ABSOLUTE COUNT (BEAKER) (test 4.02 K/ L 1.78-5.38 dskz=845) LYMPHOCYTES ABSOLUTE COUNT (BEAKER) (test 1.36 K/ L 1.32-3.57 baqb=859) MONOCYTES ABSOLUTE COUNT (BEAKER) (test 0.52 K/ L 0.30-0.82 jkxl=196) EOSINOPHILS ABSOLUTE COUNT (BEAKER) (test 0.34 K/ L 0.04-0.54 hnlu=542) BASOPHILS ABSOLUTE COUNT (BEAKER) (test 0.04 K/ L 0.01-0.08 eyoq=523) IMMATURE GRANULOCYTES-RELATIVE PERCENT (BEAKER) 0 % 0-1 (test ujbe=6667) BASIC METABOLIC [id number] 07:06:00 Test Item Value Reference Range Comments SODIUM (BEAKER) (test 140 meq/L 136-145 iwnt=715) POTASSIUM (BEAKER) (test 3.7 meq/L 3.5-5.1 ikgc=884) CHLORIDE (BEAKER) (test 110 meq/L 98-107 lxzl=893) CO2 (BEAKER) (test 25 meq/L 22-29 wywa=452) BLOOD UREA NITROGEN 19 mg/dL 7-21 (BEAKER) (test xjbe=217) CREATININE (BEAKER) (test 1.00 mg/dL 0.57-1.25 rurc=838) GLUCOSE RANDOM (BEAKER) 98 mg/dL 70-105 (test dzqg=667) CALCIUM (BEAKER) (test 8.6 mg/dL 8.4-10.2 uvez=461) EGFR (BEAKER) (test 75 mL/min/1.73 sq m ESTIMATED GFR IS NOT oybm=2695) ACCURATE CREATININE CLEARANCE IN PREDICTING GLOMERULAR FILTRATION RATE. ESTIMATED GFR IS NOT APPLICABLE FOR DIALYSIS PATIENTS. CBC W/PLT COUNT & AUTO [id number] 06:45:00 Test Item Value Reference Range Comments WHITE BLOOD CELL COUNT (BEAKER) (test iwhd=030) 7.5 K/ L 3.5-10.5 RED BLOOD CELL COUNT (BEAKER) (test hknl=128) 4.50 M/ L 4.63-6.08 HEMOGLOBIN (BEAKER) (test suau=293) 13.0 GM/DL 13.7-17.5 HEMATOCRIT (BEAKER) (test rwog=378) 39.8 % 40.1-51.0 MEAN CORPUSCULAR VOLUME (BEAKER) (test btof=337) 88.4 fL 79.0-92.2 MEAN CORPUSCULAR HEMOGLOBIN (BEAKER) (test 28.9 pg 25.7-32.2 tmom=667) MEAN CORPUSCULAR HEMOGLOBIN CONC (BEAKER) (test 32.7 GM/DL 32.3-36.5 wvqf=815) RED CELL DISTRIBUTION WIDTH (BEAKER) (test 14.6 % 11.6-14.4 hmae=496) PLATELET COUNT (BEAKER) (test fdyn=083) 277 K/CU MM 150-450 MEAN PLATELET VOLUME (BEAKER) (test binh=012) 9.3 fL 9.4-12.4 NUCLEATED RED BLOOD CELLS (BEAKER) (test 0 /100 WBC 0-0 qajw=553) NEUTROPHILS RELATIVE PERCENT (BEAKER) (test 62 % uvkx=987) LYMPHOCYTES RELATIVE PERCENT (BEAKER) (test 23 % itnk=237) MONOCYTES RELATIVE PERCENT (BEAKER) (test 9 % ayqc=755) EOSINOPHILS RELATIVE PERCENT (BEAKER) (test 5 % kmes=399) BASOPHILS RELATIVE PERCENT (BEAKER) (test 1 % yccd=296) NEUTROPHILS ABSOLUTE COUNT (BEAKER) (test 4.67 K/ L 1.78-5.38 gttd=603) LYMPHOCYTES ABSOLUTE COUNT (BEAKER) (test 1.76 K/ L 1.32-3.57 xrag=829) MONOCYTES ABSOLUTE COUNT (BEAKER) (test 0.67 K/ L 0.30-0.82 liym=634) EOSINOPHILS ABSOLUTE COUNT (BEAKER) (test 0.37 K/ L 0.04-0.54 qtmy=695) BASOPHILS ABSOLUTE COUNT (BEAKER) (test 0.04 K/ L 0.01-0.08 cqdw=374) IMMATURE GRANULOCYTES-RELATIVE PERCENT (BEAKER) 0 % 0-1 (test ikiz=9914) PET, CARDIAC PERFUSION MULTIPLE STUDIES, REST AND [id number] 16:18: 00Reason for exam:->pre-op, hx of HTN 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 6. No previous [facility] study for comparison. 7. Multiple low-density lesions throughout the liver are identified on these limited CT images. These can be better characterized for etiology by formal anatomic imaging if not previously evaluated. Signed: Victor M House MDReport Verified Date/Time: 08/30/2018 16:18:15 Reading Location: [place] [id number] Reading Room Electronically signed by: VICTOR M HOUSE MD on 04:18 PMURINE [id number] 13:27:00 Test Item Value Reference Range Comments CULTURE (BEAKER) (test dsqt=0951) No growth BASIC METABOLIC [id number] 07:10:00 Test Item Value Reference Range Comments SODIUM (BEAKER) (test 139 meq/L 136-145 jbgv=738) POTASSIUM (BEAKER) (test 3.9 meq/L 3.5-5.1 unhb=663) CHLORIDE (BEAKER) (test 108 meq/L 98-107 jayi=524) CO2 (BEAKER) (test 22 meq/L 22-29 ciul=321) BLOOD UREA NITROGEN 20 mg/dL 7-21 (BEAKER) (test immt=142) CREATININE (BEAKER) (test 1.14 mg/dL 0.57-1.25 xtsx=265) GLUCOSE RANDOM (BEAKER) 106 mg/dL 70-105 (test lbwj=515) CALCIUM (BEAKER) (test 9.2 mg/dL 8.4-10.2 heuw=069) EGFR (BEAKER) (test 64 mL/min/1.73 sq m ESTIMATED GFR IS NOT nsrh=3558) ACCURATE CREATININE CLEARANCE IN PREDICTING GLOMERULAR FILTRATION RATE. ESTIMATED GFR IS NOT APPLICABLE FOR DIALYSIS PATIENTS. CBC W/PLT COUNT & AUTO [id number] 06:56:00 Test Item Value Reference Range Comments WHITE BLOOD CELL COUNT (BEAKER) (test akrk=284) 8.6 K/ L 3.5-10.5 RED BLOOD CELL COUNT (BEAKER) (test caqp=997) 4.98 M/ L 4.63-6.08 HEMOGLOBIN (BEAKER) (test kccr=227) 14.2 GM/DL 13.7-17.5 HEMATOCRIT (BEAKER) (test wdho=998) 43.4 % 40.1-51.0 MEAN CORPUSCULAR VOLUME (BEAKER) (test aruq=649) 87.1 fL 79.0-92.2 MEAN CORPUSCULAR HEMOGLOBIN (BEAKER) (test 28.5 pg 25.7-32.2 nwqr=493) MEAN CORPUSCULAR HEMOGLOBIN CONC (BEAKER) (test 32.7 GM/DL 32.3-36.5 wygs=375) RED CELL DISTRIBUTION WIDTH (BEAKER) (test 14.8 % 11.6-14.4 sggc=900) PLATELET COUNT (BEAKER) (test xfsv=950) 310 K/CU MM 150-450 MEAN PLATELET VOLUME (BEAKER) (test slcz=602) 9.1 fL 9.4-12.4 NUCLEATED RED BLOOD CELLS (BEAKER) (test 0 /100 WBC 0-0 pxjx=906) NEUTROPHILS RELATIVE PERCENT (BEAKER) (test 63 % wyhg=486) LYMPHOCYTES RELATIVE PERCENT (BEAKER) (test 22 % vrcz=488) MONOCYTES RELATIVE PERCENT (BEAKER) (test 10 % xjot=238) EOSINOPHILS RELATIVE PERCENT (BEAKER) (test 4 % bbbv=612) BASOPHILS RELATIVE PERCENT (BEAKER) (test 1 % gbnh=593) NEUTROPHILS ABSOLUTE COUNT (BEAKER) (test 5.47 K/ L 1.78-5.38 oaxe=493) LYMPHOCYTES ABSOLUTE COUNT (BEAKER) (test 1.88 K/ L 1.32-3.57 senj=165) MONOCYTES ABSOLUTE COUNT (BEAKER) (test 0.83 K/ L 0.30-0.82 lwop=236) EOSINOPHILS ABSOLUTE COUNT (BEAKER) (test 0.36 K/ L 0.04-0.54 afxt=384) BASOPHILS ABSOLUTE COUNT (BEAKER) (test 0.04 K/ L 0.01-0.08 ssda=647) IMMATURE GRANULOCYTES-RELATIVE PERCENT (BEAKER) 1 % 0-1 (test awot=7693) BASIC METABOLIC [id number] 06:44:00 Test Item Value Reference Range Comments SODIUM (BEAKER) (test 138 meq/L 136-145 jrug=317) POTASSIUM (BEAKER) (test 4.2 meq/L 3.5-5.1 Specimen slightly ytdn=798) hemolyzed CHLORIDE (BEAKER) (test 108 meq/L 98-107 qolq=188) CO2 (BEAKER) (test 22 meq/L 22-29 bfhy=719) BLOOD UREA NITROGEN 17 mg/dL 7-21 (BEAKER) (test rgsb=593) CREATININE (BEAKER) (test 1.02 mg/dL 0.57-1.25 Specimen slightly pftu=992) hemolyzed GLUCOSE RANDOM (BEAKER) 99 mg/dL 70-105 (test setk=071) CALCIUM (BEAKER) (test 9.7 mg/dL 8.4-10.2 mkzy=232) EGFR (BEAKER) (test 73 mL/min/1.73 sq m ESTIMATED GFR IS NOT zmux=5474) ACCURATE CREATININE CLEARANCE IN PREDICTING GLOMERULAR FILTRATION RATE. ESTIMATED GFR IS NOT APPLICABLE FOR DIALYSIS PATIENTS. CBC W/PLT COUNT & AUTO [id number] 06:34:00 Test Item Value Reference Range Comments WHITE BLOOD CELL COUNT (BEAKER) (test ukad=867) 10.7 K/ L 3.5-10.5 RED BLOOD CELL COUNT (BEAKER) (test splq=165) 5.29 M/ L 4.63-6.08 HEMOGLOBIN (BEAKER) (test xruy=335) 15.6 GM/DL 13.7-17.5 HEMATOCRIT (BEAKER) (test egkg=701) 46.4 % 40.1-51.0 MEAN CORPUSCULAR VOLUME (BEAKER) (test lyvy=168) 87.7 fL 79.0-92.2 MEAN CORPUSCULAR HEMOGLOBIN (BEAKER) (test 29.5 pg 25.7-32.2 conx=803) MEAN CORPUSCULAR HEMOGLOBIN CONC (BEAKER) (test 33.6 GM/DL 32.3-36.5 dupy=648) RED CELL DISTRIBUTION WIDTH (BEAKER) (test 14.7 % 11.6-14.4 jfnz=921) PLATELET COUNT (BEAKER) (test dlfs=417) 304 K/CU MM 150-450 MEAN PLATELET VOLUME (BEAKER) (test eobs=230) 9.5 fL 9.4-12.4 NUCLEATED RED BLOOD CELLS (BEAKER) (test 0 /100 WBC 0-0 fqui=889) NEUTROPHILS RELATIVE PERCENT (BEAKER) (test 72 % xrqx=043) LYMPHOCYTES RELATIVE PERCENT (BEAKER) (test 16 % uqid=496) MONOCYTES RELATIVE PERCENT (BEAKER) (test 8 % nnvu=593) EOSINOPHILS RELATIVE PERCENT (BEAKER) (test 4 % ivlc=501) BASOPHILS RELATIVE PERCENT (BEAKER) (test 1 % uwjl=105) NEUTROPHILS ABSOLUTE COUNT (BEAKER) (test 7.64 K/ L 1.78-5.38 jjeu=323) LYMPHOCYTES ABSOLUTE COUNT (BEAKER) (test 1.71 K/ L 1.32-3.57 vxhq=468) MONOCYTES ABSOLUTE COUNT (BEAKER) (test 0.81 K/ L 0.30-0.82 fnlf=321) EOSINOPHILS ABSOLUTE COUNT (BEAKER) (test 0.41 K/ L 0.04-0.54 mpad=092) BASOPHILS ABSOLUTE COUNT (BEAKER) (test 0.05 K/ L 0.01-0.08 tqqc=298) IMMATURE GRANULOCYTES-RELATIVE PERCENT (BEAKER) 1 % 0-1 (test mxep=6705) BASIC METABOLIC [id number] 17:36:00 Test Item Value Reference Range Comments SODIUM (BEAKER) (test 138 meq/L 136-145 zibp=576) POTASSIUM (BEAKER) (test 3.8 meq/L 3.5-5.1 fpdf=835) CHLORIDE (BEAKER) (test 106 meq/L 98-107 nvmw=373) CO2 (BEAKER) (test 23 meq/L 22-29 hrgw=427) BLOOD UREA NITROGEN 11 mg/dL 7-21 (BEAKER) (test iaan=869) CREATININE (BEAKER) (test 0.94 mg/dL 0.57-1.25 egkr=244) GLUCOSE RANDOM (BEAKER) 105 mg/dL 70-105 (test hlga=253) CALCIUM (BEAKER) (test 9.5 mg/dL 8.4-10.2 omvg=507) EGFR (BEAKER) (test 80 mL/min/1.73 sq m ESTIMATED GFR IS NOT wbmp=5375) ACCURATE CREATININE CLEARANCE IN PREDICTING GLOMERULAR FILTRATION RATE. ESTIMATED GFR IS NOT APPLICABLE FOR DIALYSIS PATIENTS. PROTHROMBIN [id number] 17:33:00 Test Item Value Reference Range Comments PROTIME (BEAKER) (test tmpy=065) 13.0 seconds 11.7-14.7 INR (BEAKER) (test xvwi=727) 1.0 <=5.9 RECOMMENDED COUMADIN/WARFARIN INR THERAPY RANGESSTANDARD DOSE: 2.0 - 3.0 Includes: PROPHYLAXIS forvenous thrombosis, systemic embolization; TREATMENT for venous thrombosis and/or pulmonary embolus.HIGH RISK: Target INR is 2.5-3.5 for patients with mechanical heart valves.CBC W/PLT COUNT & AUTO [id number] 17:13:00 Test Item Value Reference Range Comments WHITE BLOOD CELL COUNT (BEAKER) (test zioc=802) 8.8 K/ L 3.5-10.5 RED BLOOD CELL COUNT (BEAKER) (test wxhy=906) 5.05 M/ L 4.63-6.08 HEMOGLOBIN (BEAKER) (test onep=097) 14.7 GM/DL 13.7-17.5 HEMATOCRIT (BEAKER) (test pigr=214) 44.0 % 40.1-51.0 MEAN CORPUSCULAR VOLUME (BEAKER) (test lmec=517) 87.1 fL 79.0-92.2 MEAN CORPUSCULAR HEMOGLOBIN (BEAKER) (test 29.1 pg 25.7-32.2 ipuj=613) MEAN CORPUSCULAR HEMOGLOBIN CONC (BEAKER) (test 33.4 GM/DL 32.3-36.5 kqrz=712) RED CELL DISTRIBUTION WIDTH (BEAKER) (test 14.8 % 11.6-14.4 fueo=621) PLATELET COUNT (BEAKER) (test qimg=682) 285 K/CU MM 150-450 MEAN PLATELET VOLUME (BEAKER) (test tocp=574) 9.1 fL 9.4-12.4 NUCLEATED RED BLOOD CELLS (BEAKER) (test 0 /100 WBC 0-0 tsnl=705) NEUTROPHILS RELATIVE PERCENT (BEAKER) (test 70 % bdow=907) LYMPHOCYTES RELATIVE PERCENT (BEAKER) (test 19 % dytz=076) MONOCYTES RELATIVE PERCENT (BEAKER) (test 8 % rtrx=500) EOSINOPHILS RELATIVE PERCENT (BEAKER) (test 2 % wceo=780) BASOPHILS RELATIVE PERCENT (BEAKER) (test 0 % nkpj=970) NEUTROPHILS ABSOLUTE COUNT (BEAKER) (test 6.17 K/ L 1.78-5.38 qgwv=006) LYMPHOCYTES ABSOLUTE COUNT (BEAKER) (test 1.71 K/ L 1.32-3.57 osgy=714) MONOCYTES ABSOLUTE COUNT (BEAKER) (test 0.71 K/ L 0.30-0.82 qhzo=151) EOSINOPHILS ABSOLUTE COUNT (BEAKER) (test 0.20 K/ L 0.04-0.54 ubhx=978) BASOPHILS ABSOLUTE COUNT (BEAKER) (test 0.02 K/ L 0.01-0.08 fans=763) IMMATURE GRANULOCYTES-RELATIVE PERCENT (BEAKER) 0 % 0-1 (test vqdy=1951)
--- OUTSIDE RECORDS SUMMARY | 2019-12-03 23:06 | XMS REPORT ---
[...] Date Status Dosage System Date BusPIRone HCl [facility] [id number] 7.5 MG Orally Aug 26, Active 1 tablet Twice a day 2019 Results No Known Results Summary Purpose eClinicalWorks Submission
--- OUTSIDE RECORDS SUMMARY | 2019-12-03 23:07 | XMS REPORT ---
[...] Z87.442 Active Problem Erectile dysfunction N52.9 Active Problem Kidney stones N20.0 Active Problem Sinus problem J34.9 Active Problem Depression F32.9 Active Problem Cancer C80.1 Active Problem Diverticulitis K57.92 Active Medications No Known Medications Results No Known Results Summary Purpose eClinicalWorks Submission
--- OUTSIDE RECORDS SUMMARY | 2019-12-03 23:07 | XMS REPORT ---
:1950 [facility] Team Providers Name Role Phone Shalonda Manrique Provider Role Unavailable Allergies, Adverse Reactions, Alerts Substance Reaction Event Type N.K.D.A. 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 Assessment Other chronic pain G89.29 Active Problem Hypertension, unspecified type I10 Active Assessment Lumbago with sciatica, right side M54.41 Active Problem Gastritis, presence of bleeding K29.70 Active unspecified, unspecified chronicity, unspecified gastritis type Problem Left shoulder pain, unspecified M25.512 Active chronicity Problem Medication monitoring encounter Z51.81 Active Problem Lumbago with sciatica, right side M54.41 Active Problem History of biopsy of bladder Z98.890 Active Problem History of kidney stones Z87.442 Active Problem Other chronic pain G89.29 Active Assessment Right sciatic nerve pain M54.31 Active Problem 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, unspecified site Problem Right wrist pain M25.531 Active Problem Right sciatic nerve pain M54.31 Active Problem Cerumen impaction H61.20 Active Problem Erectile dysfunction N52.9 Active Problem Kidney stones N20.0 Active Problem Sinus problem J34.9 Active Problem Cancer C80.1 Active Problem Anxiety F41.9 Active Problem Gastroesophageal reflux disease, K21.9 Active esophagitis presence not specified Problem Depression F32.9 Active Problem Diverticulitis K57.92 Active Medications Medication Code Code Instructions Start End Status Dosage System Date Date Losartan [facility] 34619645651 100-12.5 MG Active 1 tablet Potassium-HCTZ Orally Once a day BusPIRone HCl [facility] 58335500291 15 MG Orally Aug 26, Active 1 tablet Twice a day 2019 as needed for anxiety Flonase [facility] 05405145430 50 MCG/ACT Active 2 sprays Nasally Once a in each day nostril (otc) ZyrTEC NDC 27233512049 Orally Once Active 10 mg 1 dailly tablet (OTC) Amlodipine ND 15805612419 5 MG Orally Once Active 1 tablet Besylate a day Omeprazole ND 19242364424 20 MG Orally Active 1 tablet Once a day Gabapentin ND 24654777820 300 MG Orally Oct 28, Active 1 capsule Four times daily 2019 as needed Results No Known Results Summary Purpose eClinicalWorks Submission
--- NOTE | 2019-12-04 00:42 | ER ---
Nurse's Notes [facility] Name: Chema Hernandez Age: 69 yrs Sex: Male : 1950 Arrival Date: 12/03/2019 Time: 23:09 Bed 17 Private MD: Diagnosis: Urinary tract infection, site not specified;Dysuria;Hematuria Presentation: 12/03 23:11 Presenting complaint: EMS states: Pt with Hx of Bladder Cancer, had a Cath Infusion Therapy today at 13:30, was discharged home and developed blood in urine. Transition of care: patient was not received from another setting of care. Onset of symptoms was December 03, 2019. Risk Assessment: Do you want to hurt yourself or someone else? Patient reports no desire to harm self or others. Initial Sepsis Screen: Does the patient meet any 2 criteria? No. Patient's initial sepsis screen is negative. Does the patient have a suspected source of infection? No. Patient's initial sepsis screen is negative. Care prior to arrival: None. 23:11 Method Of Arrival: EMS: [email or web address] 23:11 Acuity: ERMA 3 Historical: - Allergies: 23:15 No Known Allergies; wh - Home Meds: 23:15 amlodipine oral [Active]; Buspirone Oral [Active]; gabapentin 300 mg Oral cap [Active]; wh losartan Oral [Active]; omeprazole 40 mg Oral cpDR 1 cap once daily [Active]; - PMHx: 23:15 Bladder cancer; Hypertension; Kidney stones; mitral valve prolapse; Polycythemia; wh Sciatica; GERD; - PSHx: 23:15 Hernia repair; Prostatectomy; - Immunization history:: Adult Immunizations up to date. - Coronavirus screen:: The patient has NOT traveled to [place] in the past 14 days. - Social history:: Smoking status: Patient/guardian denies using. - Family history:: not pertinent. - Ebola Screening: : Patient negative for fever greater than or equal to 101.5 degrees Fahrenheit, and additional compatible Ebola Virus Disease symptoms Patient denies exposure to infectious person. Screenin:17 Abuse screen: Denies threats or abuse. Denies injuries from another. Nutritional screening: No deficits noted. Tuberculosis screening: No symptoms or risk factors identified. Fall Risk None identified. Assessment: 23:16 General: Appears in no apparent distress. Behavior is calm, cooperative, appropriate wh for age. Pain: Denies pain. Neuro: Level of Consciousness is awake, alert, obeys commands, Oriented to person, place, time, situation, Appropriate for age. Cardiovascular: Heart tones S1 S2. Respiratory: Airway is patent Respiratory effort is even, unlabored, Respiratory pattern is regular, symmetrical, Breath sounds are clear bilaterally. GI: Abdomen is flat, non-distended. : Reports burning with urination, bloody urine. EENT: No signs and/or symptoms were reported regarding the EENT system. Derm: Skin is intact, is healthy with good turgor, Skin is pink, warm \T\ dry. normal. Musculoskeletal: Circulation, motion, and sensation intact. 12/04 00:15 Reassessment: Patient appears in no apparent distress at this time. No changes from previously documented assessment. Patient and/or family updated on plan of care and expected duration. Pain level reassessed. Patient is alert, oriented x 3, equal unlabored respirations, skin warm/dry/pink. 01:44 Reassessment: Patient appears in no apparent distress at this time. No changes from previously documented assessment. Patient and/or family updated on plan of care and expected duration. Pain level reassessed. Patient is alert, oriented x 3, equal unlabored respirations, skin warm/dry/pink. Patient states feeling better. Patient states symptoms have improved. Vital Signs: 12/03 23:15 BP 112 / 70; Pulse 74; Resp 18; Temp 97.8; Pulse Ox 99% ; Weight 65.77 kg; Height 5 ft. 9 in. (175.26 cm); 12/04 00:15 BP 118 / 74; Pulse 72; Resp 18; Pulse Ox 98% on R/A; 01:30 BP 113 / 76; Pulse 62; Resp 18; Pulse Ox 97% on R/A; 12/03 23:15 Body Mass Index 21.41 (65.77 kg, 175.26 cm) ED Course: 12/03 23:09 Patient arrived in ED. wh 23:11 James Bain is Primary Nurse. wh 23:13 Triage completed. wh 23:18 Arm band placed on right wrist. wh 23:18 Patient has correct armband on for positive identification. Placed in gown. Bed in low wh position. Call light in reach. Side rails up X 1. Pulse ox on. NIBP on. 12/04 00:00 Douglas Goetz MD is Attending Physician. [facility] 01:45 No provider procedures requiring assistance completed. Patient did not have IV access during this emergency room visit. Administered Medications: 01:19 Drug: Rocephin (cefTRIAXone) 1 grams Route: IM; Site: left gluteus; 01:48 Follow up: Response: No adverse reaction 01:19 Drug: Valium 5 mg Route: PO; 01:47 Follow up: Response: No adverse reaction; RASS: Alert and Calm (0) 01:19 Drug: Valium 5 mg {Note: Given as per MD instruction.} Route: PO; 01:47 Follow up: Response: No adverse reaction 01:19 Drug: Pyridium 200 mg Route: PO; 01:47 Follow up: Response: No adverse reaction 01:20 Drug: Cipro 500 mg Route: PO; 01:48 Follow up: Response: No change in condition 01:20 Drug: [place] 10 mg-325 mg 1 tabs Route: PO; 01:48 Follow up: Response: No adverse reaction; Pain is decreased; RASS: Alert and Calm (0) Outcome: 00:41 Discharge ordered by . [facility] 01:45 Discharged to home ambulatory, with family. 01:45 Condition: stable 01:45 Discharge instructions given to patient, family, Instructed on discharge instructions, follow up and referral plans. no drinking with medication, no driving heavy equipment, medication usage, POC Demonstrated understanding of instructions, follow-up care, medications, POC Prescriptions given X 3. 01:48 Patient left the ED. Signatures: Douglas Goetz MD MD cha Habalo, Winsy
--- NOTE | 2019-12-04 00:43 | EDPHYS ---
Physician Documentation [facility] Name: Chema Hernandez Age: 69 yrs Sex: Male : 1950 Arrival Date: 12/03/2019 Time: 23:09 Bed 17 Private MD: ED Physician Douglas Goetz HPI: 12/04 00:34 This 69 yrs old Male presents to ER via EMS with complaints of dysuria and janie hematuria after chemo today. 00:34 The patient presents with tenderness, urinary symptoms, dysuria, urinary frequency, janie hesitancy to initiate urine stream. Onset: The symptoms/episode began/occurred yesterday. Modifying factors: The symptoms are alleviated by nothing, the symptoms are aggravated by nothing. Associated signs and symptoms: Pertinent positives: dysuria, hematuria. The patient has experienced similar episodes in the past, a few times. Historical: - Allergies: 12/03 23:15 No Known Allergies; wh - Home Meds: 23:15 amlodipine oral [Active]; Buspirone Oral [Active]; gabapentin 300 mg Oral cap [Active]; wh losartan Oral [Active]; omeprazole 40 mg Oral cpDR 1 cap once daily [Active]; - PMHx: 23:15 Bladder cancer; Hypertension; Kidney stones; mitral valve prolapse; Polycythemia; wh Sciatica; GERD; - PSHx: 23:15 Hernia repair; Prostatectomy; wh - Immunization history:: Adult Immunizations up to date. - Coronavirus screen:: The patient has NOT traveled to [place] in the past 14 days. - Social history:: Smoking status: Patient/guardian denies using. - Family history:: not pertinent. - Ebola Screening: : Patient negative for fever greater than or equal to 101.5 degrees Fahrenheit, and additional compatible Ebola Virus Disease symptoms Patient denies exposure to infectious person. ROS: 12/04 00:34 Constitutional: Negative for fever, chills, and weight loss, Eyes: Negative for injury, janie pain, redness, and discharge, ENT: Negative for injury, pain, and discharge, Neck: Negative for injury, pain, and swelling, Cardiovascular: Negative for chest pain, palpitations, and edema, Respiratory: Negative for shortness of breath, cough, wheezing, and pleuritic chest pain, Back: Negative for injury and pain, : Negative for injury, bleeding, discharge, and swelling, MS/Extremity: Negative for injury and deformity, Skin: Negative for injury, rash, and discoloration, Neuro: Negative for headache, weakness, numbness, tingling, and seizure, Psych: Negative for depression, anxiety, suicide ideation, homicidal ideation, and hallucinations, Allergy/Immunology: Negative for hives, rash, and allergies, Endocrine: Negative for neck swelling, polydipsia, polyuria, polyphagia, and marked weight changes, Hematologic/Lymphatic: Negative for swollen nodes, abnormal bleeding, and unusual bruising. Abdomen/GI: Positive for abdominal pain, of the suprapubic area. : Positive for urinary symptoms, urinary frequency, hematuria, burning with urination, difficulty urinating. Exam: 00:34 Constitutional: This is a well developed, well nourished patient who is awake, alert, janie and in no acute distress. Head/Face: Normocephalic, atraumatic. Eyes: Pupils equal round and reactive to light, extra-ocular motions intact. Lids and lashes normal. Conjunctiva and sclera are non-icteric and not injected. Cornea within normal limits. Periorbital areas with no swelling, redness, or edema. ENT: Nares patent. No nasal discharge, no septal abnormalities noted. Tympanic membranes are normal and external auditory canals are clear. Oropharynx with no redness, swelling, or masses, exudates, or evidence of obstruction, uvula midline. Mucous membranes moist. Neck: Trachea midline, no thyromegaly or masses palpated, and no cervical lymphadenopathy. Supple, full range of motion without nuchal rigidity, or vertebral point tenderness. No Meningismus. Chest/axilla: Normal chest wall appearance and motion. Nontender with no deformity. No lesions are appreciated. Cardiovascular: Regular rate and rhythm with a normal S1 and S2. No gallops, murmurs, or rubs. Normal PMI, no JVD. No pulse deficits. Respiratory: Lungs have equal breath sounds bilaterally, clear to auscultation and percussion. No rales, rhonchi or wheezes noted. No increased work of breathing, no retractions or nasal flaring. Back: No spinal tenderness. No costovertebral tenderness. Full range of motion. Male : Normal genitalia with no discharge or lesions. Skin: Warm, dry with normal turgor. Normal color with no rashes, no lesions, and no evidence of cellulitis. MS/ Extremity: Pulses equal, no cyanosis. Neurovascular intact. Full, normal range of motion. Neuro: Awake and alert, GCS 15, oriented to person, place, time, and situation. Cranial nerves II-XII grossly intact. Motor strength 5/5 in all extremities. Sensory grossly intact. Cerebellar exam normal. Normal gait. Psych: Awake, alert, with orientation to person, place and time. Behavior, mood, and affect are within normal limits. 00:34 Abdomen/GI: Inspection: abdomen appears normal, Bowel sounds: normal, Palpation: mild abdominal tenderness, in the suprapubic area, Liver: no appreciated palpable abnormalities, Hernia: not appreciated. Vital Signs: 12/03 23:15 BP 112 / 70; Pulse 74; Resp 18; Temp 97.8; Pulse Ox 99% ; Weight 65.77 kg; Height 5 ft. 9 in. (175.26 cm); 12/04 00:15 BP 118 / 74; Pulse 72; Resp 18; Pulse Ox 98% on R/A; 01:30 BP 113 / 76; Pulse 62; Resp 18; Pulse Ox 97% on R/A; 12/03 23:15 Body Mass Index 21.41 (65.77 kg, 175.26 cm) MDM: 00:00 Patient medically screened. [facility] 00:40 Data reviewed: vital signs, nurses notes, lab test result(s), urinalysis, hematuria. [facility] 12/04 00:02 Order name: Urine Culture [facility] 12/04 00:29 Order name: Urine Dipstick--Ancillary (enter results) cm6 12/04 00:02 Order name: Urine Dipstick-Ancillary (obtain specimen); Complete Time: 00:18 [facility] 12/04 00:02 Order name: Bladder Scanner; Complete Time: 00:18 [facility] Administered Medications: :19 Drug: Rocephin (cefTRIAXone) 1 grams Route: IM; Site: left gluteus; 01:48 Follow up: Response: No adverse reaction :19 Drug: Valium 5 mg Route: PO; 01:47 Follow up: Response: No adverse reaction; RASS: Alert and Calm (0) :19 Drug: Valium 5 mg {Note: Given as per MD instruction.} Route: PO; 01:47 Follow up: Response: No adverse reaction 01:19 Drug: Pyridium 200 mg Route: PO; :47 Follow up: Response: No adverse reaction 01:20 Drug: Cipro 500 mg Route: PO; :48 Follow up: Response: No change in condition 01:20 Drug: [place] 10 mg-325 mg 1 tabs Route: PO; 01:48 Follow up: Response: No adverse reaction; Pain is decreased; RASS: Alert and Calm (0) Disposition: 12/04/19 00:41 Discharged to Home. Impression: Urinary tract infection, site not specified, Dysuria, Hematuria. - Condition is Stable. - Discharge Instructions: Dysuria, Hematuria, Adult, Urinary Tract Infection, Adult, Urinary Tract Infection, Adult, [id number], Antibiotic Medicine, Adult, Antibiotic Medicine, [id number]. - Prescriptions for Pyridium 200 mg Oral Tablet - take 1 tablet by ORAL route every 8 hours for 3 days; 9 tablet. Tylenol- Codeine #3 300-30 mg Oral Tablet - take 2 tablets by ORAL route every 6 hours As needed; 20 tablet. Cipro 500 mg Oral Tablet - take 1 tablet by ORAL route every 12 hours for 7 days; 14 tablet. - Medication Reconciliation Form, Thank You Letter, Antibiotic Education, Prescription Opioid Use form. - Follow up: Private Physician; When: 2 - 3 days; Reason: Recheck today's complaints, Continuance of care, Re-evaluation by your physician. - Problem is new. - Symptoms have improved. Signatures: Dispatcher [employer] Douglas London MD MD cha Habalo, Winsy Corrections: (The following items were deleted from the chart) 01:48 00:41 12/04/2019 00:41 Discharged to Home. Impression: Urinary tract infection, site wh not specified; Dysuria; Hematuria. Condition is Stable. Forms are Medication Reconciliation Form, Thank You Letter, Antibiotic Education, Prescription Opioid Use. Follow up: Private Physician; When: 2 - 3 days; Reason: Recheck today's complaints, Continuance of care, Re-evaluation by your physician. Problem is new. Symptoms have improved. janie
[2019-12-04] MEDS ORDERED: HYDROCODONE/APAP 10/325 TAB ONE (01:11)
[2019-12-04] MEDS ORDERED: PHENAZOPYRIDINE 100MG TAB PO ONE (01:11)
[2019-12-04] MEDS ORDERED: WATER FOR INJ,STERILE 10 ML ONE (01:12)
[2019-12-04] MEDS ORDERED: CEFTRIAXONE 1000 MG/VIAL ONE (01:12)
[2019-12-04] MEDS ORDERED: DIAZEPAM 5 MG TABLET ONE (01:12)
[2019-12-04 01:18] LABS: Urine Blood 3+ (NEG); Urine Glucose NEGATIVE (NEG); Urine Protein 3+ (NEG)
[2019-12-04] MEDS ORDERED: CIPROFLOXACIN HCL 500 MG TAB ONE (01:20)
[2019-12-04 03:14] VITALS: BP 113/76; O2SAT 97
== END 2019-12-04 01:48 | disposition home or self-care (01) ==
LOC: ER 23:01
DX: N39.0 Urinary tract infection, site not specified (principal); R31.9 Hematuria, unspecified; C67.9 Malignant neoplasm of bladder, unspecified
CPT/HCPCS: 81003; 87086; 87088; 96372; 99284

== ENCOUNTER 2020-09-07 12:31 | Observation (INO) | payer OTHER, SELFPAY ==
--- OUTSIDE RECORDS SUMMARY | 2020-09-07 12:35 | XMS REPORT | Clinical Summary ---
:1950 Author Organization [facility] Address [address] [place] [address] Care Team Providers Name Role Phone Shalonda Manrique MD Primary Care Provider [phone] Allergies No Known Allergies Medications Medication Sig Dispensed Refills Start End Status Date Date omeprazole Take 40 mg by 0 Activ e (PRILOSEC) 40 MG mouth daily. capsule amLODIPine Take 5 mg by 0 Active (NORVASC) 5 MG mouth daily. tablet busPIRone (BUSPAR) Take 15 mg by 0 Active 15 MG tablet mouth daily . cyclobenzaprine Take 1 tablet 90 tablet 0 12/18/19 Active (FLEXERIL) 10 MG (10 mg total) 20 tablet by mouth 3 (three) times daily as needed for Muscle spasms. lidocaine Place 2 60 patch 0 12/18/19 Active (LIDODERM) 5 % patches onto 20 patch the skin daily Remove & Discard patch within 12 hours or as directed by MD. senna (SENOKOT) 8.6 Take 1 tablet 0 12/18/19/ 2 Active mg tablet (8.6 mg total) 20 021 by mouth 2 (two) times daily. sertraline (ZOLOFT) Take 1 tablet 30 tablet 0 12/18/19/ 2 Active 50 MG tablet (50 mg total) 20 021 by mouth daily. HYDROcodone-acetami Take 1 tablet 120 tablet 0 12/18/19 Active nophen (NORCO by mouth every 20 10-325) 10-325 mg 4 (four) hours per tablet as needed for Pain. Max Daily Amount: 6 tablets morphine (MS Take 1 tablet 60 tablet 0 12/18/19 Act prosper CONTIN) 30 MG 12 hr (30 mg total) 20 tablet by mouth every 12 (twelve) hours. Max Daily Amount: 60 mg pregabalin (LYRICA) Take 1 capsule 90 capsule 0 12/18/19 03/0 4/2 Active 25 MG capsule (25 mg total) 20 021 by mouth 3 (three) times daily. Max Daily Amount: 75 mg losartan-hydrochlor Take 1 tablet 0 Discontinued othiazide (HYZAAR) by mouth 020 ( Stop Taking at 100-12.5 mg per daily. Disc harge) tablet amLODIPine Take 5 mg by 0 Discon tinued (NORVASC) 5 MG mouth daily. 020 (S top Taking at tablet Discharge) ALPRAZolam (XANAX) Take 0.25 mg 0 Discontinued 0.25 MG tablet by mouth as 020 (St op Taking at needed for Discharge ) Anxiety. gabapentin Take 300 mg by 0 Disc ontinued (NEURONTIN) 300 MG mouth 4 (four) 020 (Stop Taking at capsule times daily . Discha rge) losartan-hydrochlor Take 1 tablet 0 Discontinued othiazide (HYZAAR) by mouth 020 ( Stop Taking at 100-12.5 mg per daily. Disc harge) tablet phenazopyridine Take 1 tablet 10 tablet 0 11/15/19 (PYRIDIUM) 200 MG (200 mg total) 20 020 tablet by mouth 3 (three) times daily as needed for up to 3 days. nitrofurantoin, Take 1 capsule 6 capsule 0 11/15/19 macrocrystal-monohy (100 mg total) 20 020 drate, (MACROBID) by mouth 2 100 MG capsule (two) times daily for 3 days. ciprofloxacin HCl Take 500 mg by 0 Discontinued (CIPRO) 500 MG mouth 2 (two) 020 ( Stop Taking at tablet times daily. Dischar ge) meloxicam (MOBIC) Take 15 mg by 0 Discontinued 15 MG tablet mouth daily. 020 (Err or) bisacodyl Place 1 12 suppository 0 12/18/19 Expir ed (DULCOLAX) 10 mg suppository 20 020 suppository (10 mg total) rectally daily as needed for up to 10 days. HYDROcodone-acetami Take 1 tablet 120 tablet 0 12/18/1912/17 Discontinued nophen (NORCO by mouth every 20 020 10-325) 10-325 mg 4 (four) hours per tablet as needed for Pain. Max Daily Amount: 6 tablets morphine (MS Take 1 tablet 60 tablet 0 12/18/19 Dis continued CONTIN) 30 MG 12 hr (30 mg total) 20 020 tablet by mouth every 12 (twelve) hours. Max Daily Amount: 60 mg polyethylene glycol Take 17 g by 14 each 0 12/18/19 (GLYCOLAX) 17 gram mouth 2 (two) 20 020 packet times daily for 3 days. pregabalin (LYRICA) Take 1 capsule 90 capsule 0 12/18/1901/15 Discontinued 25 MG capsule (25 mg total) 20 020 by mouth 3 (three) times daily. 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 Encounters Date Type Specialty Care Team Description 12/10/2019 - Hospital Encounter Cardiology Marj Scott Malign ant neoplasm of overlapping sites of bladder (HCC) (Primary Dx); 12/18/2019 MD Grecia Sacral lesion; Charlette Fitch, Malignant ne oplasm of urinary bladder, unspecified site (HCC); Intractable pain; Jack Marian Pelvic mass in male; MD Navid Acute right-sided low back pain with sci atica, sciatica laterality unspecified; Gadicherla, Acute renal dale lure, unspecified acute renal failure type (HCC); Sosa Cancer associat ed pain; MD Frank Slow transit constipation; Poor appetite; Goals of care, counseling/discussion; Palliative care by specialist 12/10/2019 Travel 12/10/2019 Orders Only General Internal Medicine 11/15/2019 Hospital Encounter Grey Beck Acute uri nary retention; MD Madi Gross hematuria ; Malignant neopl asm of overlapping sites of bladder (HCC) 11/15/2019 Anesthesia Event Yessi Rowland DO 11/15/2019 Surgery [facility] CYSTOSCOPY,TURB T MD Madi 11/14/2019 - Hospital Encounter Jefe Ryan 11/15/2019 MD Kiran Ch Seth Paul, MD 11/14/2019 Travel 11/13/2019 Hospital Encounter Pre-Admission Testing after 09/07/2019 Social History Tobacco Use Types Packs/Day Years Used Date Former Smoker 51 Smokeless Tobacco: Never Used Tobacco Cessation: Ready to Quit: Yes; Alison finney Given: Yes Comments: 08/23/2018 quit Alcohol Use Drinks/Week oz/Week Comments Yes Alcohol Habits Answer Date Recorded How often do you have a drink containing 4 or more times a w [place] 08/28/2018 alcohol? How many drinks containing alcohol do you have 1 or 2 08/28/2018 on a typical day when you are drinking? How often do you have six or more drinks on one Never 08/28/2018 occasion? Education Answer Date Recorded What is the highest level of school Bachelor's degree (e.g., BA, AB, 08/28/2018 you have completed or the highest BS) degree you have received? Financial Resource Strain Answer Date Recorded How hard is it for you to pay for the very basics like Not h kanchan at all 08/28/2018 food, housing, medical care, and heating? Food Insecurity Answer Date Recorded Within the past 12 months, you worried that your food would Never true 08/28/2018 run out before you got money to buy more. Within the past 12 months, the food you bought just didn't N ever true 08/28/2018 last and you didn't have money to get more. Transportation Needs Answer Date Recorded In the past 12 months, has lack of transportation kept you f rom No 08/28/2018 medical appointments or from getting medications? In the past 12 months, has lack of transportation kept you f rom No 08/28/2018 meetings, work, or getting things needed for daily living? Sex Assigned at Date Recorded Not on file Last Filed Vital Signs Vital Sign Reading Time Taken Comments Blood Pressure 121/82 12/18/2019 3:38 PM [facility] Pulse 97 12/18/2019 3:38 PM [facility] Temperature 36.9 C (98.5 F) 12/18/2019 3:38 PM [facility] Respiratory Rate 18 12/18/2019 3:38 PM [facility] Oxygen Saturation 97% 12/18/2019 3:38 PM [facility] Inhaled Oxygen Concentration - - Weight 63.5 kg (140 lb) 12/10/2019 5:24 PM [facility] Height 175.3 cm (5' 9") 12/10/2019 5:24 PM [facility] Body Mass Index 20.67 12/10/2019 5:24 PM [facility] Plan of Treatment Health Maintenance Due Date Last Done Comments COLON CANCER SCREENING COLONOSCOPY 1950 PNEUMOCOCCAL 65+ YRS (1 of 1 - 2016 [id number]) INFLUENZA VACCINE (#1) 2020 10/02/2019, 07/25/2018 Implants Implanted Type Area Supervisor Fur Dressing Device Shelf Model / Identifier Expiration Serial / Lot Date Contour Injection Stent Set Left: BOSTON [id number] / Implanted: Qty: 1 on 09/01/2018 by Grey Rebolledo MD at [facility] [employer] / [id number] Procedures Procedure Name Priority Date/Time Associated Comments Diagnosis RHYTHM STRIP - SCAN 12/19/2019 2:02 PM [facility] REPORT OF PROCEDURE - 12/19/2019 2:02 ENDOSCOPY SCAN PM [facility] NM BONE SCAN WHOLE Routine 12/17/2019 5:12 Resul ts for this BODY PM [facility] procedure are i n the results section. CT ABDOMEN/PELVIS Routine 12/17/2019 10:27 Result s for this WITH IV CONTRAST AM [facility] procedure a re in the results section. BASIC METABOLIC PANEL Routine 12/17/2019 4:59 Re sults for this (7) AM [facility] procedure are i n the results section. BASIC METABOLIC PANEL Routine 12/16/2019 3:52 Re sults for this (7) AM [facility] procedure are i n the results section. CBC (HEMOGRAM ONLY) Routine 12/16/2019 3:52 Resu lts for this AM [facility] procedure are i n the results section. BASIC METABOLIC PANEL Routine 12/14/2019 5:39 Re sults for this (7) AM [facility] procedure are i n the results section. CBC (HEMOGRAM ONLY) Routine 12/14/2019 3:45 Resu lts for this AM [facility] procedure are i n the results section. CT Routine 12/12/2019 9:31 Results for this BIOPSY/ASPIRATION/INJ AM [facility] proced ure are in ECTION the results section. TISSUE EXAM AP Routine 12/12/2019 9:26 Results for this AM [facility] procedure are i n the results section. APTT Routine 12/12/2019 3:58 Results for this AM [facility] procedure are i n the results section. PROTHROMBIN TIME/INR Routine 12/12/2019 3:58 Res ults for this AM [facility] procedure are i n the results section. BASIC METABOLIC PANEL Routine 12/12/2019 3:58 Re sults for this (7) AM [facility] procedure are i n the results section. CBC (HEMOGRAM ONLY) Routine 12/12/2019 3:58 Resu lts for this AM [facility] procedure are i n the results section. URINALYSIS W/ REFLEX STAT 12/11/2019 6:18 Res ults for this URINE CULTURE AM [facility] procedure are in the results section. URINE CULTURE STAT 12/11/2019 6:18 Results fo r this AM [facility] procedure are i n the results section. TROPONIN I STAT 12/10/2019 6:40 Results for this PM [facility] procedure are i n the results section. TROPONIN I STAT 12/10/2019 4:15 Results for this PM [facility] procedure are i n the results section. CT CHEST PE TEST STAT 12/10/2019 1:36 Results for this DESIGN PM [facility] procedure are i n the results section. XR CHEST 2 VIEWS STAT 12/10/2019 1:20 Results for this PM [facility] procedure are i n the results section. CBC W/PLT COUNT & STAT 12/10/2019 12:23 Result s for this AUTO DIFFERENTIAL PM [facility] procedure are in the results section. LACTIC ACID, VENOUS STAT 12/10/2019 12:23 Resu lts for this PM [facility] procedure are i n the results section. MAGNESIUM STAT 12/10/2019 12:23 Results for this PM [facility] procedure are i n the results section. BLOOD GAS, VENOUS STAT 12/10/2019 12:23 Result s for this PM [facility] procedure are i n the results section. TROPONIN I STAT 12/10/2019 12:23 Results for this PM [facility] procedure are i n the results section. HEPATIC FUNCTION STAT 12/10/2019 12:23 Results for this PANEL PM [facility] procedure are i n the results section. BASIC METABOLIC PANEL STAT 12/10/2019 12:23 Re sults for this (7) PM [facility] procedure are i n the results section. PT/APTT STAT 12/10/2019 12:23 Results for this PM [facility] procedure are i n the results section. B-TYPE NATRIURETIC STAT 12/10/2019 12:23 Resul ts for this FACTOR (BNP) PM [facility] procedure are i n the results section. CBC W/PLT COUNT & STAT 12/10/2019 12:23 Result s for this AUTO DIFFERENTIAL PM [facility] procedure are in the results section. ECG 12-LEAD Routine 12/10/2019 12:15 PM [facility] Procedure Note - Interface, External Ris In - 12/10/2019 12:17 PM [facility] Ventricular Rate 74 BPM Atrial Rate 74 BPM P-R Interval 172 ms QRS Duration 102 ms Q-T Interval 356 ms QTC Calculation(Bazett) 395 ms P Fairburn 63 degrees R Fairburn -39 degrees T Fairburn 40 degrees Normal sinus rhythm Left axis deviation Anteroseptal infarct (cited on or before 29-AUG-2018) Abnormal ECG When compared with ECG of 17:05, Vent. rate has decreased BY 37 BPM QRS axis Shifted left Questionable change in initi al forces of Anterior leads Nonspecific T wave abnormali ty, improved in Inferior leads Nonspecific T wave abnormali ty has replaced inverted T waves in Lateral leads ECG 12-LEAD STAT 12/10/2019 12:15 PM Results for this [facility] procedure are i n the results section. TISSUE EXAM AP Routine 11/15/2019 1:52 PM Results for this [facility] procedure are i n the results section. CYSTOSCOPY,TURBT 11/15/2019 12:44 PM Malignant neoplas m [facility] of urinary bladder, unspecified site (HCC) Case Notes 60 CBC W/PLT COUNT & AUTO Routine 11/14/2019 3:49 AM [facility] Results for this DIFFERENTIAL procedure are i n the results section . BASIC METABOLIC PANEL (7) Routine 11/14/2019 3:49 AM [facility] Results for this procedure are i n the results section . CBC W/PLT COUNT & AUTO Routine 11/14/2019 3:49 AM [facility] Results for this DIFFERENTIAL procedure are i n the results section . after 09/07/2019 Results RHYTHM STRIP - SCAN (12/19/2019 2:02 PM [facility]) Narrative Performed At This result has an attachment that is no t available. EKG-SCANNED (12/19/2019 2:02 PM [facility]) Narrative Performed At This result has an attachment that is no t available. NM bone scan whole body (12/17/2019 5:12 PM [facility]) Specimen Narrative Performed At FINAL REPORT [facility] PROCEDURE: BONE SCAN, WHOLE BODY CPT CODE: 32296 INDICATION: Bladder cancer, back pain PROTOCOL: 21.0 mCi of Tc-99m MDP was injected intravenously. Whole body and selected spot images were obtained approximately 3 hours later. FINDINGS: Tracer activity is irregularly markedly increased in the central and right sacrum and righ t sacroiliac joint. There is moderate focal increase in the medial as pect of the left acetabulum and in the left anterior superior iliac crest. Mild diffuse increase is present in the left sacroiliac joint and the right acetabulum. Distribution is irregularly increased wi thin the spine diffusely. Mild focal increase is present in the sh oulders, wrists, and knees. There is irregular increase in the michael ble. IMPRESSION: 1. Findings in the central and right sac rum and adjacent right sacroiliac region are consistent with kn own lytic neoplasm. There is further evidence suggestive of neoplasti c disease in the left ilium. Irregularity in the lumbar spine is worr isome but not definitive for neoplasm. 2. Degenerative disease within the spine and multiple peripheral joints. 3. Periodontal abnormality. Images for comparison/correlation were r ecent torso CT. Signed: Victor M House MD Report Verified Date/Time: 12/17/2019 19:01:11 Reading Location: [address] Reading Room Procedure Note Interface, External Ris In - 12/17/2019 7:03 PM [facility] FINAL REPORT PROCEDURE: BONE SCAN, WHOLE BODY CPT CODE: 02838 INDICATION: Bladder cancer, back pa in PROTOCOL: 21.0 mCi of Tc-99m MDP wa s injected intravenously. Whole body and selected spot images were obtained approximately 3 hours later. FINDINGS: Tracer activity is irr egularly markedly increased in the central and right sacrum and righ t sacroiliac joint. There is moderate focal increase in the medial as pect of the left acetabulum and in the left anterior superior iliac crest. Mild diffuse increase is present in the left sacroiliac joint and the right acetabulum. Distribution is irregularly increased wi thin the spine diffusely. Mild focal increase is present in the sh oulders, wrists, and knees. There is irregular increase in the michael ble. IMPRESSION: 1. Findings in the central and right sac rum and adjacent right sacroiliac region are consistent with kn own lytic neoplasm. There is further evidence suggestive of neoplasti c disease in the left ilium. Irregularity in the lumbar spine is worr isome but not definitive for neoplasm. 2. Degenerative disease within the spine and multiple peripheral joints. 3. Periodontal abnormality. Images for comparison/correlation were r ecent torso CT. Signed: Victor M House MD Report Verified Date/Time: 12/17/2019 1 9:01:11 Reading Location: [address] Reading Room Performing Organization Address City/State/Zipcode Phone Number [facility] CT abdomen/pelvis with IV contrast (12/17/2019 10:27 AM [facility]) Specimen Narrative Performed At FINAL REPORT [facility] CT abdomen and pelvis with contrast History: Metastatic workup Comparison: 09/04/2018 Technique: serial axial imaging was perf ormed following up to 100cc of non ionic iodinated intravenous contr ast as per departmental protocol. Multiplanar images are recon structed and reviewed when indicated. This CT examination is performed using o ne or more of the following dose reduction techniques: Automated exposure control, adjustment o f the mA and /or kV according to patient size, and/or use of iterative reconstruction technique. Findings: Unremarkable appearance of the pancreas. Stable 3.3 cm cystic lesion within the anterior spleen. Multiple simple appearing hepatic cysts, unchanged from previous study. The liver and gallbladder are oth erwise unremarkable. Nonobstructing 4 mm left renal calculus. Otherwise, Unremarkable appearance of adrenal glands, kidneys, ureters, and ur inary bladder. . No small or large bowel obstruction. N o apparent bowel wall thickening. Significant retained stool t hroughout the colon. Moderate sigmoid diverticulosis, without divertic ulitis. No findings to indicate acute appendicitis. No free fluid or lymphadenopathy. No abdominal aortic aneurysm. Multiple sclerotic bone metastases are s cattered throughout the lumbar spine and pelvis. Additionally, t here is a destructive mixed lytic/sclerotic lesion which involves th e right sacrum. Posteroinferior soft tissue component me asures 5.4 x 5.2 cm in the axial plane. There is invasion of the ad jacent right S2-S4 sacral neural foramina. Additionally, the anter ior margin of the soft tissue component closely approximates the right sciatic nerve. Impression: 1. Multiple bone metastases as described above. Most significant lesion involves the right sacrum, with n eural foraminal invasion and significant soft tissue component. 2. No evidence of visceral metastatic di sease in the abdomen or pelvis. Signed: Donald Edmonds MD Report Verified Date/Time: 12/17/2019 14:26:05 Reading Location: [facility] B1 C013Y CT Body R eading Room Procedure Note Interface, External Ris In - 12/17/2019 2:28 PM [facility] FINAL REPORT CT abdomen and pelvis with contrast History: Metastatic workup Comparison: 09/04/2018 Technique: serial axial imaging was perf ormed following up to 100cc of non ionic iodinated intravenous contr ast as per departmental protocol. Multiplanar images are recons tructed and reviewed when indicated. This CT examination is performed using o ne or more of the following dose reduction techniques: Automated exposure control, adjustment o f the mA and /or kV according to patient size, and/or use of iterative reconstruction technique. Findings: Unremarkable appearance of the pancreas. Stable 3.3 cm cystic lesion within the anterior spleen. Multiple simple appearing hepatic cysts, unchanged from previous study. The liver and gallbladder are oth erwise unremarkable. Nonobstructing 4 mm left renal calculus. Otherwise, Unremarkable appearance of adrenal glands, kidneys, u reters, and urinary bladder. . No small or large bowel obstruction. No apparent bowel wall thickening. Significant retained stool t hroughout the colon. Moderate sigmoid diverticulosis, without divertic ulitis. No findings to indicate acute appendicitis. No free fluid or lymphadenopathy. No abdominal aortic aneurysm. Multiple sclerotic bone metastases are s cattered throughout the lumbar spine and pelvis. Additionally, t here is a destructive mixed lytic/sclerotic lesion which involves th e right sacrum. Posteroinferior soft tissue component me asures 5.4 x 5.2 cm in the axial plane. There is invasion of the ad jacent right S2-S4 sacral neural foramina. Additionally, the anter ior margin of the soft tissue component closely approximates the right sciatic nerve. Impression: 1. Multiple bone metastases as described above. Most significant lesion involves the right sacrum, with n eural foraminal invasion and significant soft tissue component. 2. No evidence of visceral metastatic di sease in the abdomen or pelvis. Signed: Donald Edmonds MD Report Verified Date/Time: 12/17/2019 1 4:26:05 Reading Location: [facility] B1 C013Y CT Body R eading Room Performing Organization Address City/[facility]/Zipcode Phone Number GE RIS Basic Metabolic Panel (12/17/2019 4:59 AM [facility])Only the most recent of6 results within the time period is included. Sodium 137 136 - 145 meq/L [facility] Potassium 3.5 3.5 - 5.1 meq/L [facility] Chloride 105 98 - 107 meq/L [facility] CO2 22 22 - 29 meq/L [facility] BUN 32 (H) 7 - 21 mg/dL [facility] Creatinine 1.04 0.57 - 1.25 [facility] mg/dL [facility] Glucose 102 70 - 105 mg/dL [facility] Calcium 9.3 8.4 - 10.2 [facility] mg/dL [facility] EGFR 71Comment: ESTIMATED mL/min/1.73 sq [facility] GFR IS NOT [facility] ACCURATE ROLLING FORK CREATININE CLEARANCE IN PREDICTING GLOMERULAR FILTRATION RATE. ESTIMATED GFR IS NOT APPLICABLE FOR DIALYSIS PATIENTS. Specimen Blood Narrative Performed At Customer Service And Sales Consultant ID - [facility] Performing Organization Address City/[facility]/Zipcode Phone Number [facility] [address] [place] [address] CENTER CBC (Hemogram only) (12/16/2019 3:52 AM [facility])Only the most recent of3 results within the time period is included. Pathologist Sig nature WBC 7.5 3.5 - 10.5 K/L [facility] RBC 4.78 4.63 - 6.08 M/L [facility] Hemoglobin 13.5 (L) 13.7 - 17.5 GM/DL [facility] Hematocrit 40.8 40.1 - 51.0 % [facility] MCV 85.4 79.0 - 92.2 fL [facility] MCH 28.2 25.7 - 32.2 pg [facility] MCHC 33.1 32.3 - 36.5 GM/DL [facility] RDW 16.3 (H) 11.6 - 14.4 % [facility] Platelets 484 (H) 150 - 450 K/CU MM [facility] MPV 8.7 (L) 9.4 - 12.4 fL [facility] nRBC 0 0 - 0 /100 WBC [facility] Specimen Blood Performing Organization Address City/State/Zipcode Phone Number [facility] [address] [place] [address] Biopsy/Aspiration/Injection (12/12/2019 9:31 AM [facility]) Specimen Narrative Performed At FINAL REPORT [facility] CT guided sacral mass biopsy History: please biopsy lesion to R sacra l ala Modality: CT, CT fluoroscopy Anesthesia: 1% lidocaine local Approach: Posterior percutaneous Consent: The risks, benefits, and altern atives to the procedure were discussed with the patient. The patient expressed understanding and informed written consent was obtained. Time out: A pre-procedure time out was p erformed in order to confirm the appropriate site of the procedure. Sedation: Moderate sedation was administ ered, including a total of 2.0 mg of Versed and 100 mcg of fentanyl . Continuous monitoring was performed by the operating physician and radiology nursing throughout the procedure. Duration of conscious sedation: 20 minut es. Technique: This exam was performed accor ding to our departmental dose optimization program which includes auto mated exposure control, adjustment of the mA and/or kV according to patient's size and/or use of iterative reconstructive technique. The patient was placed prone in the CT s canner. There is a lytic destructive mass in the right sacral ala e, localized using CT and CT fluoroscopy. After the usual sterile preparation and application of local anesthesia, a 17-gauge introducer needle was advanced into sacral mass using CT guidance. Using a 18-gauge Temno needle, eight passes were made, yielding multiple cores. Disposition: The patient tolerated the p rocedure well, without immediate complications. The patient lef t CT in stable condition. Impression: 1. Technically successful CT guided core biopsy of a sacral mass. Signed: Navid Gramajo MD Report Verified Date/Time: 12/12/2019 09:40:56 Reading Location: [facility] C013X Ortho Con sult Reading Room Procedure Note Interface, External Ris In - 12/12/2019 9:43 AM [facility]EN [facility]TER FINAL REPORT CT guided sacral mass biopsy History: please biopsy lesion to R sacra l ala Modality: CT, CT fluoroscopy Anesthesia: 1% lidocaine local Approach: Posterior percutaneous Consent: The risks, benefits, and altern atives to the procedure were discussed with the patient. The patient expressed understanding and informed written consent was obtained. Time out: A pre-procedure time out was p erformed in order to confirm the appropriate site of the procedure. Sedation: Moderate sedation was administ ered, including a total of 2.0 mg of Versed and 100 mcg of fentanyl . Continuous monitoring was performed by the operating physician and radiology nursing throughout the procedure. Duration of conscious sedation: 20 minut es. Technique: This exam was performed accor ding to our departmental dose optimization program which includes auto mated exposure control, adjustment of the mA and/or kV according to patient's size and/or use of iterative reconstructive technique. The patient was placed prone in the CT s canner. There is a lytic destructive mass in the right sacral ala e, localized using CT and CT fluoroscopy. After the usual sterile preparation and application of local anesthesia, a 17-gauge introducer needle was advanced into sacral mass using CT guidance. Using a 18-gauge Temno needle, eight passes were made, yielding multiple cores. Disposition: The patient tolerated the p rocedure well, without immediate complications. The patient lef t CT in stable condition. Impression: 1. Technically successful CT guided core biopsy of a sacral mass. Signed: Navid Gramajo MD Report Verified Date/Time: 12/12/2019 0 9:40:56 Reading Location: [facility] B1 C013X Ortho Con sult Reading Room Performing Organization Address City/State/Zipcode Phone Number GE RIS Tissue Exam (12/12/2019 9:26 AM K[facility]EN [facility]ORTER)Only the most recent of2 resultswithin the time period is included. Case Report Surgical Pathology Report Case: [id number] [facility] Authorizing Provider: Charlette Fitch MD Collected: 12/12/2019 0926 [facility] Ordering Location: [address] Received: 12/12/2019 1351 [facility] Service Pathologist: Stephanie Bridges MD Specimen: Bone, Biopsy/ Curettings DIAGNOSIS [facility] Electronically A. BONE, BIOPSY: [facility] signed by Jemal almeida, - METASTATIC CARCINOMA, CONSISTENT WITH URO THELIAL PRIMARY. [facility] MD Stephanie on - SEE COMMENT. 12/16/2019 at 2:43 Signing Pathologist Direct Phone Line: PM COMMENT The interpretation of this c ase included the use of the following immunohistochemical stains on block A1. [facility] NGOZI-3: positive [facility] CK7: positive [facility] CK20: focal positive Synaptophysin: negative CPT Code(s) 28300, 47698, 81710, [facility] 21804 X 3 [facility] SPECIMEN SOURCE Bone biopsy [facility] GROSS DESCRIPTION Received in formalin [facility] labeled with the [facility] patient's name, accession [facility] number and "bone biopsy, curettings" are multiple ramos-pink tissue cores from 1.2 cm long to 0.1 cm long and 0.1 cm in diameter. The specimen is submitted entirely following filtration and light decalcification in cassette A1. HS/pl SPECIAL STUDIES The interpretation of this c ase included the use of immunohistochemistry or special stains. [facility] Control Slides Examined: In -house known positive controls were evaluated along with the test tissue. These control slides run alongside of the patients sample show appropriate staining. [facility] prosper and negative controls when available are evaluated Immunohistochemistry technic al testing was performed at [facility], Pathology Laboratory where it was developed and its performance characteristics were determined. It has not be en cleared or approved by [facility] U.S. Food and Drug Administration. The FDA has determined that such clearance or approval is not necessary. The test is used for clinical purposes. It should not be regarde d as investigational or for research. This laboratory is certified under the Clinical Laboratory Improvement Amendments of 1988 (CLIA-88) as qualified to perform high complexity clinical laboratory testing. Gross assessment [facility] was performed at [facility] Pathology, [address] [place] [id number], Technical [facility] component was [facility] performed at [address] [address], Professional [facility] component was [facility] performed at [facility], [address] [place] [id number], Specimen Tissue - Bone, Biopsy/Curettings Performing Organization Address City/[facility]/Zipcode Phone Number [address] [phone] [place] aPTT (12/12/2019 3:58 AM [facility]EN PORTER) Pathologist Sig nature PTT 40.1 (H) 22.5 - 36.0 seconds [facility] Specimen Blood Performing Organization Address City/[facility]/Zipcode Phone Number [address] [phone] [place] Prothrombin time/INR (12/12/2019 3:58 AM [facility]TER) Pathologist Sig nature Protime 12.9 11.9 - 14.2 seconds [facility] INR 1.0 <=5.9 [facility] Specimen Blood Narrative Performed At Effective 03/13/2019: PT Reference Range [facility] Change New: 11.9-14.2 Previous: 11.7-14.7 RECOMMENDED COUMADIN/WARFARIN INR THERAPY RANGES STANDARD DOSE: 2.0-3.0 Includes: PROPHYLAXIS for venous thrombosis, systemic embolization; TREATMENT for venous thrombosis and/or pulmonary embolus. HIGH RISK: Target INR is 2.5-3.5 for patients wiht mechanical heart valves. Performing Organization Address City/State/Zipcode Phone Number [facility] [address] [place] [address] CENTER Urinalysis w/Microscopic + Reflex to Culture (12/11/2019 6:18 AM [facility]) Color, UA Yellow [facility] Clarity, UA Clear [facility] Specific [place], >1.050 (H) 1.001 - 1.035 [facility] pH, UA 5.5 5.0 - 8.0 [facility] Protein, UA 20 mg/dL (A) Negative [facility] Glucose, UA Negative Negative [facility] Ketones, UA 20 mg/dL (A) Negative [facility] Bilirubin, UA Negative Negative [facility] Blood, UA Small (A) Negative [facility] Nitrite, UA Negative Negative [facility] Leukocytes, UA Moderate (A) Negative [facility] Urobilinogen, UA 0.2 0.2 - 1.0 mg/dL [facility] RBC, UA 4 /HPF [facility] WBC, UA 15 /HPF [facility] Bacteria, UA Rare [facility] Mucus Few [facility] Squam Epithel, UA 1 /HPF [facility] Ca Oxalate [place], Rare [facility] Specimen Source [facility] Specimen Urine Narrative Performed At Customer Service And Sales Consultant ID - [auto] [facility] Customer Service And Sales Consultant ID - tech Performing Organization Address City/State/Zipcode Phone Number [address] [address] [place] Urine culture (12/11/2019 6:18 AM [facility]TER) Pathologist Sig nature Result 20-29,000 col/mL [facility] Cyndi parapsilosis [facility] (A) Specimen Urine Narrative Performed At 10-19,000 col/mL skin polly [facility] Performing Organization Address [facility]/Zipcode Phone Number [address] [address] [place] Troponin I (12/10/2019 6:40 PM [facility]TER)Only the most recent of3 resultswithin the time period is included. Pathologist Sig nature Troponin I <0.01 0.00 - 0.03 ng/mL [facility] Specimen Blood Narrative Performed At Troponin I (TnI) levels must be interpreted [facility] in the context of the presenting symptoms and the clinical findings. Elevated TnI levels indicate myocardial damage, but are not specific for ischemic heart disease. Elevated TnI levels are seen in patients with other cardiac conditions (including myocarditis and congestive heart failure), and slight TnI elevations occur in patients with other conditions, including sepsis, renal failure, acidosis, acute neurological disease, and persistent tachyarrhythmia. Customer Service And Sales Consultant ID - DB Performing Organization Address [facility] Services[facility] Phone Number [address] chest PE test design (12/10/2019 1:36 PM [facility]TER) Specimen Narrative Performed At FINAL REPORT [facility] CT of the chest, pulmonary embolism prot ocol Clinical History: PE suspected, high p retest prob CHEST PAIN BACK PAIN SHORTNESS OF BREATH Technique: Precontrast axial images at the level of the pulmonary outflow tract are obtained for the purpo se of contrast bolus tracking. Postcontrast axial images of the chest are subsequently obtained with optimal pulmonary arterial enhancement followed by delayed postcontrast images. Coronal 2D reformatted images are reviewed. This exam was performed according to our departmental dose optimization program which includes auto mated exposure control, adjustment of the mA and/or kV according to patient's size and/or use of iterative reconstructive technique. Comparison Film: None Discussion: No filling defects are identified within the pulmonary arteries to suggest acute pulmonary embolism. Visualized thyroid gland is normal. Ther e is no supraclavicular, axillary, external or hilar lymphadenopa thy. Heart and pericardium are unremarkable. There are multiple pulmonary nodules in both lungs, the largest measures 2.7 cm, located in the right up per lobe. This is compatible with metastasis. Central airways are pat ent, no bronchiectasis, or bronchial wall thickening. No pleural ef fusion. There are multiple hypodensities in live r, similar to prior CT dated September 04, 2018. There is also a stabl e low-density lesion in the spleen with faint central calcification, measuring up to 3.3 cm. Osseous structures demonstrate mild dege nerative changes. No suspicious bony lesion is identified. Impression: No PE is identified. Bilateral pulmonary nodules, highly susp icious for metastasis. Stable appearance hypodense/cystic lesio ns in liver and spleen. Signed: Navid Gramajo MD Report Verified Date/Time: 12/10/2019 14:12:28 Reading Location: [facility] C0X [facility] Reading Room Procedure Note Interface, External Ris In - 12/10/2019 2:14 PM [facility] FINAL REPORT CT of the chest, pulmonary embolism prot ocol Clinical History: PE suspected, high pr etest prob CHEST PAIN BACK PAIN SHORTNESS OF BREATH Technique: Precontrast axial images at the level of the pulmonary outflow tract are obtained for the purpo se of contrast bolus tracking. Postcontrast axial images of the chest are subsequently obtained with optimal pulmonary arterial enhancement followed by delayed postcontrast images. Coronal 2D reformatted images are reviewed. This exam was performed according to our departmental dose optimization program which includes auto mated exposure control, adjustment of the mA and/or kV according to patient's size and/or use of iterative reconstructive technique. Comparison Film: None Discussion: No filling defects are identified within the pulmonary arteries to suggest acute pulmonary embolism. Visualized thyroid gland is normal. Ther e is no supraclavicular, axillary, external or hilar lymphadenopa thy. Heart and pericardium are unremarkable. There are multiple pulmonary nodules in both lungs, the largest measures 2.7 cm, located in the right up per lobe. This is compatible with metastasis. Central airways are pat ent, no bronchiectasis, or bronchial wall thickening. No pleural ef fusion. There are multiple hypodensities in live r, similar to prior CT dated September 04, 2018. There is also a stabl e low-density lesion in the spleen with faint central calcification, measuring up to 3.3 cm. Osseous structures demonstrate mild dege nerative changes. No suspicious bony lesion is identified. Impression: No PE is identified. Bilateral pulmonary nodules, highly susp icious for metastasis. Stable appearance hypodense/cystic lesio ns in liver and spleen. Signed: Navid Gramajo MD Report Verified Date/Time: 12/10/2019 1 4:12:28 Reading Location: [address] Reading Room Performing Organization Address City/State/Zipcode Phone Number [facility] XR chest 2 views (12/10/2019 1:20 PM [facility]) Specimen Narrative Performed At FINAL REPORT [facility] EXAMINATION: PA and lateral views of the chest. COMPARISON: None CLINICAL HISTORY: Chest pain DISCUSSION: Lines/tubes: None. Lungs: Scattered nodular densities inc luding right hilar 2.8 cm, left lower lobe 3 cm, and left upper lob e 1.3 cm nodular mass. Additional nodules. No consolidation. Pleura: No pleural effusion or pneumot horax. Heart and mediastinum: The cardiomedia stinal silhouette is normal. Bones and soft tissues: No acute bony abnormalities. IMPRESSION: No acute cardiopulmonary abnormalities. Bilateral pulmonary nodules. These can b e assessed on ordered CT chest study. Signed: Nikhil Goldberg MD Report Verified Date/Time: 12/10/2019 13:24:56 Reading Location: [facility] 1 - [id number] Procedure Note Interface, External Ris In - 12/10/2019 1:27 PM [facility]TER FINAL REPORT EXAMINATION: PA and lateral views of the chest. COMPARISON: None CLINICAL HISTORY: Chest pain DISCUSSION: Lines/tubes: None. Lungs: Scattered nodular densities incl uding right hilar 2.8 cm, left lower lobe 3 cm, and left upper lob e 1.3 cm nodular mass. Additional nodules. No consolidation. Pleura: No pleural effusion or pneumoth orax. Heart and mediastinum: The cardiomedias tinal silhouette is normal. Bones and soft tissues: No acute bony a bnormalities. IMPRESSION: No acute cardiopulmonary abnormalities. Bilateral pulmonary nodules. These can b e assessed on ordered CT chest study. Signed: Nikhil Goldberg MD Report Verified Date/Time: 12/10/2019 1 3:24:56 Reading Location: [place] [id number] Performing Organization Address [facility] Services[facility] Phone Number [facility] PT/aPTT (12/10/2019 12:23 PM [facility]TER) Pathologist [facility] nature Protime <10.0 (L) 11.7 - 14.[address] [facility] [place] INR 1.0 <=5.[address] [facility] [place] PTT 30.2 22.5 - 36.[address] [facility] [place] Specimen Blood Narrative Performed At RECOMMENDED COUMADIN/WARFARIN INR THERAP Y RANGES [facility] [place] STANDARD DOSE: 2.0 - 3.0 Includes: PROPHYLAXIS for venous thrombosis, systemic embolization; TREATMENT fo r venous thrombosis and/or pulmonary embol us. HIGH RISK: Target INR is 2.5-3.5 for patients with mechanical heart valves. Performing Organization Address [facility] Servicescomo Phone Number [facility] [place] [address] [place] [address] CBC with platelet count + automated diff (12/10/2019 12:23 PM [facility]TER)Only the most recent of2 resultswithin the time period is included. [facility] [employer] WBC 10.2 3.5 - 10.5 [facility] K/L [facility] RBC 4.22 (L) 4.63 - 6.08 [facility] M/L - [place] Hemoglobin 12.1 (L) 13.7 - 17.5 [facility] GM/DL - [place] Hematocrit 36.3 (L) 40.1 - 51.0 % [facility] MCV 86.0 79.0 - 92.2 fL [facility] [place] MCH 28.7 25.7 - 32.2 pg [facility] MCHC 33.3 32.3 - 36.5 [facility] GM/DL - [place] RDW 17.2 (H) 11.6 - 14.4 % [facility] [place] Platelets 394 150 - 450 K/CU [facility] MM - [place] MPV 8.3 (L) 9.4 - 12.4 fL [facility] [place] % Neutros 76 % [facility] % Lymphs 17 % [facility] % Monos 6 % [facility] % Eos 1 % [facility] % Baso 0 % [facility] # Neutros 7.74 (H) 1.78 - 5.38 [facility] K/L - [place] # Lymphs 1.69 1.32 - 3.57 [facility] K/L - [place] # Monos 0.57 0.30 - 0.82 [facility] K/L [facility] # Eos 0.08 0.04 - 0.54 [facility] K/L - [place] # Baso 0.03 0.01 - 0.08 [facility] K/L - [place] Immature 1 0 - 1 % [facility] Granulocytes-Relative - [place] Specimen Blood Performing Organization Address City/State/Zipcode Phone Number [facility] [address] [place] [address] Lactic acid, venous (12/10/2019 12:23 PM [facility]TER) Lactate, Venous 1.9Comment: 0.5 - 2.2 [facility] Specimen slightly mmol/L [facility] hemolyzed Specimen Blood Performing Organization Address [facility] Services[facility]o Phone Number [facility] [place] [address] [place] [address] B-type Natriuretic Factor (BNP) (12/10/2019 12:23 PM [facility]TER) Pathologist Sig nature BNP 156 (H) 0 - 100 pg/mL [facility] R Specimen Blood Performing Organization Address [facility] Phone Number [facility] [place] [address] [place] [address] Magnesium (12/10/2019 12:23 PM [facility]) Pathologist Sig nature Magnesium 2.0Comment: Specimen 1.6 - 2.6 mg/dL [facility] TH slightly hemolyzed - [facility] Specimen Blood Performing Organization Address [facility] Phone Number [facility] [place] [address] [place] [address] Blood gas, venous (12/10/2019 12:23 PM [facility]TER) Pathologist Sig nature pH, Nico 7.50 (H) 7.32 - 7.42 [facility] pCO2, Nico 27 (L) 41 - [address] [facility] [place] pO2, Nico <25 (L) 25 - [address] [facility] [place] O2 Sat, Nico 42.9 40.0 - 70.0 % [facility] [place] HCO3, Nico 21 21 - 29 mmol/L [facility] [place] Base Excess, Nico -0.8 -2.0 - 3.0 [facility] mmol/L - [facility] Patient Temperature 37.[address] [facility] [place] FIO2 100.0 % [facility] [place] Specimen Blood Performing Organization Address [facility] Phone Number [facility] [place] [address] [place] [address] Hepatic function panel (12/10/2019 12:23 PM [facility]TER) Protein, Total 7.2Comment: 6.0 - 8.3 [facility] Specimen slightly gm/dL [facility] hemolyzed Albumin 4.5Comment: 3.5 - 5.0 [facility] Specimen slightly g/dL [facility] hemolyzed Total Bilirubin 1.0Comment: 0.2 - 1.2 [facility] Specimen slightly mg/dL [facility] hemolyzed Bilirubin, Direct 0.3Comment: 0.1 - 0.5 [facility] Specimen slightly mg/dL [facility] hemolyzed Alkaline 212 (H) 40 - 150 U/L [facility] Phosphatase [facility] AST 14Comment: 5 - 34 U/L [facility] Specimen slightly [facility] [place] hemolyzed ALT 10Comment: 6 - 55 U/L [facility] Specimen slightly [facility] hemolyzed Specimen Blood Performing Organization Address City/State/Zipcode Phone Number [facility] [address] [place] [address] ECG 12 lead (12/10/2019 12:15 PM [facility]TER) Specimen Narrative Performed At Ventricular Rate 74 BPM GE MUSE Atrial Rate 74 BPM P-R Interval 172 ms QRS Duration 102 ms Q-T Interval 356 ms QTC Calculation(Bazett) 395 ms P Fairburn 63 degrees R Fairburn -39 degrees T Fairburn 40 degrees Normal sinus rhythm Left axis deviation Anteroseptal infarct (cited on or before 29-AUG-2018) Abnormal ECG When compared with ECG of 02-SEP-2018 17 :05, Vent. rate has decreased BY 37 BPM QRS axis Shifted left Questionable change in initial forces of Anterior leads Nonspecific T wave abnormality, improved in Inferior leads Nonspecific T wave abnormality has replaced inverted T waves in Lateral leads Confirmed by MD Hayward Roberto ([id number]) on 12/10 1:12:16 PM Procedure Note Interface, External Ris In - 12/10/2019 1:12 PM [facility]TER Ventricular Rate 74 BPM Atrial Rate 74 BPM P-R Interval 172 ms QRS Duration 102 ms Q-T Interval 356 ms QTC Calculation(Bazett) 395 ms P Fairburn 63 degrees R Fairburn -39 degrees T Fairburn 40 degrees Normal sinus rhythm Left axis deviation Anteroseptal infarct (cited on or before 29-AUG-2018) Abnormal ECG When compared with ECG of 02-SEP-2018 17 :05, Vent. rate has decreased BY 37 BPM QRS axis Shifted left Questionable change in initial forces of Anterior leads Nonspecific T wave abnormality, improved in Inferior leads Nonspecific T wave abnormality has repla gregoria inverted T waves in Lateral leads Confirmed by MD Hayward Roberto ([id number]) on 12/10/2019 1:12:16 PM Performing Organization Address City/State/Zipcode Phone Number GE MUSE after 09/07/2019 Insurance Payer Benefit Plan / Subscriber ID Effective Dates Phone Addre ss Type Group MEDICARE MEDICARE PART A [id number] 2016-Present Medicare AETNA - MGD CARE AETNA HMO POS [id number] 2019-Present HMO/POS QPOS Advance Directives For more information, please contact: [phone] Code Status Date Activated Date Inactivated Comments Full Code 12/17/2019 11:51 AM 12/18/2019 6:50 PM This code status was determined by: Patient DNAR 12/16/2019 1:27 PM 12/17/2019 11:51 AM This code status was determined by: Patient Has the consent form been signed? Yes pt agr ees to sign the form Have you Written ACP Note: Yes Full Code 12/10/2019 6:09 PM 12/16/2019 1:27 PM This code status was determined by: Patient
--- OUTSIDE RECORDS SUMMARY | 2020-09-07 12:38 | XMS REPORT | Continuity of Care Document ---
:1950 Author Organization [facility] t Address [address] [place] [address] Care Team Providers Name Role Phone Liane Manrique MD Primary Care Physician Zeenat VORA, E Attending Clinician Grecia Scott MD Attending Clinician Little VORA Attending Clinician Navid Santiago MD Attending Clinician Patt Durand MD Attending Clinician [phone] GRECIA SCOTT Attending Clinician Unavailable Kiran VORA, Noemi Attending Clinician DIMA LINDSAY Attending Clinician Unavailable Dima Lindsay MD Attending Clinician Madi Helms MD Attending Clinician Jeanette Rowland DO Attending Clinician MADI HELMS Attending Clinician Unavailable PATT DURAND Admitting Clinician Unavailable MADI HELMS Admitting Clinician Unavailable Payers Payer Name Policy Type Policy Effective Date Expiration Date Sour ce Number MEDICAREMEDICARE PART [id number] 2016 TIERRA Duckworth [id number] 2015-P 00:00:00 - Medical resentMedicare Center AETNA - MGD CAREAETNA [id number] [address] [facility] [address] [facility] HMO POS 00:00:00 - Medical [id number] 2019 Ce nter -PresentHMO/POS Problems Condition Condition Condition Status Onset Resolution Last Treating Co mments Source Name Details Category Date Date Treatment Clinician Date Acute Acute Disease Active [facility] right-side right-side 2-26 Daxa kes - d low back d low back 00:00: Me dical pain pain 00 Jerome Hematuria Hematuria Disease Active [facility] 1-30 [facility] - 00:00: Medical 00 Jerome Bladder Bladder Disease Active [facility] cancer cancer 1-07 [facility] - 00:00: Medical 00 Jerome Bladder Bladder Disease Active 2017-[address] [facility] carcinoma carcinoma 1-15 [facility] - 00:00: Medical 00 Jerome Malignant Malignant Disease Active 2017-[address] [facility] neoplasm neoplasm 1-13 [facility] - of urinary of urinary 00:00: Nm dical tract tract 00 Jerome Medication Medication Problem Active [facility] monitoring monitoring Daxa kes - encounter encounter Aydin breana l [facility] Clinics History of History of Problem Active [facility] kidney kidney [facility] - stones stones Memoria l [facility]ics Gastroesop Gastroesop Problem Active [facility] hageal hageal [facility] - reflux reflux Memoria disease, disease, l esophagiti esophagiti Ou tpati s presence s presence en t not not Clinics specified specified Diverticul Diverticul Problem Active [facility] itis itis [facility] - Memoria l [facility]ics Depression Depression Problem Active [facility] - Mem[facility] l [facility] Anxiety Anxiety Problem Active [facility] - Memoria l [facility] Cancer Cancer Problem [facility] - Mem[facility] Sinus Sinus Problem Active [facility] problem problem [facility] - Memoria l [facility] Kidney Kidney Problem Active [facility] stones stones [facility] - Memoria l [facility] Erectile Erectile Problem Active [facility] t dysfunctio dysfunctio Daxa kes - n n Memoria l [facility] Gastritis, Gastritis, Problem Active [facility] presence presence [facility] - of of Memoria bleeding bleeding l unspecifie unspecifie Ou tpati d, d, ent unspecifie unspecifie Cl inics d d chronicity chronicity , , unspecifie unspecifie d d gastritis gastritis type type 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 Luke s - without without Memoria dysplasia dysplasia l [facility] Clinics Hypertensi Hypertensi Problem Active [facility] on, on, [facility] - unspecifie unspecifie Me moria d type d type l Outpati ent Clinics Left Left Problem Active [facility] shoulder shoulder [facility] - pain, pain, Memoria unspecifie unspecifie l d d Outpati chronicity chronicity en t Clinics Malignant Malignant Problem Active [facility] neoplasm neoplasm [facility] - of urinary of urinary Me moria bladder, bladder, l unspecifie unspecifie Ou tpati d site d site ent Clinics Right Right Problem Active [facility] wrist pain wrist pain Daxa kes - Memoria l Outpati ent Clinics Cerumen Cerumen Problem Active [facility] impaction impaction Luke s - Memoria l Outpati ent Clinics Right Right Problem Active [facility] sciatic sciatic [facility] - nerve pain nerve pain Me moria l Outpati ent Clinics History of History of Problem Active [facility] biopsy of biopsy of Luke s - bladder bladder Memoria l Outpati ent Clinics Other Other Problem Active [facility] chronic chronic [facility] - pain pain Memoria l Outpati ent Clinics Lumbago Lumbago Problem Active [facility] with with [facility] - sciatica, sciatica, Aydin breana right side right side l Outpati ent Clinics Allergies, Adverse Reactions, Alerts This patient has no known allergies or adverse reactions. Social History Social Habit Start Date Stop Date Quantity Comments Source Sex Assigned At [facility] Tobacco use and 2019-12-10 2019-12-10 Never [address] [facility] St Daxa kes - exposure 00:00:00 00:00:00 Medical Center Alcohol intake 2019-12-10 2019-12-10 [facility]00:00 of alcohol [facility] Center (finding) Tobacco Comment 2018-10-11 2018-10-11 08/23/2018 [facility]00 Medical Center History [facility] 2018-08-28 2018-08-[address] [facility] - Alcohol Frequency 00:00:00 00:00:00 Medical Center History [facility] 2018-08-28 2018-08-[address] [facility] - Alcohol Std Drinks 00:00:00 00:00:00 Medica l Center History [facility] 2018-08-28 2018-08-[address] [facility] - Alcohol Binge 00:00:00 00:00:[address] [facility] 2018-08-28 2018-08-[address] [facility] - Education 00:00:00 00:00:00 Medical Center History [facility] 2018-08-28 2018-08-[address] [facility] - Financial 00:00:00 00:00:00 Medical Center History [facility] Food 2018-08-28 2018-08-[address] [facility] - Worry 00:00:00 00:00:00 Medical Center History [facility] Food 2018-08-28 2018-08-[address] [facility] - Scarcity 00:00:00 00:00:00 Medical Center History [facility] 2018-08-28 2018-08-[address] [facility] - Transport Med 00:00:00 00:00:[address] History [facility] 2018-08-28 2018-08-[address] [facility] - Transport Non-Med 00:00:00 00:00:00 Medical Center Smoking Status Start Date Stop Date Source Former smoker 2019-12-10 00:00:00 2019-12-10 00:00:[address] [facility] [address] [facility] - [facility] Center Medications Ordered Filled Start Stop Current Ordering Indication Dosage Frequency Signature Comments Components Source Medication Medication Date Date Medication? Clinician (SIG) Name Name omeprazole Yes 40mg QD Take [address] (PRILOSEC) 3-04 by mouth [facility] - 40 MG 16:50: daily. Medical capsule 35 Center amLODIPine Yes 5mg QD Take [address] (NORVASC) 5 3-04 by mouth Luke s - MG tablet 16:50: daily. Medica l 35 Jerome busPIRone Yes 15mg QD Take [address] (BUSPAR) 15 3-04 by mouth Luke s - MG tablet 16:50: daily . Medic al 35 Center gabapentin 2020- No 300mg Q.25D Take [address] (NEURONTIN) 3-04 03-04 mg by [facility]ukes - 300 MG 09:38: 00:00 mouth 4 Medical capsule 52 :00 (four) Center times daily . losartan-hy 2020- No 1{tbl} QD Take [address] drochloroth 3-04 03-04 tablet by Daxa kes - iazide 09:38: 00:00 mouth Medical (HYZAAR) 52 :00 daily. Center 100-12.5 mg per tablet ciprofloxac 2019- 2020- No 500mg Q.5D Take [address] in HCl 3-04 03-04 mg by [facility] - (CIPRO) 500 09:38: 00:00 mouth 2 Me dical MG tablet 52 :00 (two) Center times daily. cyclobenzap 2020-0 Yes 10mg Take [address] [facility] rine 3-04 tablet (10 [facility] - (FLEXERIL) 00:00: mg total) Me dical 10 MG 00 by mouth 3 Center tablet (three) times daily as needed for Muscle spasms. lidocaine 2019-0 Yes 2{patch Q24H Place [address] (LIDODERM) 3-04 } patches [facility] - 5 % patch 00:00: onto the Medi ashlyn 00 skin daily Center Remove & Discard patch within 12 hours or as directed by . HYDROcodone 2019-0 Yes 1{tbl} Take [address] -acetaminop 3-04 tablet by Enoch torres - hen (NORCO 00:00: mouth Medica l 10-325) 00 every 4 Center 10-325 mg (four) per tablet hours as needed for Pain. Max Daily Amount: 6 tablets morphine 2019-0 Yes 30mg Take [address] [facility] [address] (MS CONTIN) 3-04 tablet (30 Daxa kes - 30 MG 12 hr 00:00: mg total) M edical tablet 00 by mouth Center every 12 (twelve) hours. Max Daily Amount: 60 mg senna 2020- No 8.6mg Q.5D Take [address] (SENOKOT) 3-04 03-04 tablet [facility]ukes - 8.6 mg 00:00: 23:59 (8.6 mg Medical tablet 00 :00 total) by Center mouth 2 (two) times daily. sertraline 2020- No 50mg QD Take [address] (ZOLOFT) 50 3-04 03-04 tablet (50 L ukes - MG tablet 00:00: 23:59 mg total) Me dical 00 :00 by mouth Center daily. pregabalin 2019-2020- No 25mg [id number] Take [address] (LYRICA) 25 3-04 03-04 [id number] capsule [facility]ukes - MG capsule 00:00: 23:59 3D (25 mg Medi ashlyn 00 :00 total) by Center mouth 3 (three) times daily. Max Daily Amount: 75 mg bisacodyl 2019- No 10mg Place [address] [facility] (DULCOLAX) 12-17-14 suppositor Daxa kes - 10 mg 00:00: 23:59 y (10 mg Medical suppository 00 :00 total) Center rectally daily as needed for up to 10 days. polyethylen 2019- No 17g Q.5D Take [address] [facility] e glycol 12-17 03-07 by mouth 2 Luke s - (GLYCOLAX) 00:00: 23:59 (two) Medic al 17 gram 00 :00 times Center packet daily for 3 days. HYDROcodone 2019- No 1{tbl} Take [address] -acetaminop 12-17 tablet by Daxa valero (NORCO 00:00: 00:00 mouth Medic al 10-325) 00 :00 every 4 Center 10-325 mg (four) per tablet hours as needed for Pain. Max Daily Amount: 6 tablets morphine 2019- No 30mg Take [address] [facility] (MS CONTIN) 12-1704 tablet (30 L ukes - 30 MG 12 hr 00:00: 00:00 mg total) Medical tablet 00 :00 by mouth Center every 12 (twelve) hours. Max Daily Amount: 60 mg pregabalin 2019- No 25mg [id number] Take [address] (LYRICA) 25 -01 16-04 [id number] capsule [facility]ukes - MG capsule 00:00: 00:00 3D (25 mg Medi ashlyn 00 :00 total) by Center mouth 3 (three) times daily. Max Daily Amount: 75 mg meloxicam 2019- No 15mg QD Take [address] (MOBIC) 15 2-25 -25 by mouth Luke s - MG tablet 18:27: 00:00 daily. Medic al 12 :00 Center losartan-hy 2019- 2020- No 1{tbl} QD Take [address] drochloroth -11-15 tablet by Daxa salcedo 14:04: 00:00 mouth Medical (HYZAAR) 59 :00 daily. Center 100-12.5 mg per tablet amLODIPine 2019- No 5mg QD Take [address] (NORVASC) 5 11-15 by mouth Enoch es - MG tablet 14:04: 00:00 daily. Medic al 59 :00 Center ALPRAZolam 2019- No .25mg Take 0.[address] [facility] [facility] (XANAX) 11-15 mg by [facility]ukes - 0.25 MG 14:04: 00:00 mouth as Medic al tablet 59 :00 needed for Center Anxiety. phenazopyri 2019- No 200mg Take [address] dine 11-15 tablet [facility]ukes - (PYRIDIUM) 00:00: 23:59 (200 mg Med ical 200 MG 00 :00 total) by Jerome tablet mouth 3 (three) times daily as needed for up to 3 days. nitrofurant No 100mg Q.5D Take [address] oin, 11-15 capsule [facility]ukes - macrocrysta 00:00: 23:59 (100 mg Me dical l-monohydra 00 :00 total) by [facility] ter te, mouth 2 (MACROBID) (two) 100 MG times capsule daily for 3 days. Gabapentin Gabapentin Yes Shalonda [address] [facility] 1-13 Millender as needed [facility] - 00:00: Memoria 00 l [facility] Clinics BusPIRone BusPIRone 2018-10 Yes Shalonda [address] HCl HCl 1-11 Millender as needed [facility]ukes - 00:00: for Memoria 00 anxiety l Outpati ent Clinics Flonase Flonase Yes Shalonda [address] Millender in each Lukes - nostril Memoria (otc) l Outpati ent Clinics Omeprazole Omeprazole Yes Shalonda [address] Millender [facility]ukes - Memoria l Outpati ent Clinics Losartan Losartan Yes Shalonda [address] Potassium-H Potassium-H Millender [facility]ukes - CTZ CTZ Memoria l Outpati ent Clinics ZyrTEC ZyrTEC Yes Shalonda [address] Millender tablet Lukes - (OTC) Memoria l Outpati ent Clinics Amlodipine Amlodipine Yes Shalonda [address] Besylate Besylate Millender Daxa kes - Memoria l Outpati ent Clinics Lidocaine Lidocaine Yes Shalonda [address] Millender remove Lukes - after 12 Memoria hours l [facility] Morphine Morphine Yes Shalonda [address] Sulfate ER Sulfate ER Millender [facility] Dexamethaso Dexamethaso Yes Shalonda [address] ne ne Millender [facility] Hydrocodone Hydrocodone Yes Shalonda [address] -Acetaminop -Acetaminop Millender as needed Lukes - hen hen Memoria l [facility] Immunizations Ordered Filled Immunization Date Status Comments [facility] e Immunization Name Name FLUZONE HIGH DOSE FLUZONE HIGH DOSE 2019-10-02 Completed [facility] OVER 65 OVER 65 00:00:00 [facility] Vital Signs Vital Name Observation Time Observation Value Comments Source Systolic blood 2019-12-18 15:38:00 121 mm[Hg] [facility] Diastolic blood 2019-12-18 15:38:00 82 mm[Hg] [facility] Heart rate 2019-12-18 15:38:00 97 /min [facility] Body temperature 2019-12-18 15:38:00 36.94 [facility] Respiratory rate 2019-12-18 15:38:00 18 /min [facility] Oxygen saturation in 2019-12-18 15:38:00 97 /min [facility] Arterial blood by Medical Ce nter Pulse oximetry Body height 2019-12-10 17:24:00 175.3 cm [facility] Body weight 2019-12-10 17:24:00 63.504 kg [facility] BMI 2019-12-10 17:24:00 20.67 kg/m2 [facility] Procedures Procedure Date / Time Performed Performing Clinician Clayton e RHYTHM STRIP - SCAN 2019-12-19 14:02:40 Provider, Default [facility] Scanning [facility] REPORT OF PROCEDURE - 2019-12-19 14:02:34 Provider, Default [facility] ENDOSCOPY SCAN Scanning [facility] NM BONE SCAN WHOLE BODY 2019-12-17 17:12:00 Marian Santiago [facility] CT ABDOMEN/PELVIS WITH 2019-12-17 10:27:00 Marian Santiago [facility] IV CONTRAST [facility] BASIC METABOLIC PANEL 2019-12-17 04:59:00 Marian Santiago [facility] ([address] [place] [address] CBC (HEMOGRAM ONLY) 2019-12-16 03:52:00 [facility] 2019-12-16 03:52:00 [facility] BASIC METABOLIC PANEL 2019-12-14 05:39:00 [place] [address]) [facility] CBC (HEMOGRAM ONLY) 2019-12-14 03:45:[address] [facility] [address] 2019-12-12 09:31:00 Little [facility] BIOPSY/ASPIRATION/INJECT [facility] ION TISSUE EXAM 2019-12-12 09:26:00 [facility] CBC (HEMOGRAM ONLY) 2019-12-12 03:58:00 [facility] BASIC METABOLIC PANEL 2019-12-12 03:58:[address] PROTHROMBIN TIME/INR 2019-12-12 03:58:00 [facility] APTT 2019-12-12 03:58:00 [facility] URINE CULTURE 2019-12-11 06:18:00 Marj Scott [facility] URINALYSIS W/ REFLEX 2019-12-11 06:18:00 Marj Scott [facility] URINE CULTURE [facility] TROPONIN I 2019-12-10 18:40:00 Marj Scott [facility] TROPONIN I 2019-12-10 16:15:00 Marj Scott [facility] CT CHEST PE TEST DESIGN 2019-12-10 13:36:00 Marj Scott [facility] XR CHEST 2 VIEWS 2019-12-10 13:20:00 Marj Scott [facility] B-TYPE NATRIURETIC 2019-12-10 12:23:00 Marj Scott [facility] (BNP) [facility] PT/APTT 2019-12-10 12:23:00 Marj Scott [facility] BASIC METABOLIC PANEL 2019-12-10 12:23:00 Marj Scott [facility] (7) [facility] HEPATIC FUNCTION PANEL 2019-12-10 12:23:00 Marj Scott G[facility] TROPONIN I 2019-12-10 12:23:00 Marj Scott [facility] BLOOD GAS, VENOUS 2019-12-10 12:23:00 Marj Scott Grec[facility] MAGNESIUM 2019-12-10 12:23:00 Tyler Marj [facility] LACTIC ACID, VENOUS 2019-12-10 12:23:00 Marj Scott I [facility] CBC W/PLT COUNT & AUTO 2019-12-10 12:23:00 Marj Scott [facility] ECG 12-LEAD 2019-12-10 12:15:12 Unknown, Hl7 Doctor [facility] TISSUE EXAM 2019-11-15 13:52:00 Yuni Helmsh Madi [facility] CYSTOSCOPY,TURBT 2019-11-15 12:44:[address] [facility] BASIC METABOLIC PANEL 2019-11-14 03:49:00 [facility] CBC W/PLT COUNT & AUTO 2019-11-14 03:49:00 Evangelist Marin [facility] Plan of Care Planned Activity Planned Date Details Comments Source Future Scheduled 2020-06-16 INFLUENZA VACCINE (#1) [facility] - Test 00:00:00 [code = INFLUENZA Medical Ce nter VACCINE (#1)] Future Scheduled 2016 PNEUMOCOCCAL 65+ YRS [facility] Test 00:[facility]:00 (1 of 1 - Medical Center [id number] PCV13) [code = PNEUMOCOCCAL 65+ YRS (1 of 1 - [id number] PCV13)] Future Scheduled [address] [facility] Enoch es - Test 00:00:00 malignant neoplasm of Medica l Center colon (procedure) [code = 255001975] Encounters Start End Encounter Admission Attending Care Care Encounter Source Date/Time Date/Time Type Type Clinicians Facility Department ID 2020-03-17 2020-03-17 Outpatient Ben Contrerast [id number] 22:17:00 22:17:00 [facility] 2020-03-17 2020-03-17 Outpatient [place] [id number] 13:20:00 13:20:00 [facility] 2020-01-31 2020-01-31 Office Nadege Epperson [facility] [id number] 13:48:40 15:13:27 Visit E Octavio 350.1.13.21 0.2.7.2.686 [id number] 2019-12-03 2019-12-03 Office ROSA Helms [id number] 11:10:53 15:32:27 Visit Grey P AMBULATOR 350.1.13.21 Y 0.2.7.2.686 [id number] 2019-11-26 2019-11-26 Office ROSA Helms [id number] 11:55:04 15:18:25 Visit Grey P AMBULATOR 350.1.13.21 Y [id number] [id number] 2019-11-21 2019-11-21 Office ROSA Helms [id number] 10:08:41 12:04:27 Visit Grey P AMBULATOR 350.1.13.21 Y [id number] [id number] 2019-11-20 2019-11-20 Outpatient Ben Contrerast [id number] 16:30:00 16:30:00 [facility] 2019-11-11 2019-11-11 [facility] [id number] 11:17:00 11:17:00 [facility] Clinics 2019-10-28 2019-10-28 Out[place] [place] [id number] 10:40:00 10:40:00 [facility] Outpati ent Clinics 2019-10-02 2019-10-02 [facility] [id number] 15:45:00 15:45:00 [facility] Outpati ent Clinics 2019-08-26 2019-08-26 Outpatient [place] [place] [id number] 10:43:00 10:43:00 [facility] Outpati ent Clinics 2019-03-22 2019-03-22 [facility] [id number] 15:28:00 15:28:00 [facility] Clinics 2018-11-22 2018-11-22 [facility] [id number] 16:00:00 16:00:00 [facility] Clinics 2018-05-23 2018-05-23 [facility] [id number] 15:00:00 15:00:00 [facility] ent Clinics Results Test Description Test Time Test Comments Results Result [facility] e Comments BONE AND/OR JOINT 2019-12-17 FINAL REPORT PATIENT IMAGING, WHOLE 19:01:00 ID: [id number] BODY PROCEDURE: BONE SCAN, WHOLE BODY CPT CODE: 17889 INDICATION: Bladder cancer, back pain PROTOCOL: 21.0 mCi of Tc-99m MDP was injected intravenously. Whole body and selected spot images were obtained approximately 3 hours later. FINDINGS: Tracer activity is irregularly markedly increased in the central and right sacrum and right sacroiliac joint. There is moderate focal increase in the medial aspect of the left acetabulum and in the left anterior superior iliac crest. Mild diffuse increase is present in the left sacroiliac joint and the right acetabulum. Distribution is irregularly increased within the spine diffusely. Mild focal increase is present in the shoulders, wrists, and knees. There is irregular increase in the mandible. IMPRESSION: 1. Findings in the central and right sacrum and adjacent right sacroiliac region are consistent with known lytic neoplasm. There is further evidence suggestive of neoplastic disease in the left ilium. Irregularity in the lumbar spine is worrisome but not definitive for neoplasm.2. Degenerative disease within the spine and multiple peripheral joints.3. Periodontal abnormality. Images for comparison/correlati on were recent torso CT. Signed: Tim House Verified Date/Time: 12/17/2019 19:01:11 Reading Location: [address] Reading Room bone scan 2019-12-17 Interface, External [facility] whole body 19:01:00 Ris In - 12/17/2019 - Med ical 7:03 PM CSTFINAL Center REPORT PROCEDURE: BONE SCAN, WHOLE BODY CPT CODE: 14407 INDICATION: Bladder cancer, back pain PROTOCOL: 21.0 mCi of Tc-99m MDP was injected intravenously. Whole body and selected spot images were obtained approximately 3 hours later. FINDINGS: Tracer activity is irregularly markedly increased in the central and right sacrum and right sacroiliac joint. There is moderate focal increase in the medial aspect of the left acetabulum and in the left anterior superior iliac crest. Mild diffuse increase is present in the left sacroiliac joint and the right acetabulum. Distribution is irregularly increased within the spine diffusely. Mild focal increase is present in the shoulders, wrists, and knees. There is irregular increase in the mandible. IMPRESSION: 1. Findings in the central and right sacrum and adjacent right sacroiliac region are consistent with known lytic neoplasm. There is further evidence suggestive of neoplastic disease in the left ilium. Irregularity in the lumbar spine is worrisome but not definitive for neoplasm.2. Degenerative disease within the spine and multiple peripheral joints.3. Periodontal abnormality. Images for comparison/correlati on were recent torso CT. Signed: Tim House Verified Date/Time: 12/17/2019 19:01:11 Reading Location: [facility] Flr [id number] Nuc Med Reading Room , ABDOMEN 2019-12-17 FINAL REPORT PATIENT 14:26:00 ID: [id number] CT abdomen and pelvis with contrast History: Metastatic workup Comparison: 09/04/2018 Technique: serial axial imaging was performed following up to 100cc of non ionic iodinated intravenous contrast as per departmental protocol. Multiplanar images are reconstructed and reviewed when indicated. This CT examination is performed using one or more of the following dose reduction techniques: Automated exposure control, adjustment of the mA and /or kV according to patient size, and/or use of iterative reconstruction technique. Findings:Unremarkabl e appearance of the pancreas. Stable 3.3 cm cystic lesion within the anterior spleen. Multiple simple appearing hepatic cysts, unchanged from previous study. The liver and gallbladder are otherwise unremarkable. Nonobstructing 4 mm left renal calculus. Otherwise, Unremarkable appearance of adrenal glands, kidneys, ureters, and urinary bladder. . No small or large bowel obstruction. No apparent bowel wall thickening. Significant retained stool throughout the colon. Moderate sigmoid diverticulosis, without diverticulitis. No findings to indicate acute appendicitis. No free fluid or lymphadenopathy. No abdominal aortic aneurysm. Multiple sclerotic bone metastases are scattered throughout the lumbar spine and pelvis. Additionally, there is a destructive mixed lytic/sclerotic lesion which involves the right sacrum. Posteroinferior soft tissue component measures 5.4 x 5.2 cm in the axial plane. There is invasion of the adjacent right S2-S4 sacral neural foramina. Additionally, the anterior margin of the soft tissue component closely approximates the right sciatic nerve. Impression: 1. Multiple bone metastases as described above. Most significant lesion involves the right sacrum, with neural foraminal invasion and significant soft tissue component.2. No evidence of visceral metastatic disease in the abdomen or pelvis. Signed: Donald Edmonds MDReport Verified Date/Time: 12/17/2019 14:26:05 Reading Location: [facility] B1 C013Y CT Body Reading Room abdomen/pelvis 2019-12-17 Interface, External [facility] with IV contrast 14:26:00 Ris In - 12/17/2019 - Medical 2:28 PM [facility] CT abdomen and pelvis with contrast History: Metastatic workup Comparison: 09/04/2018 Technique: serial axial imaging was performed following up to 100cc of non ionic iodinated intravenous contrast as per departmental protocol. Multiplanar images are reconstructed and reviewed when indicated. This CT examination is performed using one or more of the following dose reduction techniques: Automated exposure control, adjustment of the mA and /or kV according to patient size, and/or use of iterative reconstruction technique. Findings:Unremarkabl e appearance of the pancreas. Stable 3.3 cm cystic lesion within the anterior spleen. Multiple simple appearing hepatic cysts, unchanged from previous study. The liver and gallbladder are otherwise unremarkable. Nonobstructing 4 mm left renal calculus. Otherwise, Unremarkable appearance of adrenal glands, kidneys, ureters, and urinary bladder. . No small or large bowel obstruction. No apparent bowel wall thickening. Significant retained stool throughout the colon. Moderate sigmoid diverticulosis, without diverticulitis. No findings to indicate acute appendicitis. No free fluid or lymphadenopathy. No abdominal aortic aneurysm. Multiple sclerotic bone metastases are scattered throughout the lumbar spine and pelvis. Additionally, there is a destructive mixed lytic/sclerotic lesion which involves the right sacrum. Posteroinferior soft tissue component measures 5.4 x 5.2 cm in the axial plane. There is invasion of the adjacent right S2-S4 sacral neural foramina. Additionally, the anterior margin of the soft tissue component closely approximates the right sciatic nerve. Impression: 1. Multiple bone metastases as described above. Most significant lesion involves the right sacrum, with neural foraminal invasion and significant soft tissue component.2. No evidence of visceral metastatic disease in the abdomen or pelvis. Signed: Donald Edmonds MDReport Verified Date/Time: 12/17/2019 14:26:05 Reading Location: [address] Body Reading Room Basic Metabolic Panel 2019-12-17 06:58:00 Test Item Value Reference Range Interpretation Comme nts Sodium (test code = 137 meq/L 390-538 6380-2) Potassium (test code = 3.5 meq/L 3.5-5.1 2823-3) Chloride (test code = 105 meq/L 98-107 2075-0) CO2 (test code = 2027-9) 22 meq/L 22-29 BUN (test code = 3094-0) 32 mg/dL 7-21 H Creatinine (test code = 1.04 mg/dL 0.57-1.25 2160-0) Glucose (test code = 102 mg/dL 70-105 2345-7) Calcium (test code = 9.3 mg/dL 8.4-10.2 01372-5) EGFR (test code = 36815-6) 71 mL/min/1.73 sq m ESTIMATED GFR IS NOT ACCURATE CREATININE IRINA ROAWN IN PREDICTING GLOMERULAR FILT RATION RATE. ESTIMATED GFR IS NOT APPLICAB LE FOR DIALYSIS PATIEN TS. MARIN (test code = MARIN) Wire Web Worker ID - DANNY Sung Lab Interpretation (test Abnormal code = 01006-4) [facility] METABOLIC [id number] 06:58:00 Test Item Value Reference Range Interpretation Comments SODIUM (BEAKER) 137 meq/L 136-145 (test code = 381) POTASSIUM (BEAKER) 3.5 meq/L 3.5-5.1 (test code = 379) CHLORIDE (BEAKER) 105 meq/L 98-107 (test code = 382) CO2 (BEAKER) (test 22 meq/L 22-29 code = 355) BLOOD UREA NITROGEN 32 mg/dL 7-21 H (BEAKER) (test code = 354) CREATININE (BEAKER) 1.04 mg/dL 0.57-1.25 (test code = 358) GLUCOSE RANDOM 102 mg/dL 70-105 (BEAKER) (test code = 652) CALCIUM (BEAKER) 9.3 mg/dL 8.4-10.2 (test code = 697) EGFR (BEAKER) (test 71 mL/min/1.73 ESTIMA PHILIPP GFR IS code = 1092) sq m NOT ACCURATE CREATININE CLEARANCE IN PREDICTING GLOMERULAR FILTRATION RATE . ESTIMATED GFR I S NOT APPLICABLE FOR DIALYSIS PATIEN TS. Wire Web Worker ID - DANNY WTissue [id number] 14:43:00 Test Item Value Reference Range Interpretation Comments Case Report (test code Surgical Pathology = 104) Report Case: [id number] Authorizing Provider: Charlette Fitch MD Collected: 12/12/2019 0926 Ordering Location: [address] Received: 12/12/2019 1351 Service Pathologist: Stephanie Bridges MD Specimen: Bone, Biopsy/Curettings DIAGNOSIS (test code = [id number] 3220) FuZzEwMzNcZnRuYmpcdWMx QBxsklNrYAfen3DpV4LnUd AwMFxhbnNpXGRlZmxhbmcx XOYySVT5gkLfUAYcWYfaYB EcUWzdEu0nyCVnkCueIiAz IKQcq1kdoiYWahuwaVa9cX zfX41ce4I8IipjR5xlGLUx CMOiP7UkKP2kFQHsAxd0AD G8XFJ9FQFwQPApP4NtRF4t AVPaoXQiCEe6i9bnnAniCT WvHZN1i0daPUoeshQwRG9z sk9cpDt3v4hmsvNyVUXxCQ PmcLVPFFGdQ6WzwKdyYd2j wKs5aDjgOnrnXBA7Kjr0ZZ 6kne57cno1nWpvPIQwafqt OnO8JMtbUPTvbrkdLOm2RE xtYXJnbDcyMFxtYXJncjcy MFxtYXJndDcyMFxtYXJnYj mzTGpyDEOvIIF3TMdrt400 FLS6QDmkm9fbg8bbeBZkXr a2CUPqHhRnJasjCJuuq4Eu i9zkWVUpzi8uFCH0uUJvbH aeq5T2aRRfORCviWSijkJl TEZiPlC3QUwbTD8whi54HS PyUKV0ay1vgFRyqDtummVv dCVaOIhgM7IdDEImb794QT PmO9UrXUUip6K5wyRhFbCs DXJxuPF3gtU3LKJwMNe7bZ ZkgkH0mqAphLRcS3vkiO87 OpYkcVTbV4VriU15SiWbvG PgE3RonG79ZtTekHKjU0Wz tR97NcDehVSbHUObcYNiHj 8nmCUqyQLws5QhiDAoKQec Q76zz494XNVliqHiZ0ozfQ FpblxwbGFpblxmMFxmczI0 XHFsXHBsYWluXGYwXGZzMj BcbGFuZzEwMzNcaGljaFxm KXhsEzLbRVHcMFltE2yfDk FyAhDnEHluAJYzQD1wIj3O RSwgQklPUFNZOlxwYXIgIC ZsTTMxXM4NKCHTQCDENXJg E5DUX8jCB43URVQJH66IKN IMQT5BASwRCPijRYARDTmX TElBTCBQUklNQVJZLlxwYX GeQIAxITOpNGDHTQWNH34H TO6MJdmeTKK4h1onkEVnPB NzdGUxODAwMFxhbnNpXGRl IgkkgtwuSAIkTFJ9lpYgED QrIIadEUDmUXcfUg1xwLKi yTddAcZkOIApo4qhqkLUcz jrzGa2s2dvGLYdGfB4bZIe RUslV4sacpNsvQEhBLXaIH p8kR73MBPzmZ6gpGCuPRzx dtThPxQ6FOmkSUEsVlY5SM BgfNYeJSCzB1yoKFXyBOrs FLFxOQahnPNoKTR3iPfva7 J3yJOnpJSdtUifQkOpWeRn OnVEk2ZiPTh5xScwY1EkVI FpXkB3yUGqLJCdMQlhHETs JOEupwS2qL81XBdgvfP1zT Ivx3Hsd36dj790kS8ddSDc CXM6WMImSKGusDSrEVSxSR B1XEBecMHlZ5ofRLAwXB2l piqgKJjgBUdoBWIxxHZ9LN InuDQaX3HsMOKoAPuxNRNz saq2DwJxRv6noBStzQgkRB ovo2eiz9mdfGZiWml4GRRd HlNgJikvPNzyn5Pro7krBI Xyhc7uJYW5fOMzyBdzs4L2 vZRfRERrkFQnDMMqZE8goL WjTCRwlW8upqahDBQwVgFp fwqkMRBgdCskbyRvCl4agK tyFNX0EZzyC9qiaB8hWhS7 ADskO8exqZ7rEPg6WRzdOL GfgBB1tkC8GIJenPErN6Pk yA5tKMHwHS2lliv6q7npKK I2YNqdHPStWpC6cmX8EDBf bGXvWKUgnGijPErxd654UP G0HyHaBAQav4EvK5ZsmXpe J87ihGkuK43qQHMewYdttG 2jnFvimL4pSgOkWnZeHAgi qCxfXP5oKCOnI1oadYGaRW TeSVLoB1ijKbHxjP0vzKlw GAezgnRzXLMrHom7CHWruQ TcQNNzJwk2NVTaBSVpR46z utixPIN6yW7hs8cgt7UiMK lbLZE8SSBan64nNZaueoF9 IJanDh33RZynQWP4TZcdCL J9fQ== COMMENT (test code = q0uufJWrOBWjnFKlJvTqPV 3350) OhWXKte5czLNSjyNKrZlKc MzNcZnRuYmpcdWMxXGRlZm Uhj6dvy602aUVdz4fcCRFb SfH3aEZjXNLwjSJaF353QO KsRVbtd5asj3LeRVUdoEZu u1J3FBKDhtobiYk0qPqnU4 1zf0W5KerpB9enHUMjTChr XZXjTOgqiIVhOVS0PCEjFC F1MRwcdkJwjvF2EEstjNRl FvZ8PTe8r9imgMzfYZRlTW C5d4wcMUtbodLzML4apq4k lBm8y4nrdnGbHJYzICZhoJ HJEWWsX2YogGptOv5gcCj2 f2ycCrcxxsQ3yWHcSfRyMe MyMFxsaTBccmkwIENvUGF0 iPEHUYk0X730g7mqNMTtbr XvuTdJgrcoe9dlH276FGSk cGVydzEyMjQwXHBhcGVyaD N9SBTnKM7nunfrTtSmXV1b xruuQrQgZY5gcjv4FbNiTF 1hcmdiNzIwXGhlYWRlcnkw FAGgq1MtyvghGO8eE2Xfl7 V8cW9nbTMlSNYivVWaYkGv PGSbpd4sfVZcXPkgz9KfFK J0bqV0eTKddKCrRKIzTC06 Sldyy4CbZidqQLT5PXXroq Jjd6Gbz8trAuHqdrSnC8dg E0DxHWVeBWExEWRdKsEosy Gva8Teg0CzoSPqzJr4k9rn WHYfYWEnwYvbu9nkISG2YP ZvL9L0fXKgu1yiQTkiRFIm cPZ3lyacNFunWGScgxY6mw cxWGcoRXHgjGV8gqszFIsi QGXfJrB4weruURbnBLXfKZ B3SDtor135HOM2VJpmVhjh YWdlXHBnbmNvbnRccGduZG VjXHBsYWluXHBsYWluXGYw IKBtTnCwiAwwxRvcgY9vPq BcZnMyMFxwbGFpblxmMVxm czIwIFRoZSBpbnRlcnByZX PzcVmznoQpApY7rSagBZSu h1VccS0fsIJiFSRbdArfCL DfUPHcXvI3hCZxMt2rxD32 lG6tPUhzoQMxu5sys3TtD5 ekiVbuWDqbn9HlwK7dZR4w YYWzt3KfOWUxKloxPNTeY5 YGWN6zOwRag2EsoKp5OOnb PJVvK5x4JoAvl4GymQe2NZ vjPJOiV0yyWRjqGd8qDZcr sX2pmFTlybRrhHPcSYU7dv HlfN6lwPumaG09UE7qP7H6 aXZlXHBhcn0= CPT Code(s) (test code f3rggZJzKRJfaWNzFaYvZJ = 3357) GhPWIjs8tdDYQunGVnWkQg MzNcZnRuYmpcdWMxXGRlZm Zmp7kkb798dDBqa9osVJLg BuS0zYAxITOtrEFeE341o0 wdn5efxlIkfGC5MIQlCMJ2 IKzmhjNsgnA9DDfnfAGyJb K4CBcqqpHmPWemsbHzvsCs Fni0WVHtQ400WXW7lXepw5 fmHSZ1STAsKWUfAmWfGw9k lRDjW039MFYnXJKYRNDijJ i6HVLmhpCupuTxuUIAv952 N374e1yjZEJxrbKwqLzJay nvu9xnR446DSUsmSDvpoDc XiWbUUSueTImaJO2ZGHbVT 8hxvctWxPtXX7wehorEdIy RG1vcin8DiKeNL5cwaefMo MqLUtnCGTbrfffURVnb3Ng kwoqVD4nA8Joo9A3fL4nxN DhKSYlkAGwJwQuBPQtkl6g tUSqATkgm0WgIRF4qtL8hN AjxMQnQUTlXR33Ejwcc1Vp YeasDSZ3PEXsayVkj9Rpp6 dxYuEmfmKbM0tsP3HrYRKs GTIyNHClZjJlufOzc9Ori9 LzvHNxzXu1z0tfUCXuTEUk zPggc5voQEJ7LDFtM2O9yE Npg0woATfoLMOycPQ8wbmr QGokUREqxoM3vbhgSLpdTN EwfQE3kymdBBxgOFObPhB1 ygnvFBuwMQSdMST1QCjdj8 02SCS6SDodLybtWJzcDFRh bmNvbnRccGduZGVjXHBsYW luXHBsYWluXGYwXGZzMjRc kUuaoIihbI6yNzZcRrPyGM pvSJ9aLDXlK8fooVJhLMGz NLNkE1jwEbUvsS9twMigTY xzojCeBBf9OdB0XJW8JHXm PXecDGuwXWBkMIr7WnEjET ioQ4ifSXO0 SPECIMEN SOURCE (test d5ifxNNxCQHpxKXyWcCeXX code = 3377) TtXDPpx1pqRXVntJJfKeEf MzNcZnRuYmpcdWMxXGRlZm Gnm3gbv207aXWoa2lnMAQy OaZ5jTFaBXJsfNEmU215y4 ija8sgjxVrcYW0VKVrUBI3 YTgphaFlvfJ4HUdrsPGpVu S7XIiuceQnMYfewnWtpnPu Icy9GUNqS594GGM3iWpav8 nrJRT0XUHpVOYyEiIvKu5q oIRnP021LMKcLXZWGPPzzD z5SJKkthCdcoIbjZVVa816 F126e1jnEOBjmkQtzGqDpz xjm1zkB199BPLjqAOdvtQe OxWuQXItuKLuyLS1FDYpQL 3cvsmiFoGdBF0vhyvfWgMb LI0tpnv7UzRiQK8eejplOj KwXGkjFOCptojxZMWtu0Pm yiwaQQ1aL3Jdb4B7mV7daN XpVGZmmEOwQnLoMQIanq9i xPTmLLexx1NmSTI2gwR4rP YirCUcCDPuWT57Abkco6Gc WowbGER7LRWltfIpb9Lqz2 dcRdLpczArD6wwZ0XiULJs OEPlEWKjQoRybrWqn2Gus3 QveNPhuXy9m2flRNMdZCRe zIjfg0pbWXC5CXFoF5D9wU Hus8bwZRxpZVKotRI8mjcl AVukICWosxT6bpcaRUewZL KmiKM7xhvuMAkyFUBeAeT6 trdmUItaCVWfTVE7SFnqa4 57UFU0NTjnMxugKTfpJIKt bmNvbnRccGduZGVjXHBsYW luXHBsYWluXGYwXGZzMjRc zBgfrQwebE7kBiLuWlMgXU tlVE8eVGKvJ0mqxMEhHKVw OPUfS6gpUxJtqQ1vzVeiPY xmczIwIEJvbmUgYmlvcHN5 XHBhcn0= GROSS DESCRIPTION (test e3bbdRMjRFIjrOIaSdXbOC code = 3366) UzZMJoy9qbCYOdeQWlTmLa MzNcZnRuYmpcdWMxXGRlZm Xja1hjo107cDTbw1zxHAOr ApE7uQUeVPSjrUBfI424VS LkSJics7uoq9IoMLLnzCNg g2Q0GMYUhtkkdKa8kZvuU3 3no6G2XvncX8jvUCEnTSid KDIoDFvxkZSgBZA3CLWcCB Q9JTypeeAecuR7IZtneHDh PqI3UIb7a0ilxRptQQTrZA U6h1hvRWkpsrYbTI3mid8c qIv7g8cnpfUcELPlQWZizL HTGCNdR2CqwBflTy3swYs5 xAxtGmknFNL4Zsr0FU6war 21tra8hRqtSTYnrkiaNzT1 SPupDNZpyjapMYt1JMweBT JnbDcyMFxtYXJncjcyMFxt YXJndDcyMFxtYXJnYjcyMF uhKDIcLDP4QVcoe936JYX1 BRace7fms1djoKXkMsr0PK BkZiCaLzdvYIbke2Pyj6vs IAIssp9cUIL9pHFemPisi0 R2lOXhUBZaaHYvicObBRIz AyF3DEdgQF4wpb64XSHdNC S1en0ugHKjvUubzqLheVTz LTrjH1UyETNcf020SEIlR6 CzJUHgk1Y2jbFxDxJyAFWq yVB3rnH4EOLvPFv4vEEahu A9kcCnsXDkI4zdoN83VqLf mBZlN8NnyX05IxGnnJGoO3 CddA84EdJpjBJoX0MkuU08 MdByiOZgXSNiwQNsIx5ntE ZgjQBmd0AhgCXtKHtnK95g l810IVJzuyXvT1cdlUVexr xwbGFpblxmMFxmczIwXHFs XHBsYWluXGYwXGZzMjBccG bqpQ9kMkUtCkJjARQNYPUv oLOlOOFdupQuh5OoQQsdtk BsYWJlbGVkIHdpdGggdGhl MXTahZedoqNbmoQyGS8oPV RxM6Wpc0Doo10begJcWzOv ESOpNWCwXv0gDYLfrI4io0 flWDO9ohB6pXwrZ9ZzDXAg PUJrpGv7hLTsVXW5WV2pbV dnkiD3vEAxkERrO27aDKDn MbWwfEBrInReF30uwY4vVe V1mtDvYwOdX86ooZ5oLaTh dqBnZY1cPREvZPxdEAXaTX 1ruKHoCqAEyNJuq0YhT9ak YF3qaYMfo2KydHv5nJFxBJ AkiUyqVYm7RWJzdTgsx5jq CrFnsMw1pvZ5tT3yPLCvCF BsaWdodCBkZWNhbGNpZmlj WUPfe99qiP6zA1Rhs5G8dP UgQTEuICAgSFMvcGxccGFy fQ== SPECIAL STUDIES (test h0cliGBpJXAlj0xxLXFnqX code = 3376) FuZzEwMzNcZnRuYmpcdWMx DBsfmnFvYCznd9KeH8FiFs AwMFxhbnNpXGRlZmxhbmcx WLIbTMR3pgDtVQLaSCmqTZ MkHAgfGr8fxPBjlMdbQdNu JSXsl9jriuBBxcilbIc1n2 euLRNbBuM7gFCmTEbeH8nv quBoyQKhF0WgoOMrjYa7i5 dnXdDnIgM2lCIiUVypR9rg sgVloRUtEIMdAZb6rF81EZ WtyP7szZRaQIwszsGxMhC0 QChuERUuEmF0ZZNwkMWtAS YdX5wwWCRjGKtyBXEkQFfb oDMpWNY5aKtbq2Z6aBKdvF BriNljPlGzDyDjKfBUj6Wx PIb5vLhoI9FpKTMdGrV9cH QgUGFyYWdyYXBoIEZvbnQ7 eCocknTuu74kzLJxMVDwFG FjIaBpcQuuSYOvUJQZt0Gx jJgjHWC0rNd7cVvmFsxzKT I2Tyw6LZ3qzh92whz1qGqj FPAwkxfrHoW0CJqkNRXsbn nrJUi6QHfpCECrvLV5CXGi lLJjW0IdGSJkNJ9ezhd1XB H3RBfjDVTrRaB3TYYdzZJl PDDfpBpgJEpkq006BQJ1En LnTE5tT0Bvr2E9hZ8jxBAz UJYnlYRaFjIzKZOazj9whR LoAAqlf3RsSMM2vtS9rFNc qWNyAEEkDI15Fqccc9UjXs nzm0QeI69wdQO8QKqxj3du UV4tHuW1toBnUZeip1qarS 5sYnQ1UEgqYZ0iQY9tAGLy cD3jqftaJSIvCbVdmkzuXW QwsIaidoReIv7fnOjdGOK9 VPbbO3wxuX3zHiL8RXxnK2 trtH5cSUd0MUesfWA0CVPv yC9iTR1eqzbjt0mnCCqgTK xkMZAldcR4qgN2SSOloRWq Q5UmfM4sLIIqMC2uggysp9 dyENJ4GJeyNLWvCCP2NsWk SVApe2Hxwjv9EmLxs1JzgV CfMDoxY08so980SHChbqYh N1rblDPwvcggzUXaqhxjBW qtwaP0SJSzXLXmRXhlDTDd XGZzMjJcbGFuZzEwMzNcaG ljaFxmMVxkYmNoXGYxXGxv I4tnRbFwF9FnHMBtEtYcHV pyJBhfeMYuxFXdqKZ2mG6p SV1iLXTjiKElG7VeWZWxoq UhpILvYNP1mJEmoYOvKX6v AJglpCXos5fgg3JvQ2aylE sfbPJ7JN9jYIDlRIIzRAym c0KdeW0kTovuzREcufcsYG xmczIyXGxhbmcxMDMzXGhp R4ejLyObZHRnySuyIUqoa7 NoXGYxXGNmMlxmczIyXGx0 cmNoXHBhclxwYXJccGxhaW 3sMyXiThCdGhasWQ1oBBRt K3pmkDIkTLFoAZPaK8icZw BjcX9yhGmrBUedFnZxLfJu NjSIm243kb9yNDHuwSVqbh ORgTBnvM8aPFkaCXpjNDeb iIWvCTjlx4dsWNZry9o1dO HvYTEhytLjo1fbKSplkkGx JFGslVGdzXTeBDCaw84iHU qgwCsdtGtyBMBwy3RkxNoy t7RpIkLdCPmzh6EdV34naO JvbCBzbGlkZXMgcnVuIGFs k57wi7kbTEAgEcY6tRAfoG O9pWHueUHby6CfnSbmXTXr r1rwEHLfhy0fxmppuWIht2 ZfdN2vmlayUPqnyHSjonIs MWLmm1w9jBFsONFaUPJtJW hraWv0NKCwu520fc9htwF2 xEVpEAY6JZhxEXNrPHVart UgZXZhbHVhdGVkXHBsYWlu XGYxXGZzMjJcbGFuZzEwMz NcaGljaFxmMVxkYmNoXGYx HOuhH6vcMcOqY2WuWLAxLl CuiCIhF4nzcISbLRYaJBau XGYxXGZzMjJcbGFuZzEwMz NcaGljaFxmMVxkYmNoXGYx VCfiL8piIsLfZ4VcIEBnRz IgIFxwbGFpblxmMVxmczIy QGbzhjmwMBUsLQyhS6oaPh NdUTDhzLogEIvpc5VzIQGf CCBaYbfkcbNgWVa0cpZqHZ BhclxwbGFpblxmMVxmczIy DLmkqphyWKYdHVfuD4jyWh KbSWMebWgvDVrzm2FoLWRh XGNmMlxmczIyIEltbXVub2 bam1ZlZ6uqhZoewHN8RWSq U6ktoQWhqTG8JIO4qV5rDH tdfsUsYYUje9HtCRTaLKJt UmD3oE9uPKP7UsETzOtuNH BsYWluXGYxXGZzMjJcbGFu ZzEwMzNcaGljaFxmMVxkYm MmQXQhNQyyK3urAiQvF1Sy RSIwYzWbxCszPPgbOVe2Iz xwbGFpblxmMVxmczIyXGxh ypxxFQUtZAraP0ljNrPtCJ HpdYyjRNxdo1KoHMJpILDd MlxmczIyIHMgTWVkaWNhbC UMBI16OQMwIIGlcJiubE7f jAQEHSUwysI2s1H0RTrtAG AlIKt0XZclxlPwSHHgkU4q GAXmAR3bSGd5utLyHJKeb2 DfZR9iKHCrtQXoMKA1KGJa n5JjF5Vyb9JgEBPhGMGihv 3rhpWjSlZJkVWzNFOqsn25 QMSjEN6cL3dtVTDwXPXfhu FddRCax9SdUDMboJW2eLSz CI5YPlDWg37oMHDqQVCQhb ZfOGWsaFotiQG6yyZ5vL7i LiBUaGUgRkRBIGhhcyBkZX Zzwr1xhrCwYEZkDKKbv4At tZFcbJUkntEcR9Wlw9TfSS Vcuz03LWgnnGSrgv45VS9l J7Iag5JpuV1gLSohFTQmx4 PqlNQzoWXlIPDlg1BlD3eb nxivYHdyrKHphS2pEXMeKG n2VTFad7YeGSMug6LmObRz xaXtJHRdGCFoZMZtxC20UA H5fFboeNplveFrAE8dIQZn whQpDTSnKRVlgI5gBRnnib DeEDFgkxR9s2S7GZmfJPMa clEtByqcUBA0fiNafiL0xU NvR4fstdxuVUujLYXpa3Zk fJ8cgHTWkHZyc2PvzSXsvC IJtJKrMK5powKpMK4tPEN1 ODggKENMSUEtODgpIGFzIH Z7QUudHtftIKA0tbMpMDIo y1IqSIxeT8owC64kuMxkuZ z9yDYelLktpHDydEYhJAOv heF7q3F2EFQmh9MylwmkMF BsYWluXGYyXGZzMjJcbGFu ZzEwMzNcaGljaFxmMlxkYm SqTGLxMObnZ4imOaArPdQt DrtsUIJ5iZ== Gross assessment was [facility] performed at ([facility], = 2777) Department of Pathology, [address] [place] [address], Technical component was [facility] performed at ([facility], = 6549) Department of Pathology, [address] [place] [address], Professional component [facility] was performed at ([facility], code = 0366) Department of Pathology, [address] [place] [address], [facility] [id number] 14:43:00Surgical Pathology Report Case: [id number] Authorizing Provider: Charlette Fitch MD Collected: 12/12/2019 0926 Ordering Location: [address] Received: 12/12/2019 1351 Service Pathologist: Stephanie Bridges MD Specimen: Mitch ne, Biopsy/Curettings A. BONE, BIOPSY: - METASTATIC CARCINOMA, CONSISTENT WITH UROTHELIAL PRIMARY. - SEE COMMENT. Signing Pathologist Direct Phone Line: [phone] signed by Stephanie Bridges MD on 12/16/2019 at 2:43 PMThe interpretation of this case included the use of the following immunohistochemical stains on blockA1.NGOZI-3: positiveCK7: xjezqmldVG03: focal positiveSynaptophysin: ztfcsndx05063, 85497, 01064, 87146 X 3Bone biopsyReceived in formalin labeled with the patient's name, accession number and "bone biopsy, curettings" are multiple ramos-pink tissue cores from 1.2 cm long to 0.1 cm long and 0.1 cm in diameter. The specimen is submitted entirely following filtration and light decalcification in cassette A1. HS/plThe interpretation of this case included the use of immunohistochemistry or special stains.Control Slides Examined: In-house known positive controls were evaluated along with the test tissue. These control slides run alongside of the patients sample show appropriate staining. Internal positive and negative controls when available are evaluated Immunohistochemistry technical testing was performed at [facility], Pathology Laboratory where it was developed and its performance characteristics were determined. It has not been cleared or approved by the U.S. Food and DrugAdministration. The FDA has determined that such clearance or approval is not necessary. The test isused for clinical purposes. It should not be regarded as investigational or for research. This laboratory is certified under the Clinical Laboratory Improvement Amendments of 1988 (CLIA-88) as qualified to perform high complexity clinical laboratory testing.[facility], Departmentof Pathology, [address] [place] [address], [facility], [address] [place] [address], [facility], Department of Pathology, [address] [place] [address], DXNXP METABOLIC [id number] 04:45:00 Test Item Value Reference Range Interpretation Comments SODIUM (BEAKER) 138 meq/L 136-145 (test code = 381) POTASSIUM (BEAKER) 4.2 meq/L 3.5-5.1 Specimen slightly (test code = 379) hemolyzed CHLORIDE (BEAKER) 102 meq/L 98-107 (test code = 382) CO2 (BEAKER) (test 27 meq/L 22-29 code = 355) BLOOD UREA NITROGEN 32 mg/dL 7-21 H (BEAKER) (test code = 354) CREATININE (BEAKER) 1.31 mg/dL 0.57-1.25 H Specimen slightly (test code = 358) hemolyzed GLUCOSE RANDOM 109 mg/dL 70-105 H (BEAKER) (test code = 652) CALCIUM (BEAKER) 9.9 mg/dL 8.4-10.2 (test code = 697) EGFR (BEAKER) (test 54 mL/min/1.73 ESTIMA PHILIPP GFR IS code = 1092) sq m NOT ACCURATE CREATININE CLEARANCE IN PREDICTING GLOMERULAR FILTRATION RATE . ESTIMATED GFR I S NOT APPLICABLE FOR DIALYSIS PATIEN TS. Wire Web Worker ID - [facility] (Hemogram only)2019-12-16 04:33:00 Test Item Value Reference Range Interpretation Comments WBC (test code = 6690-2) 7.5 3.5- 10.5 K/L RBC (test code = 789-8) 4.78 4.63- 6.08 M/L MCHC (test code = 786-4) 33.1 32.3- 36.5 GM/DL L Hematocrit (test code = 4544-3) 40.8 % 40.1-51 MCV (test code = 787-2) 85.4 fL 79-92.2 MCH (test code = 785-6) 28.2 pg 25.7-32.2 RDW (test code = 788-0) 16.3 % 11.6-14.4 H Platelets (test code = 777-3) 484 150- 450 K/CU MM H MPV (test code = 43701-5) 8.7 fL 9.4-12.4 L nRBC (test code = 413) 0 0- 0 /100 WBC Lab Interpretation (test code = Abnormal 03882-2) [facility]2019-12-16 04:33:00 Test Item Value Reference Range Interpretation Comments WHITE BLOOD CELL COUNT (BEAKER) 7.5 K/ L 3.5-10.5 (test code = 775) RED BLOOD CELL COUNT (BEAKER) 4.78 M/ L 4.63-6.08 (test code = 761) HEMOGLOBIN (BEAKER) (test code = 13.5 GM/DL 13.7-17.5 L 410) HEMATOCRIT (BEAKER) (test code = 40.8 % 40.1-51.0 411) MEAN CORPUSCULAR VOLUME (BEAKER) 85.4 fL 79.0-92.2 (test code = 753) MEAN CORPUSCULAR HEMOGLOBIN 28.2 pg 25.7-32.2 (BEAKER) (test code = 751) MEAN CORPUSCULAR HEMOGLOBIN CONC 33.1 GM/DL 32.3-36.5 (BEAKER) (test code = 752) RED CELL DISTRIBUTION WIDTH 16.3 % 11.6-14.4 H (BEAKER) (test code = 412) PLATELET COUNT (BEAKER) (test 484 K/CU MM 150-450 H code = 756) MEAN PLATELET VOLUME (BEAKER) 8.7 fL 9.4-12.4 L (test code = 754) NUCLEATED RED BLOOD CELLS 0 /100 WBC 0-0 (BEAKER) (test code = 413) Urine [id number] 08:56:00 Test Item Value Reference Range Interpretation Comments Result (test code = 20-29,000 col/mL A 6463-4) Cyndi parapsilosis MARIN (test code = MARIN) 10-19,000 col/mL skin polly Lab Interpretation (test Abnormal code = 64494-6) [facility] [id number] 06:32:00 Test Item Value Reference Range Interpretation Comments SODIUM (BEAKER) 138 meq/L 136-145 (test code = 381) POTASSIUM (BEAKER) 3.8 meq/L 3.5-5.1 (test code = 379) CHLORIDE (BEAKER) 104 meq/L 98-107 (test code = 382) CO2 (BEAKER) (test 25 meq/L 22-29 code = 355) BLOOD UREA NITROGEN 25 mg/dL 7-21 H (BEAKER) (test code = 354) CREATININE (BEAKER) 1.14 mg/dL 0.57-1.25 (test code = 358) GLUCOSE RANDOM 108 mg/dL 70-105 H (BEAKER) (test code = 652) CALCIUM (BEAKER) 9.9 mg/dL 8.4-10.2 (test code = 697) EGFR (BEAKER) (test 64 mL/min/1.73 ESTIMA PHILIPP GFR IS code = 1092) sq m NOT ACCURATE CREATININE CLEARANCE IN PREDICTING GLOMERULAR FILTRATION RATE . ESTIMATED GFR I S NOT APPLICABLE FOR DIALYSIS PATIEN TS. Wire Web Worker ID - [facility] (HEMOGRAM ONLY)2019-12-14 04:14:00 Test Item Value Reference Range Interpretation Comments WHITE BLOOD CELL COUNT (BEAKER) 7.5 K/ L 3.5-10.5 (test code = 775) RED BLOOD CELL COUNT (BEAKER) 4.68 M/ L 4.63-6.08 (test code = 761) HEMOGLOBIN (BEAKER) (test code = 13.1 GM/DL 13.7-17.5 L 410) HEMATOCRIT (BEAKER) (test code = 39.8 % 40.1-51.0 L 411) MEAN CORPUSCULAR VOLUME (BEAKER) 85.0 fL 79.0-92.2 (test code = 753) MEAN CORPUSCULAR HEMOGLOBIN 28.0 pg 25.7-32.2 (BEAKER) (test code = 751) MEAN CORPUSCULAR HEMOGLOBIN CONC 32.9 GM/DL 32.3-36.5 (BEAKER) (test code = 752) RED CELL DISTRIBUTION WIDTH 16.7 % 11.6-14.4 H (BEAKER) (test code = 412) PLATELET COUNT (BEAKER) (test 398 K/CU MM 150-450 code = 756) MEAN PLATELET VOLUME (BEAKER) 8.4 fL 9.4-12.4 L (test code = 754) NUCLEATED RED BLOOD CELLS 0 /100 WBC 0-0 (BEAKER) (test code = 413) CT, BIOPSY, [id number] 09:40:00Reason for exam:->please biopsy lesion to R sacral ala - approved by Dr. Rascon for exam:->please call Dr. Fitch [phone] guided sacral mass biopsy History: please biopsy lesion to Rsacral ala Modality: CT, CT fluoroscopy Anesthesia: 1% lidocaine local Approach: Posterior percutaneous Consent: The risks, benefits, and alternatives to the procedure were discussed with the patient.The patient expressed understanding and informed written consent was obtained. Time out: A pre-procedure time out was performed in order to confirm the appropriate site of the procedure. Sedation: Moderate sedation was administered, including a total of 2.0 mg of Versed and 100 mcg of fentanyl. Continuous monitoring was performed by the operating physician and radiology nursing throughout the procedure. Duration of conscious sedation: 20 minutes. Technique: This exam was performed according to our departmental dose optimization program which includes automated exposure control, adjustment of the mAand/or kV according to patient's size and/or use of iterative reconstructive technique. The patient was placed prone in the CT scanner. There is a lytic destructive mass in the right sacral alae, localized using CT and CT fluoroscopy. After the usual sterile preparation and application of local anesthesia, a 17-gauge introducer needle was advanced into sacral mass using CT guidance. Using a 18-gauge Temno needle, eight passes were made, yielding multiple cores. Disposition: The patient tolerated the procedure well, without immediate complications. The patient left CT in stable condition. Impression: 1. Technically successful CT guided core biopsy of a sacral mass. Signed: Navid Gramajo Verified Date/Time: 12/12/2019 09:40:56 Reading Location: [facility] [id number] Ortho Consult Reading Room [facility] Biopsy/Aspiration/[id number] 09:40:00Interface, External Ris In - 12/12/2019 9:[address] guided sacral mass biopsy History: please biopsy lesion to R sacral ala Modality: CT, CT fluoroscopy Anesthesia: 1% lidocaine local Approach: Posterior percutaneous Consent: The risks, benefits, and alternatives to the procedure were discussed with the patient. The patient expressed understanding and informedwritten consent was obtained. Time out: A pre-procedure time out was performed in order to confirm the appropriate site of the procedure. Sedation: Moderate sedation was administered, including a totalof 2.0 mg of Versed and 100 mcg of fentanyl. Continuous monitoring was performed by the operating physician and radiology nursing throughout the procedure. Duration of conscious sedation: 20 minutes. Technique: This exam was performed according to our departmental dose optimization program which includes automated exposure control, adjustment of the mA and/or kV according to patient's size and/or useof iterative reconstructive technique. The patient was placed prone in the CT scanner. There is a lytic destructive mass in the right sacral alae, localized using CT and CT fluoroscopy. After the usual sterile preparation and application of local anesthesia, a 17-gauge introducer needle was advancedinto sacral mass using CT guidance. Using a 18-gauge Temno needle, eight passes were made, yielding m ultiple cores. Disposition: The patient tolerated the procedure well, without immediate complications. The patient left CT in stable condition. Impression: 1. Technically successful CT guided core biopsy of a sacral mass. Signed: Navid Gramajo Verified Date/Time: 12/12/2019 09:40:56 Reading Location: [facility] [id number] Ortho Consult Reading [facility] 2019-12-12 05:37:00 Test Item Value Reference Range Interpretation Comments SODIUM (BEAKER) 143 meq/L 136-145 (test code = 381) POTASSIUM (BEAKER) 4.1 meq/L 3.5-5.1 (test code = 379) CHLORIDE (BEAKER) 110 meq/L 98-107 H (test code = 382) CO2 (BEAKER) (test 21 meq/L 22-29 L code = 355) BLOOD UREA NITROGEN 18 mg/dL 7-21 (BEAKER) (test code = 354) CREATININE (BEAKER) 1.08 mg/dL 0.57-1.25 (test code = 358) GLUCOSE RANDOM 88 mg/dL 70-105 (BEAKER) (test code = 652) CALCIUM (BEAKER) 9.6 mg/dL 8.4-10.2 (test code = 697) EGFR (BEAKER) (test 68 mL/min/1.73 ESTIMA PHILIPP GFR IS code = 1092) sq m NOT ACCURATE CREATININE CLEARANCE IN PREDICTING GLOMERULAR FILTRATION RATE . ESTIMATED GFR I S NOT APPLICABLE FOR DIALYSIS PATIWAQAS PISANO. Wire Web Worker ID - PIAYA [id number] 05:06:00 Test Item Value Reference Range Interpretation Comments PTT (test code = 45446-4) 40.1 22.5- 36.0 seconds H Lab Interpretation (test code = Abnormal 20835-9) [facility] 05:06[facility]00 Test Item Value Reference Range Interpretation Comments PARTIAL THROMBOPLASTIN TIME 40.1 seconds 22.5-36.0 H (BEAKER) (test code = 760) Prothrombin time/[id number] 05:05:00 Test Item Value Reference Range Interpretation Comments Protime (test code = 12.9 11.9- 14.2 5902-2) seconds INR (test code = 1.0 <=5.9 6301-6) MARIN (test code = MARIN) Effective 03/13/2019: PT Reference Range ChangeNew: 11.9-14.2 Previous: 11.7-14.7 RECOMMENDED COUMADIN/WARFARIN INR THERAPY RANGESSTANDARD DOSE: 2.0-3.0 Includes: PROPHYLAXIS for venous thrombosis, systemic embolization; TREATMENT for venous thrombosis and/or pulmonary embolus.HIGH RISK: Target INR is 2.5-3.5 for patients wiht mechanical heart valves. Lab Interpretation Normal (test code = 79978-9) [facility] CenterPROTHROMBIN TIME/[id number] 05:05:00 Test Item Value Reference Range Interpretation Comments PROTIME (BEAKER) (test code = 12.9 seconds 11.9-14.2 759) INR (BEAKER) (test code = 370) 1.0 <=5.9 Effective 03/13/2019: PT Reference Range ChangeNew: 11.9-14.2 Previous: 11.7- 14.7RECOMMENDED COUMADIN/WARFARIN INR THERAPY RANGESSTANDARD DOSE: 2.0-3.0 Includes: PROPHYLAXIS for venous thrombosis, systemic embolization; TREATMENT for venous thrombosis and/or pulmonary embolus.HIGH RISK: Target INR is2.5-3.5 for patients wiht mechanical heart valves.CBC (HEMOGRAM ONLY)2019-12-12 05:03:00 Test Item Value Reference Range Interpretation Comments WHITE BLOOD CELL COUNT (BEAKER) 7.2 K/ L 3.5-10.5 (test code = 775) RED BLOOD CELL COUNT (BEAKER) 4.26 M/ L 4.63-6.08 L (test code = 761) HEMOGLOBIN (BEAKER) (test code = 12.1 GM/DL 13.7-17.5 L 410) HEMATOCRIT (BEAKER) (test code = 36.8 % 40.1-51.0 L 411) MEAN CORPUSCULAR VOLUME (BEAKER) 86.4 fL 79.0-92.2 (test code = 753) MEAN CORPUSCULAR HEMOGLOBIN 28.4 pg 25.7-32.2 (BEAKER) (test code = 751) MEAN CORPUSCULAR HEMOGLOBIN CONC 32.9 GM/DL 32.3-36.5 (BEAKER) (test code = 752) RED CELL DISTRIBUTION WIDTH 17.3 % 11.6-14.4 H (BEAKER) (test code = 412) PLATELET COUNT (BEAKER) (test 389 K/CU MM 150-450 code = 756) MEAN PLATELET VOLUME (BEAKER) 8.4 fL 9.4-12.4 L (test code = 754) NUCLEATED RED BLOOD CELLS 0 /100 WBC 0-0 (BEAKER) (test code = 413) Urinalysis w/Microscopic + Reflex to [id number] 08:19:00 Test Item Value Reference Range Interpretation Comments Color, UA (test code = Yellow 5778-6) Clarity, UA (test code = Clear 5767-9) Specific [place], UA (test >1.050 1.001-1.035 H code = 5811-5) pH, UA (test code = 5.5 5.0-8.0 5803-2) Protein, UA (test code = 20 mg/dL Negative A 19863-3) Glucose, UA (test code = Negative Negative 365) Ketones, UA (test code = 20 mg/dL Negative A 2514-8) Bilirubin, UA (test code = Negative Negative 41069-8) Blood, UA (test code = Small Negative A 83103-9) Nitrite, UA (test code = Negative Negative 5802-4) Leukocytes, UA (test code Moderate Negative A = 5799-2) Urobilinogen, UA (test 0.2 mg/dL 0.2-1 code = 97870-8) RBC, UA (test code = 4 /HPF 37917-8) WBC, UA (test code = 15 /HPF 5821-4) Bacteria, UA (test code = Rare 30264-3) Mucus (test code = 8247-9) Few Squam Epithel, UA (test 1 /HPF code = 90513-7) Ca Oxalate Alba, UA (test Rare code = 19534-4) Specimen Source (test code = 2795) MARIN (test code = MARIN) Wire Web Worker ID - [auto]Wire Web Worker ID - tech Lab Interpretation (test Abnormal code = 55737-5) [facility]FLEX URINE [id number] 08:19:00 Test Item Value Reference Range Interpretation Comments COLOR (BEAKER) (test code = 470) Yellow CLARITY (BEAKER) (test code = 469) Clear SPECIFIC GRAVITY UA (BEAKER) (test > 1.001-1.035 H code = 468) PH UA (BEAKER) (test code = 467) 5.5 5.0-8.0 PROTEIN UA (BEAKER) (test code = 20 mg/dL Negative A 464) GLUCOSE UA (BEAKER) (test code = Negative Negative 365) KETONES UA (BEAKER) (test code = 20 mg/dL Negative A 371) BILIRUBIN UA (BEAKER) (test code = Negative Negative 462) BLOOD UA (BEAKER) (test code = 461) Small Negative A NITRITE UA (BEAKER) (test code = Negative Negative 465) LEUKOCYTE ESTERASE UA (BEAKER) Moderate Negative A (test code = 466) UROBILINOGEN UA (BEAKER) (test code 0.2 mg/dL 0.2-1.0 = 463) RBC UA (BEAKER) (test code = 519) 4 /HPF WBC UA (BEAKER) (test code = 520) 15 /HPF BACTERIA (BEAKER) (test code = 517) Rare MUCUS (BEAKER) (test code = 1574) Few SQUAMOUS EPITHELIAL (BEAKER) (test 1 /HPF code = 516) CALCIUM OXALATE CRYSTALS (BEAKER) Rare (test code = 518) SOURCE(BEAKER) (test code = 2795) Wire Web Worker ID - [auto]Wire Web Worker ID - techTroponin [id number] 20:37:00 Test Item Value Reference Range Interpretation Comments Troponin I (test code = <0.01 0-0.03 61722-4) MARIN (test code = MARIN) Troponin I (TnI) levels must be interpreted in the context of the presenting symptoms and the clinical findings. Elevated TnI levels indicate myocardial damage, but are not specific for ischemic heart disease. Elevated TnI levels are seen in patients with other cardiac conditions (including myocarditis and congestive heart failure), and slight TnI elevations occur in patients with other conditions, including sepsis, renal failure, acidosis, acute neurological disease, and persistent tachyarrhythmia.Opera tor ID - DB Lab Interpretation (test Normal code = 87358-6) [facility] CenterTROPONIN [id number] 20:37:00 Test Item Value Reference Range Interpretation Comments TROPONIN I (BEAKER) (test code = 397) < ng/mL 0.00-0.03 Troponin I (TnI) levels must be interpreted in the context of the presenting symptoms and the clinical findings. Elevated TnI levels indicate myocardial damage, but are not specific for ischemic heart disease. Elevated TnI levels are seen in patients with other cardiac conditions (including myocarditis and congestive heart failure), and slight TnI elevations occur in patients with other conditions, including sepsis, renal failure, acidosis, acute neurological disease, and persistent tachyarrhythmia.Wire Web Worker ID - DBTGAYATRI [id number] 16:47:00 Test Item Value Reference Range Interpretation Comments TROPONIN I (FREDAAKER) (test code = 0.01 ng/mL 0.00-0.03 397) Troponin I (TnI) levels must be interpreted in the context of the presenting symptoms and the clinical findings. Elevated TnI levels indicate myocardial damage, but are not specific for ischemic heart disease. Elevated TnI levels are seen in patients with other cardiac conditions (including myocarditis and congestive heart failure), and slight TnI elevations occur in patients with other conditions, including sepsis, renal failure, acidosis, acute neurological disease, and persistent tachyarrhythmia.CT, CHEST, WITH IV CONTRAST- PE TEST [id number] 14:12:00Reason for exam:->CHEST PAINReason for exam:- >BACK PAINReason for exam:->SHORTNESS OF BREATHWhat is the patient's sedation requirement?->No SedationFINAL REPORT CT of the chest, pulmonary embolism protocol Clinical History:PE suspected, high pretest probCHEST PAINBACK PAINSHORTNESS OF BREATH Technique: Precontrast axial images at the level of the pulmonary outflow tract are obtained for the purpose of contrast bolus tracking. Postcontrast axial images of the chest are subsequently obtained with optimal pulmonary arterial enhancement followed by delayed postcontrast images. Coronal 2D reformatted images are reviewed.This exam was performed according to our departmental dose optimization program which includes automated exposure control, adjustment of the mA and/or kV according to patient's size and/or use of iterative reconstructive technique. Comparison Film: None Discussion: No filling defects are identified within the pulmonary arteries to suggest acute pulmonary embolism. Visualized thyroid gland is normal.There is no supraclavicular, axillary, external or hilar lymphadenopathy. Heart and pericardium are unremarkable. There are multiple pulmonary nodules in both lungs, the largest measures 2.7 cm, located in the right upper lobe. This is compatible with metastasis. Central airways are patent, no bronchiectasis, or bronchial wall thickening. No pleural effusion. There are multiple hypodensities in liver, similar to prior CT dated September 04, 2018. There is also a stable low-density lesion in the spleen with faint central calcification, measuring up to 3.3 cm. Osseous structures demonstrate mild degenerative changes. No suspicious bony lesion is identified. Impression: No PE is identified. Bilateral pulmonary nodules, highly suspicious for metastasis. Stable appearance hypodense/cystic lesions in liver and spleen. Signed: Navid Gramajoeport Verified Date/Time: 12/10/2019 14:12:28 Reading Location: [place] [id number] Ortho Consult Reading Room CT chest PE test [id number] 14:12:00Interface, External Ris In - 12/10/2019 2:[address] of the chest, pulmonary embolism protocol Clinical History: PE suspected, high pretest probCHEST PAINBACK PAINSHORTNESS OF BREATH Technique: Precontrast axial images at the level of the pulmonary outflow tract are obtained for the purpose of contrast bolus tracking. Postcontrast axial images of the chest are subsequently obtained with optimal pulmonary arterial enhancement followed by delayed postcontrast images. Coronal 2D reformatted images are reviewed. This exam was performed according to our departmental dose optimization program which includes automated exposure control, adjustment of the mA and/or kV according to patient's size and/or use of iterative reconstructive technique. Comparison Film: None Discussion: No filling defects are identified within the pulmonary arteries to suggest acute pulmonary embolism. Visualized thyroid gland is normal. There is no supraclavicular, axillary, external or hilar lymphadenopathy. Heart and pericardium are unremarkable. There are multiple pulmonary nodules in both lungs, the largest measures 2.7 cm, located in the right upper lobe. This is compatible with metastasis. Central airways are patent, no bronchiectasis, or bronchial wall thickening. No pleuraleffusion. There are multiple hypodensities in liver, similar to prior CT dated September 04, 2018. There is also a stable low-density lesion in the spleen with faint central calcification, measuring up to 3.3 cm. Osseous structures demonstrate mild degenerative changes. No suspicious bony lesion is identified. Impression: No PE is identified. Bilateral pulmonary nodules, highly suspicious for metastasis. Stable appearance hypodense/cystic lesions in liver and spleen. Signed: Navid Gramajo Verified Date/Time: 12/10/2019 14:12:28 Reading Location: [facility] B1 [id number] Ortho Consult Reading Room [facility] CenterRAD, [facility]ST, 2 [id number] 13:24:00Reason for exam:->CHEST PAINReason for exam:->BACK PAINReason for exam:->SHORTNESS OF BREATHFINAL REPORT EXAMINATION: PA and lateral views of the chest. COMPARISON: None CLINICAL HISTORY: Chest pain DISCUSSION: Lines/tubes: None. Lungs: Scattered nodular densities including right hilar 2.8 cm, left lower lobe 3 cm, and left upper lobe 1.3 cm nodular mass. Additional nodules. No consolidation. Pleura: No pleural effusion or pneumothorax. Heart and mediastinum: The cardiomediastinal silhouette is normal. Bones and soft tissues: No acute bony abnormalities. IMPRESSION: No acute cardiopulmonary abnormalities. Bilateral pulmonary nodules. These can be assessed on ordered CT chest study. Signed: Nikhil Goldberg Verified Date/Time: 12/10/2019 13:24:56 Reading Location: [place] Reading Room [address] [place] [address] XR chest 2 [id number] 13:24:00 Interface, External Ris In - 12/10/2019 1:27 PM CSTFINAL REPORT EXAMINATION: PA and lateral views of the chest. COMPARISON: None CLINICAL HISTORY: Chest pain DISCUSSION: Lines/tubes: None. Lungs: Scattered nodular densities including right hilar 2.8 cm, left lower lobe 3 cm, and left upper lobe 1.3 cm nodular mass. Additional nodules. No consolidation. Pleura: No pleural effusion or pneumothorax. Heart and mediastinum: The cardiomediastinal silhouette is normal. Bones and soft tissues: No acute bony abnormalities. IMPRESSION: No acute cardiopulmonary abnormalities. Bilateral pulmonary nodules. These can be assessed on ordered CT chest study. Signed: Nikhil Goldberg Verified Date/Time: 12/10/2019 13:24:56 Reading Location: [place] Reading Room [address] [address] [facility] CenterECG 12 lead 2019-12-10 13:12:17Interface, External Ris In - 12/10/2019 1:12 PM CSTVentricular Rate 74 BPMAtrial Rate 74 BPMP-R Interval 172 msQRS Duration 102 msQ-T Interval 356 msQTC Calculation(Bazett) 395 msP Redkey 63 degreesR Redkey -39 degreesT [place] 40 degreesNormal sinus rhythmLeft axis deviationAnteroseptal infarct (cited on or before 29-AUG-2018)Abnormal ECGWhen compared with ECG of 02-SEP-2018 17:05,Vent. rate has decreasedBY 37 BPMQRS axis Shifted leftQuestionable change in initial forces of Anterior leadsNonspecific T wave abnormality, improved in Inferior leadsNonspecific T wave abnormality has replaced inverted T waves in Lateral leadsConfirmed by MD Hayward Roberto ([id number]) on 12/10/2019 1:12:16 [facility] CenterPT/aPTT 2019-12-10 13:02:00 Test Item Value Reference Range Interpretation Comments Protime (test code = <10.0 11.7- 14.7 sec L 5902-2) INR (test code = 1.0 <=5.9 INR 6301-6) PTT (test code = 30.2 22.5- 36.0 sec 03962-4) MARIN (test code = MARIN) RECOMMENDED COUMADIN/WARFARIN INR THERAPY RANGESSTANDARD DOSE: 2.0 - 3.0 Includes: PROPHYLAXIS for venous thrombosis, systemic embolization; TREATMENT for venous thrombosis and/or pulmonary embolus.HIGH RISK: Target INR is 2.5-3.5 for patients with mechanical heart valves. Lab Interpretation Abnormal (test code = 37290-2) [facility] CenterPT/[id number] 13:02:00 Test Item Value Reference Range Interpretation Comments PROTIME (BEAKER) (test code = 759) < sec 11.7-14.7 L INR (BEAKER) (test code = 370) 1.0 INR <=5.9 PARTIAL THROMBOPLASTIN TIME 30.2 sec 22.5-36.0 (BEAKER) (test code = 760) RECOMMENDED COUMADIN/WARFARIN INR THERAPY RANGESSTANDARD DOSE: 2.0 - 3.0 Includes: PROPHYLAXIS forvenous thrombosis, systemic embolization; TREATMENT for venous thrombosis and/or pulmonary embolus.HIGH RISK: Target INR is 2.5-3.5 for patients with mechanical heart valves.Hepatic function [id number] 12:57:00 Test Item Value Reference Range Interpretation Comments Protein, Total (test code 7.2 6.0- 8.3 gm/dL Specimen slightly = 2885-2) hemolyzed Albumin (test code = 4.5 g/dL 3.5-5 Specime n slightly 56711-9) hemolyzed Total Bilirubin (test 1.0 mg/dL 0.2-1.2 Specim en slightly code = 1974-2) hemolyzed Bilirubin, Direct (test 0.3 mg/dL 0.1-0.5 Spec imen slightly code = 1967-7) hemolyzed Alkaline Phosphatase 212 U/L 40-150 H (test code = 6768-6) AST (test code = 1920-8) 14 U/L 5-34 Spe cimen slightly hemolyzed ALT (test code = 1742-6) 10 U/L 6-55 Spe cimen slightly hemolyzed Lab Interpretation (test Abnormal code = 99528-0) [facility] CenterMagnesium2020-02-25 12:57:00 Test Item Value Reference Range Interpretation Comments Magnesium (test code = 2.0 mg/dL 1.6-2.6 Speci men slightly 03608-5) hemolyzed Lab Interpretation (test Normal code = 82592-9) [facility] CenterMAGNESIUM2020-02-25 12:57:00 Test Item Value Reference Range Interpretation Comments MAGNESIUM (BEAKER) 2.0 mg/dL 1.6-2.6 Specimen slightly (test code = 627) hemolyzed TROPONIN [id number] 12:57:00 Test Item Value Reference Range Interpretation Comments TROPONIN I (BEAKER) (test code = 397) < ng/mL 0.00-0.03 Troponin I (TnI) levels must be interpreted in the context of the presenting symptoms and the clinical findings. Elevated TnI levels indicate myocardial damage, but are not specific for ischemic heart disease. Elevated TnI levels are seen in patients with other cardiac conditions (including myocarditis and congestive heart failure), and slight TnI elevations occur in patients with other conditions, including sepsis, renal failure, acidosis, acute neurological disease, and persistent tachyarrhythmia.BASIC METABOLIC [id number] 12:57:00 Test Item Value Reference Range Interpretation Comments SODIUM (BEAKER) 140 meq/L 136-145 (test code = 381) POTASSIUM (BEAKER) 3.7 meq/L 3.5-5.1 Specimen slightly (test code = 379) hemolyzed CHLORIDE (BEAKER) 108 meq/L 98-107 H (test code = 382) CO2 (BEAKER) (test 21 meq/L 22-29 L code = 355) BLOOD UREA NITROGEN 13 mg/dL 7-21 (BEAKER) (test code = 354) CREATININE (BEAKER) 0.99 mg/dL 0.57-1.25 Specimen slightly (test code = 358) hemolyzed GLUCOSE RANDOM 91 mg/dL 70-105 (BEAKER) (test code = 652) CALCIUM (BEAKER) 9.6 mg/dL 8.4-10.2 (test code = 697) EGFR (BEAKER) (test 75 mL/min/1.73 ESTIMA PHILIPP GFR IS code = 1092) sq m NOT ACCURATE CREATININE CLEARANCE IN PREDICTING GLOMERULAR FILTRATION RATE . ESTIMATED GFR I S NOT APPLICABLE FOR DIALYSIS PATIEN TS. HEPATIC FUNCTION [id number] 12:57:00 Test Item Value Reference Range Interpretation Comments TOTAL PROTEIN (BEAKER) 7.2 gm/dL 6.0-8.3 Speci men slightly (test code = 770) hemolyzed ALBUMIN (BEAKER) (test 4.5 g/dL 3.5-5.0 Speci men slightly code = 1145) hemolyzed BILIRUBIN TOTAL 1.0 mg/dL 0.2-1.2 Specimen sli ghtly (BEAKER) (test code = hemoly zed 377) BILIRUBIN DIRECT 0.3 mg/dL 0.1-0.5 Specimen sl ightly (BEAKER) (test code = hemoly zed 706) ALKALINE PHOSPHATASE 212 U/L 40-150 H (BEAKER) (test code = 346) AST (SGOT) (BEAKER) 14 U/L 5-34 Specimen slightly (test code = 353) hemolyzed ALT (SGPT) (BEAKER) 10 U/L 6-55 Specimen slightly (test code = 347) hemolyzed B-type Natriuretic Factor (BNP)2019-12-10 12:48:00 Test Item Value Reference Range Interpretation Comments BNP (test code = 84183-2) 156 pg/mL 0-100 H Lab Interpretation (test code = Abnormal 90537-1) [facility] CenterB-TYPE NATRIURETIC FACTOR (BNP)2019-12-10 12:48:00 Test Item Value Reference Range Interpretation Comments B-TYPE NATRIURETIC PEPTIDE (BEAKER) 156 pg/mL 0-100 H (test code = 700) Lactic acid, [id number] 12:45:00 Test Item Value Reference Range Interpretation Comments Lactate, Venous (test 1.9 mmol/L 0.5-2.2 Specim en slightly code = 2872) hemolyzed Lab Interpretation (test Normal code = 50048-5) [facility] CenterLACTIC ACID, [id number] 12:45:00 Test Item Value Reference Range Interpretation Comments LACTATE BLOOD VENOUS 1.9 mmol/L 0.5-2.2 Specime n slightly (2) (BEAKER) (test hemolyzed code = 2872) CBC with platelet count + automated [id number] 12:41:00 Test Item Value Reference Range Interpretation Comments WBC (test code = 6690-2) 10.2 3.5- 10.5 K/L RBC (test code = 789-8) 4.22 4.63- 6.08 M/L L MCHC (test code = 786-4) 33.3 32.3- 36.5 GM/DL L Hematocrit (test code = 4544-3) 36.3 % 40.1-51 L MCV (test code = 787-2) 86.0 fL 79-92.2 MCH (test code = 785-6) 28.7 pg 25.7-32.2 RDW (test code = 788-0) 17.2 % 11.6-14.4 H Platelets (test code = 777-3) 394 150- 450 K/CU MM MPV (test code = 42336-7) 8.3 fL 9.4-12.4 L % Neutros (test code = 429) 76 % % Lymphs (test code = 430) 17 % % Monos (test code = 431) 6 % % Eos (test code = 432) 1 % % Baso (test code = 437) 0 % # Neutros (test code = 670) 7.74 1.78- 5.38 K/L H # Lymphs (test code = 414) 1.69 1.32- 3.57 K/L # Monos (test code = 415) 0.57 0.30- 0.82 K/L # Eos (test code = 416) 0.08 0.04- 0.54 K/L # Baso (test code = 417) 0.03 0.01- 0.08 K/L Immature Granulocytes-Relative 1 % 0-1 (test code = 2801) Lab Interpretation (test code = Abnormal 53162-8) [facility] W/PLT COUNT & AUTO [id number] 12:41:00 Test Item Value Reference Range Interpretation Comments WHITE BLOOD CELL COUNT (BEAKER) 10.2 K/ L 3.5-10.5 (test code = 775) RED BLOOD CELL COUNT (BEAKER) 4.22 M/ L 4.63-6.08 L (test code = 761) HEMOGLOBIN (BEAKER) (test code = 12.1 GM/DL 13.7-17.5 L 410) HEMATOCRIT (BEAKER) (test code = 36.3 % 40.1-51.0 L 411) MEAN CORPUSCULAR VOLUME (BEAKER) 86.0 fL 79.0-92.2 (test code = 753) MEAN CORPUSCULAR HEMOGLOBIN 28.7 pg 25.7-32.2 (BEAKER) (test code = 751) MEAN CORPUSCULAR HEMOGLOBIN CONC 33.3 GM/DL 32.3-36.5 (BEAKER) (test code = 752) RED CELL DISTRIBUTION WIDTH 17.2 % 11.6-14.4 H (BEAKER) (test code = 412) PLATELET COUNT (BEAKER) (test 394 K/CU MM 150-450 code = 756) MEAN PLATELET VOLUME (BEAKER) 8.3 fL 9.4-12.4 L (test code = 754) NEUTROPHILS RELATIVE PERCENT 76 % (BEAKER) (test code = 429) LYMPHOCYTES RELATIVE PERCENT 17 % (BEAKER) (test code = 430) MONOCYTES RELATIVE PERCENT 6 % (BEAKER) (test code = 431) EOSINOPHILS RELATIVE PERCENT 1 % (BEAKER) (test code = 432) BASOPHILS RELATIVE PERCENT 0 % (BEAKER) (test code = 437) NEUTROPHILS ABSOLUTE COUNT 7.74 K/ L 1.78-5.38 H (BEAKER) (test code = 670) LYMPHOCYTES ABSOLUTE COUNT 1.69 K/ L 1.32-3.57 (BEAKER) (test code = 414) MONOCYTES ABSOLUTE COUNT (BEAKER) 0.57 K/ L 0.30-0.82 (test code = 415) EOSINOPHILS ABSOLUTE COUNT 0.08 K/ L 0.04-0.54 (BEAKER) (test code = 416) BASOPHILS ABSOLUTE COUNT (BEAKER) 0.03 K/ L 0.01-0.08 (test code = 417) IMMATURE GRANULOCYTES-RELATIVE 1 % 0-1 PERCENT (BEAKER) (test code = 2801) Blood gas, [id number] 12:33:00 Test Item Value Reference Range Interpretation Comments pH, Nico (test code = 2746-6) 7.50 7.32-7.42 H pCO2, Nico (test code = 755) 27 41- 51 mmHg L pO2, Nico (test code = 2705-2) <25 25- 40 mmHg L O2 Sat, Nico (test code = 2711-0) 42.9 % 40-70 HCO3, Nico (test code = 30415-9) 21 mmol/L 21-29 Base Excess, Nico (test code = -0.8 mmol/L -2-3 1927-3) Patient Temperature (test code = 37.0 C 8310-5) FIO2 (test code = 1819) 100 % Lab Interpretation (test code = Abnormal 60664-7) [facility] CenterBLOOD GAS, [id number] 12:33:00 Test Item Value Reference Range Interpretation Comments PH VENOUS (BEAKER) (test code = 7.50 7.32-7.42 H 701) PCO2 VENOUS (BEAKER) (test code = 27 mmHg 41-51 L 755) PO2 VENOUS (BEAKER) (test code = < mmHg 25-40 L 702) O2 SATURATION VENOUS (BEAKER) 42.9 % 40.0-70.0 (test code = 703) HCO3 VENOUS (BEAKER) (test code = 21 mmol/L 21-29 705) BASE EXCESS VENOUS (BEAKER) (test -0.8 mmol/L -2.0-3.0 code = 704) PATIENT TEMPERATURE (BEAKER) 37.0 C (test code = 1818) FIO2 (BEAKER) (test code = 1819) 100.0 % TISSUE [id number] 15:54:00Surgical Pathology Report Case: [id number] Authorizing Provider: Grey Helms MD Collected: 11/15/2019 1352 Ordering Location: [facility] Received: 11/15/2019 1546 SERVICES Pathologist: Nadeem Dolan MD Specimens: A) -Bladder Tumor, bladder tumor low posterior wall B) - Bladder Biopsy, biopsy of right lateral wall marker lesion A. 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 Bladder tumor; [...] is submitted in toto in B1. PA/pl Performed.CBC W/PLT COUNT & AUTO [id number] 05:14:00 Test Item Value Reference Range Interpretation Comments WHITE BLOOD CELL COUNT (BEAKER) 13.7 K/ L 3.5-10.5 H (test code = 775) RED BLOOD CELL COUNT (BEAKER) 4.78 M/ L 4.63-6.08 (test code = 761) HEMOGLOBIN (BEAKER) (test code = 13.3 GM/DL 13.7-17.5 L 410) HEMATOCRIT (BEAKER) (test code = 39.9 % 40.1-51.0 L 411) MEAN CORPUSCULAR VOLUME (BEAKER) 83.5 fL 79.0-92.2 (test code = 753) MEAN CORPUSCULAR HEMOGLOBIN 27.8 pg 25.7-32.2 (BEAKER) (test code = 751) MEAN CORPUSCULAR HEMOGLOBIN CONC 33.3 GM/DL 32.3-36.5 (BEAKER) (test code = 752) RED CELL DISTRIBUTION WIDTH 17.1 % 11.6-14.4 H (BEAKER) (test code = 412) PLATELET COUNT (BEAKER) (test 384 K/CU MM 150-450 code = 756) MEAN PLATELET VOLUME (BEAKER) 8.8 fL 9.4-12.4 L (test code = 754) NUCLEATED RED BLOOD CELLS 0 /100 WBC 0-0 (BEAKER) (test code = 413) NEUTROPHILS RELATIVE PERCENT 79 % (BEAKER) (test code = 429) LYMPHOCYTES RELATIVE PERCENT 14 % (BEAKER) (test code = 430) MONOCYTES RELATIVE PERCENT 6 % (BEAKER) (test code = 431) EOSINOPHILS RELATIVE PERCENT 0 % (BEAKER) (test code = 432) BASOPHILS RELATIVE PERCENT 0 % (BEAKER) (test code = 437) NEUTROPHILS ABSOLUTE COUNT 10.74 K/ L 1.78-5.38 H (BEAKER) (test code = 670) LYMPHOCYTES ABSOLUTE COUNT 1.96 K/ L 1.32-3.57 (BEAKER) (test code = 414) MONOCYTES ABSOLUTE COUNT (BEAKER) 0.82 K/ L 0.30-0.82 (test code = 415) EOSINOPHILS ABSOLUTE COUNT 0.06 K/ L 0.04-0.54 (BEAKER) (test code = 416) BASOPHILS ABSOLUTE COUNT (BEAKER) 0.03 K/ L 0.01-0.08 (test code = 417) IMMATURE GRANULOCYTES-RELATIVE 1 % 0-1 PERCENT (BEAKER) (test code = 2801) BASIC METABOLIC [id number] 05:03:00 Test Item Value Reference Range Interpretation Comments SODIUM (BEAKER) 137 meq/L 136-145 (test code = 381) POTASSIUM (BEAKER) 3.7 meq/L 3.5-5.1 (test code = 379) CHLORIDE (BEAKER) 106 meq/L 98-107 (test code = 382) CO2 (BEAKER) (test 17 meq/L 22-29 L code = 355) BLOOD UREA NITROGEN 17 mg/dL 7-21 (BEAKER) (test code = 354) CREATININE (BEAKER) 1.18 mg/dL 0.57-1.25 (test code = 358) GLUCOSE RANDOM 237 mg/dL 70-105 H (BEAKER) (test code = 652) CALCIUM (BEAKER) 8.8 mg/dL 8.4-10.2 (test code = 697) EGFR (BEAKER) (test 61 mL/min/1.73 ESTIMA PHILIPP GFR IS code = 1092) sq m NOT ACCURATE CREATININE CLEARANCE IN PREDICTING GLOMERULAR FILTRATION RATE . ESTIMATED GFR I S NOT APPLICABLE FOR DIALYSIS PATIEN TS. Wire Web Worker ID - MAX MTISSUE [id number] 17:08:00Surgical Pathology Report Case: [id number] Authorizing Provider: Grey Helms MD Collected: 04/26/2019 0817 Ordering Location: [facility] Received: 04/26/2019 1215 SERVICES Pathologist: [...] LOW GRADE (WHO GRADE 2), NONINVASIVE - MUCULAR IS PROPRIA IS ABSENT C. URINARY BLADDER, RIGHT LATERAL WALL,BIOPSY: - BENIGN LAMINA PROPRIA IS PRESENT - MUCOSA AND MUSCULARIS PROPRIA IS ABSENT Signing Pathologist Direct Phone Line: [phone] signed by Nadeem Dolan MD on 04/29/2019 at 5:08 [id number] x 3Pre and postop diagnosis: malignant neoplasm [...] is a 0.1 cm white soft tissue frag ments which is submitted in toto in C1. CG/pl Performed.[id number] 07:32:00 Test Item Value Reference Range Interpretation Comments SODIUM (BEAKER) (test 136 meq/L 136-145 code = 381) POTASSIUM (BEAKER) 3.7 meq/L 3.5-5.1 Specimen slightly (test code = 379) hemolyzed CHLORIDE (BEAKER) 102 meq/L 98-107 (test code = 382) CO2 (BEAKER) (test 26 meq/L 22-29 code = 355) BUN AND [id number] 07:32:00 Test Item Value Reference Range Interpretation Comments BLOOD UREA NITROGEN 16 mg/dL 7-21 (BEAKER) (test code = 354) CREATININE (BEAKER) 1.13 mg/dL 0.57-1.25 Specimen slightly (test code = 358) hemolyzed EGFR (BEAKER) (test 65 mL/min/1.73 ESTIMA PHILIPP GFR IS code = 1092) sq m NOT ACCURATE CREATININE CLEARANCE IN PREDICTING GLOMERULAR FILTRATION RATE . ESTIMATED GFR I S NOT APPLICABLE FOR DIALYSIS PATIEN TS. POCT-HEMOGLOBIN [id number] 06:42:00 Test Item Value Reference Range Interpretation Comments POC-HEMOGLOBIN METER 13.6 g/dL 13.0-16.8 TESTED AT [facility] 6720 (BEAKER) (test code = [place] 1539) [id number] TISSUE [id number] 13:57:00Surgical Pathology Report Case: [id number] Authorizing Provider: Grey Helms MD Collected: 10/22/2018 1500 Ordering Location: [facility] Received: 10/23/2018 0746 SERVICES Pathologist: Nadeem Dolan MD Specimens: A) -Bladder Tumor, re-resection of anterior bladder neck tumor B) - Bladder Tumor, right lateral wall re-resection C) - Bladder Tumor, right bladder neck tumor 9 o'clock D) - Bladder Tumor, left lateral wall re-resection A. URINARY BLADDER, ANTERIOR N AMILCAR, RESECTION: - PREVIOUS BIOPSY/RESECTION SITE CHANGES, NEGATIVE [...] FOR TUMOR Signing Pathologist Direct Phone Line: [phone] signed by Nadeem Dolan MD on 10/25/2018 at 1:57 PM [id number] X 2 [id number] x 2Malignant neoplasm of urinary bladder A. [...] entirely C1.Part D labeled "left lateral wall re- resection" consists of three fragments of ramos-red cauterized tissue ranging from less than 0.1 to 1 cm submitted entirely D1. CG/bc A-D: Performed.BLOOD [id number] 23:01:00 Test Item Value Reference Range Interpretation Comments CULTURE (BEAKER) (test No growth in 5 days code = 1095) BLOOD [id number] 23:01:00 Test Item Value Reference Range Interpretation Comments CULTURE (BEAKER) (test No growth in 5 days code = 1095) BLOOD [id number] 05:00:00 Test Item Value Reference Range Interpretation Comments CULTURE (BEAKER) (test No growth in 5 days code = 1095) BASIC METABOLIC [id number] 05:27:00 Test Item Value Reference Range Interpretation Comments SODIUM (BEAKER) 141 meq/L 136-145 (test code = 381) POTASSIUM (BEAKER) 3.8 meq/L 3.5-5.1 (test code = 379) CHLORIDE (BEAKER) 113 meq/L 98-107 H (test code = 382) CO2 (BEAKER) (test 24 meq/L 22-29 code = 355) BLOOD UREA NITROGEN 7 mg/dL 7-21 (BEAKER) (test code = 354) CREATININE (BEAKER) 0.95 mg/dL 0.57-1.25 (test code = 358) GLUCOSE RANDOM 90 mg/dL 70-105 (BEAKER) (test code = 652) CALCIUM (BEAKER) 8.0 mg/dL 8.4-10.2 L (test code = 697) EGFR (BEAKER) (test 79 mL/min/1.73 ESTIMA PHILIPP GFR IS code = 1092) sq m NOT ACCURATE CREATININE CLEARANCE IN PREDICTING GLOMERULAR FILTRATION RATE . ESTIMATED GFR I S NOT APPLICABLE FOR DIALYSIS PATIEN TS. CBC W/PLT COUNT & AUTO [id number] 05:19:00 Test Item Value Reference Range Interpretation Comments WHITE BLOOD CELL COUNT (BEAKER) 6.2 K/ L 3.5-10.5 (test code = 775) RED BLOOD CELL COUNT (BEAKER) 2.79 M/ L 4.63-6.08 L (test code = 761) HEMOGLOBIN (BEAKER) (test code = 8.4 GM/DL 13.7-17.5 L 410) HEMATOCRIT (BEAKER) (test code = 25.2 % 40.1-51.0 L 411) MEAN CORPUSCULAR VOLUME (BEAKER) 90.3 fL 79.0-92.2 (test code = 753) MEAN CORPUSCULAR HEMOGLOBIN 30.1 pg 25.7-32.2 (BEAKER) (test code = 751) MEAN CORPUSCULAR HEMOGLOBIN CONC 33.3 GM/DL 32.3-36.5 (BEAKER) (test code = 752) RED CELL DISTRIBUTION WIDTH 14.3 % 11.6-14.4 (BEAKER) (test code = 412) PLATELET COUNT (BEAKER) (test 266 K/CU MM 150-450 code = 756) MEAN PLATELET VOLUME (BEAKER) 9.5 fL 9.4-12.4 (test code = 754) NUCLEATED RED BLOOD CELLS 0 /100 WBC 0-0 (BEAKER) (test code = 413) NEUTROPHILS RELATIVE PERCENT 61 % (BEAKER) (test code = 429) LYMPHOCYTES RELATIVE PERCENT 21 % (BEAKER) (test code = 430) MONOCYTES RELATIVE PERCENT 7 % (BEAKER) (test code = 431) EOSINOPHILS RELATIVE PERCENT 10 % (BEAKER) (test code = 432) BASOPHILS RELATIVE PERCENT 0 % (BEAKER) (test code = 437) NEUTROPHILS ABSOLUTE COUNT 3.75 K/ L 1.78-5.38 (BEAKER) (test code = 670) LYMPHOCYTES ABSOLUTE COUNT 1.30 K/ L 1.32-3.57 L (BEAKER) (test code = 414) MONOCYTES ABSOLUTE COUNT (BEAKER) 0.45 K/ L 0.30-0.82 (test code = 415) EOSINOPHILS ABSOLUTE COUNT 0.63 K/ L 0.04-0.54 H (BEAKER) (test code = 416) BASOPHILS ABSOLUTE COUNT (BEAKER) 0.02 K/ L 0.01-0.08 (test code = 417) IMMATURE GRANULOCYTES-RELATIVE 1 % 0-1 PERCENT (BEAKER) (test code = 2801) TISSUE [id number] 15:48:00Surgical Pathology Report Case: [id number] Authorizing Provider: Grey Helms MD Collected: 09/01/2018 1124 Ordering Location: [address] Received: 09/02/2018 1324 Service Pathologist: Nadeem Dolan MD Specimens: A) -Bladder Biopsy, Trigone, Right Trigone and Bladder Neck [...] MUSCULARIS PROPRIA PRESENT AND NOT INVOLVED BY TUMORF. URINARY BLADDER, LEFT LATERAL TUMOR, [...] BY TUMOR Signing Pathologist Direct Phone Line: [phone] signed by Nadeem Dolan MD on 09/05/2018 at 3:48 PMThe invasive components represent the minority of the tumor masses, ranging from 1% to no more than 5% and is very superficial. No lymph/vascular invasion is seen. 19383 X 8 Bladder cancerA. Right trigone and bladder neck tumor; B. Low p osterior wall bladder tumor; C. Right lateral bladder [...] tissue. The specimen is entirely submittedin cassettes B1- B2. Specimen C: Received in formalin labeled "right [...] x 0.5 cm aggregate of pink-ramos to larson- white, rubbery, friable soft tissue.The specimen is entirely [...] in cassettes G1-G2. Specimen H: Received in fo rmalin labeled "anterior wall inside bladder neck biopsy" is a 5.0 x 3.5 x 0.5 cm aggregate of pink-ramos to larson-white, rubbery, friable soft tissue. The specimen is entirely submitted in cassettes H1-H3. DB/pl PerformedVANCOMYCIN LEVEL, [id number] 12:30:00 Test Item Value Reference Range Interpretation Comments VANCOMYCIN TROUGH (BEAKER) (test 14.6 ug/mL 10.0-20.0 code = 522) CBC W/PLT COUNT & AUTO [id number] 12:29:00 Test Item Value Reference Range Interpretation Comments WHITE BLOOD CELL COUNT (BEAKER) 6.9 K/ L 3.5-10.5 (test code = 775) RED BLOOD CELL COUNT (BEAKER) 2.84 M/ L 4.63-6.08 L (test code = 761) HEMOGLOBIN (BEAKER) (test code = 8.5 GM/DL 13.7-17.5 L 410) HEMATOCRIT (BEAKER) (test code = 25.5 % 40.1-51.0 L 411) MEAN CORPUSCULAR VOLUME (BEAKER) 89.8 fL 79.0-92.2 (test code = 753) MEAN CORPUSCULAR HEMOGLOBIN 29.9 pg 25.7-32.2 (BEAKER) (test code = 751) MEAN CORPUSCULAR HEMOGLOBIN CONC 33.3 GM/DL 32.3-36.5 (BEAKER) (test code = 752) RED CELL DISTRIBUTION WIDTH 14.3 % 11.6-14.4 (BEAKER) (test code = 412) PLATELET COUNT (BEAKER) (test 243 K/CU MM 150-450 code = 756) MEAN PLATELET VOLUME (BEAKER) 9.6 fL 9.4-12.4 (test code = 754) NUCLEATED RED BLOOD CELLS 0 /100 WBC 0-0 (BEAKER) (test code = 413) NEUTROPHILS RELATIVE PERCENT 72 % (BEAKER) (test code = 429) LYMPHOCYTES RELATIVE PERCENT 14 % (BEAKER) (test code = 430) MONOCYTES RELATIVE PERCENT 7 % (BEAKER) (test code = 431) EOSINOPHILS RELATIVE PERCENT 7 % (BEAKER) (test code = 432) BASOPHILS RELATIVE PERCENT 0 % (BEAKER) (test code = 437) NEUTROPHILS ABSOLUTE COUNT 5.01 K/ L 1.78-5.38 (BEAKER) (test code = 670) LYMPHOCYTES ABSOLUTE COUNT 0.94 K/ L 1.32-3.57 L (BEAKER) (test code = 414) MONOCYTES ABSOLUTE COUNT (BEAKER) 0.46 K/ L 0.30-0.82 (test code = 415) EOSINOPHILS ABSOLUTE COUNT 0.48 K/ L 0.04-0.54 (BEAKER) (test code = 416) BASOPHILS ABSOLUTE COUNT (BEAKER) 0.02 K/ L 0.01-0.08 (test code = 417) IMMATURE GRANULOCYTES-RELATIVE 0 % 0-1 PERCENT (BEAKER) (test code = 2801) BASIC METABOLIC [id number] 06:33:00 Test Item Value Reference Range Interpretation Comments SODIUM (BEAKER) 143 meq/L 136-145 (test code = 381) POTASSIUM (BEAKER) 3.3 meq/L 3.5-5.1 L (test code = 379) CHLORIDE (BEAKER) 115 meq/L 98-107 H (test code = 382) CO2 (BEAKER) (test 24 meq/L 22-29 code = 355) BLOOD UREA NITROGEN 7 mg/dL 7-21 (BEAKER) (test code = 354) CREATININE (BEAKER) 0.94 mg/dL 0.57-1.25 (test code = 358) GLUCOSE RANDOM 96 mg/dL 70-105 (BEAKER) (test code = 652) CALCIUM (BEAKER) 8.1 mg/dL 8.4-10.2 L (test code = 697) EGFR (BEAKER) (test 80 mL/min/1.73 ESTIMA PHILIPP GFR IS code = 1092) sq m NOT ACCURATE CREATININE CLEARANCE IN PREDICTING GLOMERULAR FILTRATION RATE . ESTIMATED GFR I S NOT APPLICABLE FOR DIALYSIS PATIEN TS. CBC W/PLT COUNT & AUTO [id number] 06:21:00 Test Item Value Reference Range Interpretation Comments WHITE BLOOD CELL COUNT (BEAKER) 6.8 K/ L 3.5-10.5 (test code = 775) RED BLOOD CELL COUNT (BEAKER) 2.72 M/ L 4.63-6.08 L (test code = 761) HEMOGLOBIN (BEAKER) (test code = 8.3 GM/DL 13.7-17.5 L 410) HEMATOCRIT (BEAKER) (test code = 24.4 % 40.1-51.0 L 411) MEAN CORPUSCULAR VOLUME (BEAKER) 89.7 fL 79.0-92.2 (test code = 753) MEAN CORPUSCULAR HEMOGLOBIN 30.5 pg 25.7-32.2 (BEAKER) (test code = 751) MEAN CORPUSCULAR HEMOGLOBIN CONC 34.0 GM/DL 32.3-36.5 (BEAKER) (test code = 752) RED CELL DISTRIBUTION WIDTH 14.2 % 11.6-14.4 (BEAKER) (test code = 412) PLATELET COUNT (BEAKER) (test 213 K/CU MM 150-450 code = 756) MEAN PLATELET VOLUME (BEAKER) 9.9 fL 9.4-12.4 (test code = 754) NUCLEATED RED BLOOD CELLS 0 /100 WBC 0-0 (BEAKER) (test code = 413) NEUTROPHILS RELATIVE PERCENT 67 % (BEAKER) (test code = 429) LYMPHOCYTES RELATIVE PERCENT 17 % (BEAKER) (test code = 430) MONOCYTES RELATIVE PERCENT 7 % (BEAKER) (test code = 431) EOSINOPHILS RELATIVE PERCENT 9 % (BEAKER) (test code = 432) BASOPHILS RELATIVE PERCENT 0 % (BEAKER) (test code = 437) NEUTROPHILS ABSOLUTE COUNT 4.50 K/ L 1.78-5.38 (BEAKER) (test code = 670) LYMPHOCYTES ABSOLUTE COUNT 1.15 K/ L 1.32-3.57 L (BEAKER) (test code = 414) MONOCYTES ABSOLUTE COUNT (BEAKER) 0.46 K/ L 0.30-0.82 (test code = 415) EOSINOPHILS ABSOLUTE COUNT 0.60 K/ L 0.04-0.54 H (BEAKER) (test code = 416) BASOPHILS ABSOLUTE COUNT (BEAKER) 0.03 K/ L 0.01-0.08 (test code = 417) IMMATURE GRANULOCYTES-RELATIVE 0 % 0-1 PERCENT (BEAKER) (test code = 2801) C. DIFFICILE GDH [id number] 20:14:00 Test Item Value Reference Range Interpretation Comments CDT TOXIN (test code Negative Negative = [id number]) CDT GDH ANTIGEN Positive Negative A C. difficile present but (test code = toxin not detec philipp. [id number]) Indicates colon ization with non-toxige sarah strain or level of tox in below detectable leve ls. No need for enteri c isolation. Titi atment is rarely needed ( only when strong clinical suspicion for Clostridium difficile infection) Testing performed by [employer] Rapid Cassette Assay. For GDH, published sensitivity of the assay is 98.7% compared to cytotoxicity testing. For Toxin AB, published sensitivity is 87.8% and specificity 99.4% compared to cytotoxicity testing.Verification of kit performance was done by the [facility] Microbiology Lab prior to clinical use.CT, [id number] 09:51:00Please perform with IV and PO contrast. [...] acute hematoma within the bladder. Mild left h ydroureteronephrosis despite the presence of a ureteral stent, which appears in expected position. Nonobstructing left renal calculus. Trace free fluid, nonspecific. Signed: Gala Alejandre MDReport Verified Date/Time: 09/04/2018 09:51:34 Reading Location: [facility] C013Y CT Body Reading Room (CELLAVISION MANUAL DIFF)2018-09-04 08:56:00 Test Item Value Reference Range Interpretation Comments NEUTROPHILS - REL 69 % (CELLAVISION)(BEAKER) (test code = 2816) LYMPHOCYTES - REL 12 % (CELLAVISION)(BEAKER) (test code = 2817) MONOCYTES - REL 2 % (CELLAVISION)(BEAKER) (test code = 2818) EOSINOPHILS - REL 5 % (CELLAVISION)(BEAKER) (test code = 2819) BANDS - REL (CELLAVISION)(BEAKER) 12 % 0-10 H (test code = 2826) NEUTROPHILS - ABS 8.69 K/ul 1.78-5.38 H (CELLAVISION)(BEAKER) (test code = 2830) LYMPHOCYTES - ABS 1.51 K/ul 1.32-3.57 (CELLAVISION)(BEAKER) (test code = 2831) MONOCYTES - ABS 0.25 K/uL 0.30-0.82 L (CELLAVISION)(BEAKER) (test code = 2832) EOSINOPHILS - ABS 0.63 K/uL 0.04-0.54 H (CELLAVISION)(BEAKER) (test code = 2834) BANDS - ABS (CELLAVISION)(BEAKER) 1.51 K/uL 0.00-0.80 H (test code = 2840) TOTAL COUNTED (BEAKER) (test code = 100 1351) WBC MORPHOLOGY (BEAKER) (test code Normal = 487) PLT MORPHOLOGY (BEAKER) (test code Normal = 486) POLYCHROMATOPHILLIC RBCS(BEAKER) 1+ few (test code = 478) ANISOCYTOSIS (BEAKER) (test code = 1+ few 961) ARTIFACT (CELLAVISION)(BEAKER) Present (test code = 3432) PLATELET CONCENTRATION Adequate (CELLAVISION)(BEAKER) (test code = 3438) Received comment: User comments: Slide comments:CBC W/PLT COUNT & AUTO [id number] 08:56:00 Test Item Value Reference Range Interpretation Comments WHITE BLOOD CELL COUNT (BEAKER) 12.6 K/ L 3.5-10.5 H (test code = 775) RED BLOOD CELL COUNT (BEAKER) 3.18 M/ L 4.63-6.08 L (test code = 761) HEMOGLOBIN (BEAKER) (test code = 9.6 GM/DL 13.7-17.5 L 410) HEMATOCRIT (BEAKER) (test code = 28.5 % 40.1-51.0 L 411) MEAN CORPUSCULAR VOLUME (BEAKER) 89.6 fL 79.0-92.2 (test code = 753) MEAN CORPUSCULAR HEMOGLOBIN 30.2 pg 25.7-32.2 (BEAKER) (test code = 751) MEAN CORPUSCULAR HEMOGLOBIN CONC 33.7 GM/DL 32.3-36.5 (BEAKER) (test code = 752) RED CELL DISTRIBUTION WIDTH 14.1 % 11.6-14.4 (BEAKER) (test code = 412) PLATELET COUNT (BEAKER) (test 198 K/CU MM 150-450 code = 756) MEAN PLATELET VOLUME (BEAKER) 10.0 fL 9.4-12.4 (test code = 754) NUCLEATED RED BLOOD CELLS 0 /100 WBC 0-0 (BEAKER) (test code = 413) URINE [id number] 08:51:00 Test Item Value Reference Range Interpretation Comments CULTURE (BEAKER) (test code = 1095) No growth BASIC METABOLIC [id number] 07:09:00 Test Item Value Reference Range Interpretation Comments SODIUM (BEAKER) 137 meq/L 136-145 (test code = 381) POTASSIUM (BEAKER) 3.8 meq/L 3.5-5.1 (test code = 379) CHLORIDE (BEAKER) 109 meq/L 98-107 H (test code = 382) CO2 (BEAKER) (test 22 meq/L 22-29 code = 355) BLOOD UREA NITROGEN 9 mg/dL 7-21 (BEAKER) (test code = 354) CREATININE (BEAKER) 1.15 mg/dL 0.57-1.25 (test code = 358) GLUCOSE RANDOM 109 mg/dL 70-105 H (BEAKER) (test code = 652) CALCIUM (BEAKER) 8.1 mg/dL 8.4-10.2 L (test code = 697) EGFR (BEAKER) (test 63 mL/min/1.73 ESTIMA PHILIPP GFR IS code = 1092) sq m NOT ACCURATE CREATININE CLEARANCE IN PREDICTING GLOMERULAR FILTRATION RATE . ESTIMATED GFR I S NOT APPLICABLE FOR DIALYSIS PATIEN TS. HEMOGLOBIN AND [id number] 22:01:00 Test Item Value Reference Range Interpretation Comments HEMOGLOBIN (BEAKER) (test code = 9.1 GM/DL 13.7-17.5 L 410) HEMATOCRIT (BEAKER) (test code = 27.2 % 40.1-51.0 L 411) H/H after 2U PRBCBASIC METABOLIC [id number] 03:32:00 Test Item Value Reference Range Interpretation Comments SODIUM (BEAKER) 135 meq/L 136-145 L (test code = 381) POTASSIUM (BEAKER) 3.8 meq/L 3.5-5.1 (test code = 379) CHLORIDE (BEAKER) 111 meq/L 98-107 H (test code = 382) CO2 (BEAKER) (test 21 meq/L 22-29 L code = 355) BLOOD UREA NITROGEN 12 mg/dL 7-21 (BEAKER) (test code = 354) CREATININE (BEAKER) 1.21 mg/dL 0.57-1.25 (test code = 358) GLUCOSE RANDOM 108 mg/dL 70-105 H (BEAKER) (test code = 652) CALCIUM (BEAKER) 7.6 mg/dL 8.4-10.2 L (test code = 697) EGFR (BEAKER) (test 60 mL/min/1.73 ESTIMA PHILIPP GFR IS code = 1092) sq m NOT ACCURATE CREATININE CLEARANCE IN PREDICTING GLOMERULAR FILTRATION RATE . ESTIMATED GFR I S NOT APPLICABLE FOR DIALYSIS PATIEN TS. CBC W/PLT COUNT & AUTO [id number] 02:59:00 Test Item Value Reference Range Interpretation Comments WHITE BLOOD CELL COUNT (BEAKER) 9.2 K/ L 3.5-10.5 (test code = 775) RED BLOOD CELL COUNT (BEAKER) 2.30 M/ L 4.63-6.08 L (test code = 761) HEMOGLOBIN (BEAKER) (test code = 6.9 GM/DL 13.7-17.5 L 410) HEMATOCRIT (BEAKER) (test code = 20.5 % 40.1-51.0 L 411) MEAN CORPUSCULAR VOLUME (BEAKER) 89.1 fL 79.0-92.2 (test code = 753) MEAN CORPUSCULAR HEMOGLOBIN 30.0 pg 25.7-32.2 (BEAKER) (test code = 751) MEAN CORPUSCULAR HEMOGLOBIN CONC 33.7 GM/DL 32.3-36.5 (BEAKER) (test code = 752) RED CELL DISTRIBUTION WIDTH 14.3 % 11.6-14.4 (BEAKER) (test code = 412) PLATELET COUNT (BEAKER) (test 193 K/CU MM 150-450 code = 756) MEAN PLATELET VOLUME (BEAKER) 9.7 fL 9.4-12.4 (test code = 754) NUCLEATED RED BLOOD CELLS 0 /100 WBC 0-0 (BEAKER) (test code = 413) NEUTROPHILS RELATIVE PERCENT 79 % (BEAKER) (test code = 429) LYMPHOCYTES RELATIVE PERCENT 11 % (BEAKER) (test code = 430) MONOCYTES RELATIVE PERCENT 7 % (BEAKER) (test code = 431) EOSINOPHILS RELATIVE PERCENT 3 % (BEAKER) (test code = 432) BASOPHILS RELATIVE PERCENT 0 % (BEAKER) (test code = 437) NEUTROPHILS ABSOLUTE COUNT 7.25 K/ L 1.78-5.38 H (BEAKER) (test code = 670) LYMPHOCYTES ABSOLUTE COUNT 0.98 K/ L 1.32-3.57 L (BEAKER) (test code = 414) MONOCYTES ABSOLUTE COUNT (BEAKER) 0.68 K/ L 0.30-0.82 (test code = 415) EOSINOPHILS ABSOLUTE COUNT 0.28 K/ L 0.04-0.54 (BEAKER) (test code = 416) BASOPHILS ABSOLUTE COUNT (BEAKER) 0.01 K/ L 0.01-0.08 (test code = 417) IMMATURE GRANULOCYTES-RELATIVE 0 % 0-1 PERCENT (BEAKER) (test code = 2801) HEMOGLOBIN AND [id number] 02:56:00 Test Item Value Reference Range Interpretation Comments HEMOGLOBIN (BEAKER) (test code = 6.9 GM/DL 13.7-17.5 L 410) HEMATOCRIT (BEAKER) (test code = 20.5 % 40.1-51.0 L 411) Please draw 20 min after blood transfusion is completedPOCT-BLOOD GASES, VENOUS 2018-09-03 02:55:00 Test Item Value Reference Range Interpretation Comments TEMP, CELSIUS-POC 37.0 (BEAKER) (test code = 1834) FIO2-POC (BEAKER) TESTED AT [place] [address] (test code = 1835) [facility] [address] PH, VENOUS-POC 7.453 7.320-7.420 H (BEAKER) (test code = 1842) PCO2, VENOUS-POC 29.7 mm Hg 41.0-51.0 L (BEAKER) (test code = 1843) PO2, VENOUS-POC 62.0 mm Hg 25.0-40.0 H (BEAKER) (test code = 1844) SO2, VENOUS-POC 93.0 % 40.0-70.0 H (BEAKER) (test code = 1845) HCO3, VENOUS-POC 20.8 meq/L 21.0-29.0 L (BEAKER) (test code = 1846) BASE EXCESS, -3.0 meq/L -2.0-3.0 L VENOUS-POC (BEAKER) (test code = 1847) [id number] 02:55:00 Test Item Value Reference Range Interpretation Comments POC-SODIUM (BEAKER) 138 meq/L 135-148 TESTED A T [place] [address] (test code = 1542) [facility] [address] [id number] 02:55:00 Test Item Value Reference Range Interpretation Comments POC-POTASSIUM 3.7 meq/L 3.6-5.5 TESTED AT [place] [address] (BEAKER) (test code [facility] [address] = 1540) [id number] 02:55:00 Test Item Value Reference Range Interpretation Comments POC-GLUCOSE (BEAKER) 106 mg/dL 70-110 TESTED AT [place] [address] (test code = 1855) [facility] [address] POCT-CALCIUM [id number] 02:55:00 Test Item Value Reference Range Interpretation Comments POC-CALCIUM IONIZED 1.17 mmol/L 1.12-1.27 TESTED A T [place] [address] ([facility] (test code = [facility] [place] [address]) [address] [id number] 02:55:00 Test Item Value Reference Range Interpretation Comments POC-HEMATOCRIT 19 % 40-50 L TESTED AT [place] [address] (BEAKER) (test code = [place] [address]) [id number] 02:55:00 Test Item Value Reference Range Interpretation Comments POC-HEMOGLOBIN 6.5 g/dL 13.0-16.8 L TESTED AT [place] [address] (BEAKER) (test code = [place] [address]) [id number] AT [place] [address] [facility] [address] POCT-LACTIC ACID, [id number] 02:55:00 Test Item Value Reference Range Interpretation Comments POC-LACTIC ACID, 1.1 mmol/L 0.9-1.7 TESTED AT [place] [address] VENOUS (BEAKER) (test [place] code = 2805) [address] LACTIC ACID, VENOUS, WHOLE [id number] 21:58:00 Test Item Value Reference Range Interpretation Comments LACTATE BLOOD VENOUS (2) (BEAKER) 5.5 mmol/L 0.5-2.2 H (test code = 2872) CBC W/PLT COUNT & AUTO [id number] 19:01:00 Test Item Value Reference Range Interpretation Comments WHITE BLOOD CELL COUNT (BEAKER) 9.6 K/ L 3.5-10.5 (test code = 775) RED BLOOD CELL COUNT (BEAKER) 2.65 M/ L 4.63-6.08 L (test code = 761) HEMOGLOBIN (BEAKER) (test code = 7.6 GM/DL 13.7-17.5 L 410) HEMATOCRIT (BEAKER) (test code = 24.4 % 40.1-51.0 L 411) MEAN CORPUSCULAR VOLUME (BEAKER) 92.1 fL 79.0-92.2 (test code = 753) MEAN CORPUSCULAR HEMOGLOBIN 28.7 pg 25.7-32.2 (BEAKER) (test code = 751) MEAN CORPUSCULAR HEMOGLOBIN CONC 31.1 GM/DL 32.3-36.5 L (BEAKER) (test code = 752) RED CELL DISTRIBUTION WIDTH 14.6 % 11.6-14.4 H (BEAKER) (test code = 412) PLATELET COUNT (BEAKER) (test 257 K/CU MM 150-450 code = 756) MEAN PLATELET VOLUME (BEAKER) 9.9 fL 9.4-12.4 (test code = 754) NUCLEATED RED BLOOD CELLS 0 /100 WBC 0-0 (BEAKER) (test code = 413) NEUTROPHILS RELATIVE PERCENT 81 % (BEAKER) (test code = 429) LYMPHOCYTES RELATIVE PERCENT 8 % (BEAKER) (test code = 430) MONOCYTES RELATIVE PERCENT 8 % (BEAKER) (test code = 431) EOSINOPHILS RELATIVE PERCENT 3 % (BEAKER) (test code = 432) BASOPHILS RELATIVE PERCENT 0 % (BEAKER) (test code = 437) NEUTROPHILS ABSOLUTE COUNT 7.76 K/ L 1.78-5.38 H (BEAKER) (test code = 670) LYMPHOCYTES ABSOLUTE COUNT 0.81 K/ L 1.32-3.57 L (BEAKER) (test code = 414) MONOCYTES ABSOLUTE COUNT (BEAKER) 0.75 K/ L 0.30-0.82 (test code = 415) EOSINOPHILS ABSOLUTE COUNT 0.25 K/ L 0.04-0.54 (BEAKER) (test code = 416) BASOPHILS ABSOLUTE COUNT (BEAKER) 0.02 K/ L 0.01-0.08 (test code = 417) IMMATURE GRANULOCYTES-RELATIVE 0 % 0-1 PERCENT (BEAKER) (test code = 2801) BASIC METABOLIC [id number] 18:46:00 Test Item Value Reference Range Interpretation Comments SODIUM (BEAKER) 138 meq/L 136-145 (test code = 381) POTASSIUM (BEAKER) 4.5 meq/L 3.5-5.1 (test code = 379) CHLORIDE (BEAKER) 111 meq/L 98-107 H (test code = 382) CO2 (BEAKER) (test 20 meq/L 22-29 L code = 355) BLOOD UREA NITROGEN 16 mg/dL 7-21 (BEAKER) (test code = 354) CREATININE (BEAKER) 1.42 mg/dL 0.57-1.25 H (test code = 358) GLUCOSE RANDOM 122 mg/dL 70-105 H (BEAKER) (test code = 652) CALCIUM (BEAKER) 8.2 mg/dL 8.4-10.2 L (test code = 697) EGFR (BEAKER) (test 50 mL/min/1.73 ESTIMA PHILIPP GFR IS code = 1092) sq m NOT ACCURATE CREATININE CLEARANCE IN PREDICTING GLOMERULAR FILTRATION RATE . ESTIMATED GFR I S NOT APPLICABLE FOR DIALYSIS PATIEN TS. LACTIC ACID, VENOUS, WHOLE [id number] 18:42:00 Test Item Value Reference Range Interpretation Comments LACTATE BLOOD VENOUS (2) (BEAKER) 4.4 mmol/L 0.5-2.2 H (test code = 2872) HEMOGLOBIN AND [id number] 18:24:00 Test Item Value Reference Range Interpretation Comments HEMOGLOBIN (BEAKER) (test code = 7.5 GM/DL 13.7-17.5 L 410) HEMATOCRIT (BEAKER) (test code = 23.2 % 40.1-51.0 L 411) BASIC METABOLIC [id number] 06:47:00 Test Item Value Reference Range Interpretation Comments SODIUM (BEAKER) 140 meq/L 136-145 (test code = 381) POTASSIUM (BEAKER) 4.6 meq/L 3.5-5.1 (test code = 379) CHLORIDE (BEAKER) 115 meq/L 98-107 H (test code = 382) CO2 (BEAKER) (test 20 meq/L 22-29 L code = 355) BLOOD UREA NITROGEN 16 mg/dL 7-21 (BEAKER) (test code = 354) CREATININE (BEAKER) 1.47 mg/dL 0.57-1.25 H (test code = 358) GLUCOSE RANDOM 117 mg/dL 70-105 H (BEAKER) (test code = 652) CALCIUM (BEAKER) 7.5 mg/dL 8.4-10.2 L (test code = 697) EGFR (BEAKER) (test 48 mL/min/1.73 ESTIMA PHILIPP GFR IS code = 1092) sq m NOT ACCURATE CREATININE CLEARANCE IN PREDICTING GLOMERULAR FILTRATION RATE . ESTIMATED GFR I S NOT APPLICABLE FOR DIALYSIS PATIEN TS. CBC W/PLT COUNT & AUTO [id number] 06:06:00 Test Item Value Reference Range Interpretation Comments WHITE BLOOD CELL COUNT (BEAKER) 8.0 K/ L 3.5-10.5 (test code = 775) RED BLOOD CELL COUNT (BEAKER) 2.89 M/ L 4.63-6.08 L (test code = 761) HEMOGLOBIN (BEAKER) (test code = 8.7 GM/DL 13.7-17.5 L 410) HEMATOCRIT (BEAKER) (test code = 26.7 % 40.1-51.0 L 411) MEAN CORPUSCULAR VOLUME (BEAKER) 92.4 fL 79.0-92.2 H (test code = 753) MEAN CORPUSCULAR HEMOGLOBIN 30.1 pg 25.7-32.2 (BEAKER) (test code = 751) MEAN CORPUSCULAR HEMOGLOBIN CONC 32.6 GM/DL 32.3-36.5 (BEAKER) (test code = 752) RED CELL DISTRIBUTION WIDTH 14.6 % 11.6-14.4 H (BEAKER) (test code = 412) PLATELET COUNT (BEAKER) (test 250 K/CU MM 150-450 code = 756) MEAN PLATELET VOLUME (BEAKER) 10.0 fL 9.4-12.4 (test code = 754) NUCLEATED RED BLOOD CELLS 0 /100 WBC 0-0 (BEAKER) (test code = 413) NEUTROPHILS RELATIVE PERCENT 74 % (BEAKER) (test code = 429) LYMPHOCYTES RELATIVE PERCENT 13 % (BEAKER) (test code = 430) MONOCYTES RELATIVE PERCENT 9 % (BEAKER) (test code = 431) EOSINOPHILS RELATIVE PERCENT 3 % (BEAKER) (test code = 432) BASOPHILS RELATIVE PERCENT 0 % (BEAKER) (test code = 437) NEUTROPHILS ABSOLUTE COUNT 5.91 K/ L 1.78-5.38 H (BEAKER) (test code = 670) LYMPHOCYTES ABSOLUTE COUNT 1.04 K/ L 1.32-3.57 L (BEAKER) (test code = 414) MONOCYTES ABSOLUTE COUNT (BEAKER) 0.74 K/ L 0.30-0.82 (test code = 415) EOSINOPHILS ABSOLUTE COUNT 0.23 K/ L 0.04-0.54 (BEAKER) (test code = 416) BASOPHILS ABSOLUTE COUNT (BEAKER) 0.02 K/ L 0.01-0.08 (test code = 417) IMMATURE GRANULOCYTES-RELATIVE 0 % 0-1 PERCENT (BEAKER) (test code = 2801) [id number] 22:13:00 Test Item Value Reference Range Interpretation Comments PARTIAL THROMBOPLASTIN TIME 29.1 seconds 22.5-36.0 (BEAKER) (test code = 760) PROTHROMBIN [id number] 22:12:00 Test Item Value Reference Range Interpretation Comments PROTIME (BEAKER) (test code = 14.4 seconds 11.7-14.7 759) INR (BEAKER) (test code = 370) 1.1 <=5.9 RECOMMENDED COUMADIN/WARFARIN INR THERAPY RANGESSTANDARD DOSE: 2.0 - 3.0 Includes: PROPHYLAXIS forvenous thrombosis, systemic embolization; TREATMENT for venous thrombosis and/or pulmonary embolus.HIGH RISK: Target INR is 2.5-3.5 for patients with mechanical heart valves.COMPREHENSIVE METABOLIC [id number] 21:38:00 Test Item Value Reference Range Interpretation Comments TOTAL PROTEIN 4.5 gm/dL 6.0-8.3 L (BEAKER) (test code = 770) ALBUMIN (BEAKER) 2.8 g/dL 3.5-5.0 L (test code = 1145) ALKALINE PHOSPHATASE 45 U/L 40-150 (BEAKER) (test code = 346) BILIRUBIN TOTAL 1.1 mg/dL 0.2-1.2 (BEAKER) (test code = 377) SODIUM (BEAKER) (test 139 meq/L 136-145 code = 381) POTASSIUM (BEAKER) 4.1 meq/L 3.5-5.1 (test code = 379) CHLORIDE (BEAKER) 114 meq/L 98-107 H (test code = 382) CO2 (BEAKER) (test 17 meq/L 22-29 L code = 355) BLOOD UREA NITROGEN 16 mg/dL 7-21 (BEAKER) (test code = 354) CREATININE (BEAKER) 1.27 mg/dL 0.57-1.25 H (test code = 358) GLUCOSE RANDOM 132 mg/dL 70-105 H (BEAKER) (test code = 652) CALCIUM (BEAKER) 7.7 mg/dL 8.4-10.2 L (test code = 697) AST (SGOT) (BEAKER) 18 U/L 5-34 (test code = 353) ALT (SGPT) (BEAKER) 16 U/L 6-55 (test code = 347) EGFR (BEAKER) (test 57 mL/min/1.73 ESTIMA PHILIPP GFR IS code = 1092) sq m NOT ACCURATE CREATININE CLEARANCE IN PREDICTING GLOMERULAR FILTRATION RATE . ESTIMATED GFR I S NOT APPLICABLE FOR DIALYSIS PATIEN TS. CBC W/PLT COUNT & AUTO [id number] 21:32:00 Test Item Value Reference Range Interpretation Comments WHITE BLOOD CELL COUNT (BEAKER) 11.8 K/ L 3.5-10.5 H (test code = 775) RED BLOOD CELL COUNT (BEAKER) 3.48 M/ L 4.63-6.08 L (test code = 761) HEMOGLOBIN (BEAKER) (test code = 10.1 GM/DL 13.7-17.5 L 410) HEMATOCRIT (BEAKER) (test code = 31.3 % 40.1-51.0 L 411) MEAN CORPUSCULAR VOLUME (BEAKER) 89.9 fL 79.0-92.2 (test code = 753) MEAN CORPUSCULAR HEMOGLOBIN 29.0 pg 25.7-32.2 (BEAKER) (test code = 751) MEAN CORPUSCULAR HEMOGLOBIN CONC 32.3 GM/DL 32.3-36.5 (BEAKER) (test code = 752) RED CELL DISTRIBUTION WIDTH 14.5 % 11.6-14.4 H (BEAKER) (test code = 412) PLATELET COUNT (BEAKER) (test 293 K/CU MM 150-450 code = 756) MEAN PLATELET VOLUME (BEAKER) 9.7 fL 9.4-12.4 (test code = 754) NUCLEATED RED BLOOD CELLS 0 /100 WBC 0-0 (BEAKER) (test code = 413) NEUTROPHILS RELATIVE PERCENT 82 % (BEAKER) (test code = 429) LYMPHOCYTES RELATIVE PERCENT 9 % (BEAKER) (test code = 430) MONOCYTES RELATIVE PERCENT 8 % (BEAKER) (test code = 431) EOSINOPHILS RELATIVE PERCENT 1 % (BEAKER) (test code = 432) BASOPHILS RELATIVE PERCENT 0 % (BEAKER) (test code = 437) NEUTROPHILS ABSOLUTE COUNT 9.71 K/ L 1.78-5.38 H (BEAKER) (test code = 670) LYMPHOCYTES ABSOLUTE COUNT 1.01 K/ L 1.32-3.57 L (BEAKER) (test code = 414) MONOCYTES ABSOLUTE COUNT (BEAKER) 0.90 K/ L 0.30-0.82 H (test code = 415) EOSINOPHILS ABSOLUTE COUNT 0.13 K/ L 0.04-0.54 (BEAKER) (test code = 416) BASOPHILS ABSOLUTE COUNT (BEAKER) 0.04 K/ L 0.01-0.08 (test code = 417) IMMATURE GRANULOCYTES-RELATIVE 0 % 0-1 PERCENT (BEAKER) (test code = 2801) LACTIC ACID, VENOUS, WHOLE [id number] 21:32:00 Test Item Value Reference Range Interpretation Comments LACTATE BLOOD VENOUS (2) (BEAKER) 1.6 mmol/L 0.5-2.2 (test code = 2872) POCT-BLOOD GASES, [id number] 21:00:00 Test Item Value Reference Range Interpretation Comments TEMP, CELSIUS-POC 36.1 (BEAKER) (test code = 1834) FIO2-POC (BEAKER) 21 TESTED AT [facility] 6720 (test code = 1835) [place] [place] [address] PH, VENOUS-POC 7.411 7.320-7.420 (BEAKER) (test code = 1842) PCO2, VENOUS-POC 25.5 mm Hg 41.0-51.0 L (BEAKER) (test code = 1843) PO2, VENOUS-POC 45.0 mm Hg 25.0-40.0 H (BEAKER) (test code = 1844) SO2, VENOUS-POC 84.0 % 40.0-70.0 H (BEAKER) (test code = 1845) HCO3, VENOUS-POC 16.4 meq/L 21.0-29.0 L (BEAKER) (test code = 1846) BASE EXCESS, -8.0 meq/L -2.0-3.0 L VENOUS-POC (BEAKER) (test code = 1847) [id number] 21:00:00 Test Item Value Reference Range Interpretation Comments POC-SODIUM (BEAKER) 140 meq/L 135-148 TESTED A T [facility] 6720 (test code = 1542) [place] [facility] [place] [address] [id number] 21:00:00 Test Item Value Reference Range Interpretation Comments POC-POTASSIUM 3.9 meq/L 3.6-5.5 TESTED AT [facility] 6720 (BEAKER) (test code [facility] [address] = 1540) [id number] 21:00:00 Test Item Value Reference Range Interpretation Comments POC-GLUCOSE (BEAKER) 129 mg/dL 70-110 H TESTED AT [place] [address] (test code = 1855) [place] [address] POCT-CALCIUM [id number] 21:00:00 Test Item Value Reference Range Interpretation Comments POC-CALCIUM IONIZED 1.12 mmol/L 1.12-1.27 TESTED A T [place] [address] (BEAKER) (test code = [place] 15[address]) [address] [id number] 21:00:00 Test Item Value Reference Range Interpretation Comments POC-HEMATOCRIT 30 % 40-50 L TESTED AT [place] [address] (BEAKER) (test code = [place] [facility] [address] 1857) [id number] 21:00:00 Test Item Value Reference Range Interpretation Comments POC-HEMOGLOBIN 10.2 g/dL 13.0-16.8 L TESTED AT [place] [address] [facility] ([facility] = 1856) [id number] AT [place] [address] [place] [address] POCT-LACTIC ACID, [id number] 21:00:00 Test Item Value Reference Range Interpretation Comments POC-LACTIC ACID, 1.3 mmol/L 0.9-1.7 TESTED AT [place] [address] VENOUS ([facility]) (test [place] code = 2805) [address] CBC W/PLT COUNT & AUTO [id number] 18:50:00 Test Item Value Reference Range Interpretation Comments WHITE BLOOD CELL COUNT (BEAKER) 15.4 K/ L 3.5-10.5 H (test code = 775) RED BLOOD CELL COUNT (BEAKER) 3.96 M/ L 4.63-6.08 L (test code = 761) HEMOGLOBIN (BEAKER) (test code = 11.5 GM/DL 13.7-17.5 L 410) HEMATOCRIT (BEAKER) (test code = 36.2 % 40.1-51.0 L 411) MEAN CORPUSCULAR VOLUME (BEAKER) 91.4 fL 79.0-92.2 (test code = 753) MEAN CORPUSCULAR HEMOGLOBIN 29.0 pg 25.7-32.2 (BEAKER) (test code = 751) MEAN CORPUSCULAR HEMOGLOBIN CONC 31.8 GM/DL 32.3-36.5 L (BEAKER) (test code = 752) RED CELL DISTRIBUTION WIDTH 14.4 % 11.6-14.4 (BEAKER) (test code = 412) PLATELET COUNT (BEAKER) (test 308 K/CU MM 150-450 code = 756) MEAN PLATELET VOLUME (BEAKER) 9.3 fL 9.4-12.4 L (test code = 754) NUCLEATED RED BLOOD CELLS 0 /100 WBC 0-0 (BEAKER) (test code = 413) NEUTROPHILS RELATIVE PERCENT 83 % (BEAKER) (test code = 429) LYMPHOCYTES RELATIVE PERCENT 10 % (BEAKER) (test code = 430) MONOCYTES RELATIVE PERCENT 6 % (BEAKER) (test code = 431) EOSINOPHILS RELATIVE PERCENT 1 % (BEAKER) (test code = 432) BASOPHILS RELATIVE PERCENT 0 % (BEAKER) (test code = 437) NEUTROPHILS ABSOLUTE COUNT 12.76 K/ L 1.78-5.38 H (BEAKER) (test code = 670) LYMPHOCYTES ABSOLUTE COUNT 1.50 K/ L 1.32-3.57 (BEAKER) (test code = 414) MONOCYTES ABSOLUTE COUNT (BEAKER) 0.95 K/ L 0.30-0.82 H (test code = 415) EOSINOPHILS ABSOLUTE COUNT 0.07 K/ L 0.04-0.54 (BEAKER) (test code = 416) BASOPHILS ABSOLUTE COUNT (BEAKER) 0.04 K/ L 0.01-0.08 (test code = 417) IMMATURE GRANULOCYTES-RELATIVE 0 % 0-1 PERCENT (BEAKER) (test code = 2801) FL, COST CONTROL ANALYST IN OR/30 MINUTE [id number] 14:17:00Reason for exam:- >Retrograde PyelogramFINAL REPORT Fluoroscopic spot imaging was performed [...] ureteral stent in position. Signed: Brad Jorge MDReport Verified Date/Time: 09/01/2018 14:17:49 Reading Location: [facility] [id number] Ortho Consult Reading Room BASIC METABOLIC [id number] 14:07:00 Test Item Value Reference Range Interpretation Comments SODIUM (BEAKER) 134 meq/L 136-145 L (test code = 381) POTASSIUM (BEAKER) 4.1 meq/L 3.5-5.1 Specimen slightly (test code = 379) hemolyzed CHLORIDE (BEAKER) 113 meq/L 98-107 H (test code = 382) CO2 (BEAKER) (test 14 meq/L 22-29 L code = 355) BLOOD UREA NITROGEN 10 mg/dL 7-21 (BEAKER) (test code = 354) CREATININE (BEAKER) 0.85 mg/dL 0.57-1.25 Specimen slightly (test code = 358) hemolyzed GLUCOSE RANDOM 105 mg/dL 70-105 (BEAKER) (test code = 652) CALCIUM (BEAKER) 8.0 mg/dL 8.4-10.2 L (test code = 697) EGFR (BEAKER) (test 90 mL/min/1.73 ESTIMA PHILIPP GFR IS code = 1092) sq m NOT ACCURATE CREATININE CLEARANCE IN PREDICTING GLOMERULAR FILTRATION RATE . ESTIMATED GFR I S NOT APPLICABLE FOR DIALYSIS PATIEN TS. HEMOGLOBIN AND [id number] 13:53:00 Test Item Value Reference Range Interpretation Comments HEMOGLOBIN (BEAKER) (test code = 12.1 GM/DL 13.7-17.5 L 410) HEMATOCRIT (BEAKER) (test code = 39.5 % 40.1-51.0 L 411) BASIC METABOLIC [id number] 07:22:00 Test Item Value Reference Range Interpretation Comments SODIUM (BEAKER) 141 meq/L 136-145 (test code = 381) POTASSIUM (BEAKER) 4.1 meq/L 3.5-5.1 (test code = 379) CHLORIDE (BEAKER) 115 meq/L 98-107 H (test code = 382) CO2 (BEAKER) (test 21 meq/L 22-29 L code = 355) BLOOD UREA NITROGEN 12 mg/dL 7-21 (BEAKER) (test code = 354) CREATININE (BEAKER) 0.91 mg/dL 0.57-1.25 (test code = 358) GLUCOSE RANDOM 89 mg/dL 70-105 (BEAKER) (test code = 652) CALCIUM (BEAKER) 8.4 mg/dL 8.4-10.2 (test code = 697) EGFR (BEAKER) (test 83 mL/min/1.73 ESTIMA PHILIPP GFR IS code = 1092) sq m NOT ACCURATE CREATININE CLEARANCE IN PREDICTING GLOMERULAR FILTRATION RATE . ESTIMATED GFR I S NOT APPLICABLE FOR DIALYSIS PATIEN TS. CBC W/PLT COUNT & AUTO [id number] 06:49:00 Test Item Value Reference Range Interpretation Comments WHITE BLOOD CELL COUNT (BEAKER) 6.3 K/ L 3.5-10.5 (test code = 775) RED BLOOD CELL COUNT (BEAKER) 4.09 M/ L 4.63-6.08 L (test code = 761) HEMOGLOBIN (BEAKER) (test code = 11.9 GM/DL 13.7-17.5 L 410) HEMATOCRIT (BEAKER) (test code = 36.9 % 40.1-51.0 L 411) MEAN CORPUSCULAR VOLUME (BEAKER) 90.2 fL 79.0-92.2 (test code = 753) MEAN CORPUSCULAR HEMOGLOBIN 29.1 pg 25.7-32.2 (BEAKER) (test code = 751) MEAN CORPUSCULAR HEMOGLOBIN CONC 32.2 GM/DL 32.3-36.5 L (BEAKER) (test code = 752) RED CELL DISTRIBUTION WIDTH 14.5 % 11.6-14.4 H (BEAKER) (test code = 412) PLATELET COUNT (BEAKER) (test 261 K/CU MM 150-450 code = 756) MEAN PLATELET VOLUME (BEAKER) 9.5 fL 9.4-12.4 (test code = 754) NUCLEATED RED BLOOD CELLS 0 /100 WBC 0-0 (BEAKER) (test code = 413) NEUTROPHILS RELATIVE PERCENT 64 % (BEAKER) (test code = 429) LYMPHOCYTES RELATIVE PERCENT 22 % (BEAKER) (test code = 430) MONOCYTES RELATIVE PERCENT 8 % (BEAKER) (test code = 431) EOSINOPHILS RELATIVE PERCENT 5 % (BEAKER) (test code = 432) BASOPHILS RELATIVE PERCENT 1 % (BEAKER) (test code = 437) NEUTROPHILS ABSOLUTE COUNT 4.02 K/ L 1.78-5.38 (BEAKER) (test code = 670) LYMPHOCYTES ABSOLUTE COUNT 1.36 K/ L 1.32-3.57 (BEAKER) (test code = 414) MONOCYTES ABSOLUTE COUNT (BEAKER) 0.52 K/ L 0.30-0.82 (test code = 415) EOSINOPHILS ABSOLUTE COUNT 0.34 K/ L 0.04-0.54 (BEAKER) (test code = 416) BASOPHILS ABSOLUTE COUNT (BEAKER) 0.04 K/ L 0.01-0.08 (test code = 417) IMMATURE GRANULOCYTES-RELATIVE 0 % 0-1 PERCENT (BEAKER) (test code = 2801) BASIC METABOLIC [id number] 07:06:00 Test Item Value Reference Range Interpretation Comments SODIUM (BEAKER) 140 meq/L 136-145 (test code = 381) POTASSIUM (BEAKER) 3.7 meq/L 3.5-5.1 (test code = 379) CHLORIDE (BEAKER) 110 meq/L 98-107 H (test code = 382) CO2 (BEAKER) (test 25 meq/L 22-29 code = 355) BLOOD UREA NITROGEN 19 mg/dL 7-21 (BEAKER) (test code = 354) CREATININE (BEAKER) 1.00 mg/dL 0.57-1.25 (test code = 358) GLUCOSE RANDOM 98 mg/dL 70-105 (BEAKER) (test code = 652) CALCIUM (BEAKER) 8.6 mg/dL 8.4-10.2 (test code = 697) EGFR (BEAKER) (test 75 mL/min/1.73 ESTIMA PHILIPP GFR IS code = 1092) sq m NOT ACCURATE CREATININE CLEARANCE IN PREDICTING GLOMERULAR FILTRATION RATE . ESTIMATED GFR I S NOT APPLICABLE FOR DIALYSIS PATIEN TS. CBC W/PLT COUNT & AUTO [id number] 06:45:00 Test Item Value Reference Range Interpretation Comments WHITE BLOOD CELL COUNT (BEAKER) 7.5 K/ L 3.5-10.5 (test code = 775) RED BLOOD CELL COUNT (BEAKER) 4.50 M/ L 4.63-6.08 L (test code = 761) HEMOGLOBIN (BEAKER) (test code = 13.0 GM/DL 13.7-17.5 L 410) HEMATOCRIT (BEAKER) (test code = 39.8 % 40.1-51.0 L 411) MEAN CORPUSCULAR VOLUME (BEAKER) 88.4 fL 79.0-92.2 (test code = 753) MEAN CORPUSCULAR HEMOGLOBIN 28.9 pg 25.7-32.2 (BEAKER) (test code = 751) MEAN CORPUSCULAR HEMOGLOBIN CONC 32.7 GM/DL 32.3-36.5 (BEAKER) (test code = 752) RED CELL DISTRIBUTION WIDTH 14.6 % 11.6-14.4 H (BEAKER) (test code = 412) PLATELET COUNT (BEAKER) (test 277 K/CU MM 150-450 code = 756) MEAN PLATELET VOLUME (BEAKER) 9.3 fL 9.4-12.4 L (test code = 754) NUCLEATED RED BLOOD CELLS 0 /100 WBC 0-0 (BEAKER) (test code = 413) NEUTROPHILS RELATIVE PERCENT 62 % (BEAKER) (test code = 429) LYMPHOCYTES RELATIVE PERCENT 23 % (BEAKER) (test code = 430) MONOCYTES RELATIVE PERCENT 9 % (BEAKER) (test code = 431) EOSINOPHILS RELATIVE PERCENT 5 % (BEAKER) (test code = 432) BASOPHILS RELATIVE PERCENT 1 % (BEAKER) (test code = 437) NEUTROPHILS ABSOLUTE COUNT 4.67 K/ L 1.78-5.38 (BEAKER) (test code = 670) LYMPHOCYTES ABSOLUTE COUNT 1.76 K/ L 1.32-3.57 (BEAKER) (test code = 414) MONOCYTES ABSOLUTE COUNT (BEAKER) 0.67 K/ L 0.30-0.82 (test code = 415) EOSINOPHILS ABSOLUTE COUNT 0.37 K/ L 0.04-0.54 (BEAKER) (test code = 416) BASOPHILS ABSOLUTE COUNT (BEAKER) 0.04 K/ L 0.01-0.08 (test code = 417) IMMATURE GRANULOCYTES-RELATIVE 0 % 0-1 PERCENT (BEAKER) (test code = 2801) PET, CARDIAC PERFUSION MULTIPLE STUDIES, REST AND [id number] 16:18:00 Reason for exam:->pre-op, hx of HTN and prior infarct on EKGFINAL REPORT PROCEDURE: Rest/Stress MYOCARDIAL PERFUSION PET with regadenoson\\XA9\\ CPT CODE: [id number] INDICATION: Preoperative evaluation for bladder resection HISTORY: [...] Normal extracardiac tracer distribution. 6. No previous [facility] study for comparison. 7. Multiple low-density lesions throughout the liver are identified on these [facility] images. These can be better characterized for etiology by formal anatomic imaging if not previously evaluated. Signed: Tim House MDReport Verified Date/Time: 08/30/2018 16:18:15 Reading Location: [address] Reading Room URINE [id number] 13:27:00 Test Item Value Reference Range Interpretation Comments CULTURE (BEAKER) (test code = 1095) No growth BASIC METABOLIC [id number] 07:10:00 Test Item Value Reference Range Interpretation Comments SODIUM (BEAKER) 139 meq/L 136-145 (test code = 381) POTASSIUM (BEAKER) 3.9 meq/L 3.5-5.1 (test code = 379) CHLORIDE (BEAKER) 108 meq/L 98-107 H (test code = 382) CO2 (BEAKER) (test 22 meq/L 22-29 code = 355) BLOOD UREA NITROGEN 20 mg/dL 7-21 (BEAKER) (test code = 354) CREATININE (BEAKER) 1.14 mg/dL 0.57-1.25 (test code = 358) GLUCOSE RANDOM 106 mg/dL 70-105 H (BEAKER) (test code = 652) CALCIUM (BEAKER) 9.2 mg/dL 8.4-10.2 (test code = 697) EGFR (BEAKER) (test 64 mL/min/1.73 ESTIMA PHILIPP GFR IS code = 1092) sq m NOT ACCURATE CREATININE CLEARANCE IN PREDICTING GLOMERULAR FILTRATION RATE . ESTIMATED GFR I S NOT APPLICABLE FOR DIALYSIS PATIEN TS. CBC W/PLT COUNT & AUTO [id number] 06:56:00 Test Item Value Reference Range Interpretation Comments WHITE BLOOD CELL COUNT (BEAKER) 8.6 K/ L 3.5-10.5 (test code = 775) RED BLOOD CELL COUNT (BEAKER) 4.98 M/ L 4.63-6.08 (test code = 761) HEMOGLOBIN (BEAKER) (test code = 14.2 GM/DL 13.7-17.5 410) HEMATOCRIT (BEAKER) (test code = 43.4 % 40.1-51.0 411) MEAN CORPUSCULAR VOLUME (BEAKER) 87.1 fL 79.0-92.2 (test code = 753) MEAN CORPUSCULAR HEMOGLOBIN 28.5 pg 25.7-32.2 (BEAKER) (test code = 751) MEAN CORPUSCULAR HEMOGLOBIN CONC 32.7 GM/DL 32.3-36.5 (BEAKER) (test code = 752) RED CELL DISTRIBUTION WIDTH 14.8 % 11.6-14.4 H (BEAKER) (test code = 412) PLATELET COUNT (BEAKER) (test 310 K/CU MM 150-450 code = 756) MEAN PLATELET VOLUME (BEAKER) 9.1 fL 9.4-12.4 L (test code = 754) NUCLEATED RED BLOOD CELLS 0 /100 WBC 0-0 (BEAKER) (test code = 413) NEUTROPHILS RELATIVE PERCENT 63 % (BEAKER) (test code = 429) LYMPHOCYTES RELATIVE PERCENT 22 % (BEAKER) (test code = 430) MONOCYTES RELATIVE PERCENT 10 % (BEAKER) (test code = 431) EOSINOPHILS RELATIVE PERCENT 4 % (BEAKER) (test code = 432) BASOPHILS RELATIVE PERCENT 1 % (BEAKER) (test code = 437) NEUTROPHILS ABSOLUTE COUNT 5.47 K/ L 1.78-5.38 H (BEAKER) (test code = 670) LYMPHOCYTES ABSOLUTE COUNT 1.88 K/ L 1.32-3.57 (BEAKER) (test code = 414) MONOCYTES ABSOLUTE COUNT (BEAKER) 0.83 K/ L 0.30-0.82 H (test code = 415) EOSINOPHILS ABSOLUTE COUNT 0.36 K/ L 0.04-0.54 (BEAKER) (test code = 416) BASOPHILS ABSOLUTE COUNT (BEAKER) 0.04 K/ L 0.01-0.08 (test code = 417) IMMATURE GRANULOCYTES-RELATIVE 1 % 0-1 PERCENT (BEAKER) (test code = 2801) BASIC METABOLIC [id number] 06:44:00 Test Item Value Reference Range Interpretation Comments SODIUM (BEAKER) 138 meq/L 136-145 (test code = 381) POTASSIUM (BEAKER) 4.2 meq/L 3.5-5.1 Specimen slightly (test code = 379) hemolyzed CHLORIDE (BEAKER) 108 meq/L 98-107 H (test code = 382) CO2 (BEAKER) (test 22 meq/L 22-29 code = 355) BLOOD UREA NITROGEN 17 mg/dL 7-21 (BEAKER) (test code = 354) CREATININE (BEAKER) 1.02 mg/dL 0.57-1.25 Specimen slightly (test code = 358) hemolyzed GLUCOSE RANDOM 99 mg/dL 70-105 (BEAKER) (test code = 652) CALCIUM (BEAKER) 9.7 mg/dL 8.4-10.2 (test code = 697) EGFR (BEAKER) (test 73 mL/min/1.73 ESTIMA PHILIPP GFR IS code = 1092) sq m NOT ACCURATE CREATININE CLEARANCE IN PREDICTING GLOMERULAR FILTRATION RATE . ESTIMATED GFR I S NOT APPLICABLE FOR DIALYSIS PATIEN TS. CBC W/PLT COUNT & AUTO [id number] 06:34:00 Test Item Value Reference Range Interpretation Comments WHITE BLOOD CELL COUNT (BEAKER) 10.7 K/ L 3.5-10.5 H (test code = 775) RED BLOOD CELL COUNT (BEAKER) 5.29 M/ L 4.63-6.08 (test code = 761) HEMOGLOBIN (BEAKER) (test code = 15.6 GM/DL 13.7-17.5 410) HEMATOCRIT (BEAKER) (test code = 46.4 % 40.1-51.0 411) MEAN CORPUSCULAR VOLUME (BEAKER) 87.7 fL 79.0-92.2 (test code = 753) MEAN CORPUSCULAR HEMOGLOBIN 29.5 pg 25.7-32.2 (BEAKER) (test code = 751) MEAN CORPUSCULAR HEMOGLOBIN CONC 33.6 GM/DL 32.3-36.5 (BEAKER) (test code = 752) RED CELL DISTRIBUTION WIDTH 14.7 % 11.6-14.4 H (BEAKER) (test code = 412) PLATELET COUNT (BEAKER) (test 304 K/CU MM 150-450 code = 756) MEAN PLATELET VOLUME (BEAKER) 9.5 fL 9.4-12.4 (test code = 754) NUCLEATED RED BLOOD CELLS 0 /100 WBC 0-0 (BEAKER) (test code = 413) NEUTROPHILS RELATIVE PERCENT 72 % (BEAKER) (test code = 429) LYMPHOCYTES RELATIVE PERCENT 16 % (BEAKER) (test code = 430) MONOCYTES RELATIVE PERCENT 8 % (BEAKER) (test code = 431) EOSINOPHILS RELATIVE PERCENT 4 % (BEAKER) (test code = 432) BASOPHILS RELATIVE PERCENT 1 % (BEAKER) (test code = 437) NEUTROPHILS ABSOLUTE COUNT 7.64 K/ L 1.78-5.38 H (BEAKER) (test code = 670) LYMPHOCYTES ABSOLUTE COUNT 1.71 K/ L 1.32-3.57 (BEAKER) (test code = 414) MONOCYTES ABSOLUTE COUNT (BEAKER) 0.81 K/ L 0.30-0.82 (test code = 415) EOSINOPHILS ABSOLUTE COUNT 0.41 K/ L 0.04-0.54 (BEAKER) (test code = 416) BASOPHILS ABSOLUTE COUNT (BEAKER) 0.05 K/ L 0.01-0.08 (test code = 417) IMMATURE GRANULOCYTES-RELATIVE 1 % 0-1 PERCENT (BEAKER) (test code = 2801) BASIC METABOLIC [id number] 17:36:00 Test Item Value Reference Range Interpretation Comments SODIUM (BEAKER) 138 meq/L 136-145 (test code = 381) POTASSIUM (BEAKER) 3.8 meq/L 3.5-5.1 (test code = 379) CHLORIDE (BEAKER) 106 meq/L 98-107 (test code = 382) CO2 (BEAKER) (test 23 meq/L 22-29 code = 355) BLOOD UREA NITROGEN 11 mg/dL 7-21 (BEAKER) (test code = 354) CREATININE (BEAKER) 0.94 mg/dL 0.57-1.25 (test code = 358) GLUCOSE RANDOM 105 mg/dL 70-105 (BEAKER) (test code = 652) CALCIUM (BEAKER) 9.5 mg/dL 8.4-10.2 (test code = 697) EGFR (BEAKER) (test 80 mL/min/1.73 ESTIMA PHILIPP GFR IS code = 1092) sq m NOT ACCURATE CREATININE CLEARANCE IN PREDICTING GLOMERULAR FILTRATION RATE . ESTIMATED GFR I S NOT APPLICABLE FOR DIALYSIS PATIEN TS. PROTHROMBIN TIME/[id number] 17:33:00 Test Item Value Reference Range Interpretation Comments PROTIME (BEAKER) (test code = 13.0 seconds 11.7-14.7 759) INR (BEAKER) (test code = 370) 1.0 <=5.9 RECOMMENDED COUMADIN/WARFARIN INR THERAPY RANGESSTANDARD DOSE: 2.0 - 3.0 Includes: PROPHYLAXIS forvenous thrombosis, systemic embolization; TREATMENT for venous thrombosis and/or pulmonary embolus.HIGH RISK: Target INR is 2.5-3.5 for patients with mechanical heart valves.CBC W/PLT COUNT & AUTO DIFFERENTIAL 2018-08-28 17:13:00 Test Item Value Reference Range Interpretation Comments WHITE BLOOD CELL COUNT (BEAKER) 8.8 K/ L 3.5-10.5 (test code = 775) RED BLOOD CELL COUNT (BEAKER) 5.05 M/ L 4.63-6.08 (test code = 761) HEMOGLOBIN (BEAKER) (test code = 14.7 GM/DL 13.7-17.5 410) HEMATOCRIT (BEAKER) (test code = 44.0 % 40.1-51.0 411) MEAN CORPUSCULAR VOLUME (BEAKER) 87.1 fL 79.0-92.2 (test code = 753) MEAN CORPUSCULAR HEMOGLOBIN 29.1 pg 25.7-32.2 (BEAKER) (test code = 751) MEAN CORPUSCULAR HEMOGLOBIN CONC 33.4 GM/DL 32.3-36.5 (BEAKER) (test code = 752) RED CELL DISTRIBUTION WIDTH 14.8 % 11.6-14.4 H (BEAKER) (test code = 412) PLATELET COUNT (BEAKER) (test 285 K/CU MM 150-450 code = 756) MEAN PLATELET VOLUME (BEAKER) 9.1 fL 9.4-12.4 L (test code = 754) NUCLEATED RED BLOOD CELLS 0 /100 WBC 0-0 (BEAKER) (test code = 413) NEUTROPHILS RELATIVE PERCENT 70 % (BEAKER) (test code = 429) LYMPHOCYTES RELATIVE PERCENT 19 % (BEAKER) (test code = 430) MONOCYTES RELATIVE PERCENT 8 % (BEAKER) (test code = 431) EOSINOPHILS RELATIVE PERCENT 2 % (BEAKER) (test code = 432) BASOPHILS RELATIVE PERCENT 0 % (BEAKER) (test code = 437) NEUTROPHILS ABSOLUTE COUNT 6.17 K/ L 1.78-5.38 H (BEAKER) (test code = 670) LYMPHOCYTES ABSOLUTE COUNT 1.71 K/ L 1.32-3.57 (BEAKER) (test code = 414) MONOCYTES ABSOLUTE COUNT (BEAKER) 0.71 K/ L 0.30-0.82 (test code = 415) EOSINOPHILS ABSOLUTE COUNT 0.20 K/ L 0.04-0.54 (BEAKER) (test code = 416) BASOPHILS ABSOLUTE COUNT (BEAKER) 0.02 K/ L 0.01-0.08 (test code = 417) IMMATURE GRANULOCYTES-RELATIVE 0 % 0-1 PERCENT (BEAKER) (test code = 2801)
[2020-09-07 13:21] LABS: Absolute Lymphocytes (CBC) 0.8 K/uL (0.7-4.9); Basophils % 0.5 % (0-1.3); Hematocrit 37.5 % (39.6-49.0); Lymphocytes % 9.3 % (15.3-44.8); RBC Red Blood Cell Count 4.49 M/uL (4.33-5.43)
[2020-09-07 13:22] LABS: Protime INR 1.16
[2020-09-07] MEDS ORDERED: NA CHLORIDE 0.9% 1,000 ML ONE ×2 (13:39→14:53)
[2020-09-07 13:40] LABS: ALT/SGPT 14 U/L (12-78); AST/SGOT 18 U/L (15-37); Albumin 3.4 g/dL (3.4-5.0); Alkaline Phosphatase 946 U/L (45-117); BUN Blood Urea Nitrogen 27 mg/dL (7-18); Bicarbonate 22 mmol/L (21-32); Bilirubin Direct 0.2 mg/dL (0-0.2); Bilirubin Total 0.7 mg/dL (0.2-1.0); CKMB Creatine Kinase MB 1.4 ng/mL (0.3-3.6); Creatine Phosphokinase 53 U/L (39-308); Glucose Level 138 mg/dL (74-106); Lipase 60 U/L (73-393); NT PRO-BNP 272 pg/mL (<125); Potassium 3.4 mmol/L (3.5-5.1); Protein, Total 7.1 g/dL (6.4-8.2); Sodium Level 140 mmol/L (136-145); Troponin (Emerg Dept Use Only) < 0.02 ng/mL (0.0-0.045)
--- NOTE | 2020-09-07 13:44 | RAD REPORT ---
EXAM DESCRIPTION: RAD - Chest Single View - 09/07/2020 1:30 pm CLINICAL HISTORY: COUGH COMPARISON: July 2018 TECHNIQUE: AP portable chest image was obtained 09/07/2020 1:30 pm . FINDINGS: No mass or consolidation. Interstitial pattern is not substantially different when adjusti ng for the more shallow inspiratory effort. There is some accentuation of the peripheral lung parench yma due to low lung volumes. Provided history does not indicate suspicion for pneumonia. Heart and va sculature are normal. No measurable pleural effusion and no pneumothorax. No acute bony abnormality s een. No acute aortic findings suspected. IMPRESSION: No mass or consolidation. Lung parenchyma not clearly different when adjusting for the low lung volumes. If the patient remains symptomatic or symptoms remain unexplained, repeat imaging of the chest could be performed with maximum inspiratory effort. If the patient cannot obtain maximal inspiratory effort , CT chest imaging could allow for an alternative means of evaluating the lung parenchyma.
[2020-09-07] MEDS ORDERED: BISACODYL 10 MG RECTAL SUPP ONE (14:53)
[2020-09-07] MEDS ORDERED: LACTULOSE 20 GM/30 ML UCUP ONE (14:53)
[2020-09-07] MEDS ORDERED: ONDANSETRON 4 MG/2 ML VIAL ONE ×2 (15:47→18:22)
--- NOTE | 2020-09-07 16:31 | ER ---
Nurse's Notes [facility] Name: Chema Hernandez Age: 70 yrs Sex: Male : 1950 Arrival Date: 09/07/2020 Time: 12:33 Bed 7 Private MD: Diagnosis: Weakness;Volume depletion;Anorexia;Abdominal tenderness;Constipation;Hypokalemia Presentation: 09/07 12:51 Chief complaint: Patient states: has hx of Stage IV bladder cancer with mets to sacrum iw , has had increasing weakness, no appetite, increasing pain to right hip and leg, denies fever, chills, cough, has not been on chemo for 2 months due to insurance, was sent by Dr. Morgan. Coronavirus screen: At this time, the client does not indicate any symptoms associated with coronavirus-19. Ebola Screen: Patient negative for fever greater than or equal to 101.5 degrees Fahrenheit, and additional compatible Ebola Virus Disease symptoms Patient denies exposure to infectious person. Patient denies travel to an Ebola-affected area in the 21 days before illness onset. No symptoms or risks identified at this time. Initial Sepsis Screen: Does the patient meet any 2 criteria? No. Patient's initial sepsis screen is negative. Does the patient have a suspected source of infection? No. Patient's initial sepsis screen is negative. Risk Assessment: Do you want to hurt yourself or someone else? Patient reports no desire to harm self or others. Onset of symptoms was September 07, 2020. 12:51 Method Of Arrival: Wheelchair iw 12:51 Acuity: ERMA 3 iw Triage Assessment: 13:00 General: Appears distressed, uncomfortable, Behavior is cooperative, appropriate for bp age, anxious. Pain: Complains of pain in back. EENT: No deficits noted. Neuro: Level of Consciousness is awake, alert, obeys commands, Oriented to person, place, time, situation, Appropriate for age. Cardiovascular: Rhythm is sinus rhythm. Respiratory: No deficits noted. GI: Reports constipation. : No signs and/or symptoms were reported regarding the genitourinary system. Derm: No deficits noted. Musculoskeletal: Reports weakness in GENERAL. Historical: - Allergies: 12:58 No Known Allergies; iw - PMHx: 12:58 Bladder cancer; GERD; Hypertension; Kidney stones; mitral valve prolapse; Polycythemia; iw sciatica; - PSHx: 12:58 Hernia repair; Prostatectomy; iw - Immunization history:: Adult Immunizations not up to date. - Social history:: Smoking status: Patient/guardian denies using tobacco, the patient reports quitting approximately 5 years ago. - Family history:: not pertinent. Screenin:00 Abuse screen: Denies threats or abuse. Denies injuries from another. Nutritional bp screening: No deficits noted. Tuberculosis screening: No symptoms or risk factors identified. Fall Risk None identified. Assessment: 13:00 Reassessment: SEE TRIAGE NOTE. bp 14:00 Reassessment: No changes from previously documented assessment. Patient is alert, bp oriented x 3, equal unlabored respirations, skin warm/dry/pink. PT DRINKING PO CONTRAST. 15:30 Reassessment: PT VOMITING PO CONTRAST. MD NOTIFIED. MEDICATION ORDERED AND GIVEN. bp 16:30 Reassessment: No changes from previously documented assessment. Patient and/or family bp updated on plan of care and expected duration. Pain level reassessed. Patient is alert, oriented x 3, equal unlabored respirations, skin warm/dry/pink. ADMIT INITIATED. 17:10 Reassessment: Patient is alert, oriented x 3, equal unlabored respirations, skin aa5 warm/dry/pink. Dr. Stewart (Hospitalist) at bedside . 18:00 Reassessment: Patient is alert, oriented x 3, equal unlabored respirations, skin aa5 warm/dry/pink. Pt requesting pain medication. MD was notified. . 20:37 Reassessment: Patient and/or family updated on plan of care and expected duration. Pain ea level reassessed. Patient is alert, oriented x 3, equal unlabored respirations, skin warm/dry/pink. Pt admitted to second floor. Report called to receiving nurse on second floor. 20:58 Reassessment: Patient and/or family updated on plan of care and expected duration. Pain ea level reassessed. Patient is alert, oriented x 3, equal unlabored respirations, skin warm/dry/pink. Pt admitted to second floor, pt left ED via stretcher per tech. Pt accompanied by family. Pt tolerating well. Vital Signs: 12:51 BP 143 / 100; Pulse 113; Resp 20; Temp 98.6; Pulse Ox 99% on R/A; Weight 56.7 kg; iw Height 5 ft. 9 in. (175.26 cm); Pain 4/10; 14:00 BP 128 / 93; Pulse 86; Resp 19; Pulse Ox 99% ; bp 14:45 BP 145 / 98; Pulse 94; Resp 17; Pulse Ox 100% ; bp 15:30 BP 130 / 87; Pulse 93; Resp 17; Pulse Ox 100% ; bp 16:30 BP 127 / 87; Pulse 92; Resp 15; Pulse Ox 96% ; bp 17:10 BP 131 / 88; Pulse 84; Resp 16 S; Pulse Ox 98% on R/A; aa5 18:00 BP 124 / 89; Pulse 93; Resp 16 S; Pulse Ox 98% on R/A; aa5 20:35 BP 158 / 90; Pulse 88; Resp 20; Pulse Ox 97% on R/A; ea 12:51 Body Mass Index 18.46 (56.70 kg, 175.26 cm) iw ED Course: 12:33 Patient arrived in ED. ag5 12:47 Douglas Goetz MD is Attending Physician. janie 12:57 Triage completed. iw 12:57 Arm band placed on. iw 12:58 Jimmie Meier, BLUE is Primary Nurse. bp 13:00 Patient has correct armband on for positive identification. Placed in gown. Bed in low bp position. Call light in reach. Side rails up X2. Adult w/ patient. 13:07 Inserted saline lock: 20 gauge in left antecubital area, using aseptic technique. Blood dh4 collected. 13:30 XRAY Chest (1 view) In Process Unspecified. EDMS 16:29 Zelalem Stewart is Hospitalizing Provider. janie 16:40 Abdomen In Process Unspecified. EDMS 20:35 No provider procedures requiring assistance completed. Patient admitted, IV remains in ea place. Administered Medications: Discontinued: NS 0.9% 1000 ml IV at 125 ml/hr continuous 13:00 Drug: NS 0.9% 1000 ml Route: IV; Rate: 1 bolus; Site: left antecubital; bp 14:45 Drug: Dulcolax Suppository 10 mg {Note: ON HOLD AT B/S PER PT.} Route: MN; bp 16:52 Follow up: Response: No adverse reaction bp 14:45 Drug: Lactulose 30 grams Volume: 45 ml; Route: PO; bp 16:51 Follow up: Response: No adverse reaction bp 14:45 Drug: NS 0.9% 500 ml Route: IV; Rate: bolus; Site: left antecubital; bp 14:45 Drug: NS 0.9% 1000 ml Route: IV; Rate: 125 ml/hr; Site: left antecubital; bp 15:30 Drug: Zofran (Ondansetron) 4 mg Route: IVP; Site: left antecubital; bp 16:51 Follow up: Response: Nausea is decreased bp 17:04 Drug: D5-1/2 NS with KCl 20 mEq/L 1000 ml Route: IV; Rate: 150 ml/hr; Site: left vg1 antecubital; 18:15 Drug: morphine 4 mg Route: IVP; Site: left antecubital; aa5 18:15 Drug: Zofran (Ondansetron) 4 mg Route: IVP; Site: left antecubital; aa5 Outcome: 16:30 Decision to Hospitalize by Provider. janie 20:35 Admitted to Med/surg accompanied by tech, via stretcher, room 228, with chart, Report ea called to Sherie MCARTHUR 20:35 Condition: stable 20:35 Instructed on the need for admit, Demonstrated understanding of instructions. 20:57 Patient left the ED. ea Signatures: Dispatcher [employer] Douglas London MD MD cha Williams, Irene, RN Cynthia Adams RN BLUE aa5 Sherie Juarez RN RN ea Peltier, Brian RN Aashish Ibrahim Donald dh4 Garcia, Victoria, RN RN vg1
--- NOTE | 2020-09-07 16:31 | EDPHYS ---
Physician Documentation [facility] Name: Chema Hernandez Age: 70 yrs Sex: Male : 1950 Arrival Date: 09/07/2020 Time: 12:33 Bed 7 Private MD: YENIFER Physician Douglas Goetz HPI: 09/07 14:27 This 70 yrs old Male presents to ER via Wheelchair with complaints of General janie Weakness. 14:27 The patient presents with abdominal pain in the upper abdomen, in the lower abdomen. janie Onset: The symptoms/episode began/occurred 6 day(s) ago. no bm 5 days, cant eat or drink. Onset: The symptoms/episode began/occurred 6 day(s) ago. The symptoms do not radiate. Associated signs and symptoms: Pertinent positives: nausea and vomiting, anorexia, constipation. The symptoms are described as constant, crampy. Modifying factors: The symptoms are alleviated by nothing, the symptoms are aggravated by nothing. Severity of pain: At its worst the pain was mild in the emergency department the pain is unchanged. Severity of symptoms: At their worst the symptoms were moderate in the emergency department the symptoms are unchanged. Historical: - Allergies: 12:58 No Known Allergies; iw - PMHx: 12:58 Bladder cancer; GERD; Hypertension; Kidney stones; mitral valve prolapse; Polycythemia; iw sciatica; - PSHx: 12:58 Hernia repair; Prostatectomy; iw - Immunization history:: Adult Immunizations not up to date. - Social history:: Smoking status: Patient/guardian denies using tobacco, the patient reports quitting approximately 5 years ago. - Family history:: not pertinent. ROS: 14:27 Constitutional: Negative for fever, chills, and weight loss, Eyes: Negative for injury, janie pain, redness, and discharge, ENT: Negative for injury, pain, and discharge, Neck: Negative for injury, pain, and swelling, Cardiovascular: Negative for chest pain, palpitations, and edema, Respiratory: Negative for shortness of breath, cough, wheezing, and pleuritic chest pain, Back: Negative for injury and pain, : Negative for injury, bleeding, discharge, and swelling, MS/Extremity: Negative for injury and deformity, Skin: Negative for injury, rash, and discoloration, Psych: Negative for depression, anxiety, suicide ideation, homicidal ideation, and hallucinations, Allergy/Immunology: Negative for hives, rash, and allergies, Endocrine: Negative for neck swelling, polydipsia, polyuria, polyphagia, and marked weight changes, Hematologic/Lymphatic: Negative for swollen nodes, abnormal bleeding, and unusual bruising. 14:27 Respiratory: Positive for cough. 14:27 Abdomen/GI: Positive for abdominal pain, nausea and vomiting, constipation. 14:27 Neuro: Positive for dizziness, weakness. Exam: 14:27 Constitutional: This is a well developed, well nourished patient who is awake, alert, janie and in no acute distress. Head/Face: Normocephalic, atraumatic. Eyes: Pupils equal round and reactive to light, extra-ocular motions intact. Lids and lashes normal. Conjunctiva and sclera are non-icteric and not injected. Cornea within normal limits. Periorbital areas with no swelling, redness, or edema. ENT: Nares patent. No nasal discharge, no septal abnormalities noted. Tympanic membranes are normal and external auditory canals are clear. Oropharynx with no redness, swelling, or masses, exudates, or evidence of obstruction, uvula midline. Mucous membranes moist. Neck: Trachea midline, no thyromegaly or masses palpated, and no cervical lymphadenopathy. Supple, full range of motion without nuchal rigidity, or vertebral point tenderness. No Meningismus. Chest/axilla: Normal chest wall appearance and motion. Nontender with no deformity. No lesions are appreciated. Cardiovascular: Regular rate and rhythm with a normal S1 and S2. No gallops, murmurs, or rubs. Normal PMI, no JVD. No pulse deficits. Respiratory: Lungs have equal breath sounds bilaterally, clear to auscultation and percussion. No rales, rhonchi or wheezes noted. No increased work of breathing, no retractions or nasal flaring. Back: No spinal tenderness. No costovertebral tenderness. Full range of motion. Male : Normal genitalia with no discharge or lesions. Skin: Warm, dry with normal turgor. Normal color with no rashes, no lesions, and no evidence of cellulitis. MS/ Extremity: Pulses equal, no cyanosis. Neurovascular intact. Full, normal range of motion. Neuro: Awake and alert, GCS 15, oriented to person, place, time, and situation. Cranial nerves II-XII grossly intact. Motor strength 5/5 in all extremities. Sensory grossly intact. Cerebellar exam normal. Normal gait. Psych: Awake, alert, with orientation to person, place and time. Behavior, mood, and affect are within normal limits. 14:27 Abdomen/GI: Inspection: abdomen appears normal, Bowel sounds: normal, Palpation: mild abdominal tenderness, in all quadrants, Liver: no appreciated palpable abnormalities, Hernia: not appreciated. 14:32 ECG was reviewed by the Attending Physician. janie Vital Signs: 12:51 BP 143 / 100; Pulse 113; Resp 20; Temp 98.6; Pulse Ox 99% on R/A; Weight 56.7 kg; iw Height 5 ft. 9 in. (175.26 cm); Pain 4/10; 14:00 BP 128 / 93; Pulse 86; Resp 19; Pulse Ox 99% ; bp 14:45 BP 145 / 98; Pulse 94; Resp 17; Pulse Ox 100% ; bp 15:30 BP 130 / 87; Pulse 93; Resp 17; Pulse Ox 100% ; bp 16:30 BP 127 / 87; Pulse 92; Resp 15; Pulse Ox 96% ; bp 17:10 BP 131 / 88; Pulse 84; Resp 16 S; Pulse Ox 98% on R/A; aa5 18:00 BP 124 / 89; Pulse 93; Resp 16 S; Pulse Ox 98% on R/A; aa5 20:35 BP 158 / 90; Pulse 88; Resp 20; Pulse Ox 97% on R/A; ea 12:51 Body Mass Index 18.46 (56.70 kg, 175.26 cm) iw MDM: 12:47 Patient medically screened. janie 14:31 Differential diagnosis: bowel obstruction, cholecystitis, Cholelithiasis, gastritis, janie non-specific abd pain, pancreatitis, Peptic Ulcer Disease, urinary tract infection. Data reviewed: vital signs, nurses notes, lab test result(s), EKG, radiologic studies, CT scan, plain films. Data interpreted: clinical research monitor: rate is 86 beats/min, rhythm is regular, Pulse oximetry: on room air. Test interpretation: by ED physician or midlevel provider: ECG, plain radiologic studies. Counseling: I had a detailed discussion with the patient and/or guardian regarding: the historical points, exam findings, and any diagnostic results supporting the discharge/admit diagnosis, the presence of at least one elevated blood pressure reading (>120/80) during this emergency department visit, lab results, radiology results. Medical screen evaluation completed. EMTALA emergency medical condition absent. 09/07 12:52 Order name: Basic Metabolic Panel; Complete Time: 14:23 [facility] 09/07 12:52 Order name: CBC with Diff; Complete Time: 14:23 janie 09/07 12:52 Order name: LFT's; Complete Time: 14:23 09/07 12:52 Order name: Magnesium; Complete Time: 14:23 [facility] 09/07 12:52 Order name: NT PRO-BNP; Complete Time: 14:23 [facility] 09/07 12:52 Order name: PT-INR; Complete Time: 14:23 [facility] 09/07 12:52 Order name: Troponin (emerg Dept Use Only); Complete Time: 14:23 [facility] 09/07 12:52 Order name: XRAY Chest (1 view); Complete Time: 14:23 [facility] 09/07 12:52 Order name: CK; Complete Time: 14:23 [facility] 09/07 12:52 Order name: Ckmb; Complete Time: 14:23 [facility] 09/07 12:52 Order name: Lipase; Complete Time: 14:23 [facility] 09/07 15:14 Order name: Abdomen EDNC 09/07 20:19 Order name: Glucose, Ancillary Testing EDNC 09/07 12:52 Order name: EKG; Complete Time: 12:53 [facility] 09/07 12:52 Order name: Cardiac monitoring; Complete Time: 12:59 [facility] 09/07 12:52 Order name: EKG - Nurse/Tech; Complete Time: 13:19 [facility] 09/07 12:52 Order name: IV Saline Lock; Complete Time: 12:59 [facility] 09/07 12:52 Order name: Labs collected and sent; Complete Time: 12:59 [facility] 09/07 12:52 Order name: O2 Per Protocol; Complete Time: 12:59 [facility] 09/07 12:52 Order name: O2 Sat Monitoring; Complete Time: 12:59 [facility] EC:32 Rate is 100 beats/min. Rhythm is regular. QRS Simms is Normal. TX interval is normal. janie QRS interval is normal. QT interval is normal. No Q waves. T waves are Normal. No ST changes noted. Clinical impression: NSR w/ Non-specific ST/T Changes and No evidence of ischemia. Interpreted by me. Reviewed by me. Administered Medications: Discontinued: NS 0.9% 1000 ml IV at 125 ml/hr continuous 13:00 Drug: NS 0.9% 1000 ml Route: IV; Rate: 1 bolus; Site: left antecubital; bp 14:45 Drug: Dulcolax Suppository 10 mg {Note: ON HOLD AT B/S PER PT.} Route: TX; bp 16:52 Follow up: Response: No adverse reaction bp 14:45 Drug: Lactulose 30 grams Volume: 45 ml; Route: PO; bp 16:51 Follow up: Response: No adverse reaction bp 14:45 Drug: NS 0.9% 500 ml Route: IV; Rate: bolus; Site: left antecubital; bp 14:45 Drug: NS 0.9% 1000 ml Route: IV; Rate: 125 ml/hr; Site: left antecubital; bp 15:30 Drug: Zofran (Ondansetron) 4 mg Route: IVP; Site: left antecubital; bp 16:51 Follow up: Response: Nausea is decreased bp 17:04 Drug: D5-1/2 NS with KCl 20 mEq/L 1000 ml Route: IV; Rate: 150 ml/hr; Site: left vg1 antecubital; 18:15 Drug: morphine 4 mg Route: IVP; Site: left antecubital; aa5 18:15 Drug: Zofran (Ondansetron) 4 mg Route: IVP; Site: left antecubital; aa5 Disposition: 09/07/20 16:30 Hospitalization ordered by Zelalem Stewart for Inpatient Admission. Preliminary diagnosis are Weakness, Volume depletion, Anorexia, Abdominal tenderness, Constipation, Hypokalemia. - Bed requested for Telemetry/MedSurg (Inpatient). - Status is Inpatient Admission. ea - Condition is Fair. - Problem is new. - Symptoms have improved. Signatures: Dispatcher [employer] EDMS Aura Brown Corey, MD MD cha Williams, Irene, Cynthia Adams RN, RN RN aa5 Sherie Juarez RN RN ea Peltier, Brian, RN RN bp Garcia, Victoria, RN RN vg1 Corrections: (The following items were deleted from the chart) 15:14 14:26 Abdomen Pelvis W Con+CT.RAD.BRZ ordered. EDMS EDMS 18:32 16:30 Hospitalization Ordered by Zelalem Stewart for Inpatient Admission. Preliminary bd diagnosis is Weakness; Volume depletion; Anorexia; Abdominal tenderness; Constipation; Hypokalemia. Bed requested for Telemetry/MedSurg (Inpatient). Status is Inpatient Admission. Condition is Fair. Problem is new. Symptoms have improved. janie 20:57 18:32 09/07/2020 16:30 Hospitalization Ordered by Zelalem Stewart for Inpatient ea Admission. Preliminary diagnosis is Weakness; Volume depletion; Anorexia; Abdominal tenderness; Constipation; Hypokalemia. Bed requested for Telemetry/MedSurg (Inpatient). Status is Inpatient Admission. Condition is Fair. Problem is new. Symptoms have improved. bd
[2020-09-07] MEDS ORDERED: D5 0.45 NS 1,000 ML IV ONE (16:58)
--- NOTE | 2020-09-07 17:18 | RAD REPORT ---
EXAM DESCRIPTION: CT - Abdomen Pelvis Wo Contrast - 09/07/2020 4:40 pm CLINICAL HISTORY: ABD PAIN Abdominal pain extending into the right hip and leg, history of bladder cancer and kidney stones, jay jay or hernia repair prostatectomy COMPARISON: Stone Protocol dated 08/23/2018; Chest Abdomen Pelvis W Cont dated 05/12/2020 TECHNIQUE: Axial [address] imaging of the abdomen and pelvis was performed without IV contrast. No IV contrast was given because of allergy, abnormal renal function, patient refusal or physician re quest. Oral contrast administered. All CT scans are performed using dose optimization technique as appropriate and may include automated exposure control or mA/KV adjustment according to patient size. FINDINGS: An millimeter pulmonary nodule is present in medial left lung base. A nodule 9 mm in size seen on the April study. No acute lung base finding. This is not a full assessment of the lung castellanos. No pericardial effusion. No cardiomegaly. Numerous thin-walled homogeneous cystic masses of the liver parenchyma not clearly different from the recent April examination. No clearly solid mass of the liver seen. The complex cystic mass in the ant erior spleen also without significant finding. No acute pancreatic process. Gallbladder and biliary t ree are also without suspicious finding. No hydronephrosis or suspicious renal mass. No significant adrenal finding. Isodense renal masses an d pyelonephritis cannot be excluded in the absence of IV contrast. The urinary bladder is without sig nificant finding. No gastric dilatation or gastric wall thickening. No dilated small bowel loops. Patient has prominent left-sided diverticulosis without diverticulitis. No acute colon process identified. No free air, fr ee fluid or inflammatory stranding. Left inguinal hernia repair changes are present. Soft tissue at t he left inguinal canal is stable. Right knee no canal surgical changes are stable as well. Prostate i s surgically absent. Patient has known bony metastatic disease. There is a substantial increase in the number of blastic l esions in the skeleton. Size of pre-existing metastatic lesions has increased. Patient has a known gr ossly 6 centimeter sized mass causing expansile and destructive changes of the right side at the sacr um. Mass component has not clearly changed in size. Pathologic fracture changes in the midline sacrum and lateral sacral ala on the right noted. There is increasing bone destruction in the right ilium a t the SI joint level. IMPRESSION: Progression of bony metastatic disease since the May 12 imaging with increasing size an d number of lesions. The large 6 centimeter mass with expansile and destructive changes of the right-side sacrum has not c learly changed in size though there does appear to be new pathologic fracture changes in the midline sacrum and right lateral sacral ala and right ilium near the SI joint. No evidence for an acute GI or finding. No ascites, free air or surgically emergent finding. Full assessment is limited is the absence of IV contrast.
--- NOTE | 2020-09-07 17:51 | P.HP ---
Certification for Inpatient Patient admitted to: Observation With expected LOS: <2 Midnights Practitioner: I am a practitioner with admitting privileges, knowledge of patient current condition, hospital course, and medical plan of care. Services: Services provided to patient in accordance with Admission requirements found in Title 42 Section 412.3 of the Code of Federal Regulations Patient History Date of Service: 09/07/20 Reason for admission: Generalized weakness History of Present Illness: 70-year-old gentleman with stage IV bladder cancer with distant metastasis was referred to the emergency department by his oncologist due to difficulty with eating and drinking, intractable nausea, constipation and generalized weakness. CT abdomen done in the emergency department is negative for bowel obstruction but has significance stool burden. Blood work shows acute renal failure. Patient is hospitalized for hydration and for treatment of constipation given that he has failed outpatient treatment. Allergies No Known Allergies Allergy (Verified 08/07/15 11:44) Home Medications: Amlodipine [Norvasc*] 5 mg PO DAILY 08/07/15 Losartan/Hydrochlorothiazide [Hyzaar 100-12.5 Tablet] 1 tab PO DAILY 08/07/15 Omeprazole [Prilosec] 40 mg PO DAILY 07/25/18 Atorvastatin Calcium [Lipitor] 80 mg PO BEDTIME #30 tab 07/26/18 Hyalur AC/Chond Sul/Colg II/Aa [Hyaluronic Acid 40 mg Capsule] 1 cap PO DAILY 08/24/18 - Past Medical/Surgical History Diabetic: No -: Hypertension -: Polycythemia -: Nephrolithiasis -: History of prostate cancer -: Mitral valve prolapse -: MRSA 2002 Wound to Left Groin -: 2007 Ruptured Vessel in Colon -: Radical prostatectomy -: Hernia repair -: L Rotator cuff repair Psychosocial/ Personal History: He is . He has 2 children. 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 - Family History Mother -: Cancer Father -: Heart disease - Social History Alcohol use: Yes CD- Drugs: No Caffeine use: Yes Review of Systems Other: Except as documented, all other systems reviewed and negative. Physical Examination - Physical Exam General: In no apparent distress, Cachectic, Other (Frail-appearing) HEENT: PERRLA, Mucous membr. moist/pink, Sclerae nonicteric Neck: Supple Respiratory: Clear to auscultation bilaterally, Normal air movement Cardiovascular: No edema, Regular rate/rhythm, Normal S1 S2 Gastrointestinal: Normal bowel sounds, Soft and benign, Non-distended, No tenderness Musculoskeletal: No swelling, No tenderness Integumentary: No rashes, No erythema Neurological: Normal speech, Normal strength at 5/5 x4 extr - Studies Laboratory Data (last 24 hrs) 09/07/20 13:02: PT 13.6 H, INR 1.16 09/07/20 13:02: WBC 9.0, Hgb 12.0 L, Hct 37.5 L, Plt Count 303 09/07/20 13:02: Sodium 140, Potassium 3.4 L, BUN 27 H, Creatinine 1.43 H, Glucose 138 H, Magnesium 2.0, Total Bilirubin 0.7, AST 18, ALT 14, Alkaline Phosphatase 946 H, Lipase 60 L Assessment and Plan - Problems (Diagnosis) (1) Dehydration Current Visit: Yes Status: Acute (2) Functional constipation Current Visit: Yes Status: Acute (3) Primary cancer of bladder with metastasis to other site Current Visit: Yes Status: Acute (4) Cancer related pain Current Visit: Yes Status: Acute (5) Acute kidney injury Onset Date: 08/24/18 Current Visit: No Status: Acute - Plan Place under observation. Start IV hydration with D5 normal saline. Treat constipation with oral Mag citrate and Dulcolax supposed Senna b.i.d. Monitor renal function with improvement with IV hydration. Recommended small frequent high-calorie diet. Nutritional consult. Zinc tablet for altered taste. - Advance Directives Does patient have a Living Will: No Does patient have a Durable POA for Healthcare: No - Code Status/Comfort Care Code Status Assessed: Yes Code Status: Full Code
[2020-09-07] MEDS ORDERED: MORPHINE 4 MG/ML SYR ONE (18:22)
[2020-09-07] MEDS ORDERED: BISACODYL 10 MG RECTAL SUPP PR ONE (21:42)
[2020-09-07] MEDS ORDERED: MIRTAZAPINE 15 MG TAB PO SCH (21:42)
[2020-09-07] MEDS ORDERED: ONDANSETRON 4 MG/2 ML VIAL IV PRN (21:42)
[2020-09-07] MEDS ORDERED: MAGNESIUM CITRATE 300 ML BOT PO SCH (21:42)
[2020-09-07] MEDS ORDERED: ACETAMINOPHEN 500 MG TAB PO PRN (21:42)
[2020-09-07 21:52] VITALS: BMI 16.3
[2020-09-07] MEDS: SENOSIDES 8.6 MG TAB PO SCH (22:05)
[2020-09-07] MEDS: D5 0.9 NS 1,000 ML IV SCH (22:10)
[2020-09-08 02:46] VITALS: O2SAT 97
[2020-09-08 05:56] LABS: Absolute Lymphocytes (CBC) 0.6 K/uL (0.7-4.9); Basophils % 0.4 % (0-1.3); Hematocrit 30.9 % (39.6-49.0); Lymphocytes % 11.3 % (15.3-44.8); MPV 7.4 fL (7.6-11.3); RBC Red Blood Cell Count 3.68 M/uL (4.33-5.43)
[2020-09-08] MEDS ORDERED: PNEUMOCOCCAL VACCINE 0.5 ML IMVAC ONE (06:00)
[2020-09-08 06:23] LABS: Albumin 2.8 g/dL (3.4-5.0); Bilirubin Total 0.6 mg/dL (0.2-1.0); Phosphorus 2.3 mg/dL (2.5-4.9); Potassium 3.3 mmol/L (3.5-5.1); Protein, Total 5.7 g/dL (6.4-8.2)
[2020-09-08] MEDS ORDERED: POTASSIUM CL SA 10 MEQ TAB PO ONE (09:00)
[2020-09-08] MEDS ORDERED: ENOXAPARIN 40 MG/0.4 ML SQ SCH (09:00)
[2020-09-08] MEDS ORDERED: ZINC SULFATE 220 MG CAP PO SCH (09:00)
[2020-09-08] MEDS ORDERED: POTASS/SODIUM PHOSPHATE 1 PKT POWD.PACK PO ONE (09:00)
[2020-09-08] MEDS ORDERED: HYDROCODONE/APAP 10/325 TAB PO PRN (10:00)
[2020-09-08] MEDS: SENOSIDES 8.6 MG TAB PO SCH (10:08)
[2020-09-08] MEDS: D5 0.9 NS 1,000 ML IV SCH ×2 (10:10→17:42)
[2020-09-08] MEDS ORDERED: AMLODIPINE 5 MG TAB PO SCH (12:00)
[2020-09-08] MEDS: MORPHINE *EXTENDED RELEASE* 15 MG TAB PO SCH ×2 (12:02→17:00)
[2020-09-08 16:38] VITALS: BP 123/71; TEMP 98.2
--- NOTE | 2020-09-08 16:44 | P.DS ---
Admission Date: 09/07/20 Discharge Date: 09/08/20 Disposition: OK HOME/HOME HEALTH CARE Discharge Condition: FAIR Reason for Admission: Generalized weakness Procedures: CXR (09/07): No mass or consolidation. CT Abd/Pelvis (09/07): Progression of bony metastatic disease since the May 12 imaging with increasing size and number of lesions. The large 6 centimeter mass with expansile and destructive changes of the right- side sacrum has not clearly changed in size though there does appear to be new pathologic fracture changes in the midline sacrum and right lateral sacral ala and right ilium near the SI joint. No evidence for an acute GI or finding. No ascites, free air or surgically emergent finding Problem List Stage IV bladder cancer, bone mets; worsening and new pathologic fractures VALERIE Hypertension Chronic pain secondary to cancer Chronic constipation Brief History of Present Illness: 70yo, PMH: stage IV bladder cancer with bone mets was referred to ED by his oncologist due to difficulty with eating/drinking, intractable nausea, constipation, and worsening generalized weakness. CT abdomen done in the emergency department is negative for bowel obstruction but has significance stool burden. Blood work shows acute renal failure (Cr: 1.43). Patient was hospitalized for hydration and for treatment of constipation given that he has failed outpatient treatment. Hospital Course: Patient was admitted and initially treated with IVF and laxatives. He had resolution of his VALERIE and had multiple bowel movements. His appetite returned and he tolerated lunch without issue. His CT was reviewed and notable for progression of his bony metastatic disease and new pathologic fractures. He also had an elevated alkaline phosphatase of 946. I reviewed the fractures with orthopedic surgery who reviewed the imaging and recommended non-weightbearing of his right leg due to concern for nerve damage if his fractures were to worsen. This was reviewed with the patient and his . His case was reviewed with his oncologist as well, Dr. Morgan, who felt patient may benefit from chemotherapy and/or immunotherapy. The patient was evaluated by PT/OT and was noted to required a lot of assistance with mobility / transfers. All of this data was reviewed with the patient and his . There was a long discussion regarding disposition and possible home hospice. The patient adamantly refused SNF and ultimately decided to be discharged home with home health and home PT. He has an appointment already scheduled with his oncologist on 09/15. Orders for a wheelchair and hospital bed for his home were ordered. He was advised to take milk of magnesia if he does not have a bowel movement at least every 3rd day. He was also given a 1 week course of decadron to help with his pain. Vital Signs/Physical Exam: Temp Pulse Resp BP Pulse Ox 98.2 F 73 18 123/71 96 09/08/20 16:00 09/08/20 16:00 09/08/20 16:00 09/08/20 16:00 09/08/20 16:00 General: Alert, In no apparent distress, Oriented x3, Cachectic HEENT: Sclerae nonicteric Respiratory: Clear to auscultation bilaterally Cardiovascular: No edema, Regular rate/rhythm Gastrointestinal: Soft and benign, No tenderness Musculoskeletal: No erythema Integumentary: No rashes Neurological: Normal speech, Normal affect Laboratory Data at Discharge: WBC 5.6 K/uL (4.3-10.9) D 09/08/20 05:42 Hgb 10.0 g/dL (13.6-17.9) L 09/08/20 05:42 Hct 30.9 % (39.6-49.0) L D 09/08/20 05:42 Plt Count 236 K/uL (152-406) D 09/08/20 05:42 PT 13.6 SECONDS (9.5-12.5) H 09/07/20 13:02 INR 1.16 09/07/20 13:02 Sodium Cancelled 09/08/20 15:00 Potassium 3.6 mmol/L (3.5-5.1) 09/08/20 15:16 BUN Cancelled 09/08/20 15:00 Creatinine Cancelled 09/08/20 15:00 Glucose Cancelled 09/08/20 15:00 Phosphorus Cancelled 09/08/20 Unknown Magnesium 2.0 mg/dL (1.8-2.4) 09/08/20 05:42 Total Bilirubin 0.6 mg/dL (0.2-1.0) 09/08/20 05:42 AST 13 U/L (15-37) L 09/08/20 05:42 ALT 13 U/L (12-78) 09/08/20 05:42 Alkaline Phosphatase 812 U/L (45-117) H 09/08/20 05:42 Lipase 60 U/L (73-393) L 09/07/20 13:02 Home Medications: Amlodipine [Norvasc*] 5 mg PO DAILY 08/07/15 Losartan/Hydrochlorothiazide [Hyzaar 100-12.5 Tablet] 1 tab PO DAILY 08/07/15 Omeprazole [Prilosec] 40 mg PO DAILY 07/25/18 Atorvastatin Calcium [Lipitor] 80 mg PO BEDTIME #30 tab 07/26/18 Hyalur AC/Chond Sul/Colg II/Aa [Hyaluronic Acid 40 mg Capsule] 1 cap PO DAILY 08/24/18 Hydrocodone Bit/Acetaminophen [Hydrocodon-Acetaminophen 5-325] 1 tab PO PRN PRN 09/08/20 Morphine *Extended Release* [MS Contin*] 60 mg PO BID 09/08/20 Ondansetron [Zofran (Odt)*] 4 mg PO Q6HP PRN 09/08/20 dexAMETHasone [Dexamethasone] 4 mg PO BID 7 Days #14 tab 09/08/20 New Medications: dexAMETHasone [Dexamethasone] 4 mg PO BID 7 Days #14 tab Patient Discharge Instructions: follow up with Dr. Morgan in 1 week. home health and PT have been ordered. Diet: Regular Activity: Non-weight bearing (of right leg) Followup: Anusha Morgan MD [ACTIVE - CAN ADMIT] - Unknown,U [Primary Care Provider] - Time spent managing pt's care (in minutes): 35
--- NOTE | 2020-09-08 18:15 | EKG ---
Test Date: 2020-09-07 Test Time: 13:09:05 [employer]ne[employer] Electric[employer]: BP MEASUREMENT RESULTS: Intervals: Rate: 100 AR: 166 QRSD: 114 QT: 338 QTc: 436 [place]: P: 72 AR: 166 QRS: -66 T: 69 INTERPRETIVE STATEMENTS: Normal sinus rhythm Left axis deviation Septal infarct, age undetermined Abnormal ECG Compared to ECG 08/24/2018 10:21:36 Sinus bradycardia no longer present Myocardial infarct finding still present Electronically Signed On 09-08-20 18:11:36 REFERENCE SERVICES HEAD by Troy Menendez
[2020-09-08 18:53] LABS: Urine Appearance CLOUDY; Urine Bilirubin NEGATIVE (NEG); Urine Blood 1+ (NEG); Urine Color YELLOW; Urine Glucose NEGATIVE (NEG); Urine Protein TRACE (NEG); Urine Urobilinogen 0.2 mg/dL (0.2-1.0); Urine pH 5.5 (5.0-7.0)
[2020-09-08 19:13] LABS: Urine Microscopic Reflex ORDER UMIC
[2020-09-08 20:26] LABS: Urine Bacteria >50 /HPF (NONE SEEN)
[2020-09-08] MEDS ORDERED: ATORVASTATIN 80 MG TAB PO SCH (21:00)
[2020-09-08] MEDS ORDERED: MORPHINE *EXTENDED RELEASE* 15 MG TAB PO SCH (21:00)
[2020-09-09] MEDS ORDERED: HOME MED 1 EA UNK (Omeprazole [Prilosec] 40 MG) PO SCH (09:00)
[2020-09-09] MEDS ORDERED: PANTOPRAZOLE 40MG TABLET PO SCH (09:00)
== END 2020-09-08 18:50 | disposition home health service (06) ==
LOC: ER 12:31 → ERHOLD 17:24 → 2ND 20:41
PROVIDERS: ADMIT Internal Medicine; ATTEND Hospitalist
DX: C79.51 Secondary malignant neoplasm of bone (principal); C67.9 Malignant neoplasm of bladder, unspecified; N17.9 Acute kidney failure, unspecified; M84.58XA Pathological fracture in neoplastic disease, other specified site, initial encounter for fracture; K59.00 Constipation, unspecified; Z20.828 Contact with and (suspected) exposure to other viral communicable diseases; G89.3 Neoplasm related pain (acute) (chronic); I10 Essential (primary) hypertension; K59.09 Other constipation; Z85.46 Personal history of malignant neoplasm of prostate; R53.1 Weakness; I34.1 Nonrheumatic mitral (valve) prolapse; E86.0 Dehydration; R94.31 Abnormal electrocardiogram [ECG] [EKG]
CPT/HCPCS: 93005; 87088; 85025 ×2; 87086; 80048; 36415; 83735 ×2; 82550; 84100; 84132; 85610; 82947; 80076; 87077; 87186; 84484; 82553; 83690; 80053; 83880; 74176; 71045; 97110; 97161; 97530 ×2; 96375; 96374; 99285; J1650; J7042 ×2; J7799; J7030 ×2; J2405 ×2; G0378 ×3; 81003; 81015